=== PATIENT | female | born 1935 | race Caucasian/White ===

== ENCOUNTER 2023-07-06 07:29 | Outpatient (OUT) | payer MEDICARE, SELFPAY ==
--- NOTE | 2023-07-06 07:30 | CA_ITS ---
Patient Name: SANIYA ZHANG MR#: [id number] : 1935 Exam Date: 07/06/2023 Ordering Doctor: DR ANA GUADALUPE M.D. ECHOCARDIOGRAM REPORT PROCEDURE: CA ECHO DOPPLER COMPLETE INDICATIONS: Murmur COMPARISON: None. DESCRIPTION: COMPLETE ECHOCARDIOGRAM Real-time transthoracic echocardiography with 2D, M-mode, spectral and color flow Doppler performed. QUALITY: Technical quality was good. 64 , 130#, BSA 1.63 m2, BP 148/92 LEFT VENTRICLE: Normal chamber size. Thickened septal wall. Moderate concentric hypertrophy. Normal systolic function. LV EF: Normal left ventricular ejection fraction, (>55%). DIASTOLIC: Grade I diastolic dysfunction. ATRIAL SEPTUM: Visually appears intact. LEFT ATRIUM: Moderate dilatation. RIGHT ATRIUM: Normal chamber size. RIGHT VENTRICLE: Normal chamber size. Normal right ventricular systolic function. TRICUSPID VALVE: Normal mobility and thickness. No stenosis with mild regurgitation. Doppler studies reveal mildly (35-45) elevated right sided pressures. RVSP 38 mmHg MITRAL VALVE: Mildly thickened with normal mobility. No evidence of mitral valve stenosis. Moderate mitral annular calcification. Trivial mitral regurgitation. AORTIC VALVE: Normal trileaflet appearance. Moderately calcified aortic valve. Moderately diminished mobility. Doppler velocity suggests moderate aortic valve stenosis. DVI 0.38, mean gradient 10 mmHg, peak velocity 2.2 m/s. SOHAM 1.1 cm2. No aortic regurgitation. AORTIC ROOT: Normal diameter and appearance. PULMONIC VALVE: Normal thickness and mobility. No stenosis. Trivial regurgitation. PERICARDIUM: Trivial pericardial effusion. IVC: Collapses with inspirations. IVC is normal in size. PLEURA: CONCLUSION: 1. The left ventricle exhibits moderate concentric hypertrophy with normal systolic function. Estimated LVEF is 60 to 65%. 2. Normal right ventricular size and systolic function. 3. Moderate aortic valve stenosis. 4. Mild diastolic dysfunction. 5. Mildly elevated right-sided pressures. Adult Echocardiography Procedure Report Left Ventricle LVEDD (3.7 - 5.6 cm): 4.07 cm LVESD (2.2 - 4.0 cm): 2.82 cm LVIVS thickness (0.6 - 1.2 cm): 1.59 cm LVPW thickness (0.5 - 1.0 cm): 1.09 cm e': 0.05 m/s E - e': 12.18 LVOT Max Gradient: 2.75 mm[Hg] Peak Velocity (LVOT): 0.83 m/s Mean Velocity (LVOT): 0.55 m/s LVOT Diameter 1.9 cm Left Atrium LA Volume Index (2D A2C): 41.08 ml/m2 Left Atrium Systolic Dimension: 3.79 cm Mitral Valve MV E to A Ratio: 0.64 Mitral Valve A-Wave Peak Velocity: 0.94 m/s Mitral Valve E-Wave Peak Velocity: 0.60 m/s Right Ventricle Aorta AO Root Diam: 3.42 cm Ascending Ao Diam: 3.30 cm Aortic Valve AoV Area (Peak Elian): 1.1 cm2 Peak Velocity(Antegrade Flow): 2.19 m/s Peak Gradient(Antegrade Flow): 19.18 mm[Hg] Mean Velocity(Antegrade Flow): 1.45 m/s Mean Gradient(Antegrade Flow): 9.51 mm[Hg] Velocity Time Integral: 52.82 cm Tricuspid Valve Peak Velocity (Regurgitant Flow): 2.42 m/s, 2.97 m/s Pulmonic Valve Peak Gradient: 2.41 mm[Hg], 2.47 mm[Hg] Right Atrium Right Atrium Systolic Pressure: 45.08 ml, 45.08 ml Dictated by: Gen Strange M.D. on 07/06/2023 at 16:35 Approved by: Gen Strange M.D. on 07/06/2023 at 16:46
== END 2023-07-06 07:30 | disposition home or self-care (01) ==
LOC: CARD 07:29
PROVIDERS: PCP Internal Medicine; Visit Provider Internal Medicine
DX: R01.1 Cardiac murmur, unspecified (principal)
CPT/HCPCS: 93306

== ENCOUNTER 2023-07-06 07:32 | Outpatient (OUT) | payer MEDICARE, SELFPAY ==
[2023-07-06 09:26] LABS: Sodium 144 mmol/L (136-145); Thyroid Stimulating Hormone 4.493 uIU/mL (0.358-3.740)
== END 2023-07-06 07:33 | disposition home or self-care (01) ==
LOC: LAB 07:33
PROVIDERS: PCP Internal Medicine; Visit Provider Nurse Practitioner Family
DX: G31.84 Mild cognitive impairment of uncertain or unknown etiology (principal); Z79.899 Other long term (current) drug therapy; Z51.81 Encounter for therapeutic drug level monitoring
CPT/HCPCS: 36415; 82607; 84295; 84443

== ENCOUNTER 2023-08-01 12:45 | Inpatient (IN) | payer MEDICARE, SELFPAY ==
[2023-08-01] VITALS (19 sets, daily range): BP systolic 123–188; BP diastolic 66–94; PULSE 73–94; TEMP 36.6–36.8; O2SAT 90–99; BMI 22.3; BMI 22.1
--- NOTE | 2023-08-01 13:07 | CT_ITS ---
The [address] [address] Patient Name: SANIYA ZHANG MRN: [id number] date: 1935 Sex: F Assigned Patient Location: ER Current Patient Location: ER Accession/Order Number: [id number] Exam Date: 08/01/2023 14:08 Report Date: 08/01/2023 14:42 At the request of: DEEPTHI CALABRESE Procedure: CT cervical spine wo con CT head/brain wo con, CT cervical spine wo con, 08/01/2023 2:08 PM EDT INDICATION: Fall COMPARISON: There is no appropriate prior study for comparison. TECHNIQUE: Axial images of 3 mm are obtained from the base of the skull to vertex completed with Axial images of 2 mm are obtained from base of skull to T2 without contrast. Dose reduction techniques were achieved by using automated exposure control and/or adjustment of mA and/or kV according to patient size and/or use of iterative reconstruction technique. FINDINGS: The cerebral and cerebellar sulci as well as ventricular system are appropriate for age. There is no intracranial mass, mass effect, midline shift, intra or extra-axial fluid collection. No acute territorial infarction or hemorrhage is noted. Periventricular and centrum semiovale hypodensities are most likely consistent with microvascular ischemic changes. Mild soft tissue swelling along the right eyebrow with a laceration is noted. The visualized portions of orbits, mastoid air cells as well as paranasal sinuses are unremarkable. There is no suspicious osteolytic or osteoblastic lesion. No acute fracture or dislocation is noted. Grade 1 anterolisthesis of C4 on C5 likely degenerative. Multilevel degenerative changes of cervical spine are noted. Moderate degenerative changes of bilateral TMJs. CT/CT cervical spine wo con IMPRESSION: No acute intracranial process is identified. No acute fracture. Electronically authenticated by: ERNESTO RAMEY Date: 08/01/2023 14:42
--- NOTE | 2023-08-01 13:07 | XR_ITS ---
The [address] [address] Patient Name: SANIYA ZHANG MRN: [id number] date: 1935 Sex: F Assigned Patient Location: ER Current Patient Location: ER Accession/Order Number: [id number] Exam Date: 08/01/2023 14:10 Report Date: 08/01/2023 14:32 At the request of: DEEPTHI CALABRESE Procedure: XR chest 1V EXAMINATION: XR chest 1V HISTORY: Fall COMPARISON: All TECHNIQUE: AP supine FINDINGS: LUNGS: No significant pulmonary parenchymal abnormalities. VASCULATURE: No increased pulmonary vasculature. PLEURA: No pneumothorax, effusion, or pleural thickening. CARDIAC: No cardiomegaly or cardiac silhouette abnormality. MEDIASTINUM: No visible mass or adenopathy. Aortic atherosclerosis BONES: No fracture or visible bone lesion. OTHER: Negative. XR/XR chest 1V IMPRESSION: No acute disease. Electronically authenticated by: SRINIVASA ECHAVARRIA Date: 08/01/2023 14:32
--- NOTE | 2023-08-01 13:07 | CT_ITS ---
[address] [address] Patient Name: SANIYA ZHANG MRN: [facility]:[id number] date: 1935 Sex: F Assigned Patient Location: ER Current Patient Location: ER Accession/Order Number: [id number] Exam Date: 08/01/2023 14:08 Report Date: 08/01/2023 14:43 At the request of: DEEPTHI CALABRESE Procedure: CT lumbar spine wo con EXAMINATION: CT lumbar spine wo con HISTORY: fall COMPARISON: No relevant comparison available. TECHNIQUE: Axial, Coronal, and Sagittal CT images were created without I.V. contrast material. Dose reduction techniques were achieved by using automated exposure control and/or adjustment of mA and/or kV according to patient size and/or use of iterative reconstruction technique. FINDINGS: PARASPINAL AREA: Normal with no visible mass. 6.8 cm cystic lesion partially visualized left upper pole kidney. Extensive calcific atherosclerosis BONES: 5 mm anterolisthesis of L3 in relation L4. No acute fracture. Mild to moderate degenerative spondylosis and facet osteoarthropathy DISC LEVELS: 12-L1: No significant disc/facet abnormality, spinal stenosis, or foraminal stenosis. L1-L2: No significant disc/facet abnormality, spinal stenosis, or foraminal stenosis. L2-L3: Disc space narrowing. Posterior broad-based disc herniation extending 3.5 mm posteriorly best seen on sagittal image 19. No central or foraminal stenosis L3-L4: 5 mm anterolisthesis of L3 on L4. Moderate disc space narrowing with endplate sclerosis. Moderate diffuse bulge/pseudobulge with facet osteoarthropathy. No central canal stenosis. Mild right and minimal left foraminal stenosis L4-L5: Moderate disc space narrowing and disc desiccation with collapse along the right side with endplate sclerosis and vacuum disc. Moderate diffuse disc/osteophyte complex with facet osteoarthropathy. Mild narrowing of the right neural foramen with mild left foraminal stenosis L5-S1: Early degenerative disc disease is present without focal protrusion or neural impingement. CT/CT lumbar spine wo con IMPRESSION: No acute traumatic abnormality 5 mm anterolisthesis of L3 on L4 Degenerative changes with right L3-4 and L4-L5 foraminal stenosis Electronically authenticated by: SRINIVASA ECHAVARRIA Date: 08/01/2023 14:43
--- NOTE | 2023-08-01 13:07 | ECG_ITS ---
The [facility] Test Date: 2023-08-01 Pat Name: SANIYA ZHANG Department: Room: - Gender: Female Sales Coach: : 1935 Requested By: ANA GUADALUPE Order Number: [id number] Reading MD: THIEN QUICK Measurements Intervals [place] Rate: 80 P: 85 MN: 148 QRS: 30 QRSD: 86 T: 72 QT: 400 QTc: 435 Interpretive Statements 1100 Sinus rhythm 1474 with frequent supraventricular premature complexes 9140 abnormal rhythm ECG Compared to ECG 03/18/2021 17:06:48 Sinus tachycardia no longer present Electronically Signed On 08-02-2023 14:23:43 EDT by THIEN QUICK
--- NOTE | 2023-08-01 13:07 | XR_ITS ---
The [address] [address] Patient Name: SANIYA ZHANG MRN: [id number] date: 1935 Sex: F Assigned Patient Location: ER Current Patient Location: ER Accession/Order Number: [id number] Exam Date: 08/01/2023 14:10 Report Date: 08/01/2023 14:34 At the request of: DEEPTHI CALABRESE Procedure: XR wrist RT min 3V PROCEDURE: XR wrist RT min 3V COMPARISON: Trauma, pain HISTORY: fall FINDINGS: BONES:No acute fracture or dislocation. Moderate degenerative changes with joint space narrowing. Chondrocalcinosis. Subtle lucency in the scaphoid does not extend to the cortex and likely represents artifact SOFT TISSUES:Negative. No visible soft tissue swelling. EFFUSION:None visible. OTHER: Negative. XR/XR wrist RT min 3V IMPRESSION: No definite acute fracture Electronically authenticated by: SRINIVASA ECHAVARRIA Date: 08/01/2023 14:34
--- NOTE | 2023-08-01 13:08 | CT_ITS ---
The [address] [address] Patient Name: SANIYA ZHANG MRN: [id number] date: 1935 Sex: F Assigned Patient Location: ER Current Patient Location: ER Accession/Order Number: [id number] Exam Date: 08/01/2023 14:08 Report Date: 08/01/2023 14:42 At the request of: DEEPTHI CALABRESE Procedure: CT head/brain wo con CT head/brain wo con, CT cervical spine wo con, 08/01/2023 2:08 PM EDT INDICATION: Fall COMPARISON: There is no appropriate prior study for comparison. TECHNIQUE: Axial images of 3 mm are obtained from the base of the skull to vertex completed with Axial images of 2 mm are obtained from base of skull to T2 without contrast. Dose reduction techniques were achieved by using automated exposure control and/or adjustment of mA and/or kV according to patient size and/or use of iterative reconstruction technique. FINDINGS: The cerebral and cerebellar sulci as well as ventricular system are appropriate for age. There is no intracranial mass, mass effect, midline shift, intra or extra-axial fluid collection. No acute territorial infarction or hemorrhage is noted. Periventricular and centrum semiovale hypodensities are most likely consistent with microvascular ischemic changes. Mild soft tissue swelling along the right eyebrow with a laceration is noted. The visualized portions of orbits, mastoid air cells as well as paranasal sinuses are unremarkable. There is no suspicious osteolytic or osteoblastic lesion. No acute fracture or dislocation is noted. Grade 1 anterolisthesis of C4 on C5 likely degenerative. Multilevel degenerative changes of cervical spine are noted. Moderate degenerative changes of bilateral TMJs. CT/CT head/brain wo con IMPRESSION: No acute intracranial process is identified. No acute fracture. Electronically authenticated by: ERNESTO RAMEY Date: 08/01/2023 14:42
--- NOTE | 2023-08-01 13:10 | ED.GENADUL1 ---
HPI HPI - General Adult General Chief complaint: Fall Stated complaint: FALL/HEAD INJURY Time Seen by Provider: 08/01/23 13:03 Source: patient Mode of arrival: ambulance Limitations: physical limitation History of Present Illness HPI narrative: Patient is an 88-year-old female who brought to the emergency department by EMS for evaluation of an injury to the right side after falling at home. She states that she tripped and fell, although she does not know exactly what caused her to fall. She laid on the ground in her garage for approximately 30 minutes before a Neighbor called 911. Patient sustained a small laceration to the right eyebrow, she does not remember hitting her head. She denies neck or upper back pain, she has mild pain to the right wrist but complains of most of her pain in the right hip where she is noted to have shortening of the right lower extremity. Fentanyl was given by EMS prior to arrival with minimal improvement. Patient does not take any blood thinners, she states she only takes a multivitamin daily. Related Data Allergies Allergy/AdvReac Type Severity Reaction Status Date / Time No Known Drug Allergies Allergy Verified 08/01/23 12:51 Opioid HPI Opioid Management Most Recent Opioid Data: Last ED Pain Assessment 08/01/23 14:09 Review of Systems ROS Constitutional Denies: fever or chills Ears, nose, mouth, and throat Denies: throat pain or nasal congestion Cardiovascular Denies: chest pain Respiratory Denies: shortness of breath Gastrointestinal Denies: nausea or vomiting Musculoskeletal Reports: back pain, extremity pain, joint pain and limited range of motion; Denies: neck pain or extremity swelling Integumentary/Breast Denies: rash Neurological Denies: headache Hematologic/Lymphatic Denies: easy bruising or easy bleeding Exam Narrative Exam Narrative: Gen.: Awake, alert, in no distress Head: Normocephalic ENT: Moist mucous membranes, 0.5 cm laceration of the right eyebrow, no deep laceration or active bleeding noted. No Hood sign or raccoon eyes. No dental injury. Respiratory: No respiratory distress, lungs clear bilaterally; Chest wall is nontender Cardio: Regular rate and rhythm Gastrointestinal: Abdomen is soft, nondistended and nontender to palpation; Pelvis is stable, right hip is tender Extremities: Mild tenderness of the right wrist, no obvious deformity or swelling. Tenderness of the right hip with shortening of the right lower extremity, patient resting with hip flexed. No bony tenderness of the right ankle or knee. 2+ DP pulses bilaterally. Psych: Normal mood and affect Neuro: No focal neuro deficit Skin: Warm, dry, intact Constitutional Vital Signs, click to edit/add: Last Vital Signs Temp 98.3 F 08/01/23 12:46 Pulse 94 H 08/01/23 12:46 Resp 18 08/01/23 12:46 BP 188/91 H 08/01/23 12:46 Pulse Ox 98 08/01/23 12:46 O2 Del Method Room Air 08/01/23 12:46 Course Vital Signs Vital signs: Vital Signs Temperature 98.3 F 08/01/23 12:46 Pulse Rate 94 H 08/01/23 12:46 Respiratory Rate 18 08/01/23 12:46 Blood Pressure 188/91 H 08/01/23 12:46 Pulse Oximetry 98 08/01/23 12:46 Oxygen Delivery Method Room Air 08/01/23 12:46 Temperature 98.3 F 08/01/23 12:46 Pulse Rate 94 H 08/01/23 12:46 Respiratory Rate 18 08/01/23 12:46 Blood Pressure 188/91 H 08/01/23 12:46 Pulse Oximetry 98 08/01/23 12:46 Oxygen Delivery Method Room Air 08/01/23 12:46 Medical Decision Making MDM Narrative Medical decision making narrative: Patient medicated with Dilaudid, fentanyl and Norflex in the ER, she is resting much more comfortably. Reed catheter was placed and patient was sent for CTs of the head, C-spine, lumbar spine and pelvis. X-rays of the chest and wrist are unremarkable. EKG was obtained, Labs obtained and urine sent. CT of the pelvis shows the patient has [place] neck fracture. She last ate popcorn about 2 hours ago. Family is at bedside for discussion of results and I contacted Dr. Lo for orthopedics who requested the patient be n.p.o. after midnight, no Lovenox or heparin administered and he will see the patient tomorrow for probable surgery Tomorrow afternoon. He requested AP and lateral hip xrays which were ordered as well. Admitted to hospitalist, Dr Sweeney. Medical Records Medical records reviewed: Yes I reviewed the patient's medical records Lab Data Lab results reviewed: Yes I reviewed the patient's lab results Labs: Lab Results 08/01/23 Range/Units 13:29 WBC 8.2 (4.0-11.0) 10^3/uL RBC 4.78 (4.20-5.40) 10^6/uL Hgb 14.0 (12.0-16.0) g/dL Hct 40.9 (36.0-48.0) % MCV 85.6 (81.0-99.0) fL MCH 29.3 (26.7-34.0) pg MCHC 34.2 (29.9-35.2) g/dL RDW 12.6 (11.0-15.0) % Plt Count 219 (150-450) 10^3/uL MPV 9.3 L (9.5-13.5) fL Neut % (Auto) 79.4 H (43.0-75.0) % Lymph % (Auto) 11.4 L (20.5-60.0) % [place] % (Auto) 7.7 (1.7-12.0) % Eos % (Auto) 0.5 L (0.9-7.0) % Baso % (Auto) 0.4 (0.2-2.0) % Neut # (Auto) 6.5 (1.4-6.5) 10^3/uL Lymph # (Auto) 0.9 L (1.2-3.8) 10^3/uL [place] # (Auto) 0.6 (0.3-0.8) 10^3/uL Eos # (Auto) 0.0 (0.0-0.7) 10^3/uL Baso # (Auto) 0.0 (0.0-0.1) 10^3/uL Abs Immat Gran (auto) 0.05 H (0.00-0.03) 10^3/uL Imm/Tot Granulo (auto) 0.6 H (0.0-0.5) % PT 11.5 (9.0-11.6) sec INR 1.09 Sodium 140 (136-145) mmol/L Potassium 3.2 L (3.5-5.1) mmol/L Chloride 105 (98-107) mmol/L Carbon Dioxide 24.9 (21.0-32.0) mmol/L Anion Gap 13.3 BUN 16.0 (7.0-18.0) mg/dL Creatinine 0.99 (0.55-1.02) mg/dL Est GFR ( Amer) >60 (>=60) Est GFR (Non-Af Amer) 53 L (>=60) BUN/Creatinine Ratio 16.2 Glucose 103 (74-106) mg/dL Calcium 10.2 H (8.5-10.1) mg/dL Total Bilirubin 0.9 (0.2-1.0) mg/dL AST 52 H (15-37) U/L ALT 25 (14-59) U/L Alkaline Phosphatase 72 (46-116) U/L Troponin I High Sens 7.8 (4.0-51.3) pg/mL Total Protein 7.2 (6.4-8.2) g/dL Albumin 4.0 (3.4-5.0) g/dL Globulin 3.2 g/dL Albumin/Globulin Ratio 1.[address] scan - head: Attestation: I have reviewed the pertinent imaging results. Radiologist's impression: ITS Impressions Cervical Spine CT 08/01/23 13:07 IMPRESSION: No acute intracranial process is identified. No acute fracture. Electronically authenticated by: ERNESTO RAMEY Date: 08/01/2023 14:42 Chest X-Ray 08/01/23 13:07 IMPRESSION: No acute disease. Electronically authenticated by: SRINIVASA ECHAVARRIA Date: 08/01/2023 14:[address] 08/01/23 13:07 IMPRESSION: No acute traumatic abnormality 5 mm anterolisthesis of L3 on L4 Degenerative changes with right L3-4 and L4-L5 foraminal stenosis Electronically authenticated by: SRINIVASA ECHAVARRIA Date: 08/01/2023 14:43 Wrist X-Ray 08/01/23 13:07 IMPRESSION: No definite acute fracture Electronically authenticated by: SRINIVASA ECHAVARRIA Date: 08/01/2023 14:[address] 08/01/23 13:08 IMPRESSION: No acute intracranial process is identified. No acute fracture. Electronically authenticated by: ERNESTO RAMEY Date: 08/01/2023 14:[address] 08/01/23 14:10 IMPRESSION: Acute right subcapital/femoral neck fracture Electronically authenticated by: SRINIVASA ECHAVARRIA Date: 08/01/2023 14:38 ECG Data Attestation: I personally reviewed and interpreted this ECG as follows: (Normal sinus rhythm at a rate of 80 with frequent PVCs, no acute ST elevation. EKG reviewed by attending physician) Discharge Plan Discharge Chief Complaint: Fall Clinical Impression: Fall, Closed fracture of right hip Patient Disposition: Admitted As Inpatient Time of Disposition Decision: 15:00 Condition: Good Print Language: Bulgarian Referrals: ANA GUADALUPE [Primary Care Provider] - 1 week
[2023-08-01] MEDS: HYDROMORPHONE HCL 0.5 MG/0.5 ML SYRINGE IV ×2 (13:21→17:50)
[2023-08-01] MEDS: 0.9 % SODIUM CHLORIDE 1,000 ML 500 ML IV (13:22)
[2023-08-01 13:36] LABS: Basophils Percent Auto 0.4 % (0.2-2.0); Eosinophils Percent Auto 0.5 % (0.9-7.0); Hematocrit 40.9 % (36.0-48.0); Immature Granulocytes Abs Auto 0.05 10^3/uL (0.00-0.03); Immature Granulocytes Pct Auto 0.6 % (0.0-0.5); Lymphocytes Absolute Auto 0.9 10^3/uL (1.2-3.8); Lymphocytes Percent Auto 11.4 % (20.5-60.0); Mean Corpuscular HGB Conc 34.2 g/dL (29.9-35.2); Mean Corpuscular Hemoglobin 29.3 pg (26.7-34.0); Mean Corpuscular Volume 85.6 fL (81.0-99.0); Mean Platelet Volume 9.3 fL (9.5-13.5); Monocytes Absolute Auto 0.6 10^3/uL (0.3-0.8); Monocytes Percent Auto 7.7 % (1.7-12.0); Neutrophils Absolute Auto 6.5 10^3/uL (1.4-6.5); Neutrophils Percent Auto 79.4 % (43.0-75.0); Platelet Count 219 10^3/uL (150-450); Red Blood Count 4.78 10^6/uL (4.20-5.40); Red Cell Distribution Width 12.6 % (11.0-15.0); White Blood Count 8.2 10^3/uL (4.0-11.0)
[2023-08-01 13:51] LABS: INR 1.09; Prothrombin Time 11.5 sec (9.0-11.6)
[2023-08-01] MEDS: FENTANYL CITRATE/PF 100 MCG/2 ML VIAL 50 MCG IV ×2 (13:55→15:12)
[2023-08-01] MEDS: ORPHENADRINE 60 MG/ 2 ML VIAL IV (13:55)
--- NOTE | 2023-08-01 14:10 | CT_ITS ---
[address] [address] Patient Name: SANIYA ZHANG MRN: [id number] date: 1935 Sex: F Assigned Patient Location: ER Current Patient Location: ER Accession/Order Number: [id number] Exam Date: 08/01/2023 14:08 Report Date: 08/01/2023 14:38 At the request of: DEEPTHI CALABRESE Procedure: CT pelvis wo con EXAMINATION: CT pelvis wo con HISTORY: fall COMPARISON: No relevant comparison available. TECHNIQUE: Multi-planar CT images were created without IV contrast. Dose reduction techniques were achieved by using automated exposure control and/or adjustment of mA and/or kV according to patient size and/or use of iterative reconstruction technique. FINDINGS: BONES: Acute right subcapital/femoral neck fracture with 1.8 cm cranial displacement of the diaphysis in relation to the femoral head. Moderate bilateral hip osteoarthropathy with joint space narrowing and marginal osteophyte formation. No dislocation. Moderate degenerative changes of the spine SOFT TISSUES: Negative. No visible soft tissue swelling. EFFUSION: None visible. OTHER: Balloon catheter within the urinary bladder. Moderate atherosclerosis CT/CT pelvis wo con IMPRESSION: Acute right subcapital/femoral neck fracture Electronically authenticated by: SRINIVASA ECHAVARRIA Date: 08/01/2023 14:38
[2023-08-01 14:13] LABS: Alanine Aminotransferase 25 U/L (14-59); Albumin Globulin Ratio 1.3; Alkaline Phosphatase 72 U/L (46-116); Anion Gap 13.3; Aspartate Amino Transferase 52 U/L (15-37); BUN Creatinine Ratio 16.2; Bilirubin Total 0.9 mg/dL (0.2-1.0); Calcium 10.2 mg/dL (8.5-10.1); Carbon Dioxide 24.9 mmol/L (21.0-32.0); Chloride 105 mmol/L (98-107); Estimated GFR (African America >60 (>=60); Estimated GFR (Non-African Ame 53 (>=60); Globulin 3.2 g/dL; Glucose 103 mg/dL (74-106); Potassium 3.2 mmol/L (3.5-5.1); Sodium 140 mmol/L (136-145); Total Protein 7.2 g/dL (6.4-8.2); Troponin I High Sensitivity 7.8 pg/mL (4.0-51.3)
[2023-08-01 14:25] LABS: Bilirubin Urine NEGATIVE (NEGATIVE); Blood Urine NEGATIVE (NEGATIVE); Clarity Urine CLEAR (CLEAR); Color Urine LT. YELLOW (YELLOW); Glucose Urine UA NEGATIVE (NEGATIVE); Ketones Urine NEGATIVE (NEGATIVE); Leukocyte Esterase Urine NEGATIVE (NEGATIVE); Nitrite Urine NEGATIVE (NEGATIVE); Protein Urine NEGATIVE (NEG/TRACE); Specific Gravity Urine 1.015 (1.005-1.025); Urobilinogen Urine 0.2 EU/dL (0.2-1.0)
[2023-08-01 14:26] LABS: Urine Microscopic Indicated NO
--- NOTE | 2023-08-01 14:51 | XR_ITS ---
The [address] [address] Patient Name: SANIYA ZHANG MRN: [id number] date: 1935 Sex: F Assigned Patient Location: MS Current Patient Location: MS Accession/Order Number: [id number] Exam Date: 08/01/2023 16:55 Report Date: 08/01/2023 17:57 At the request of: DEEPTHI CALABRESE Procedure: XR hip RT min 2V EXAM: XR hip RT min 2V HISTORY: The patient is an 88-year-old female, pre-op COMPARISON: CT scan from earlier today. XR/XR hip RT min 2V IMPRESSION: Again seen is the subcapital fracture of the right femoral neck. No other fractures or dislocations are seen within or around the right hip. Electronically authenticated by: FAROOQ HOYOS Date: 08/01/2023 17:57
[2023-08-01] MEDS: ADACEL DIPH,PERTUSS(ACELL),TET VAC/PF 0.5 ML ADULT SYRINGE IM (15:41)
[2023-08-01] MEDS: BACITRACIN 0.9 GM PACKET 1 PACKET TOPICAL (15:41)
[2023-08-01] MEDS: ACETAMINOPHEN 500 MG TABLET 1000 MG PO (17:50)
[2023-08-01] MEDS: LACTATED RINGER'S SOLUTION 1,000 ML 50 ML IV (17:51)
--- NOTE | 2023-08-01 18:10 | P.HP_ITS ---
HPI H&P: HPI History of Present Illness Chief complaint: FALL/HEAD INJURY, Right Hip Fracture Narrative: Patient sustained a fall at home. Had severe onset of pain. Right hip. Never right hip fracture. Patient is admitted for workup and treatment of same. I saw patient upon the medical surgical floor, she was in moderate painful distress, does recall the events earlier in the day, denies any chest pain, shortness of breath, syncope. Just a fall. Opioid HPI Opioid Management Most Recent Opioid Data: Last Pain Scale 7 08/01/23 17:50 Last ED Pain Assessment 08/01/23 14:09 Last MAR Pain Assessment 08/01/23 17:50 Review of Systems ROS Status of ROS 10 or more systems reviewed and unremark able except as noted in history and [facility] Social History (Updated 08/01/23 @ 17:11 by Monserrat Farias) Smoking status: Never smoker Non-prescribed substance use: denies use Previous occupational history: house Highest level of school completed/degree received: high school graduate Meds Home Medications and Allergies Home Medications ?Medication ?Instructions ?Recorded ?Confirmed ?Type aspirin 81 mg tablet,delayed 81 mg PO DAILY 08/01/23 08/01/23 History release sertraline 25 mg tablet 25 mg PO DAILY 08/01/23 08/01/23 History Allergies Allergy/AdvReac Type Severity Reaction Status Date / Time No Known Drug Allergies Allergy Verified 08/01/23 12:51 Exam Constitutional Vital Signs, click to edit/add: Last Vital Signs Temp 98.1 F 08/01/23 17:06 Pulse 84 08/01/23 17:06 Resp 18 08/01/23 17:06 BP 180/77 H 08/01/23 17:06 Pulse Ox 91 L 08/01/23 17:06 O2 Del Method Room Air 08/01/23 17:06 Documenting provider has reviewed patient's vital signs: yes Common normals: apparent distress (Moderate painful distress) Exam limitations: no altered mental status General appearance: cooperative; not comfortable HENAR Common normals: normocephalic Chest Common normals: inspection of chest normal and palpation of chest normal Respiratory Common normals: normal respiratory effort and no retractions Cardio Common normals: regular rate and regular rhythm; murmurs detected Heart sounds: murmur (4/6 systolic ejection murmur) GI Common normals: Normal to inspection, nondistended, normoactive bowel sounds present Extremity Common normals: normal to inspection (Deferred on moving hip secondary to fracture) and no clubbing, cyanosis or edema Results Labs Labs: Short CBC 08/01/23 Range/Units 13:29 WBC 8.2 (4.0-11.0) 10^3/uL Hgb 14.0 (12.0-16.0) g/dL Hct 40.9 (36.0-48.0) % Plt Count 219 (150-450) 10^3/uL BMP 08/01/23 13:29 Sodium 140 Potassium 3.2 L Chloride 105 Carbon Dioxide 24.9 BUN 16.0 Creatinine 0.99 Glucose 103 Calcium 10.2 H Liver Function 08/01/23 Range/Units 13:29 Total Bilirubin 0.9 (0.2-1.0) mg/dL AST 52 H (15-37) U/L ALT 25 (14-59) U/L Alkaline Phosphatase 72 (46-116) U/L Albumin 4.0 (3.4-5.0) g/dL Urine 08/01/23 Range/Units 14:05 Urine Color Lt. yellow (YELLOW) Urine Clarity Clear (CLEAR) Urine pH 8.0 (5.0-9.0) Ur Specific [place] 1.015 (1.005-1.025) Urine Protein Negative (NEG/TRACE) mg/dL Urine Glucose (UA) Negative (NEGATIVE) mg/dL Assessment and Plan Assessment and Plan (1) Closed fracture of right hip: (2) Fall: (3) Cardiac murmur: Plan Right hip fracture-plan per orthopedics. Holding off on heparin/Lovenox. Surgery tomorrow. N.p.o. at midnight. Heart murmur-she has been told she has had a murmur in the past. Had evaluation fairly recently. Unable to find report in our computer system. Will try to access it through Dr. Domínguez's office. Some mild anxiety-will continue with her home medications. Hold off on aspirin therapy Admission status: Patient with surgical intervention tomorrow. Medically necessary treatment will span 2 midnights. Inpatient status. Urinary Catheter Management Urinary Catheter Management Urethral: Cath placed during this visit: yes Urethral indwelling: No Insertion date: 08/01/23 Insertion time: 14:11
[2023-08-02] VITALS (24 sets, daily range): BP systolic 106–143; BP diastolic 48–72; PULSE 63–108; TEMP 36.1–37; O2SAT 81–98
[2023-08-02] MEDS: HYDROMORPHONE HCL 0.5 MG/0.5 ML SYRINGE IV ×4 (00:13→08:52)
[2023-08-02 04:51] LABS: Basophils Percent Auto 0.3 % (0.2-2.0); Eosinophils Absolute Auto 0.1 10^3/uL (0.0-0.7); Eosinophils Percent Auto 0.7 % (0.9-7.0); Hemoglobin 12.8 g/dL (12.0-16.0); Immature Granulocytes Abs Auto 0.04 10^3/uL (0.00-0.03); Immature Granulocytes Pct Auto 0.4 % (0.0-0.5); Lymphocytes Absolute Auto 1.4 10^3/uL (1.2-3.8); Lymphocytes Percent Auto 15.5 % (20.5-60.0); Mean Corpuscular HGB Conc 34.6 g/dL (29.9-35.2); Mean Corpuscular Hemoglobin 29.9 pg (26.7-34.0); Mean Corpuscular Volume 86.4 fL (81.0-99.0); Mean Platelet Volume 9.1 fL (9.5-13.5); Monocytes Absolute Auto 0.9 10^3/uL (0.3-0.8); Neutrophils Absolute Auto 6.7 10^3/uL (1.4-6.5); Neutrophils Percent Auto 73.1 % (43.0-75.0); Platelet Count 185 10^3/uL (150-450); Red Blood Count 4.28 10^6/uL (4.20-5.40); Red Cell Distribution Width 12.9 % (11.0-15.0); White Blood Count 9.2 10^3/uL (4.0-11.0)
[2023-08-02 05:15] LABS: Alanine Aminotransferase 22 U/L (14-59); Albumin Globulin Ratio 1.2; Albumin Level 3.4 g/dL (3.4-5.0); Alkaline Phosphatase 58 U/L (46-116); Anion Gap 13.9; Aspartate Amino Transferase 42 U/L (15-37); BUN Creatinine Ratio 13.8; Bilirubin Total 1.2 mg/dL (0.2-1.0); Calcium 9.4 mg/dL (8.5-10.1); Carbon Dioxide 23.5 mmol/L (21.0-32.0); Chloride 105 mmol/L (98-107); Estimated GFR (African America >60 (>=60); Estimated GFR (Non-African Ame >60 (>=60); Globulin 2.8 g/dL; Glucose 90 mg/dL (74-106); Potassium 3.4 mmol/L (3.5-5.1); Sodium 139 mmol/L (136-145); Total Protein 6.2 g/dL (6.4-8.2)
--- NOTE | 2023-08-02 08:39 | CM.NOTE ---
Rounds made with Dr. Sweeney, pt will go to OR today for R hip fx. PT will evaluate pt after OR for further recommendations regarding discharge planning.
[2023-08-02] MEDS: SERTRALINE HCL 50 MG TABLET 25 MG PO (08:51)
[2023-08-02] MEDS: ACETAMINOPHEN 500 MG TABLET 1000 MG PO (08:51)
--- NOTE | 2023-08-02 09:29 | P.PN_ITS ---
<Statement entered by Cecil Sweeney MD - 08/03/23 06:52> This documentation has been reviewed and approved. Patient seen and evaluated in her room. Seems comfortable from a pain standpoint. Agree with input and findings provided by nurse practitioners notations. Additional diagnosis: Uncontrolled hypertension on admission-improving. HYpokaemia - Resolved Progress Note: Subjective Subjective Interval history: 08/02/23 0900 The patient is resting in bed using her OPEP and visiting with her family. She reports her hip pain is still there but adequately controlled. She denies any shortness of breath, chest pain, N/V or any other acute complaint. ORIF of her right hip fracture is planned later today per orthopedics. We have received and reviewed a recent 2D Echo obtained in July which reveals preserved LVEF of 60- 65%, Grade 1 diastolic dysfunction, Mild RVSP, and Mod aortic stenosis. She is medically stable for surgery. Exam Constitutional Vital Signs, click to edit/add: Last Vital Signs Temp 98.6 F 08/02/23 08:58 Pulse 72 08/02/23 08:58 Resp 18 08/02/23 08:58 BP 129/67 08/02/23 08:58 Pulse Ox 94 L 08/02/23 08:58 O2 Del Method Room Air 08/02/23 08:58 Common normals: no apparent distress, oriented x3 and alert General appearance: cooperative Orientation/consciousness: Yes awake HENIL Common normals: normocephalic, head/scalp atraumatic and hearing grossly normal bilaterally Eye Common normals: PERRL, EOMs intact bilaterally, conjunctivae normal and no scleral icterus General eye: normal appearance of both eyes Chest Common normals: inspection of chest normal Chest: symmetrical chest wall rise Respiratory Common normals: normal respiratory effort, no use of accessory muscles and clear to auscultation bilaterally Effort & inspection: able to speak in complete sentences Cardio Common normals: regular rate, regular rhythm, S1 normal heart sound, S2 normal heart sound and peripheral pulses 2+ throughout Heart sounds: murmur (HSM 3/6) GI Common normals: Normal to inspection, nondistended, normoactive bowel sounds present, soft to palpation, non-tender and no hepatosplenomegaly Bladder/kidney exam: bladder normal to palpation Extremity Common normals: normal to inspection and no calf tenderness General: no clubbing, no cyanosis and no edema Right lower extremity: hip joint (Tender, minimal ROM 2/2 fracture/pain) Neuro Common normals: CN's II-XII intact bilaterally, moves all extremities, no focal motor deficits and no sensory deficits noted Psych Common normals: mental status grossly normal Progress Note: Objective Labs Labs: Short CBC 08/01/23 08/02/23 Range/Units 13:29 04:39 WBC 8.2 9.2 (4.0-11.0) 10^3/uL Hgb 14.0 12.8 (12.0-16.0) g/dL Hct 40.9 37.0 (36.0-48.0) % Plt Count 219 185 (150-450) 10^3/uL BMP 08/01/23 08/02/23 13:29 04:39 Sodium 140 139 Potassium 3.2 L 3.4 L Chloride 105 105 Carbon Dioxide 24.9 23.5 BUN 16.0 12.0 Creatinine 0.99 0.87 Glucose 103 90 Calcium 10.2 H 9.4 Liver Function 08/01/23 08/02/23 Range/Units 13:29 04:39 Total Bilirubin 0.9 1.2 H (0.2-1.0) mg/dL AST 52 H 42 H (15-37) U/L ALT 25 22 (14-59) U/L Alkaline Phosphatase 72 58 (46-116) U/L Albumin 4.0 3.4 (3.4-5.0) g/dL Urine 08/01/23 Range/Units 14:05 Urine Color Lt. yellow (YELLOW) Urine Clarity Clear (CLEAR) Urine pH 8.0 (5.0-9.0) Ur Specific [place] 1.015 (1.005-1.025) Urine Protein Negative (NEG/TRACE) mg/dL Urine Glucose (UA) Negative (NEGATIVE) mg/dL Progress Note: A&P Assessment and Plan (1) Closed fracture of right hip: Assessment and Plan: Acute * C/S Dr Lo, Orthopedic surgeon - we appreciate his assistance with this pt's care * NPO for surgery late this afternoon * Medically stable for surgery * Continue Dilaudid 0.5-1mg PRN for pain * Zofran for nausea * Continue to hold home ASA for now in the ashley-op period * Start Lovenox tomorrow for DVT prophelaxis (2) Fall: Assessment and Plan: Acute * Mechanical fall * See above (3) Cardiac murmur: Assessment and Plan: Chronic * 2D Echo from 07/06/23 obtained * Preserved LVEF 60-65% * Grade 1 diastolic dysfunction * Mild increased RVSP * Moderate AV stenosis * Stable at baseline (4) Depression: Assessment and Plan: Chronic * Continue home sertraline Urinary Catheter Management Urinary Catheter Management Urethral: Cath placed during this visit: yes Urethral indwelling: No Insertion date: 08/01/23 Insertion time: 14:11
[2023-08-02] MEDS: ENOXAPARIN SODIUM 40 MG/0.4 ML SYRINGE SUBQ (11:37)
[2023-08-02] MEDS: LACTATED RINGER'S SOLUTION 1,000 ML 50 ML IV ×2 (13:01→19:25)
--- NOTE | 2023-08-02 14:15 | CM.NOTE ---
Important Message From Medicare discussed with pt, pt's son and daughter at bedside. Pt and family verbalize understanding and pt signs paper. Original given to pt and copy placed on pt's chart.
--- NOTE | 2023-08-02 15:13 | SWNOTE1 ---
Case management spoke with pt and family and they are open to whatever pt may need at discharge, SNF or HH. For SNF it could be [facility] or [place], no preference. Pt going to OR later today. Pt will be a precert if SNF is needed.
--- NOTE | 2023-08-02 16:54 | PM.ORCN ---
History of Present Illness HPI Consult date: 08/02/23 Consult reason: fracture Chief complaint: FALL/HEAD INJURY, Right Hip Fracture Narrative: Patient is an 88-year-old lady who tripped and fell yesterday while at home. She had right hip pain and inability to get up. She was transported to the emergency room where CT and x-rays revealed a right femoral neck fracture. Patient is being admitted for operative treatment of her injury. At her baseline she is a community ambulator without assistive devices. Review of Systems ROS Status of ROS 10 or more systems reviewed and unremarkable except as noted in history and below [facility] Medical History (Updated 08/02/23 @ 10:17 by Latoya Colin NP) Depression ?F32.A - Depression, unspecified (ICD-10) Social History (Updated 08/01/23 @ 17:11 by Monserrat Farias) Smoking status: Never smoker Non-prescribed substance use: denies use Previous occupational history: house Highest level of school completed/degree received: high school graduate Meds Home Medications and Allergies Home Medications ?Medication ?Instructions ?Recorded ?Confirmed ?Type aspirin 81 mg tablet,delayed 81 mg PO DAILY 08/01/23 08/01/23 History release sertraline 25 mg tablet 25 mg PO DAILY 08/01/23 08/01/23 History Allergies Allergy/AdvReac Type Severity Reaction Status Date / Time No Known Drug Allergies Allergy Verified 08/01/23 12:51 Exam Narrative Exam Narrative: On exam today she is in no obvious distress. She is alert and oriented. Her right lower extremity is shortened. Tenderness throughout the right hip. Skin is intact. Palpable dorsalis pedis pulse with normal sensation. She is able to wiggle her toes without difficulty. No knee or ankle tenderness. Left lower extremity has no tenderness to palpation. Bilateral wrists elbows and shoulders have painless range of motion. Left long finger has some mild swelling at the PIP joint without malalignment and full range of motion. Constitutional Vital Signs, click to edit/add: Last Vital Signs Temp 97.9 F 08/02/23 12:35 Pulse 65 08/02/23 12:35 Resp 18 08/02/23 08:58 BP 125/61 08/02/23 12:35 Pulse Ox 90 L 08/02/23 12:35 O2 Del Method Room Air 08/02/23 12:35 Results Labs Labs: Abnormal lab results 08/02/23 Range/Units 04:39 MPV 9.1 L (9.5-13.5) fL Lymph % (Auto) 15.5 L (20.5-60.0) % Eos % (Auto) 0.7 L (0.9-7.0) % Neut # (Auto) 6.7 H (1.4-6.5) 10^3/uL [place] # (Auto) 0.9 H (0.3-0.8) 10^3/uL Abs Immat Gran (auto) 0.04 H (0.00-0.03) 10^3/uL Potassium 3.4 L (3.5-5.1) mmol/L Total Bilirubin 1.2 H (0.2-1.0) mg/dL AST 42 H (15-37) U/L Total Protein 6.2 L (6.4-8.2) g/dL H & H 08/01/23 08/02/23 Range/Units 13:29 04:39 Hgb 14.0 12.8 (12.0-16.0) g/dL Hct 40.9 37.0 (36.0-48.0) % Coagulation 08/01/23 Range/Units 13:29 INR 1.09 All other labs normal. Diagnostic results Hip x-ray: image reviewed (X-rays of her right hip show a displaced femoral neck fracture) Assessment and Plan Assessment and Plan (1) Closed fracture of right hip: (2) Fall: (3) Cardiac murmur: (4) Depression: Plan For her right femoral neck fracture I have recommended a right hip hemiarthroplasty. I have discussed the benefits of the procedure as well as risks with the patient, her son and [id number]. I have discussed risks including but not limited to risk of persistent postoperative pain and need for additional surgery. We have discussed risks of heart attack, blood clot, pneumonia and stroke as well as loss of life. They understand the risks of this procedure and she has elected to proceed.
--- NOTE | 2023-08-02 17:11 | PM.ORPRC ---
Procedure Note Date of procedure: 08/02/23 Pre-op diagnosis: Right femoral neck fracture Post-op diagnosis: same as pre-op Procedure: Operation: Right hip hemiarthroplasty Operative procedure: After informed consent was obtained the patient was brought to the operating room where general anesthetic was administered. Patient was placed in lateral cubitus position and the right hip and leg were prepped and draped in usual sterile fashion. 14 cm curvilinear incision was made for posterior approach to the hip. Hemostasis achieved with Bovie. Fascia was incised in line with the incision. Charnley retractor was placed. Short external rotators were incised off of the greater trochanter and tagged for later repair. Capsule was incised. Using the osteotomy cutting guide sagittal saw was utilized to revise the cut on the femoral neck. Femoral head was removed and sized to 45 mm. Attention was next turned to preparation of the femoral canal for final component. Box osteotome was used followed by a canal finder. Lateralizing reamer was utilized and then sequential broaching was performed to size 11. A trial femoral stem was placed followed by a standard neck and 47 mm head. Ultimately a + 3 neck taper was decided upon. Trial components were removed. Canal was irrigated brushed and dried. Cement restrictor was placed and then cement was prepared in the standard fashion and inserted and pressurized using thumb pressurization. Final Britney Echo 9 mm stem was placed. This was held in position until the cement hardened. The final size + 3 taper and 47 millimeters Endo head were placed and tamped into position. The hip was reduced placed through range of motion and found to be stable. Wound was irrigated. Capsule was repaired with #2 FiberWire suture. Short external rotators were repaired to the greater trochanter through drill holes and tied over a bony bridge. Fascia was repaired with a suture tape. Skin was closed in standard fashion with subcutaneous absorbable sutures and paulo. Sterile dressing was placed. Hip abduction pillow was placed. Patient was awakened and brought to the recovery room in stable condition. There were no intraoperative or immediate postoperative complications. Anesthesia: GETA Surgeon: Mayank Lo Estimated blood loss (mL): 200 Pathology: other (Femoral head) Condition: stable Disposition: PACU
[2023-08-02] MEDS: CEFAZOLIN SODIUM/DEXTROSE,ISO 2 GM/50 ML PIGGYBACK IV (17:33)
--- NOTE | 2023-08-02 18:00 | PC.NURSE ---
Patient was consented for a nerve block by Dr. Davis. Timeout completed. Patient was positioned and Dr. Davis used the bedside ultrasound to locate site for block. No sedation was given. Patient tolerated the block well. The length of time was from 1737 to 1743 to complete the block. Area cleansed and patient repositioned for comfort and taken to the OR suite at this time.
--- NOTE | 2023-08-02 19:48 | XR_ITS ---
The [address] [address] Patient Name: SANIYA ZHANG MRN: [id number] date: 1935 Sex: F Assigned Patient Location: [place] Current Patient Location: [place] Accession/Order Number: [id number] Exam Date: 08/02/2023 19:58 Report Date: 08/02/2023 20:34 At the request of: KEILA SMITH Procedure: XR hip RT min 2V Exam: Radiographs: XR hip RT min 2V Reason for exam: postop hip hemiarthroplasty Comparison: Plain films dated 08/01/2023 XR/XR hip RT min 2V IMPRESSION: New right total hip arthroplasty. Expected postoperative soft tissue emphysema and swelling. Remainder unremarkable. Electronically authenticated by: GERARDO LONGO Date: 08/02/2023 20:34
[2023-08-03] VITALS (9 sets, daily range): BP systolic 108–118; BP diastolic 61–70; PULSE 82–96; TEMP 36.6–36.9; O2SAT 84–97
[2023-08-03] MEDS: CEFAZOLIN SODIUM/DEXTROSE,ISO 2 GM/50 ML PIGGYBACK IV ×3 (00:58→17:21)
[2023-08-03 05:14] LABS: Basophils Percent Auto 0.1 % (0.2-2.0); Hematocrit 30.4 % (36.0-48.0); Hemoglobin 10.1 g/dL (12.0-16.0); Immature Granulocytes Abs Auto 0.02 10^3/uL (0.00-0.03); Immature Granulocytes Pct Auto 0.2 % (0.0-0.5); Lymphocytes Absolute Auto 0.6 10^3/uL (1.2-3.8); Lymphocytes Percent Auto 6.4 % (20.5-60.0); Mean Corpuscular HGB Conc 33.2 g/dL (29.9-35.2); Mean Corpuscular Hemoglobin 29.3 pg (26.7-34.0); Mean Corpuscular Volume 88.1 fL (81.0-99.0); Mean Platelet Volume 9.6 fL (9.5-13.5); Monocytes Absolute Auto 0.8 10^3/uL (0.3-0.8); Monocytes Percent Auto 8.9 % (1.7-12.0); Neutrophils Percent Auto 84.4 % (43.0-75.0); Platelet Count 160 10^3/uL (150-450); Red Blood Count 3.45 10^6/uL (4.20-5.40); Red Cell Distribution Width 12.6 % (11.0-15.0); White Blood Count 9.5 10^3/uL (4.0-11.0)
[2023-08-03 05:32] LABS: Alanine Aminotransferase 17 U/L (14-59); Albumin Level 2.7 g/dL (3.4-5.0); Alkaline Phosphatase 46 U/L (46-116); Anion Gap 11.3; Aspartate Amino Transferase 49 U/L (15-37); BUN Creatinine Ratio 15.9; Bilirubin Total 0.9 mg/dL (0.2-1.0); Calcium 8.6 mg/dL (8.5-10.1); Carbon Dioxide 26.3 mmol/L (21.0-32.0); Chloride 105 mmol/L (98-107); Estimated GFR (African America >60 (>=60); Estimated GFR (Non-African Ame >60 (>=60); Globulin 2.6 g/dL; Glucose 123 mg/dL (74-106); Potassium 3.6 mmol/L (3.5-5.1); Sodium 139 mmol/L (136-145); Total Protein 5.3 g/dL (6.4-8.2)
--- NOTE | 2023-08-03 08:00 | CM.NOTE ---
Rounds made with Dr. Sweeney, no discharge today. PT and OT will evaluate pt today, discussed inpt skilled rehab at discharge. Pt is in agreement and 1st choice is [facility] and 2nd choice [facility].
[2023-08-03] MEDS: SERTRALINE HCL 50 MG TABLET 25 MG PO (08:53)
[2023-08-03] MEDS: HYDROCODONE/ACET 5-325 MG TABLET 1 TAB PO (08:53)
--- NOTE | 2023-08-03 09:41 | SWNOTE1 ---
Pt would like [facility] as first choice. SW to reach out to [facility] and make sure they have a bed. [facility] will review and let SW know. Referral sent to [facility]. Referral included face sheet, ED note, H&P, provider notes, case management report, wound consult, nursing notes, diagnostic imaging, med list, and PT/OT notes.
[2023-08-03] MEDS: LACTOSE -REDUCED (ENSURE ORIGINAL 237 ML LIQUID) PO ×2 (10:10→21:44)
--- NOTE | 2023-08-03 11:56 | P.PN_ITS ---
<Statement entered by Cecil Sweeney MD - 08/04/23 08:29> This documentation has been reviewed and approved. Pt seen at bedside., [place] from a pain stand point - case discussed with social work team for placement agree with inout and findings from [employer] notations Progress Note: Subjective Subjective Interval history: 08/03/23 0850 POD #1. The patient is resting in bed finishing her breakfast. She c/o pain to her operative hip after repositioning in bed, but has not informed nursing that she needs pain medications yet. She denies CP, SOB, N/V/D. DC planning initiating referral for SNF rehab at discharge. Unremarkable post op course to date. Exam Constitutional Vital Signs, click to edit/add: Last Vital Signs Temp 98.3 F 08/03/23 04:00 Pulse 90 08/03/23 04:00 Resp 16 08/03/23 08:00 BP 118/63 08/03/23 04:00 Pulse Ox 95 08/03/23 10:20 O2 Del Method Nasal Cannula 08/03/23 10:20 O2 Flow Rate 1 08/03/23 10:20 Common normals: no apparent distress, oriented x3 and alert General appearance: cooperative Orientation/consciousness: Yes awake HENOK Common normals: normocephalic, head/scalp atraumatic and hearing grossly normal bilaterally Eye Common normals: PERRL, EOMs intact bilaterally, conjunctivae normal and no scleral icterus General eye: normal appearance of both eyes Chest Common normals: inspection of chest normal Chest: symmetrical chest wall rise Respiratory Common normals: normal respiratory effort, no use of accessory muscles and clear to auscultation bilaterally Effort & inspection: able to speak in complete sentences Cardio Common normals: regular rate, regular rhythm, S1 normal heart sound, S2 normal heart sound and peripheral pulses 2+ throughout Heart sounds: murmur (HSM 2/6) GI Common normals: Normal to inspection, nondistended, normoactive bowel sounds present, soft to palpation, non-tender and no hepatosplenomegaly Bladder/kidney exam: bladder normal to palpation Extremity Common normals: normal to inspection and no calf tenderness General: no clubbing, no cyanosis and no edema Right lower extremity: hip joint (Painful s/p hemiarthroplasty. ) Right hip: ROM (Decreased) Neuro Common normals: CN's II-XII intact bilaterally, moves all extremities, no focal motor deficits and no sensory deficits noted Psych Common normals: mental status grossly normal Progress Note: Objective Labs Labs: Short CBC 08/03/23 Range/Units 04:24 WBC 9.5 (4.0-11.0) 10^3/uL Hgb 10.1 L (12.0-16.0) g/dL Hct 30.4 L (36.0-48.0) % Plt Count 160 (150-450) 10^3/uL BMP 08/03/23 04:24 Sodium 139 Potassium 3.6 Chloride 105 Carbon Dioxide 26.3 BUN 13.0 Creatinine 0.82 Glucose 123 H Calcium 8.6 Liver Function 08/03/23 Range/Units 04:24 Total Bilirubin 0.9 (0.2-1.0) mg/dL AST 49 H (15-37) U/L ALT 17 (14-59) U/L Alkaline Phosphatase 46 (46-116) U/L Albumin 2.7 L (3.4-5.0) g/dL Progress Note: A&P Assessment and Plan (1) Closed fracture of right hip: Assessment and Plan: Acute * C/S Dr Lo, Orthopedic surgeon - we appreciate his assistance with this pt's care * Hemiarthroplasty on 08/02/23 * Unremarkable post op course * [place] for pain w/ Dilaudid 0.5-1mg PRN for breakthrough * Continue Zofran PRN for nausea * Continue to hold home ASA for now in the ashley-op period * Start Lovenox tomorrow for DVT prophylaxis (2) Postoperative anemia: Assessment and Plan: Acute * Hgb 10.1 today * Suspect 2/2 intra-op blood loss * Stable - monitor w/ daily CBC * Consider PRBC transfusion for hgb < 7 (3) Hypokalemia: Assessment and Plan: Acute * Mild hypokalemia on admission (3.2) * Resolved on LR IVF alone * monitor w/ CMP daily (4) Fall: Assessment and Plan: Acute * Mechanical fall * See hip fracture (5) Cardiac murmur: Assessment and Plan: Chronic * 2D Echo from 07/06/23 obtained * Preserved LVEF 60-65% * Grade 1 diastolic dysfunction * Mild increased RVSP * Moderate AV stenosis * Stable at baseline (6) Depression: Assessment and Plan: Chronic * Continue home sertraline Urinary Catheter Management Urinary Catheter Management Urethral: Cath placed during this visit: yes Urethral indwelling: No Insertion date: 08/01/23 Insertion time: 14:11
--- NOTE | 2023-08-03 12:10 | SWNOTE1 ---
[facility] is able to accept. They will start once therapy is sent. SW sent over PT note.
--- NOTE | 2023-08-03 12:40 | SWNOTE1 ---
[facility] started for [facility].
--- NOTE | 2023-08-03 12:45 | PM.ORPN ---
Progress Note: A&P Assessment and Plan (1) Closed fracture of right hip: Assessment and Plan: Labs/ vitals reviewed and stable with hg 10.1. Her dressing has fallen off, will ask RN to place new dressing and keep clean, dry, and intact. Patient will be getting PT/OT, dvt prophylaxis, and continue pain medication. Follow up in office with Dr. Lo in 3 weeks. (2) Postoperative anemia: (3) Hypokalemia: (4) Fall: (5) Cardiac murmur: (6) Depression: Subjective Subjective Interval history: Patient is post-op day #1 from right xavier-hip arthroplasty. She is resting in bed comfortably with no complaints. Exam Narrative Exam Narrative: On exam of the hip, her dressing has fallen off. The incision is well approximated with paulo intact. No surrounding erythema, drainage, or clinical signs of infection. Thigh and calf are supple. No calf tenderness or palpable cords Intact sensation to light touch. Palpable pedal pulses and brisk capillary refill. Constitutional Vital Signs, click to edit/add: Last Vital Signs Temp 98.3 F 08/03/23 04:00 Pulse 90 08/03/23 04:00 Resp 16 08/03/23 08:00 BP 118/63 08/03/23 04:00 Pulse Ox 95 08/03/23 10:20 O2 Del Method Nasal Cannula 08/03/23 10:20 O2 Flow Rate 1 08/03/23 10:20 Urinary Catheter Management Urinary Catheter Management Urethral: Cath placed during this visit: yes Urethral indwelling: No Insertion date: 08/01/23 Insertion time: 14:11
[2023-08-03] MEDS: KETOROLAC TROMETHAMINE 30 MG/ML VIAL 15 MG IVP (14:06)
[2023-08-03] MEDS: HYDROCODONE/ACET 5-325 MG TABLET 2 TAB PO (17:19)
[2023-08-03] MEDS: ENOXAPARIN SODIUM 40 MG/0.4 ML SYRINGE SUBQ (21:44)
[2023-08-04] MEDS: HYDROCODONE/ACET 5-325 MG TABLET 2 TAB PO ×2 (00:03→16:51)
[2023-08-04] MEDS: TRAZODONE HCL 50 MG TABLET PO (00:03)
[2023-08-04 00:12] VITALS: BP 161/71; PULSE 94; TEMP 36.8; O2SAT 93
[2023-08-04 03:19] VITALS: BP 120/60; PULSE 87; TEMP 36.8; O2SAT 90
[2023-08-04 05:38] LABS: Basophils Percent Auto 0.2 % (0.2-2.0); Eosinophils Percent Auto 0.2 % (0.9-7.0); Hematocrit 27.1 % (36.0-48.0); Hemoglobin 8.8 g/dL (12.0-16.0); Immature Granulocytes Abs Auto 0.05 10^3/uL (0.00-0.03); Immature Granulocytes Pct Auto 0.5 % (0.0-0.5); Lymphocytes Absolute Auto 1.1 10^3/uL (1.2-3.8); Lymphocytes Percent Auto 11.8 % (20.5-60.0); Mean Corpuscular HGB Conc 32.5 g/dL (29.9-35.2); Mean Corpuscular Hemoglobin 29.8 pg (26.7-34.0); Mean Corpuscular Volume 91.9 fL (81.0-99.0); Mean Platelet Volume 9.9 fL (9.5-13.5); Monocytes Percent Auto 11.1 % (1.7-12.0); Neutrophils Absolute Auto 7.1 10^3/uL (1.4-6.5); Neutrophils Percent Auto 76.2 % (43.0-75.0); Platelet Count 126 10^3/uL (150-450); Red Blood Count 2.95 10^6/uL (4.20-5.40); White Blood Count 9.3 10^3/uL (4.0-11.0)
[2023-08-04 05:55] VITALS: O2SAT 91
[2023-08-04 06:02] LABS: Alanine Aminotransferase 12 U/L (14-59); Albumin Level 2.6 g/dL (3.4-5.0); Alkaline Phosphatase 44 U/L (46-116); Anion Gap 12.5; Aspartate Amino Transferase 65 U/L (15-37); Bilirubin Total 0.6 mg/dL (0.2-1.0); Calcium 8.8 mg/dL (8.5-10.1); Carbon Dioxide 23.7 mmol/L (21.0-32.0); Chloride 104 mmol/L (98-107); Estimated GFR (African America >60 (>=60); Estimated GFR (Non-African Ame 50 (>=60); Globulin 2.5 g/dL; Glucose 131 mg/dL (74-106); Potassium 3.2 mmol/L (3.5-5.1); Sodium 137 mmol/L (136-145); Total Protein 5.1 g/dL (6.4-8.2)
[2023-08-04 08:00] VITALS: BP 118/65; PULSE 86; TEMP 36.4; O2SAT 95
[2023-08-04] MEDS: SERTRALINE HCL 50 MG TABLET 25 MG PO (09:00)
[2023-08-04] MEDS: LACTOSE -REDUCED (ENSURE ORIGINAL 237 ML LIQUID) PO (09:00)
--- NOTE | 2023-08-04 11:52 | PM.DS1 ---
DS: Providers Provider Date of admission: 08/01/23 16:01 Primary care physician: ANA GUADALUPE Admitting clinician: Cecil Sweeney Attending physician on admission: Cecil Sweeney Consults: 08/01/23 17:16 Consult to Pharmacy Routine Consulting Provider: Reason for consultation: Please [place] me when Med Rec is Updated Has provider been notified: No Occupational Therapy Eval and Treat Routine Reason for consultation: Only if needed for Rehab Has provider been notified: No Physical Therapy Eval and Treat Routine Reason for consultation: Eval and Treat Has provider been notified: No 08/02/23 09:43 Consult to Orthopedics Routine Consulting Provider: Mayank Lo Reason for consultation: R fem neck fracture Has provider been notified: Yes 08/02/23 17:21 Physical Therapy Eval and Treat Routine Reason for consultation: Postop hip fracture WBAT Has provider been notified: No Attending physician on discharge: Shaikh Mike Discharging clinician: Shaikh Mike Anticipated date of discharge: 08/04/23 DS: Diagnosis Discharge Diagnosis (1) Closed fracture of right hip: Assessment and plan: s/p surgery. Stable for d/c to rehab to continue her therapy. F/u with orthopedics as outpatient. Qualifiers: Encounter type: subsequent encounter Fracture healing: with routine healing Qualified Code(s): S72.001D - Fracture of unspecified part of neck of right femur, subsequent encounter for closed fracture with routine healing (2) Postoperative anemia: Assessment and plan: Mild post op anemia. Recheck CBC in 3 days. Monitor as outpatient. Will d/c on PO iron (3) Hypokalemia: Assessment and plan: repleted (4) Fall: Assessment and plan: Resulted in right hip fracture. PT/OT eval. D/c to rehab Qualifiers: Encounter type: subsequent encounter Qualified Code(s): W19.XXXD - Unspecified fall, subsequent encounter (5) Depression: Assessment and plan: Stable. C/w zoloft. Qualifiers: Active/Remission status: in full remission Depression Type: major depressive disorder Major depression recurrence: unspecified whether recurrent Qualified Code(s): F32.5 - Major depressive disorder, single episode, in full remission (6) Moderate aortic stenosis: Assessment and plan: Asymptomatic. Monitor. DS: Summary Hospital Course Hospital Course: 88 y o admitted after she sustained right femorual facture from a fall at home. She underwent right hip hemiarthroplasty on 08/01 and was monitored postoperatively. Her pain is reasonably controlled. She was able to stand with the help of PT and walker but has not walked yet. She did developed mild anemia post operatively. Recommend rechecking CBC in 3 days as outpatient. Will d/c patient on PO iron. Status at Discharge Functional status at discharge: uses cane/walker Overall status at discharge: patient is progressing back to baseline Time Spent with Patient Time attestation: Total time spent providing and/or coordinating discharge services: Time spent: greater than 30 minutes Exam Constitutional Vital Signs, click to edit/add: Last Vital Signs Temp 98.3 F 08/04/23 03:19 Pulse 87 08/04/23 03:19 Resp 18 08/04/23 03:19 BP 120/60 08/04/23 03:19 Pulse Ox 91 L 08/04/23 05:55 O2 Del Method Room Air 08/04/23 05:55 O2 Flow Rate 1 08/03/23 19:48 Documenting provider has reviewed patient's vital signs: yes Common normals: no apparent distress, average body habitus and oriented x3 Respiratory Common normals: normal respiratory effort, no use of accessory muscles and clear to auscultation bilaterally Effort & inspection: able to speak in complete sentences Cardio Common normals: no JVD, regular rate and regular rhythm Heart sounds: murmur systolic GI Common normals: Normal to inspection, nondistended, normoactive bowel sounds present, soft to palpation, non-tender and no hepatosplenomegaly Extremity Other: right hip - post op scar, limited ROM at hip due to pain Neuro Common normals: oriented x3, moves all extremities and no focal motor deficits Psych Common normals: mental status grossly normal, thought process normal, denies homicidal ideation and denies suicidal ideation DS: Data Data Completed and Pending Labs on day of discharge: Labs from last 24 hours 08/04/23 05:11 WBC 9.3 RBC 2.95 L Hgb 8.8 L Hct 27.1 L MCV 91.9 MCH 29.8 MCHC 32.5 RDW 13.0 Plt Count 126 L MPV 9.9 Neut % (Auto) 76.2 H Lymph % (Auto) 11.8 L [place] % (Auto) 11.1 Eos % (Auto) 0.2 L Baso % (Auto) 0.2 Neut # (Auto) 7.1 H Lymph # (Auto) 1.1 L [place] # (Auto) 1.0 H Eos # (Auto) 0.0 Baso # (Auto) 0.0 Abs Immat Gran (auto) 0.05 H Imm/Tot Granulo (auto) 0.5 Sodium 137 Potassium 3.2 L Chloride 104 Carbon Dioxide 23.7 Anion Gap 12.5 BUN 25.0 H Creatinine 1.04 H Est GFR ( Amer) >60 Est GFR (Non-Af Amer) 50 L BUN/Creatinine Ratio 24.0 Glucose 131 H Calcium 8.8 Total Bilirubin 0.6 AST 65 H ALT 12 L Alkaline Phosphatase 44 L Total Protein 5.1 L Albumin 2.6 L Globulin 2.5 Albumin/Globulin Ratio 1.0 Discharge Plan Discharge Disposition: Xfer Inpatient Rehab Fac Condition: Good Discharge Medications: New aspirin 325 mg tablet 325 mg PO DAILY Qty: 14 0RF oxycodone 5 mg tablet 5 mg PO Q8H PRN (Reason: pain) Qty: 7 0RF Continued sertraline 25 mg tablet 25 mg PO DAILY Discontinued aspirin 81 mg tablet,delayed release (DR/EC) 81 mg PO DAILY Print Language: Turkmen Forms: Portal Instructions Follow Up Appointments: Follow up with PCP in 1 week Follow up with Dr Lo in 3 weeks CBC in 3 days - script provided
[2023-08-04 12:00] VITALS: BP 134/78; PULSE 82; TEMP 37.2; O2SAT 91; O2SAT 98
[2023-08-04] MEDS: POTASSIUM CHLORIDE 10 MEQ ER TABLET 40 MEQ PO (12:53)
[2023-08-04 16:00] VITALS: BP 134/71; PULSE 84; TEMP 37.3; O2SAT 92
== END 2023-08-04 17:40 | DRG 522 ==
LOC: ER 16:03 → MS 16:06
PROVIDERS: Orthopaedic Surgery; Physician Assistant; Admitting Provider Family Medicine; Emergency Provider Emergency Medicine; PCP Internal Medicine; Visit Provider Internal Medicine
PROC: 0SRR0J9 Replacement of Right Hip Joint, Femoral Surface with Synthetic Substitute, Cemented, Open Approach (ICD-10-PCS; principal; 2023-08-02 17:30)
DX: S72.011A Unspecified intracapsular fracture of right femur, initial encounter for closed fracture (principal); D62 Acute posthemorrhagic anemia; R01.1 Cardiac murmur, unspecified; F41.9 Anxiety disorder, unspecified; I10 Essential (primary) hypertension; E87.6 Hypokalemia; I35.0 Nonrheumatic aortic (valve) stenosis; F32.5 Major depressive disorder, single episode, in full remission; W01.0XXA Fall on same level from slipping, tripping and stumbling without subsequent striking against object, initial encounter; Z79.82 Long term (current) use of aspirin; Z79.899 Other long term (current) drug therapy
CPT/HCPCS: 36415; 51702; 64447; 70450; 71045; 72125; 72131; 72192; 73110; 73502; 80053; 81001; 81003; 84484; 85025; 85610; 87086; 88305; 88311; 90471; 90715; 93005; 94667; 94668; 94761; 96365; 96366; 96372; 96375; 96376; 97162; 97165; 99285; C1713; C1776; J1170; J2704

== ENCOUNTER 2023-08-13 07:25 | Outpatient (OUT) | payer MEDICARE, SELFPAY ==
--- NOTE | 2023-08-13 | XR_ITS ---
The [address] [address] Patient Name: SANIYA ZHANG MRN: [id number] date: 1935 Sex: F Assigned Patient Location: Current Patient Location: Accession/Order Number: [id number] Exam Date: 08/13/2023 07:30 Report Date: 08/13/2023 20:46 At the request of: KEILA SMITH Procedure: XR hip RT 2V w/ pelvis Portable AP pelvis and frontal view of the right hip INDICATION: Postop COMPARISON: None XR/XR hip RT 2V w/ pelvis IMPRESSION: Postoperative changes of total right hip arthroplasty noted with hardware in place without evidence for complication. Overlying soft tissue swelling and skin paulo compatible with postoperative state. Diffuse demineralization. No acute fractures or dislocation. Mild to moderate degenerative changes of the pubis symphysis, bilateral sacroiliac joints and partially visualized lower lumbar spine. Electronically authenticated by: CAITLYN BYRNE Date: 08/13/2023 20:46
== END 2023-08-13 07:26 | disposition home or self-care (01) ==
LOC: EC 07:26
PROVIDERS: PCP Internal Medicine; Visit Provider Orthopaedic Surgery
DX: S72.001A Fracture of unspecified part of neck of right femur, initial encounter for closed fracture (principal); Z96.641 Presence of right artificial hip joint
CPT/HCPCS: 73502

== ENCOUNTER 2023-10-21 22:13 | Emergency (ER) | payer MEDICARE, SELFPAY ==
--- OUTSIDE RECORDS SUMMARY | 2023-10-21 22:39 | XMS_ITS ---
Patient Summarization (C-CDA 2.1 CCD) Created on: October 21, 2023 TERESA BACON : 1935 Sex: Female Author Organization Sample organization Care Team Providers Care Intern Product Marketing Manager Name Role Phone PHYSICIAN, DEFAULT Unavailable Unavailable PHYSICIAN, DEFAULT Unavailable Unavailable MISC, DR YANES Primary Care Unavailable ANGEL, DR BHAKTI Brandt Attending Unavailabl e REINECK, DR BHAKTI Brandt Consulting Unavailabl e REINECK, DR BHAKTI Brandt Admitting Unavailabl e KIKO, CHERYL COKER Consulting Unavailable HEMMER, DR MERVAT Baker Admitting Unavailable MISC, DR YANES Primary Care Unavailable HAMILTON, DR SRINIVASA Burks Consulting Unavailable HEMMER, DR MERVAT Baker Attending Unavailable HEMMER, DR MERVAT Baker Consulting Unavailable Maurice Rogers III Primary Care Physician [phone] Carly Stapleton Attending Unavailable Carly Stapleton Admitting Unavailable Royalton, Mayank Consulting Unavailable Royalton, Mayank Consulting Unavailable Royalton, Mayank Consulting Unavailable Royalton, Mayank Consulting Unavailable Royalton, Mayank Consulting Unavailable Royalton, Mayank Consulting Unavailable Royalton, Mayank Consulting Unavailable Royalton, Mayank Consulting Unavailable Royalton, Mayank Consulting Unavailable Sudhakar Andrade Attending Unavailable Mayank Lo Attending Provider [phone] Mayank Lo Attending Unavailable Mayank Lo Admitting Unavailable ANA SIMON Attending Unavailable ANA SIMON Attending Unavailable ANA SIMON Attending Unavailable Encounters Encounter Date Encounter Type Care Provider Facility Start: 09-17-2023 End: 09-17-2023 ambulatory ANA SIMON Not Available Start: 08-02-2023 End: 08-02-2023 ambulatory Mayank Lo Facility:[facility] Start: 08-02-2023 End: 08-02-2023 ambulatory Mayank Lo Work Phone: [facility] Work Phone: Start: 08-02-2023 End: 08-02-2023 Departed Referred Mayank Lo Work Phone: [facility] Start: 07-12-2023 End: 07-12-2023 ambulatory ANA SIMON Not Available Start: 06-20-2023 End: 06-20-2023 ambulatory ANA SIMON Not Available Start: 06-12-2023 End: 06-12-2023 Emergency department patient visit Sudhakar Andrade Facility:[facility] Start: 06-12-2023 End: 06-12-2023 Emergency department patient visit Sudhakar Andrade [facility] Start: 05-26-2023 End: 05-27-2023 ambulatory Carly Stapleton Facility:[facility] Start: 05-26-2023 End: 05-27-2023 [facility] Start: 04-25-2022 End: 04-26-[address] MERVAT ORELLANA Facility:[facility] Start: 12-12-2021 End: 12-12-[address] DOCTOR EGAN Facility:[facility] Start: 07-30-2017 End: 07-31-2017 Ambulatory DEFAULT PHYSICIAN Facility:[facility] Medications Current Medications Medication Drug Class(es) Dates Sig (Normalized) Sig (Original) aspirin 81 mg delayed release oral tablet (2 sources) Platelet Aggregation Inhibitor, Nonsteroidal Anti-inflammatory Drug Start: 05-27-2023 take 1 tablet by mouth once daily aspirin 81 mg Oral EC Tab 81 mg = 1 tab(s), Oral, Daily, # 30 tab(s), Refills(s) 0 Start Date: 05/27/23 Status: Ordered Calcium (2 sources) Phosphate Binder, Calcium Start: 05-26-2023 calcium (as carbonate) 500 mg oral tablet See Instructions, Refills(s) 0 Start Date: 05/26/23 Status: Ordered losartan potassium 25 mg oral tablet (2 sources) Angiotensin 2 Receptor Sharan Start: 05-26-2023 take 25 mg by mouth once daily losartan 25 mg, Oral, Daily, Refills(s) 0 Start Date: 05/26/23 Status: Ordered omeprazole 20 mg delayed release oral capsule (2 sources) Proton Pump Inhibitor Start: 05-26-2023 take 1 capsule by mouth once daily omeprazole 20 mg Cap-DR 20 mg = 1 cap(s), Oral, Daily, Refills(s) 0 Start Date: 05/26/23 Status: Ordered Payers Date Payer Category Payer Self-pay 1959 Unknown [id number] 1935 Unknown [id number] 2.16.84 [id number] 1935 Unknown [id number] 2.16.84 [id number] 1935 Unknown [id number] 2.16.8 [id number] 1935 Unknown [id number] 2.16.8 [id number] 1935 Unknown [id number] 2.16.84 [id number] 1935 Unknown [id number] 2.16.84 [id number] 1935 Unknown [id number] 2.16.84 [id number] Unknown Problems Active Problems Problem Classification Problem Date Documented Date Episodic/Chronic Delirium, dementia, and amnestic and other cognitive disorders (1 source) Dementia; Translations: [Unspecified dementia without behavioral disturbance] Onset: 05-26-2023 Chronic Disorders of lipid metabolism (2 sources) Hyperlipidemia 05-26-2023 Chronic Esophageal disorders (1 source) Gastroesophageal reflux disease without esophagitis; Translations: [Gastro-esophageal reflux disease without esophagitis] Onset: 05-26-2023 Chronic Essential hypertension (3 sources) Essential hypertension; Translations: [Essential (primary) hypertension] Onset: 05-26-2023 Chronic Fluid and electrolyte disorders (1 source) Hypokalemia; Translations: [Hypokalemia] Onset: 05-26-2023 Episodic Malaise and fatigue (1 source) Asthenia; Translations: [Weakness] Onset: 05-26-2023 Episodic Osteoporosis (6 sources) Age-related osteoporosis without current pathological fracture; Translations: [Osteoporosis] Onset: 04-25-2022 Chronic Other screening for suspected conditions (not mental disorders or infectious disease) (1 source) Procedure carried out on subject; Translations: [Encounter for screening, unspecified] Onset: 06-12-2023 Episodic Residual codes; unclassified (1 source) Altered mental status; Translations: [Altered mental status, unspecified] Onset: 05-26-2023 Episodic Respiratory failure; insufficiency; arrest (adult) (1 source) Acute respiratory failure; Translations: [Acute respiratory failure, unspecified whether with hypoxia or hypercapnia] Onset: 05-26-2023 Episodic Unclassified (2 sources) LOW BACK PAIN, UNSPECIFIED; Translations: [LOW BACK PAIN, UNSPECIFIED] Onset: 12-14-2021 Past or Other Problems Problem Classification Problem Date Documented Da te Episodic/Chronic Other aftercare (1 source) Other nursing home (current) drug therapy; Translations: [[facility]IV[facility] CURRENT DRUG THERAPY] Onset: 12-14-2021 Episodic Unclassified (1 source) LOW BACK PAIN, UNSPECIFIED; Translations: [LOW BACK PAIN, UNSPECIFIED] Onset: 12-12-2021 Urinary tract infections (1 source) Urinary tract infection, site not specified; Translations: [UTI SITE NOT SPECIFIED] Onset: 12-14-2021 Episodic Procedures Date Procedure Procedure Detail Performing Clinician Abdominal hysterectomy Carly Stapleton Results Test Name Value Interpretation Reference Range Facility [facility] 08-02-2023 L Specimen: [id number] Received: 08/03/23 Status: JOCELYN Dunbar Num: [id number] Spec Type: Surgical Subm Dr: Mayank Lo Tissues: A Femoral Head - Fracture (RT HIP) Procedures: HE/2, Gross/Micro L4, Decalcification Age/ Patient Sex Location Account Attending Physician Teresa Bacon 88/F LABELL [id number] Mayank Lo SPEC NUM: [id number] RECD: 08/03/23 STATUS: JOCELYN DUNBAR NUM: [id number] TIM: 08/02/[address]: Mayank Lo ENTERED: 08/03/[address]: Pam,Lab SPEC TYPE: Surgical DEPT: RIAN PENA ORDERED: HE/2, Gross/Micro L4, Decalcification ORDERED: HE/2, Gross/Micro L4, Decalcification Pathological Diagnosis Right hip bone and tissue, right hip hemiarthroplasty: -Severe acute hemorrhagic disruption of the trabecular bone at the neck region, including apparently associated hemorrhagic disruption of the surrounding hematopoietic elements, consistent with severe acute subcapital hemorrhagic fracture of the femoral neck -Incidental focal mild articular erosion of cortical bone of the head per 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 The surface contains a 4.1 x 2.4 cm area of circumscribed granularity along with mild osteophyte formation around the articular surface edge. Additionally submitted is a 4.7 x 3.5 x 1.2 cm aggregate of jagged, irregularly shaped bone. The specimen is bisected revealing hemorrhagic, yellow spongy bone matrix with no focal lesions present. [employer] Vehicle Supervisor sections are submitted following decalcification A1-femoral head, following decalcification A2-fracture site, following decalcification Clinical history: Fall/head injury, right hip fracture -------- Specimen: [id number] Received: 08/03/23 Status: JOCELYN Dunbar Num: [id number] Spec Type: Surgical Subm Dr: Mayank Lo Tissues: A Femoral Head - Fracture (RT HIP) Procedures: HE/2, Gross/Micro L4, Decalcification -------- Patient: Teresa Bacon [id number] (Continued) -------- Specimen: [id number] Received: 08/03/23 (Continued) Gross Description (Continued) Signed (signature on file) Georgina Thao MD 08/06/231900 -------- Specimen: [id number] Received: 08/03/23 Status: JOCELYN Dunbar Num: [id number] Spec Type: Surgical Subm Dr: Myaank Lo Tissues: A Femoral Head - Fracture (RT HIP) Procedures: HE/2, Gross/Micro L4, Decalcification -------- Patient: Teresa Bacon [id number] (Continued) -------- Specimen: [id number] Received: 08/03/23 (Continued) Gross Description (Continued) CPT Codes 08167, 61762 FEMORAL HEAD FEMORAL HEAD -------- -------- Specimen: [id number] Received: 08/03/23 Status: JOCELYN Dunbar Num: [id number] Spec Type: Surgical Subm Dr: Mayank Lo Tissues: A Femoral Head - Fracture (RT HIP) Procedures: HE/2, Gross/Micro L4, Decalcification -------- Patient: Teresa Baocn [id number] (Continued) -------- Signed (signature on file) Rigo-Thanh Thao MD 08/06/23 1901 Normal [facility] Physician [facility] 06-12-2023 Anion gap [Moles/Vol] 15 mmol/L Normal 6-16 [facility] Comment on above: Performed By: #### 2 942298, 4997571, [id number], [id number] ####[facility] [address] [address] Calcium [Mass/Vol] 10.1 mg/dL Normal 8.9-11.1 [facility] Comment on above: Performed By: #### 2 533666, 2834358, 41106192, [id number] ####[facility] [address] [place] [address] Chloride [Moles/Vol] 108 mmol/L Normal 101-111 [facility] Comment on above: Performed By: #### 2 029648, 8661609, 98077381, 25874566 ####[facility] [address] [place] [address] CO2 [Moles/Vol] 22 mmol/L Normal 21-31 [facility] Comment on above: Performed By: #### 2 674108, 8732815, 91277299, 44604612 ####[facility] [address] [place] [address] Creatinine [Mass/Vol] 0.8 mg/dL Normal 0.5-1.3 [facility] Comment on above: Performed By: #### 2 674856, 6892698, 18501400, 77564187 ####[facility] [address] [place] [address] Glucose [Mass/Vol] 101 mg/dL Normal 55-199 [facility] Comment on above: Performed By: #### 2 575570, 4040616, 37534973, 06977607 ####[facility] [address] [place] [address] Potassium [Moles/Vol] 3.6 mmol/L Normal 3.5-5.3 [facility] Comment on above: Performed By: #### 2 912718, 2855829, 76399409, 96318184 ####[facility] [address] [place] [address] Sodium [Moles/Vol] 141 mmol/L Normal 135-145 [facility] Comment on above: Performed By: #### 2 501196, 6742388, 92349851, 40588375 ####[facility] [address] [place] [address] Urea nitrogen [Mass/Vol] 23 mg/dL High 5-21 [facility] Comment on above: Performed By: #### 2 459738, 8259358, 18527813, 09630186 ####[facility] [address] [place] [address] Urea nitrogen/Creatinine [Mass ratio] 29 No Units High 10-20 [facility] Comment on above: Performed By: #### 2 034546, 9628254, 04378251, 41447483 ####[facility] [address] [place] [address] CBC w/ Auto Diffon 4 Basophils/100 WBC (Bld) 1.2 % Normal 0.0-2.0 [facility] Comment on above: Performed By: #### 2 105668, 8467469, 19419307, 07462716 ####[facility] [address] [place] [address] Basophils/Leukocytes Auto (Bld) [Pure # fraction] 0.1 E9/L Normal 0.0-0.2 [facility] Comment on above: Performed By: #### 2 018258, 6679232, 74896197, 32955311 ####[address] [address] Eosinophils (Bld) [#/Vol] 0.1 E9/L Normal 0.0-0.5 [facility] Comment on above: Performed By: #### 2 018395, 0534158, 43885384, 09456910 ####[address] [address] Eosinophils/100 WBC (Bld) 1.2 % Normal 0.0-8.0 [facility] Comment on above: Performed By: #### 2 497986, 4479981, 63316503, 92662528 ####[address] [address] Erythrocyte distribution width (RBC) [Ratio] 13.3 % Normal 10.9-14.2 [facility] Comment on above: Performed By: #### 2 376725, 0141563, 71675382, 08065802 ####[address] [address] Hematocrit (Bld) [Volume fraction] 43.1 % Normal 34.0-46.0 [facility] Comment on above: Performed By: #### 2 147320, 3856298, 31871274, 53900072 ####[address] [address] Hemoglobin (Bld) [Mass/Vol] 15.2 g/dL Normal 12.0-16.0 [facility] Comment on above: Performed By: #### 2 602917, 1415442, 38798102, 14962878 ####[address] [address] Lymphocytes (Bld) [#/Vol] 2.2 E9/L Normal 1.0-4.0 [facility] Comment on above: Performed By: #### 2 929627, 7590439, 59880896, 06886824 ####[address] [address] Lymphocytes/100 WBC (Bld) 28.5 % Normal 14.0-50.0 [facility] Comment on above: Performed By: #### 2 320704, 6151668, 37172215, 94177400 ####[facility] [address] [place] [address] MCH (RBC) [Entitic mass] 30.0 pg Normal 27.0-34.0 [facility] Comment on above: Performed By: #### 2 517808, 3008378, 71563022, 29357185 ####[facility] [address] [place] [address] MCHC (RBC) [Mass/Vol] 35.2 g/dL Normal 31.4-36.0 [facility] Comment on above: Performed By: #### 2 422166, 3128485, 66754745, 45838472 ####[address] [address] MCV (RBC) [Entitic vol] 85.1 fL Normal 80.0-100.0 [facility] Comment on above: Performed By: #### 2 000670, 4994838, 70884128, 54903973 ####[address] [address] Monocytes (Bld) [#/Vol] 0.7 E9/L Normal 0.2-1.0 [facility] Comment on above: Performed By: #### 2 391181, 2852816, 12915032, 95657656 ####[address] [address] Neutrophils (Bld) [#/Vol] 4.6 E9/L Normal 2.0-7.5 [facility] Comment on above: Performed By: #### 2 225525, 4256136, 47443545, 75733100 ####[address] [address] Neutrophils/100 WBC (Bld) 60.1 % Normal 36.0-75.0 [facility] Comment on above: Performed By: #### 2 833509, 8537426, 18941582, 89793005 ####[facility] [address] [place] [address] Platelet 245.0 E9/L Normal 150.0-500.0 [facility] Comment on above: Performed By: #### 2 860338, 2906544, 12583108, 84113620 ####[place] [address] [place] [address] Platelet mean volume (Bld) [Entitic vol] 6.9 fL Normal 6.4-10.8 [facility] Comment on above: Performed By: #### 2 955457, 9952562, 49560841, 06194916 ####[address] [address] RBC (Bld) [#/Vol] 5.1 E12/L Normal 4.3-5.9 [facility] Comment on above: Performed By: #### 2 811024, 8388179, 77006467, 09159810 ####[facility] [address] [place] [address] WBC corrected for nucl RBC Auto (Bld) [#/Vol] 7.6 E9/L Normal 4.0-11.0 [facility] Comment on above: Performed By: #### 2 369929, 2172199, 55766179, 30070461 ####[address] [address] CHEMISTRYOrdered By: SYSTEM SYSTEM on 06-12-2023 Anion gap [Moles/Vol] 15 mmol/L Normal 6 - 16 mEq/L R emisol Chem Calcium [Mass/Vol] 10.1 mg/dL Normal 8.9 - 11. 1 mg/dL [facility] Chloride [Moles/Vol] 108 mmol/L Normal 101 - 1 11 mmol/L [facility] CO2 [Moles/Vol] 22 mmol/L Normal 21 - 31 mmol/L [facility] Creatinine [Mass/Vol] 0.8 mg/dL Normal 0.5 - 1.3 mg/dL [facility] eGFR 71 mL/min/1.73 m2 Normal >=59mL/min /1 .73 m2 [facility] Glucose [Mass/Vol] 101 mg/dL Normal 55 - 199 mg/dL [facility] Potassium [Moles/Vol] 3.6 mmol/L Normal 3.5 - 5.3 mmol/L [facility] Sodium [Moles/Vol] 141 mmol/L Normal 135 - 145 mmol/L [facility] Troponin 10.20 pg/mL Normal 10.10 - 27.10 pg/mL [facility] Comment on above: Interpretive Data: T he 95% CI (Confidence Interval) PPV (Positive Predictive Value) for myocardial infarction in females is 38 pg/mL, in males 51 pg/mL. The results should be used in conjunction with clinical conditions of myocardial infarction. (Access High Sensitivity Troponin I Instructions For Use, [place], October 2017) Urea nitrogen [Mass/Vol] 23 mg/dL High 5 - 21 mg/dL [facility] Urea nitrogen/Creatinine [Mass ratio] 29 mg/mg High 10 - [address] Head or Brain w/o Contras ton 06-12-2023 CT Head or Brain w/o Contrast Exam Date/Time: 06/12/2023 03:10 EDT Reason for Exam: Mental status change, unknown cause;Other (please specify) Report IMPRESSION: NO EVIDENCE OF INTRACRANIAL HEMORRHAGE. CHRONIC FINDINGS. CLINICAL HISTORY: Mental status change, unknown cause. COMPARISON: 05/26/2023. COMMENT: Unenhanced images were obtained. The lateral ventricles, sylvian fissures, and cortical sulci bilaterally are dilated. There is no mass effect nor midline shift. There are small subtle ill-defined areas of slightly decreased attenuation involving cerebral white matter bilaterally, that are nonspecific, but with small vessel ischemic changes suspected. There is no evidence of acute/recent intracranial hemorrhage nor extra-axial hematoma. No mass lesion is evident. No skull fracture is noted. There are calcifications of distal internal carotid arteries. There has been no significant change when compared to the prior exam. All CT scans at this facility use dose modulation, iterative reconstruction, and/or weight based dosing when appropriate to reduce radiation dose to as low as reasonably achievable. Ordering Provider: Sudhakar Andrade FINAL REPORT Dictated: 06/12/2023 8:38 am Chris Euceda M.D. Signed (Electronic Signature): 06/12/2023 8:38 am Signed by: Crhis Euceda M.D. Transcribed by: ESTEFANY Technologist: REINALDO Technical Comments Contrast: None Normal [facility] Consent for Treatmenton 05-31 Consent for Treatment [id number] 030 [id number]#1. 00TIFF Normal [facility] Discharge Instructionson Discharge Instructions [id number] [id number] #1.00TIFF Normal [facility] ED Clinical Summaryon 2023 ED Clinical Summary [place] [id number] ED Clinical Summary Person Information [facility]: [facility] Age: 87 Years : 1935 Sex: Female Language: German PCP: Maurice Rogers III, DO Marital Status: Visit Id: Visit Reason: Medical problem - minor; Hypertension; ILL, HTN Speciality: Acuity: 3 Enc Type: Emergency Med Service: Emergency Arrival: 06/12/2023 02:34:46 Discharge: 06/12/2023 04:50:23 LOS: 000 02:16 Checkin: 06/12/2023 02:34:46 Checkout: 06/12/2023 04:50:23 Dispo Type: Home (Routine DC) EVENTS: Event Name Event Status Request Date/Time Start Date/Time Complete Date/Time Arrive Complete 06/12/2023 02:34:46 06/12/2023 02:34:46 06/12/2023 02:34:46 Document Home Meds Request 06/12/2023 02:34:46 Triage Complete 06/12/2023 02:34:46 06/12/2023 02:42:46 06/12/2023 02:42:46 Dr Exam Complete 06/12/2023 02:35:19 06/12/2023 02:35:19 06/12/2023 02:35:19 Registration Complete 06/12/2023 02:35:19 06/12/2023 02:35:27 06/12/2023 02:50:01 Bed Assign Complete 06/12/2023 02:35:27 06/12/2023 02:35:27 06/12/2023 02:35:27 RN Exam Complete 06/12/2023 02:35:27 06/12/2023 02:44:54 06/12/2023 02:44:54 EKG Complete 06/12/2023 02:36:10 06/12/2023 03:28:12 Pending Labs Complete 06/12/2023 02:36:10 06/12/2023 03:42:18 Lab Complete 06/12/2023 02:36:10 06/12/2023 03:42:18 Urine Collect Complete 06/12/2023 02:36:10 06/12/2023 03:42:18 Patient Care Complete 06/12/2023 02:36:10 06/12/2023 02:51:01 X-Ray Complete 06/12/2023 02:36:10 06/12/2023 02:49:11 06/12/2023 03:10:23 Swab Complete 06/12/2023 02:36:10 06/12/2023 03:11:28 Pending Labs Complete 06/12/2023 02:48:17 06/12/2023 02:48:17 06/12/2023 03:13:17 Lab Complete 06/12/2023 02:48:17 06/12/2023 02:48:17 06/12/2023 03:13:17 Reg Complete Request 06/12/2023 02:50:01 Reg Bed Request Complete 06/12/2023 02:50:01 06/12/2023 02:50:01 06/12/2023 02:50:01 CT Complete 06/12/2023 02:55:05 06/12/2023 03:09:50 06/12/2023 03:10:44 Wet Read Request 06/12/2023 03:10:23 Discharge Complete 06/12/2023 04:30:12 06/12/2023 04:50:27 06/12/2023 04:50:27 Transfer Complete 06/12/2023 04:50:27 06/12/2023 04:50:27 06/12/2023 04:50:27 ADDRESS: [place] [id number] PHYS DOC NOTES: MEDICAL INFORMATION: Prescriptions Given: Medications to Continue with No Changes Other Medications aspirin (aspirin 81 mg Oral EC Tab) 1 Tablets By Mouth every day. Refills: 0. calcium carbonate (calcium (as carbonate) 500 mg oral tablet) losartan 25 Milligram By Mouth every day. omeprazole (omeprazole 20 mg Cap-DR) 1 Capsules By Mouth every day. PATIENT EDUCATION INFORMATION: Instructions: Medical Screening Exam Follow up: With: Address: When: Maurice Rogers [address] [place] [address], [facility], [facility] [address] Business (7) In 3 days DIAGNOSIS: Encounter for medical screening examination Normal [facility] ED Note-Physicianon 06-12-19 ED Note-Physician Basic Information Time Seen: Sudhakar Andrade DO 06/12/2023 02:35 History of Present Illness HPI: Patient is a 87-year-old female who was brought to the ED by EMS from home for generally feeling ill. Patient states that when she laid down for bed tonight she felt shaky and that something was off. She denies any fever, chills, cough, runny nose. She denies any chest pain or shortness of breath. She denies any abdominal pain nausea vomiting or change in bowel movements. EMS reports that she did have elevated blood pressures during transport. ROS: Pertinent review of systems conducted and is negative except as noted above. Physical exam: General: nontoxic appearing and in no distress HEENT: Mucous membranes moist Neuro: awake and alert. Gross motor sensation all 4 extremities intact. Neck: supple, trachea midline Card: Heart regular rate and rhythm no murmur Resp: Lungs clear to auscultation no wheeze or rhonchi Abd: Soft and nondistended. No tenderness to palpation with no rebound or guarding. Ext: No gross deformity or edema Medical Decision Making MEDICAL DECISION MAKING Number and Complexity of Problems Differential Diagnosis: [] MDM Data External documents reviewed: N/A My EKG interpretation: Noted in chart if applicable My CT interpretation: N/A My X-ray interpretation: Noted in chart if applicable My Ultrasound interpretation: N/A Decision rules/scores evaluated: N/A Discussed with: N/A Treatment and Disposition ED Course: Patient is nontoxic-appearing and in no distress. She is neurovascularly intact to my exam. She is unable to to describe specific symptoms other than feeling shaky and like something is off. Will obtain a workup here in the ED. Workup is overall very reassuring. CT of the brain shows no acute process. On reassessment the patient's son and ghrzqoty-ux-wug are with her. She states that she is feeling much better. I discussed the results of her lab work and imaging. At this time I feel she is stable for discharge with close follow-up with her primary care physician. We discussed return precautions. Patient states understanding agreement this plan was discharged stable condition. Shared decision making: As above Code status: N/A Assessment/Plan Encounter for medical screening examination (Z13.9: Encounter for screening, unspecified) Orders: Basic Metabolic Panel CBC w/ Auto Diff CT Head or Brain w/o Contrast ECG 12 Lead Adult eGFR Influenza A&B Ag Rapid COVID Antigen ([facility]) Saline Lock Insert Troponin 0 Hr. UA With Cult Reflex XR Chest Single View Disposition Plan Discharge Prescription List Prescriptions No active prescription medications Follow-up With When Contact Information Maurice Rogers In 3 days [address] [id number] [facility] (1) Additional Instructions: Patient Education Medical Screening Exam Problem List/Past Medical History Ongoing No qualifying data Historical No qualifying data Procedure/Surgical History Abdominal hysterectomy. Medications Inpatient No active inpatient medications Home aspirin 81 mg Oral EC Tab, 81 mg= 1 tab(s), Oral, Daily calcium (as carbonate) 500 mg oral tablet, See Instructions losartan, 25 mg, Oral, Daily, Still taking, not as prescribed: only takes when she feels like she needs it omeprazole 20 mg Cap-DR, 20 mg= 1 cap(s), Oral, Daily, Still taking, not as prescribed: only takes PRN Allergies No Known Allergies Family History Heart failure: Mother. Hypertension: Child. Primary malignant neoplasm of lung: Father. Lab Results WBC: 7.6 E9/L (06/12/23 02:43:00) RBC: 5.1 E12/L (06/12/23 02:43:00) HGB: 15.2 gm/dL (06/12/23 02:43:00) Hct: 43.1 % (06/12/23 02:43:00) MCV: 85.1 fL (06/12/23 02:43:00) MCH: 30 pg (06/12/23 02:43:00) MCHC: 35.2 gm/dL (06/12/23 02:43:00) RDW: 13.3 % (06/12/23 02:43:00) Platelet: 245 E9/L (06/12/23 02:43:00) MPV: 6.9 fL (06/12/23 02:43:00) Neutro Auto: 60.1 % (06/12/23 02:43:00) Lymph Auto: 28.5 % (06/12/23 02:43:00) Pine Auto: 9 % (06/12/23 02:43:00) Eos Auto: 1.2 % (06/12/23 02:43:00) Basophil Auto: 1.2 % (06/12/23 02:43:00) Neutro Absolute: 4.6 E9/L (06/12/23 02:43:00) Lymph Absolute: 2.2 E9/L (06/12/23 02:43:00) Pine Absolute: 0.7 E9/L (06/12/23 02:43:00) Eos Absolute: 0.1 E9/L (06/12/23 02:43:00) Basophil Absolute: 0.1 E9/L (06/12/23 02:43:00) Glucose Lvl: 101 mg/dL (06/12/23 02:43:00) BUN: 23 mg/dL High (06/12/23 02:43:00) Creatinine: 0.8 mg/dL (06/12/23 02:43:00) eGFR: 71 mL/min/1.73 m2 (06/12/23 02:43:00) BUN/Creat Ratio: 29 High (06/12/23 02:43:00) Sodium Lvl: 141 mmol/L (06/12/23 02:43:00) Potassium Lvl: 3.6 mmol/L (06/12/23 02:43:00) Chloride: 108 mmol/L (06/12/23 02:43:00) CO2: 22 mmol/L (06/12/23 02:43:00) AGAP: 15 mEq/L (06/12/23 02:43:00) Calcium Lvl: 10.1 mg/dL (06/12/23 02:43:00) Troponin: 10.2 pg/mL (06/12/23 02:43:00) UA Spec Desc: Clean Catch (0 (more content not included)... Normal [facility] Comment on above: Result Comment: Elec tronically Signed By: Sudhakar Andrade DO\.br\Date and Time Signed: 06/12/23 04:31 EDT ED Patient Education Noteon 06-12-2023 ED Patient Education Note Emergency Medicine Medical Screening Exam A medical screening exam (MSE) helps to determine whether you need immediate medical treatment relating to any number of symptoms you are having. This type of exam may be done in an emergency department, an urgent care setting, or your health care provider's office. Depending on your symptoms and severity, you may need additional tests or medical therapy. It is important to note that an MSE does not necessarily mean that you will need or receive further medical testing or interventions if your symptoms are not deemed to be medically urgent (emergent). Tell a health care provider about: ? Any allergies you have. ? All medicines you are taking, including vitamins, herbs, eye drops, creams, and frjv-vad-dyrkiya medicines. ? Any problems you or family members have had with anesthetic medicines. ? Any bleeding problems you have. ? Any surgeries you have had. ? Any medical conditions you have. ? Whether you are or may be . What happens during the test? During the exam, a health care provider does a short, often focused, physical exam and asks about your medical history to assess: ? Your current symptoms. ? Your overall health. ? Your need for possible further medical intervention. What can I expect after the test? If you have a regular health care provider, make an appointment for a follow-up visit with him or her. If you do not have a regular health care provider, ask about resources in your community. Your medical screening exam may determine that: ? You do not need emergency treatment at this time. ? You need treatment right away. ? You need to be transferred to another medical center. This may happen if you need an emergent specialist or it consultant that is not available at the medical center you are at. ? You need to have more tests. A medical professionals may be consulted if needed. Get help right away if: ? Your condition gets worse. ? You develop new or troubling symptoms before you see your health care provider. These symptoms may represent a serious problem that is an emergency. Do not wait to see if the symptoms will go away. Get medical help right away. Call your local emergency services (911 in the [place] Do not drive yourself to the hospital. Summary ? A medical screening exam helps to determine whether you need medical treatment right away. This type of exam may be done in an emergency department, an urgent care setting, or your health care provider's office. ? During the exam, a health care provider does a short physical exam and asks about your current symptoms and overall health. ? Depending on the exam, more tests or therapies may be ordered. However, an MSE does not necessarily mean that you will have further medical testing if your symptoms are not deemed to be urgent. ? If you need further care that is not offered at your current medical center, you may need to be transferred to another facility. This information is not intended to replace advice given to you by your health care provider. Make sure you discuss any questions you have with your health care provider. Document Revised: 11/30/2021 Document Reviewed: 07/28/2021 [employer] Patient Education ? 2022 [employer] Normal [facility] ED Patient Summaryon 024 ED Patient Summary [address] [id number] Patient Discharge Instructions Person Information Name: TERESA BACON Age: 87 Years Arrival Date: 06/12/2023 02:34:46 Discharge Diagnosis: Encounter for medical screening examination Primary Care Physician: Maurice Rogers III, DO Provider Information Primary Provider: Sudhakar Andrade DO Advanced Classifying Machine Operator:None The exam and treatment you received in the Emergency Department were for an urgent problem and are not intended as complete care. It is important that you follow up with a doctor, nurse practitioner, or physician?s certified physician's assistant for ongoing care. If your symptoms become worse or you do not improve as expected and you are unable to reach your usual health care provider, you should return to the Emergency Department. We are available 24 hours a day. TERESA BACON has been given the following list of patient education materials, prescriptions and follow-up instructions: Follow-up Instructions: With: Address: When: Maurice Rogers [address] [place] [address], [place] [address] [facility] (1) In 3 days In the event that this physician does not participate in your insurance network, please consult with your insurance company to find a nearby participating provider. Patient Education Materials: Medical Screening Exam A MESSAGE TO ALL PATIENTS REGARDING OPIOIDS PRESCRIPTION OPIOIDS: WHAT YOU NEED TO KNOW Prescription opioids can be used to help relieve xzpiwbsk-xc-cwytmb pain and are often prescribed following a surgery or injury, or for certain health conditions. These medications can be an important part of the treatment but also come with serious risks. It is important to work with your healthcare provider to make sure you are getting the safest, most effective care. WHAT ARE THE RISKS AND SIDE EFFECTS OF OPIOID USE? Prescription opioids carry serious risks of addiction and overdose, especially with prolonged use. An opioid overdose, often marked by slowed breathing, can cause sudden . The use of prescription opioids can have a number of side effects as well, even when taken as directed: ? Tolerance?meaning you might need to take more of the medication for the same pain relief ? Physical dependence?meaning you have symptoms of withdrawal when a medication is stopped ? Increased sensitivity to pain ? Constipation ? Nausea, vomiting, and dry mouth ? Sleepiness and dizziness ? Confusion ? Depression ? Low levels of testosterone that can result in lower sex drive, energy, and strength ? Itching and sweating RISKS ARE GREATER WITH: ? History of drug misuse, substance use disorder, or overdose ? Mental health conditions (such as depression or anxiety) ? Sleep apnea ? Older age (65 years and older) ? Avoid alcohol while taking prescription opioids. Also, unless specifically advised by your health care provider, medications to avoid include: ? Benzodiazepines (such as Xanax or Valium) ? Muscle relaxants (such as Soma or Flexeril) ? Hypnotics (such as Ambien or Lunesta) ? Other prescription opioids KNOW YOUR OPTIONS Talk to your health care provider about ways to manage your pain that don?t involve prescription opioids. Some of these options may actually work better and have fewer risks and side effects. Options may include: ? Pain relievers such as acetaminophen, ibuprofen, and naproxen ? Some medication that are also used for depression or seizures ? Physical therapy and exercise ? Cognitive behavioral therapy, a psychological, goal-directed approach, in which patients learn how to modify physical, behavioral, and emotional triggers of pain and stress. IF YOU ARE PRESCRIBED OPIOIDS FOR PAIN: ? Never take opioids in greater amounts or more often than prescribed. ? Follow up with your primary health care provider. o Work together to create a plan on how to manage your pain. o Talk about ways to help manage your pain that don?t involve prescription opioids. o Talk about any and all concerns and side effects. ? Help prevent misuse and abuse o Never sell or share prescription opioids. o Never use another person?s prescription opioids. ? Store prescription opioids in a secure place and out of reach of others (this may include visitors, children, friends, and family). ? Safely dispose of unused prescription opioids: Find your community drug take-back program or your pharmacy mail-back program, or flush them down the toilet, following guidance from the Food and Drug Administration (www.fda.gov/Drugs/Re sourcesForYou). ? Visit www.cdc.gov/drugoverd ose to learn about the risks of opioids abuse and overdose. ? If you believe you may be struggling with addiction, tell your health physician primary care sports medicine and ask for guidance or call [facility]?S National Helpline at 5-526-597-HELP. v So (more content not included)... Normal [facility] HEMATOLOGYOrdered By: SYSTEM SYSTEM on 06-12-2023 Basophils/100 WBC (Bld) 1.2 % Normal 0.0 - 2.0 % Remisol Heme Basophils/Leukocytes Auto (Bld) [Pure # fraction] 0.1 E9/L Normal 0.0 - 0.2 E9/L Remisol Heme Eosinophils (Bld) [#/Vol] 0.1 E9/L Normal 0.0 - 0.5 E9/L Remisol Heme Eosinophils/100 WBC (Bld) 1.2 % Normal 0.0 - 8.0 % Remisol Heme Erythrocyte distribution width (RBC) [Ratio] 13.3 % Normal 10.9 - 14.2 % Remisol Heme Hematocrit (Bld) [Volume fraction] 43.1 % Normal 34.0 - 46.0 % Remisol Heme Hemoglobin (Bld) [Mass/Vol] 15.2 g/dL Normal 12.0 - 16.0 gm/dL Remisol Heme Lymphocytes (Bld) [#/Vol] 2.2 E9/L Normal 1.0 - 4.0 E9/L Remisol Heme Lymphocytes/100 WBC (Bld) 28.5 % Normal 14.0 - 50.0 % Remisol Heme MCH (RBC) [Entitic mass] 30.0 pg Normal 27.0 - 34.0 pg Remisol Heme MCHC (RBC) [Mass/Vol] 35.2 g/dL Normal 31.4 - 36.0 gm/dL Remisol Heme MCV (RBC) [Entitic vol] 85.1 fL Normal 80.0 - 100.0 fL Remisol Heme Monocytes (Bld) [#/Vol] 0.7 E9/L Normal 0.2 - 1.0 E9/L Remisol Heme Monocytes/100 WBC (Bld) 9.0 % Normal 4.0 - 14.0 % Remisol Heme Neutrophils (Bld) [#/Vol] 4.6 E9/L Normal 2.0 - 7.5 E9/L Remisol Heme Neutrophils/100 WBC (Bld) 60.1 % Normal 36.0 - 75.0 % Remisol Heme Platelet 245.0 E9/L Normal 150.0 - 500.0 E9/L Remisol Heme Platelet mean volume (Bld) [Entitic vol] 6.9 fL Normal 6.4 - 10.8 fL Remisol Heme RBC (Bld) [#/Vol] 5.1 E12/L Normal 4.3 - 5.9 E12/L Remisol Heme WBC corrected for nucl RBC Auto (Bld) [#/Vol] 7.6 E9/L Normal 4.0 - 11.0 E9/L Remisol Heme Influenza A&B Agon 4 Influenzae A Ag Negative Normal Negative [facility] Comment on above: Performed By: #### 2 [id number] ####[facility] [address] [place] [address] Influenzae B Ag Negative Normal Negative [facility] Comment on above: Result Comment: Test sensitivity and specificity vary for age group, specimen type, antigen types, and prevalence of disease. Test results must be evaluated in conjunction with other clinical data available to the physician. Individuals who received nasally administered Influenza A vaccine may have positive test results up to 3 days after vaccination. Performed By: #### 2 [id number], [id number] ####[facility] [address] [place] [address] MICRO OTHER TESTSOrdered By: Zehra Bateman on 06-12-2023 Influenzae A Ag Negative (06/12/23 2:50 AM) Normal Negative [facility] Influenzae B Ag Negative 1 (06/12/23 2:50 AM) Normal Negative [facility] Comment on above: Interpretive Data: T est sensitivity and specificity vary for age group, specimen type, antigen types, and prevalence of disease. Test results must be evaluated in conjunction with other clinical data available to the physician. Individuals who received nasally administered Influenza A vaccine may have positive test results up to 3 days after vaccination. Rapid COV Int NEG Ctl Pass (06/12/23 2:50 AM) Normal [facility] Rapid COV Int POS Ctl Pass (06/12/23 2:50 AM) Normal [facility] SARS-CoV+SARS-CoV-2 (COVID-19) Ag IA.rapid Ql (Resp) Not Detected 3 (06/12/23 2:50 AM) Normal Not Detected [facility] Comment on above: Interpretive Data: T he [employer] Veritor System for Rapid Detection of SARS-CoV-2 is a chromatographic digital immunoassay intended for the direct and qualitative detection of SARS-CoV-2 nucleocapsid antigens in nasal swabs from individuals who are suspected of COVID-19 by their healthcare provider within the first five days of the onset of symptoms. Negative results should be treated as presumptive, do not rule out SARS-CoV-2 infection and should not be used as the sole basis for treatment or patient management decisions, including infection control decisions. Negative results should be considered in the context of a patient s recent exposures, history and the presence of clinical signs and symptoms consistent with COVID-19, and confirmed with a molecular assay, if necessary, for patient management. For in vitro diagnostic use. In the [place], only for use under an Emergency Use Authorization. In the [place], this test has not been FDA cleared or approved; this test has been authorized by FDA under an EUA for use by authorized laboratories; use by laboratories certified under the CLIA, 42 U.S.C. 263a, that meet requirements to perform moderate, high, or waived complexity tests and at the Point of Care (POC), i.e., in patient care settings operating under a CLIA Certificate of Waiver, Certificate of Compliance, or Certificate of Accreditation. This test has been authorized only for the detection of proteins from SARS-CoV-2, not for any other viruses or pathogens; and, in the [place], this test is only authorized for the duration of the declaration that circumstances exist justifying the authorization of emergency use of in vitro diagnostics for detection and/or diagnosis of the virus that causes COVID-19 under Section 564(b)(1) of the Act, 21 U.S.C. 360bbb-3(b)(1), unless the authorization is terminated or revoked sooner. Monitor Recordon 06-12-2023 Monitor Record [id number]# 1.00TIFF Normal [facility] Pre-Arrival Noteon 4 Pre-Arrival Note Pre-Arrival Summary Name: , NCARIADNA Current Date: 06/12/2023 02:36:18 EDT Gender: Female Date of : Age: 87 Pre-Arrival Type: EMS ETA: 06/12/2023 02:51:00 EDT Primary Care Physician: Presenting Problem: ILL,HTN Pre-Arrival User: Karen Chirinos RN Referring Source: Location: [place] Completion Date/Time: 06/12/2023 02:21:00 [facility] Emergency Department Pre-Hospital Report Form Vital Signs: 207/129, HR100, RR16, 100% RA Pre-Hospital Report: feeling ill, alert and oriented Treatment in Route:FSBS 129, 20RFA, CSS Response to Treatment: Misc. Issues: Normal [facility] RAD - Preliminary Cat Scan R eporton 06-12-2023 RAD - Preliminary Cat Scan Report [id number] #1.00TIFF Normal [facility] Rapid COVID Antigen ([facility])on 06-12-2023 Rapid COV Int NEG Ctl Pass Normal [facility] Comment on above: Performed By: #### 2 [id number], [id number] ####[facility] [address] [place] [address] Rapid COV Int POS Ctl Pass Normal [facility] Comment on above: Performed By: #### 2 [id number], [id number] ####[facility] [address] [place] [address] SARS-CoV+SARS-CoV-2 (COVID-19) Ag IA.rapid Ql (Resp) Not detected Normal Not Detected [facility] Comment on above: Result Comment: The [employer] System for Rapid Detection of SARS-CoV-2 is a chromatographic digital immunoassay intended for the direct and qualitative detection of SARS-CoV-2 nucleocapsid antigens in nasal swabs from individuals who are suspected of COVID-19 by their healthcare provider within the first five days of the onset of symptoms. Negative results should be treated as presumptive, do not rule out SARS-CoV-2 infection and should not be used as the sole basis for treatment or patient management decisions, including infection control decisions. Negative results should be considered in the context of a patient?s recent exposures, history and the presence of clinical signs and symptoms consistent with COVID-19, and confirmed with a molecular assay, if necessary, for patient management. For in vitro diagnostic use. In the [place], only for use under an Emergency Use Authorization. In the [place], this test has not been FDA cleared or approved; this test has been authorized by FDA under an EUA for use by authorized laboratories; use by laboratories certified under the CLIA, 42 U.S.C. ?263a, that meet requirements to perform moderate, high, or waived complexity tests and at the Point of Care (POC), i.e., in patient care settings operating under a CLIA Certificate of Waiver, Certificate of Compliance, or Certificate of Accreditation. This test has been authorized only for the detection of proteins from SARS-CoV-2, not for any other viruses or pathogens; and, in the [place], this test is only authorized for the duration of the declaration that circumstances exist justifying the authorization of emergency use of in vitro diagnostics for detection and/or diagnosis of the virus that causes COVID-19 under Section 564(b)(1) of the Act, 21 U.S.C. ? 360bbb-3(b)(1), unless the authorization is terminated or revoked sooner. Performed By: #### 2 [id number], [id number] ####[address] [place] [address] Troponin 0 Hr.on 06-12-2023 Troponin 10.20 pg/mL Normal 10.10-27.10 [facility] Comment on above: Result Comment: The 95% CI (Confidence Interval) PPV (Positive Predictive Value) for myocardial infarction in females is 38 pg/mL, in males 51 pg/mL. The results should be used in conjunction with clinical conditions of myocardial infarction. (Access High Sensitivity Troponin I Instructions For Use, Tej Savannah, October 2017) Performed By: #### 2 [id number] ####[address] [place] [address] UA With Cult Reflexon 2023 Bilirubin Ql (U) Negative Normal Negative [facility] Comment on above: Performed By: #### 1 [id number] ####[address] [place] [address] Clarity (U) CLEAR Normal Clear [facility] Comment on above: Performed By: #### 1 [id number] ####[address] [place] [address] Color (U) YELLOW Normal Yellow [facility] Comment on above: Performed By: #### 1 [id number] ####[facility] [address] [place] [address] Epithelial cells.squamous LM.HPF (Urine sed) [#/Area] 0-2 Normal 0-2 [facility] Comment on above: Performed By: #### 1 [id number] ####[facility] [address] [place] [address] Glucose Test strip (U) [Mass/Vol] Negative Normal Negative [facility] Comment on above: Performed By: #### 1 [id number] ####[address] [address] Hemoglobin Ql (U) TRACE Abnormal Negative [facility] Comment on above: Performed By: #### 1 [id number] ####[address] [address] Ketones (U) [Mass/Vol] Negative Normal Negative [facility] Comment on above: Performed By: #### 1 [id number] ####[address] [address] [address] [place].plasma/[place] .RBC (Bld) [Mass ratio] 0-3 Normal 0-3 [facility] Comment on above: Performed By: #### 1 [id number] ####[address] [address] Nitrite Ql (U) Negative Normal Negative [facility] Comment on above: Performed By: #### 1 [id number] ####[address] [address] pH (U) 7.5 [pH] Invalid Interpretation Code 5.0-9.0 [facility] Comment on above: Performed By: #### 1 [id number] ####[address] [address] Protein (U) [Mass/Vol] 2+ Abnormal Negative [facility] Comment on above: Performed By: #### 1 [id number] ####[address] [address] Specific gravity (U) [Rel density] 1.020 Invalid Interpretation Code 1.005-1.030 [facility] Comment on above: Performed By: #### 1 [id number] ####[facility] [address] [place] [address] Type of Urine collection method Clean Catch Normal [facility] Comment on above: Performed By: #### 1 [id number] ####[place] [id number] Urobilinogen Qn (U) 0.2 {Byron'U}/dL Normal 0.0-1.0 [facility] Comment on above: Performed By: #### 1 [id number] ####[place] [address] WBC Auto Ql (U) Negative Normal Negative [facility] Comment on above: Performed By: #### 1 [id number] ####[place] [address] WBC LM.HPF (Urine sed) [#/Area] 0-5 Normal 0-5 [facility] Comment on above: Performed By: #### 1 [id number] ####[place] [address] URINALYSISOrdered By: Radha Bateman on 06-12-2023 Bilirubin Ql (U) Negative (06/12/23 3:17 AM) Normal Negative [facility] UA Auto SS Clarity (U) Clear (06/12/23 3:17 AM) Normal Clear [facility] UA Auto SS Color (U) Yellow (06/12/23 3:17 AM) Normal Yellow [facility] UA Auto SS Epithelial cells.squamous LM.HPF (Urine sed) [#/Area] 0-2 /HPF Normal 0-2/HPF [facility] UA Aut o SS Glucose Test strip (U) [Mass/Vol] Negative (06/12/23 3:17 AM) Normal Negative [facility] UA Auto SS Hemoglobin Ql (U) Trace *ABN* (06/12/23 3:17 AM) Invalid Interpretation Code Negative [facility] UA Auto SS Ketones (U) [Mass/Vol] Negative (06/12/23 3:17 AM) Normal Negative [facility] UA Auto SS [facility].plasma/[facility] .RBC (Bld) [Mass ratio] 0-3 /HPF Normal 0-3/HPF [facility] UA Auto SS Nitrite Ql (U) Negative (06/12/23 3:17 AM) Normal Negative [facility] UA Auto SS pH (U) 7.5 *NA* (06/12/23 3:17 AM) Invalid Interpretation Code 5.0 - 9.0 [facility] Auto SS Protein (U) [Mass/Vol] 2+ *ABN* (06/12/23 3:17 AM) Invalid Interpretation Code Negative [facility] UA Auto SS Specific gravity (U) [Rel density] 1.020 *NA* (06/12/23 3:17 AM) Invalid Interpretation Code 1.005 - 1.030 [facility] UA Auto SS UA Spec Desc Clean Catch (06/12/23 3:17 AM) Normal [facility] UA Auto SS Urobilinogen Qn (U) [id number] {Byron'U}/dL Normal 0.0 - 1.0 EU/dL [facility] Auto SS WBC Auto Ql (U) Negative (06/12/23 3:17 AM) Normal Negative [facility] UA Auto SS WBC LM.HPF (Urine sed) [#/Area] 0-5 /HPF Normal 0-5/HPF [facility] UA Auto SS XR Chest Single Viewon 06-11 XR Chest Single View Exam Date/Time: 06/12/2023 03:10 EDT Reason for Exam: Shortness of breath (SOB) Report IMPRESSION: NO EVIDENCE OF ACUTE CHEST DISEASE. CLINICAL HISTORY: Shortness of breath (SOB). COMPARISON: 05/26/2023. COMMENT: AP portable. The heart is normal in size. There are calcified mediastinal granulomas. The mediastinum is otherwise unremarkable. There is a granulomatous calcification at right lung base. No consolidated airspace opacification nor pleural effusion is evident. No significant change is noted when compared to the prior exam. Ordering Provider: Sudhakar Andrade FINAL REPORT Dictated: 06/12/2023 11:20 am Chris Euceda M.D. Signed (Electronic Signature): 06/12/2023 11:20 am Signed by: Chris Euceda M.D. Transcribed by: ESTEFANY Technologist: REINALDO Technical Comments Radiation Dose: Ka,r in mGy = na DAP = na Normal [facility] eGFRon 06-12-2023 eGFR 71 mL/min/1.73 m2 Normal >=59 [facility] Comment on above: Order Comment: Order added by Discern Expert. Performed By: #### [id number] ####[facility] [address] [place] [address] Inpatient Clinical Summaryon 06-04-2023 Inpatient Clinical Summary [address] [address] Clinical Summary Person Information: Name: TERESA BACON Age: 87 Years : 1935 Sex: Female PCP: Maurice Rogers III, DO Marital Status: Race: White Ethnicity: Non- or Language: German Visit Id: Visit Reason: Altered mental status; Weakness or fatigue; Potential stroke; AMS Speciality: Acuity: Enc Type: Observation Med Service: Medical Arrival: 05/26/2023 09:32:27 Discharge: 05/27/2023 15:20:00 Dispo Type: Home (Routine DC) Address: [address] [place] [phone] Provider Notes: Diagnosis: 1:Acute respiratory failure; 2:Altered mental status; 3:Weakness; 4:Dementia; 5:Hypokalemia; 6:HTN (hypertension); 7:GERD (gastroesophageal reflux disease) Problems No Problems Documented Smoking Status: Never Smoker Functional Status: Sensory Deficits: History of Falls: Mobility Assistance Prior to Admission: Independent ADLs: Independent Current Level of Assistance for Self-Care/Mobility: Cognitive Status: Not oriented to place, Not oriented to time Allergies No Known Allergies Measurements: Height: 162.56 cm Weight: 62.5 kg Blood Pressure: 101 mmHg / 62 mmHg BMI: 23.8 kg/m2 Procedures Abdominal hysterectomy Immunizations No Immunizations Documented This Visit Final Med List: aspirin (aspirin 81 mg Oral EC Tab) 1 Tablets By Mouth every day. Refills: 0. calcium carbonate (calcium (as carbonate) 500 mg oral tablet) losartan 25 Milligram By Mouth every day. omeprazole (omeprazole 20 mg Cap-DR) 1 Capsules By Mouth every day. Care Team Members: Attending Physician: Carly Stapleton MD Consulting Physician: Referring Physician: Follow up: With: Address: When: Maurice Rogers [address] [place] [id number] Business (1) With: Address: When: Mayank Lawson MD, [facility] [address] [place] [address] Within 2 to 4 weeks Patient Education Information: Confusion Normal [facility] Inpatient Patient Summaryon 06-04-2023 Inpatient Patient Summary [address] [address] Patient Discharge Instructions PERSON INFORMATION Name: TERESA BACON Date of : 1935 Current Date: 06/04/2023 08:13:48 PHYSICIANS Admitting Physician: Carly Stapleton MD Primary Care Physician: Maurice Rogers III, DO PCP Comment: Discharge Diagnosis: 1:Acute respiratory failure; 2:Altered mental status; 3:Weakness; 4:Dementia; 5:Hypokalemia; 6:HTN (hypertension); 7:GERD (gastroesophageal reflux disease) Condition at Discharge: Stable TERESA BACON has been given the following list of follow-up instructions, prescriptions, and patient education materials: PATIENT FOLLOW-UP INFORMATION Diet: Regular Discharge Activity: Activity as tolerated Discharge Restrictions: Wound Care Instructions: Remove Your Dressing In Days Call Your Doctor For: IF UNABLE TO CONTACT YOUR PHYSICIAN AND YOU FEEL IT IS AN EMERGENCY, GO TO THE NEAREST EMERGENCY ROOM OR CALL 911 Home Treatment: Devices/Equipment: None Special Services: Additional Instructions: Primary Care Physician to provide the following pending test results: None Follow up: With: Address: When: Maurice Rogers [address] [place] [phone] Business (1) With: Address: When: Mayank Lawson MD, [facility] [address] [place] [address] Within 2 to 4 weeks In the event that this physician does not participate in your insurance network, please consult with your insurance company to find a nearby participating provider. Comment: LEATHA Woods JANE, have received the attached patient education materials/instruction s and have verbalized understanding: Patient Signature Date Clinican/Nurse Signature Date HERE ARE THE MEDICATION CHANGES THAT OCCURRED DURING YOUR HOSPITAL STAY New Medications Printed Prescriptions aspirin (aspirin 81 mg Oral EC Tab) 1 Tablets By Mouth every day. Refills: 0. Last Dose: ____Next Dose: ____ Medications to Continue with No Changes Other Medications calcium carbonate (calcium (as carbonate) 500 mg oral tablet) Last Dose: ____Next Dose: ____ losartan 25 Milligram By Mouth every day. Last Dose: ____Next Dose: ____ omeprazole (omeprazole 20 mg Cap-DR) 1 Capsules By Mouth every day. Last Dose: ____Next Dose: ____ Comment: MEDICATION LIST PROVIDED FOR YOU IS A LIST OF YOUR CURRENT MEDICATIONS. PLEASE CARRY THIS WITH YOU AT ALL TIMES. aspirin (aspirin 81 mg Oral EC Tab) 1 Tablets By Mouth every day. Refills: 0. calcium carbonate (calcium (as carbonate) 500 mg oral tablet) losartan 25 Milligram By Mouth every day. omeprazole (omeprazole 20 mg Cap-DR) 1 Capsules By Mouth every day. Pharmacy Information: JAYMIE Orozco Comment: PATIENT EDUCATION INFORMATION Instructions: Confusion Confusion is the inability to think with your usual speed or clarity. Confusion can be caused by many things. People who are confused often describe their thinking as cloudy or unclear. Confusion can also include feeling disoriented. This means you are unaware of where you are or who you are. You may also not know the date or time. When confused, you may have trouble remembering, paying attention, or making decisions. Some people also act aggressively when they are confused. In some cases, confusion may come on quickly. In other cases, it may develop slowly over time. Confusion may be caused by medical conditions such as: ? Infections, such as a urinary tract infection (UTI). ? Low levels of oxygen, which can develop from conditions such as long-term lung disorders. ? Decrease in brain function due to dementia and other conditions that affect the brain, such as seizures, strokes, brain tumors, or head injuries. ? Mental health conditions, like panic attacks, anxiety, depression, and hallucinations. Confusion may also be caused by physical factors such as: ? Loss of fluid (dehydration) or an imbalance of salts and minerals in the body (electrolytes). ? Lack of certain nutrients like niacin, thiamine, or other B vitamins. ? Fever or hypothermia, which is a sudden drop in body temperature. ? Low or high blood sugar. ? Low or high blood pressure. Other causes include: ? Lack of sleep or changes in routine or surroundings, such as when traveling or staying in a hospital. ? Using too much alcohol, drugs, or medicine. ? Side effects of medicines, or taking medicines that affect other medicines (drug interactions). Follow these instructions at home: Pay attention to your symptoms. Tell your health care provider about any changes or if you develop new s (more content not included)... Normal [facility] Consent for Procedure/Surger yon 05-28-2023 Consent for Procedure/Surgery [id number] #[id number] Normal [facility] Consultation Noteon 05-28-19 24 Consultation Note Chief Complaint pt to ER with c/o AMS, weakness, headache, vision chnages and shaky. LKW unknown, son found her like this at 8am this morning. BS 91 in triage. LKW 1930 last night. son called her this morning at 0800 and noticed the confusion Reason for Consultation AMS, ?TIA/CVA History of Present Illness The patient is a 87 year old female who I was asked to see in neurological consultation for altered mental status. The patient has a past medical history significant for dementia, HTN, GERD. The patient reportedly had some confusion at home. Patient was talking to her son and felt she was confused. Patient was brought to the emergency room where she had noncontrast CT scan of the brain which did not reveal evidence of acute infarct or hemorrhage. Patient had a CT angiogram of the head and neck which did not reveal evidence of large vessel intracranial or extracranial cerebral artery stenosis or occlusion. The patient does report being anxious about losing some money and does have a history of some confusion associated with elevated anxiety. The patient currently is back to her baseline. She denies any unilateral numbness, unilateral weakness, vision changes, or slurred speech. The patient is accompanied by her daughter who aids in the history. The patient is admitted for further evaluation. Review of Systems Constitutional: no fever, no chills, no sweats, no weakness Respiratory: no shortness of breath, no cough, no orthopnea, no wheezing Cardiovascular: no chest pain, no palpitations, no edema Additional ROS info: Except as noted in the above Review of Systems and in the History of Present Illness all other systems have been reviewed and are negative or noncontributory. Physical Exam Vitals & Measurements T: 36.6 ?C(Axillary) TMIN: 36.4 ?C(Oral) TMAX: 37 ?C(Axillary) HR: 77(Apical) RR: 16 BP: 97/63 SpO2: 96% HT: 162.56 cm WT: 62.5 kg The patient is awake and alert. The patient is oriented x3 Language is intact including comprehension and fluency, fund of knowledge is intact, memory is intact Cranial nerves: Pupils are equal round and reactive to light and accomodation, extraocular movements intact, visual donnelly are full to confrontation, funduscopic exam is normal, face is symmetric bilaterally, sensations intact in the face, palate elevates bilaterally, tongue protrudes midline, hearing is intact to finger rub, shoulder shrug is symmetric Motor exam: Strength testing is 5 out of 5 MRC scale strength in all 4 extremities. Deep tendon reflexes are 2+ and symmetric. Tone is normal throughout. Plantar reflexes flexor bilaterally Sensory exam: Sensations intact to light touch and pinprick sensation in all 4 extremities Cerebellar exam: [id number] reveals no ataxia. Gait is normal The neurological exam was performed by a healthcare professional which was witnessed and supervised by me via video telemedicine visit consented to by the patient or appropriate patient account maintenance representative. Date/Time:05/27/2023 Co/nsciousness: Alert = 0 Current mo/nth and age: Answers both correctly = 0 Open and close eyes/skimmer reverberatory release hand: Obeys both correctly = 0 Best gaze: Normal = 0 Visual field testing: No visual field loss = 0 Facial paresis: Normal symmetric movement = 0 Motor function left arm: Normal = 0 Motor function right arm: Normal = 0 Motor function left leg: Normal = 0 Motor function right leg: Normal = 0 Limb ataxia: No ataxia = 0 Sensory: Normal = 0 Best language: No aphasia = 0 Dysarthria: Normal articulation = 0 Extinction and inattention: Normal = 0 Total Score (severe deficit >22): 0 otes: Assessment/Plan The patient is a 87-year-old female with a history of hypertension and dementia who was admitted to the hospital with sudden confusion. Possible etiologies for the patient's symptoms include a multifactorial encephalopathy contributed to by underlying metabolic process. I cannot completely exclude an intracranial process such as stroke, increased intracranial pressure, or mass, contributed to the patient's symptoms. I cannot exclude underlying seizure disorder with subclinical seizures and postictal confusion contributing to the patient's symptoms. In addition, the patient may have medication side effects contributing to overall encephalopathy. Patient may also have had confusion related to anxiety. The patient may have a component of sleep-wake cycle disturbance with sleep deprivation contributing to encephalopathy. -I have reviewed the CT scan of the brain personally -I recommend obtaining an MRI scan of the brain to assess for an acute intracranial process which may be contributing to the patient's encephalopathy -I recommend monitoring the patient's sleep-wake cycle with minimal interruptions during sleep and consideration of medications to help normalize the patient's sleep-wake cycle on the hospital. -I will continue to follow the patient clinically with medical management of the patient's medical conditions and make (more content not included)... Normal [facility] Comment on above: Result Comment: Elec tronically Signed By: Marcus ARGUETA, Kelsey Castro\.br\Date and Time Signed: 05/27/23 07:24 EST\.br\Electronically Co-Signed By: Mayank Lawson MD\.br\Date and Time Co-Signed: 05/28/23 12:27 EST\.br\Electronically Co-Signed By: Ryan Mesa DO\.br\Date and Time Co-Signed: 06/04/23 09:13 EST Discharge Instructionson Discharge Instructions [id number] #[id number] Normal [facility] Insurance Correspondence Off iceon 05-28-2023 Insurance Correspondence Office [id number]#1 .00TIFF Normal [facility] CHEMISTRYOrdered By: SYSTEM SYSTEM on 05-27-2023 Anion gap [Moles/Vol] 10 mmol/L Normal 6 - 16 mEq/L R emisol Chem Chloride [Moles/Vol] 107 mmol/L Normal 101 - 1 11 mmol/L Remisol Chem CO2 [Moles/Vol] 27 mmol/L Normal 21 - 31 mmol/L Remisol Chem Potassium [Moles/Vol] 4.1 mmol/L Normal 3.5 - 5.3 mmol/L Remisol Chem Sodium [Moles/Vol] 140 mmol/L Normal 135 - 145 mmol/L Remisol Chem Discharge Note-Nursingon Discharge Note-Nursing TERESA BACON :1935 Visit Date:05/26/2023 Inpatient Discharge Instructions Your Care Team Admitting Physician - Carly Stapleton MD Consulting Physician - Mayank Lawson MD Reason for Your Visit pt to ER with c/o AMS, weakness, headache, vision chnages and shaky. LKW unknown, son found her like this at 8am this morning. BS 91 in triage. LKW 1930 last night. son called her this morning at 0800 and noticed the confusion Your Diagnosis Acute respiratory failure Altered mental status Weakness Dementia Hypokalemia HTN (hypertension) GERD (gastroesophageal reflux disease) Altered mental status Potential stroke Weakness or fatigue Tests Performed Blood Culture Charcoal -- Results Pending -- CT Head or Brain w/o Contrast CTA Head CTA Neck MRI Brain w/o Contrast XR Chest Single View Please visit your patient portal for your results or contact your primary care physician. This Is Your Medications List aspirin (aspirin 81 mg Oral EC Tab) calcium carbonate (calcium (as carbonate) 500 mg oral tablet) losartan omeprazole (omeprazole 20 mg Cap-DR) Procedure History Abdominal hysterectomy. Discharge Vitals Temperature (Oral) 36.8 ?C Heart Rate (Monitored) 77 Respiratory Rate 16 Blood Pressure 101/62 Weight 62.5 kg What to do next Instructions From Your Doctor Event Name Event Result Discharge Activity Activity as tolerated Discharge Diet(s) Regular Pending Diagnostic Test Results None Pharmacy Information [facility] New Follow Up Appointments after Discharge Follow Up with Renny BAKER, JEMIMA Talley When: Within 2 to 4 weeks Where: [place] [address] [place] [address]- Medications What How Much When Instructions Next Dose New aspirin (aspirin 81 mg Oral EC Tab) 1 Tablets By Mouth Every day Printed Prescription 05/28 @ 9 AM Unchanged calcium carbonate (calcium (as carbonate) 500 mg oral tablet) See instructions 05/28 @ 9 AM Unchanged losartan 25 Milligram By Mouth Every day 05/28 @ 9 AM Unchanged omeprazole (omeprazole 20 mg Cap-DR) 1 Capsules By Mouth Every day 05/28 @ 9 AM Test Results CBC BMP WBC: 9.3 E9/L (05/26/23 09:25:00) Glucose Lvl: 98 mg/dL (05/26/23:25:00) RBC: 4.9 E12/L (05/26/23 09:25:00) BUN: 22 mg/dL High (05/26/23 09:25:00) HGB: 15.2 gm/dL (05/26/23:25:00) Creatinine: 0.9 mg/dL (05/26/23:25:00) Hct: 42 % (05/26/23 09:25:00) BUN/Creat Ratio: 24 High (05/26/23 09:25:00) MCV: 85.6 fL (05/26/23:) Sodium Lvl: 140 mmol/L (05/27/23:37:00) MCH: 30.8 pg (05/26/23) Potassium Lvl: 4.1 mmol/L (05/27/23:37:00) MCHC: 36 gm/dL (05/26/23:) Chloride: 107 mmol/L (05/27/23:) RDW: 12.9 % (05/26/23) CO2: 27 mmol/L (05/27/23:37:) Platelet: 298 E9/L (05/26/23) AGAP: 10 mEq/L (05/27/23:) MPV: 7.1 fL (05/26/23:) Calcium Lvl: 10.4 mg/dL (05/26/23:) Allergies No Known Allergies Education Materials Confusion Confusion is the inability to think with your usual speed or clarity. Confusion can be caused by many things. People who are confused often describe their thinking as cloudy or unclear. Confusion can also include feeling disoriented. This means you are unaware of where you are or who you are. You may also not know the date or time. When confused, you may have trouble remembering, paying attention, or making decisions. Some people also act aggressively when they are confused. In some cases, confusion may come on quickly. In other cases, it may develop slowly over time. Confusion may be caused by medical conditions such as: ? Infections, such as a urinary tract infection (UTI). ? Low levels of oxygen, which can develop from conditions such as long-term lung disorders. ? Decrease in brain function due to dementia and other conditions that affect the brain, such as seizures, strokes, brain tumors, or head injuries. ? Mental health conditions, like panic attacks, anxiety, depression, and hallucinations. Confusion may also be caused by physical factors such as: ? Loss of fluid (dehydration) or an imbalance of salts and minerals in the body (electrolytes). ? Lack of certain nutrients like niacin, thiamine, or other B vitamins. ? Fever or hypothermia, which is a sudden drop in body temperature. ? Low or high blood sugar. ? Low or high blood pressure. Other causes include: ? Lack of sleep or changes in routine or surroundings, such as when traveling or staying in a hospital. ? Using too much alcohol, drugs, or medicine. ? Side effects of medicines, or taking medicines that affect other medicines (drug interactions). Follow these instructions at home: Pay attention to your symptoms. Tell your health care provider about any changes or if you develop new symptoms. Follow these instructions to control or treat sy (more content not included)... Normal [facility] Interdisciplinary Note - Joseph e Manageron 05-27-2023 Interdisciplinary Note - Gas Fitter Apprentice CRM to room to discuss DC planning. Patient is awake, alert and oriented. Patient is from home, she lives alone. One of her Children will transport at [place]. Her daughter is present in room. Patient verified PCP as DR Simon, verified PCP and home DME. Patient is here as observation with AMS, Tia Vs Cva. Patient is [facility] to [facility], see notes. Patient was seen by Neurology. Patient is pending MRI. Patient denied needs for DME or HH. She is okay with a paramed f/u at DC. Patient was provided CRM contact, jh board updated. Anticipated DC later today or 05/28 if testing negative. CRM following [facility] Comment on above: Result Comment: Elec tronically Signed By: Kaycee Rodriguez\.br\Date and Time Signed: 05/27/23 11:45 EST Interdisciplinary Note - PTo n 05-27-2023 Interdisciplinary Note - PT Pt to be seen daily in acute setting setting for bed mobility, transfers, gait. SBA-CGA for activity. May benefit from home health upon d/c. AM-PAC [facility] Lyteson 05-27-2023 Anion gap [Moles/Vol] 10 mmol/L Normal 6-16 [facility] Comment on above: Performed By: #### 2 [id number] ####[facility] [address] [place] [address] Chloride [Moles/Vol] 107 mmol/L Normal 101-111 [facility] Comment on above: Performed By: #### 2 [id number] ####[facility] [address] [place] [address] CO2 [Moles/Vol] 27 mmol/L Normal 21-31 [facility] Comment on above: Performed By: #### 2 [id number] ####[facility] [address] [place] [address] Potassium [Moles/Vol] 4.1 mmol/L Normal 3.5-5.3 [facility] Comment on above: Performed By: #### 2 [id number] ####[facility] [address] [place] [place] [address] Sodium [Moles/Vol] 140 mmol/L Normal 135-145 [facility] Comment on above: Performed By: #### 2 [id number] ####[facility] [address] [place] [address] MRI Brain w/o Contraston MRI Brain w/o Contrast Exam Date/Time: 05/27/2023 12:12 EST Reason for Exam: Neuro deficit, acute, stroke suspected ; Stroke, follow up;Other (please specify) Report IMPRESSION: There are no acute intracranial changes, no evidence of ischemia or hemorrhage. There are no regions of signal abnormality. EXAMINATION: MRI Brain w/o Contrast CLINICAL HISTORY: Neuro deficit, acute, stroke suspected ; Stroke, follow up COMPARISONS: CT brain from 05/26/2023 TECHNIQUE: Multiplanar multisequence images of the brain were obtained without contrast. Diffusion perfusion imaging was obtained. BRAIN MRI FINDINGS: There are no extra-axial collections. There is no evidence of hemorrhage. There are no areas of perfusion diffusion signal abnormality to suggest ischemia. The susceptibility images do not demonstrate evidence of hemosiderin deposition within the brain parenchyma or the leptomeninges. There is preservation of the boyle-white matter differentiation. There are a few scattered foci of T2/FLAIR increased signal in the subcortical and periventricular white matter without associated edema or mass effect. There is prominence of the sulci and ventricles consistent with moderate global cerebral atrophy and chronic involutional changes. The midline structures are intact, the corpus callosum is within normal limits. The region of the pineal gland and the sella turcica are unremarkable. There are no space-occupying lesions in the posterior fossa. The basilar cisterns are patent. The craniocervical junction is unremarkable. The visualized portions of the orbits are within normal limits, the globes are intact. The visualized portions of the paranasal sinuses are within normal limits. The calvarium and soft tissues are unremarkable. Report Ordering Provider: Clarice RAMOS FINAL REPORT Dictated: 05/27/2023 1:05 pm Ryan Ca MD, V. Signed (Electronic Signature): 05/27/2023 1:05 pm Signed by: Ryan Ca MD, V. Transcribed by: ESTEFANY Technologist: ARMANDO Technical Comments None Normal [facility] Monitor Recordon 05-27-2023 Monitor Record [id number]# 1.00TIFF Normal [facility] Monitor Record [id number]# 1.00TIFF Normal [facility] Progress Note-Physicianon Progress Note-Physician Assessment/Plan PLAN: 1. Acute respiratory failure (J96.00: Acute respiratory failure, unspecified whether with hypoxia or hypercapnia) w/hypoxia per ABGs. unknown baseline. ?? of note this was following IV Ativan given in ED. ? med induced in ED ?? or at home ??--resolved this morning. Off oxygen this AM. on room air. Chest x-ray is negative. 2. Altered mental status (R41.82: Altered mental status, unspecified) ? hypoxia, TIA, CVA, med induced, infection ??? resolved this morning. UA normal. Consult neurology appreciated. CT head, CTA head/neck negative. MRI brain pending. Urine tox/Drug screen negative. 3. Weakness (R53.1: Weakness) See above. PT/OT to eval, treat recommending HH/PT/OT 4. Dementia (F03.90: Unspecified dementia, unspecified severity, without behavioral disturbance, psychotic disturbance, mood disturbance, and anxiety) Pt w/history of dementia. Pt improved since admission. Was able to state her name, and recognize her daughter. She is confused to current place and time which seems her baseline per daughter. 5. Hypokalemia (E87.6: Hypokalemia) Trend labs and replace as necessary.-normal today. 6. HTN (hypertension) (I10: Essential (primary) hypertension) Allow permissive HTN today. Resume Losartan Labetalol for SBP >200 until CVA r/o 7. GERD (gastroesophageal reflux disease) (K21.9: Gastro-esophageal reflux disease without esophagitis) PPI DVT Prophylaxis: SCDs Disposition: observation status will likely require <2 midnight stays for further work up and treatment of above. Subjective Pt seen while sitting up in the recliner She is completely alert, oriented x 4 this AM. she can follow all commands. Pt denies headache, dizziness, lightheadedness but does state she feels weak today. Seen by neurology this AM. will need MRI to clear pt for CVA. Pt on room air this AM no c/o SOB. Objective Vitals & Measurements T: 36.8 ?C(Oral) TMIN: 36.4 ?C(Oral) TMAX: 37 ?C(Axillary) HR: 77(Monitored) RR: 16 BP: 101/62 SpO2: 95% HT: 162.56 cm WT: 62.5 kg Intake & Output This visit (24 hour periods starting at 07:00 EST) 05/27/23 * 05/26/23 05/25/23 Total Summary Intake mL -- 0.26 -- Output mL -- 200 -- Fluid Balance -- -199.74 -- Intake (1) lorazepam mL -- 0.26 -- Total -- 0.26 -- Output (1) Urine Voided mL -- 200 -- Total -- 200 -- Counts (2) Stool Count -- 1 -- Urine Count -- 2 -- * This column has not completed the indicated time period. Physical Exam General: NAD Head: no trauma, normocephalic Neck: Trachea midline, no adenopathy, no tenderness Eye: normal conjunctiva, sclera clear PERRLA 3mm. ENMT: oral mucosa moist, no pharyngeal erythema or exudate Cardiovascular: regular rate and rhythm, normal peripheral perfusion Respiratory: Lungs CTA, no rales rhonchi or wheeze respirations non labored Chest wall: no deformity. Gastrointestinal: soft, moderately distended, nontender, well-healed scar, no tenderness, no guarding. Extremities: no deformity, no trauma, no edema Skin: warm, dry intact. Neurological: Alert, oriented x 4; speech clear. Able to follow all commands. No neuro deficits noted. Psychiatric: cooperative, affect appropriate for age, normal judgement, Lab Results WBC: 9.3 E9/L (05/26/23::) RBC: 4.9 E12/L (05/26/23::) HGB: 15.2 gm/dL (05/26/23::) Hct: 42 % (05/26/23::) MCV: 85.6 fL (05/26/23:) MCH: 30.8 pg (05/26/23::) MCHC: 36 gm/dL (05/26/23:) RDW: 12.9 % (05/26/23) Platelet: 298 E9/L (05/26/23) MPV: 7.1 fL (05/26/23) RBC Morph: NORMAL (05/26/23) PT: 12 second(s) (05/26/23::) INR: 1.08 (05/26/23) PTT: 30.2 second(s) (05/26/23::) Glucose Lvl: 98 mg/dL (05/26/23::) BUN: 22 mg/dL High (05/26/23::) Creatinine: 0.9 mg/dL (05/26/23::) eGFR: 61 mL/min/1.73 m2 (05/26/23::) BUN/Creat Ratio: 24 High (05/26/23::) Sodium Lvl: 140 mmol/L (05/27/23 05:37:00) Potassium Lvl: 4.1 mmol/L (05/27/23 05:37:00) Chloride: 107 mmol/L (05/27/23 05:37:00) CO2: 27 mmol/L (05/27/23 05:37:00) AGAP: 10 mEq/L (05/27/23 05:37:00) Calcium Lvl: 10.4 mg/dL (02/24/24 09:25:00) Alk Phos: 59 Int._Unit/L (05/26/23 09:25:00) Alk Phos: 59 Int._Unit/L (05/26/23:25:00) ALT: 14 Int._Unit/L (05/26/23 09:25:00) ALT: 14 Int._Unit/L (05/26/23 09:25:00) AST: 48 Int._Unit/L High (05/26/23 09:25:00) AST: 48 Int._Unit/L High (05/26/23 09:25:00) Total Protein: 7.7 gm/dL (05/26/23 09:25:00) Total Protein: 7.7 gm/dL (05/26/23:25:00) Albumin Lvl: 4.9 gm/dL (05/26/23 09:25:00) Albumin Lvl: 4.9 gm/dL (05/26/23 09:25:00) Globulin: 2.8 gm/dL (05/26/23 09:25:00) Globulin: 2.8 gm/dL (05/26/23 09:25:00) A/G Ratio: 1.8 (05/26/23:25:00) A/G Ratio: 1.8 (05/26/23:25:00) Bili Total: 1.2 mg/dL High (05/26/23 09:25:00) Bili Tot (more content not included)... Normal [facility] Comment on above: Result Comment: Elec tronically Signed By: Clarice ARMSTRONG\.br\Date and Time Signed: 05/27/23 09:12 EST\.br\Electronically Co-Signed By: Carly Stapleton MD\.br\Date and Time Co-Signed: 05/27/23 17:02 EST RAD - MRI Screening Formon 0 05-27-2023 RAD - MRI Screening Form [id number]# 1.00TIFF Normal [facility] ABO/Rhon 05-26-2023 ABO/Rh Positive Invalid Interpretation Code [facility] Comment on above: Performed By: #### 2 [id number], [id number], [id number], [id number] ####[facility] [address] [place] [address] ABO/Rh History Checkon 05-26 ABO/Rh History Check Type verified by second s Normal [facility] Comment on above: Performed By: #### 2 538424, 90556858, 38306588, 12430107 ####[facility] [address] [place] [address] ABO/Rh Retypeon 05-26-2023 ABO/Rh Retype Interp Positive Invalid Interpretation Code [facility] Comment on above: Performed By: #### 1 [id number], 4420868, 37420888, 24132497, 14915832, 6719332, 4452601, 1934799, 2228214, 5452148 ####[facility] [address] [place] [address] ABSCon 05-26-2023 ABSC Gel Interp Negative Normal [facility] Comment on above: Performed By: #### 2 578518, 57705443, 42801217, [id number] ####[facility] [address] [place] [address] BLOOD BANKOrdered By: Jeannine Moreno on 05-26-2023 ABO/Rh Interp Positive Invalid Interpretation Code [facility] BB Subsection ABO/Rh Retype Interp Positive Invalid Interpretation Code [facility] BB Subsection ABSC Gel Interp Negative (05/26/23 9:48 AM) Normal [facility] BB Subsection BNPOrdered By: Anurag jimenes 05-26-2023 Natriuretic peptide B (Bld) [Mass/Vol] 139 pg/mL High 5-80 [facility] Comment on above: Performed By: #### 1 [id number] ####[facility] [address] [place] [address] Blood Bank ID#on 05-26-2023 BBID# [id number] Invalid Interpretation Code [facility] Comment on above: Performed By: #### 2 [id number], 77873833, 71985408, [id number] ####[facility] [address] [facility] [address] Blood Gas Art, with Rikki Galvan, [place] 05-26-2023 a/A Ratio Art 56.70 % Normal >=0.80 [facility] Comment on above: Performed By: #### 4 [id number] ####[facility] [address] [place] [address] AaDO2 Art 44.1 mmHg High 5.0-15.0 [facility] Comment on above: Performed By: #### 4 [id number] ####[facility] [address] [place] [address] Allens Test Positive Normal [facility] Comment on above: Performed By: #### 4 [id number] ####[facility] [address] [place] [address] Base Excess Arterial -0.8 mmol/L Low >=2.8 [facility] Comment on above: Performed By: #### 4 [id number] ####[facility] [address] [place] [address] cCa2+ Art 5.03 mg/dL Normal 4.40-5.30 [facility] Comment on above: Performed By: #### 4 [id number] ####[facility] [address] [place] [address] cCl- Art 106.0 mmol/L Normal 101.0-111.0 [facility] Comment on above: Performed By: #### 4 [id number] ####[facility] [address] [place] [address] cGlu Art 105 mg/dL High 55-99 [facility] Comment on above: Performed By: #### 4 [id number] ####[facility] [address] [facility] [address] cK+ Art 3.3 mmol/L Low 3.5-5.3 [facility] Comment on above: Performed By: #### 4 [id number] ####[facility] [address] [place] [address] cLac Art .9 mmol/L Normal .5-2.2 [facility] Comment on above: Performed By: #### 4 [id number] ####[facility] [address] [place] [address] director of sales marketing+ Art 141.0 mmol/L Normal 135.0-145.0 [facility] Comment on above: Performed By: #### 4 [id number] ####[address] [place] [address] Drawn by nawaf parada Invalid Interpretation Code [facility] Comment on above: Performed By: #### 4 [id number] ####[address] [place] [address] FCOHb Art 1.4 % Low 1.5-4.9 [facility] Comment on above: Result Comment: Refe rence range Nonsmoker <1.5% Smoker <5.0% Heavy Smoker <9.0% Performed By: #### 4 [id number] ####[address] [place] [address] FIO2 BG 21 Invalid Interpretation Code [facility] Comment on above: Performed By: #### 4 [id number] ####[address] [place] [address] FMetHb Art 0.1 % Normal 0.0-1.9 [facility] Comment on above: Performed By: #### 4 [id number] ####[address] [place] [address] FO2Hb Art 92.4 % Normal 92.0-100.0 [facility] Comment on above: Performed By: #### 4 [id number] ####[facility] [address] [place] [address] HCO3 (Bld) [Moles/Vol] 23.7 mmol/L Normal 22.0-26.[address] [facility] Comment on above: Performed By: #### 4 [id number] ####[facility] [address] [place] [address] Hemoglobin (Bld) [Mass/Vol] 13.7 g/dL Normal 12.0-16.0 [facility] Comment on above: Performed By: #### 4 [id number] ####[address] [place] [address] Oxygen saturation in Blood 93.8 % Low 95.0-100.0 [facility] Comment on above: Performed By: #### 4 [id number] ####[address] [place] [address] P CO2 Arterial 38.5 mmHg Normal 35.0-45.0 [facility] Comment on above: Performed By: #### 4 [id number] ####[address] [address] P O2 Arterial 57.7 mmHg Low 80.0-100.0 [facility] Comment on above: Performed By: #### 4 [id number] ####[address] [address] pH Arterial 7.400 Normal 7.350-7.450 [facility] Comment on above: Performed By: #### 4 [id number] ####[address] [address] Sample Site R Radial Normal [facility] Comment on above: Performed By: #### 4 [id number] ####[address] [address] Sample Type Arterial Draw Normal [facility] Comment on above: Performed By: #### 4 [id number] ####[address] [address] CBC w/Indiceson 05-26-2023 Erythrocyte distribution width (RBC) [Ratio] 12.9 % Normal 10.9-14.2 [facility] Comment on above: Performed By: #### 1 2372458, 1883668, 38093874, 10751228, 69962077, 7517941, 3547619, 3151612, 7409757, 0392655 ####[facility] [address] [place] [address] Hematocrit (Bld) [Volume fraction] 42.0 % Normal 34.0-46.0 [facility] Comment on above: Performed By: #### 1 0144771, 2574571, 40028209, 83370443, 03827769, 1495096, 4109702, 4100069, 2778617, 8433866 ####[facility] [address] [place] [address] Hemoglobin (Bld) [Mass/Vol] 15.2 g/dL Normal 12.0-16.0 [facility] Comment on above: Performed By: #### 1 8890376, 7391648, 02143859, 27186932, 45421018, 3933728, 0011021, 9249720, 4763796, 9025515 ####[address] [place] [address] MCH (RBC) [Entitic mass] 30.8 pg Normal 27.0-34.0 [facility] Comment on above: Performed By: #### 1 4695245, 2223618, 39724355, 06866492, 67442755, 6575290, 1240905, 8930146, 5692698, 6952811 ####[address] [place] [address] MCHC (RBC) [Mass/Vol] 36.0 g/dL Normal 31.4-36.0 [facility] Comment on above: Performed By: #### 1 6502439, 6737670, 18799778, 57678360, 95229402, 7909929, 9973518, 0930101, 7910629, 0091509 ####[address] [place] [address] MCV (RBC) [Entitic vol] 85.6 fL Normal 80.0-100.0 [facility] Comment on above: Performed By: #### 1 5850235, 0282207, 22661006, 45714864, 99102783, 9600298, 7465504, 5793434, 5395591, 3468716 ####[facility] [address] [place] [address] Platelet 298.0 E9/L Normal 150.0-500.0 [facility] Comment on above: Performed By: #### 1 0304548, 7227497, 79589060, 13393455, 47458997, 6441741, 4308117, 5992794, 1327756, 1082481 ####[facility] [address] [place] [address] Platelet mean volume (Bld) [Entitic vol] 7.1 fL Normal 6.4-10.8 [facility] Comment on above: Performed By: #### 1 8566863, 2717385, 47304966, 51851923, 35541928, 9831579, 9970940, 6425970, 0060150, 7940938 ####[facility] [address] [place] [address] RBC 4.9 E12/L Normal 4.3-5.9 [facility] Comment on above: Performed By: #### 1 2842686, 2121497, 70253169, 83216989, 66665237, 6553763, 1215657, 0267351, 4225256, 6423389 ####[facility] [address] [place] [address] RBC morphology finding Nom (Bld) NORMAL Invalid Interpretation Code [facility] Comment on above: Performed By: #### 1 4180124, 1538361, 66120046, 39837051, 05010776, 8414996, 4946932, 3003892, 4122847, 7915772 ####[facility] [address] [place] [address] WBC 9.3 E9/L Normal 4.0-11.0 [facility] Comment on above: Performed By: #### 1 5869902, 4351313, 06235012, 16658764, 83545725, 2929811, 5043624, 6191964, 2357378, 5948945 ####[facility] [address] [place] [address] CHEMISTRYOrdered By: SYSTEM SYSTEM on 05-26-2023 Anion gap [Moles/Vol] 13 mmol/L Normal 6 - 16 mEq/L R emisol Chem Bili Direct 0.2 mg/dL Normal 0.0 - 0.4 mg/dL [facility] Bili Indirect 1.0 mg/dL High 0.1 - 0.9 mg/dL [facility] Calcium [Mass/Vol] 10.4 mg/dL Normal 8.9 - 11. 1 mg/dL [facility] Chloride [Moles/Vol] 106 mmol/L Normal 101 - 1 11 mmol/L [facility] CO2 [Moles/Vol] 25 mmol/L Normal 21 - 31 mmol/L [facility] Creatinine [Mass/Vol] 0.9 mg/dL Normal 0.5 - 1.3 mg/dL [facility] eGFR 61 mL/min/1.73 m2 Normal >=59mL/min /1 .73 m2 [facility] Ethanol Lvl mg/dL Normal <=11mg/dL [facility] Glucose [Mass/Vol] 98 mg/dL Normal 55 - 199 mg/dL [facility] Lactic Acid Lvl 1.6 mmol/L Normal 0.5 - 2.2 mmol/L [facility] Magnesium [Mass/Vol] 1.8 mg/dL Normal 1.3 - 2 .4 mg/dL [facility] Potassium [Moles/Vol] 3.4 mmol/L Low 3.5 - 5.3 mmol/L [facility] Sodium [Moles/Vol] 141 mmol/L Normal 135 - 145 mmol/L [facility] Troponin 22.80 pg/mL Normal 10.10 - 27.10 pg/mL [facility] Comment on above: Interpretive Data: T he 95% CI (Confidence Interval) PPV (Positive Predictive Value) for myocardial infarction in females is 38 pg/mL, in males 51 pg/mL. The results should be used in conjunction with clinical conditions of myocardial infarction. (Access High Sensitivity Troponin I Instructions For Use, Tej Savannah, October 2017) Troponin 16.10 pg/mL Normal 10.10 - 27.10 pg/mL [facility] Comment on above: Interpretive Data: T he 95% CI (Confidence Interval) PPV (Positive Predictive Value) for myocardial infarction in females is 38 pg/mL, in males 51 pg/mL. The results should be used in conjunction with clinical conditions of myocardial infarction. (Access High Sensitivity Troponin I Instructions For Use, Tej Savannah, October 2017) TSH Qn 4.54 m[IU]/L Normal 0.34 - 5.60 mcIU/mL [facility] Urea nitrogen [Mass/Vol] 22 mg/dL High 5 - 21 mg/dL [facility] Urea nitrogen/Creatinine [Mass ratio] 24 mg/mg High 10 - 20 [facility] CHEMISTRYOrdered By: Helio Kay on 05-26-2023 U Amph Scr NEGATIVE (05/26/23 10:10 AM) Normal NEGATIVE [facility] U Desirae Scr NEGATIVE (05/26/23 10:10 AM) Normal NEGATIVE [facility] U Benzodia Scr NEGATIVE (05/26/23 10:10 AM) Normal NEGATIVE [facility] U Cannab Scr NEGATIVE (05/26/23 10:10 AM) Normal NEGATIVE [facility] U Cocaine Scr NEGATIVE (05/26/23 10:10 AM) Normal NEGATIVE [facility] U Opiate Scr NEGATIVE (05/26/23 10:10 AM) Normal NEGATIVE [facility] U PCP Scr NEGATIVE (05/26/23 10:10 AM) Normal NEGATIVE [facility] CMPon 05-26-2023 Albumin [Mass/Vol] 4.9 g/dL Normal 3.3-5.0 [facility] Comment on above: Performed By: #### 1 3194388, 4088138, 07719324, 97662058, 92566357, 9205785, 7893957, 6909347, 1719257, 3925242 ####[facility] [address] [place] [address] Albumin/Globulin [Mass ratio] 1.8 {ratio} Normal 1.1-2.2 [facility] Comment on above: Performed By: #### 1 9346127, 7682712, 19972215, 94440509, 47585255, 7027383, 4646598, 1308740, 0212569, 8657627 ####[facility] [address] [place] [address] Alk Phos 59 Int._Unit/L Normal 21-98 [facility] Comment on above: Performed By: #### 1 9149481, 0025344, 10156123, 77655131, 89856955, 9530543, 9795536, 0330264, 3643622, 5488815 ####[facility] [address] [place] [address] ALT 14 Int._Unit/L Normal 6-46 [facility] Comment on above: Performed By: #### 1 9577591, 6630045, 29769552, 43531051, 81677307, 8154735, 6167290, 7230222, 4798197, 7713971 ####[facility] [address] [place] [address] Anion gap [Moles/Vol] 13 mmol/L Normal 6-16 [facility] Comment on above: Performed By: #### 1 5320730, 5695173, 85531468, 67883746, 09779210, 9907958, 6000037, 1559304, 5444908, 9911303 ####[facility] [address] [place] [address] AST 48 Int._Unit/L High 5-43 [facility] Comment on above: Performed By: #### 1 4447835, 5792827, 18450206, 42379070, 95866511, 8230993, 4331329, 8103467, 3097240, 4925029 ####[facility] [address] [place] [address] Bili Total 1.2 mg/dL High 0.0-1.1 [facility] Comment on above: Performed By: #### 1 1125868, 6888238, 13124974, 92498205, 22505768, 3490341, 5473304, 5584733, 8524715, 3674879 ####[facility] [address] [place] [address] BUN/Creat Ratio 24 No Units High 10-20 [facility] Comment on above: Performed By: #### 1 3931434, 7711227, 85339422, 54199783, 73443520, 7334626, 3649352, 9724306, 0841074, 9505266 ####[facility] [address] [place] [address] Calcium [Mass/Vol] 10.4 mg/dL Normal 8.9-11.1 [facility] Comment on above: Performed By: #### 1 1159599, 5144792, 98427853, 22486162, 35879613, 0967243, 0926655, 1767875, 0554065, 8225254 ####[facility] [address] [place] [address] Chloride [Moles/Vol] 106 mmol/L Normal 101-111 [facility] Comment on above: Performed By: #### 1 7042698, 3362508, 18195752, 03609284, 52802905, 9430690, 6610201, 8019000, 1832949, 4077806 ####[facility] [address] [place] [address] CO2 [Moles/Vol] 25 mmol/L Normal 21-31 [facility] Comment on above: Performed By: #### 1 6693245, 0154013, 76846828, 45682549, 90643103, 9886573, 6898796, 9180241, 6472884, 5373644 ####[facility] [address] [place] [address] Creatinine [Mass/Vol] 0.9 mg/dL Normal 0.5-1.3 [facility] Comment on above: Performed By: #### 1 5320539, 5343916, 57553946, 76700908, 78522134, 8106129, 2383682, 4379264, 7820706, 8571674 ####[facility] [address] [place] [address] Globulin (S) [Mass/Vol] 2.8 g/dL Normal 1.4-4.0 [facility] Comment on above: Performed By: #### 1 1882193, 9154240, 68411923, 73529274, 47636445, 9241591, 6323294, 5064440, 6020094, 0688615 ####[facility] [address] [place] [address] Glucose [Mass/Vol] 98 mg/dL Normal 55-199 [facility] Comment on above: Performed By: #### 1 0254839, 0432601, 96931948, 64730436, 51627687, 9592407, 9774598, 7751135, 1537302, 7422024 ####[address] [place] [address] Potassium [Moles/Vol] 3.4 mmol/L Low 3.5-5.3 [facility] Comment on above: Performed By: #### 1 7928999, 1799849, 14760212, 93149060, 36859107, 5426331, 1913405, 6506610, 1068022, 2899047 ####[facility] [address] [place] [address] Protein [Mass/Vol] 7.7 g/dL Normal 6.0-7.8 [facility] Comment on above: Performed By: #### 1 2730830, 0149287, 52837479, 76991908, 91974023, 9211697, 2684081, 6496317, 5139426, 7149732 ####[facility] [address] [place] [address] Sodium [Moles/Vol] 141 mmol/L Normal 135-145 [facility] Comment on above: Performed By: #### 1 0322517, 2007745, 67681632, 71678521, 23752286, 6787477, 3946798, 1471983, 1972314, 5512561 ####[facility] [address] [place] [address] Urea nitrogen [Mass/Vol] 22 mg/dL High 5-21 [facility] Comment on above: Performed By: #### 1 2952231, 6129406, 69122956, 85849396, 26496707, 6854202, 8047375, 8757994, 4051231, 3521548 ####[facility] [address] [place] [address] COAGULATIONOrdered By: Abby Ardon on 05-26-2023 aPTT Coag (PPP) [Time] 30.2 s Normal 25.1 - 36.5 second(s) [facility] [employer] Comment on above: Interpretive Data: Gregory anderson 15 days - 4 weeks 1 - 5 months 6 - 11 months 1 - 5 years 6 - 10 years 11 - 17 years PTT Mean: 35.4 (27.6-45.6) Mean: 33.5 (24.8-40.7) Mean: 32.4 (25.1-40.7) Mean: 31.6 (24.0-39.2) Mean: 31.6 (26.9-38.7) Mean: 31.0 (24.6-38.4) Pediatric Reference ranges were obtained from a study by Emanuel Lyon et al. prepared from 1437 samples obtained at 7 different centers using the same coagulation reagent and instrumentation as [facility]. Currently there are no coagulation studies available worldwide for children to 14 days, and no normal ranges. Heparin therapeutic range (represented by Anti-Factor Xa activity of 0.2 - 0.4 U/mL) corresponds to PTT of 56.6 - 109.0 sec. INR Coag (PPP) [Relative time] 1.08 {INR} Invalid Interpretation Code [facility] Comment on above: Interpretive Data: I NR results are specifically intended to assess patients stabilized on long-term Anticoagulation therapy suggested INR s Less Intensive Anticoagulation 2.0 3.0 Conventional Range 3.0 4.5 PT Coag (PPP) [Time] 12.0 s Normal 9.4 - 1 2.5 second(s) [facility] Comment on above: Interpretive Data: 1 5 days - 4 weeks 1 - 5 months 6 -11 months 1-5 years 6-10 years 11 -17 years Mean: 11.2 (9.5-12.6) Mean: 11.0 (9.7-12.8) Mean: 11.0 (9.8-13.0) Mean: 11.3 (9.9-13.4) Mean: 11.7 (10.0-14.6) Mean: 11.8 (10.0 - 14.1) Pediatric Reference ranges were obtained from a study by Emanuel Lyon et al. prepared from 1437 samples obtained at 7 different centers using the same coagulation reagent and instrumentation as [facility]. Currently there are no coagulation studies available worldwide for children to 14 days, and no normal ranges. CT Head or Brain w/o Layla bergman 05-26-2023 CT Head or Brain w/o Contrast Exam Date/Time: 05/26/2023 09:42 EST Reason for Exam: Neuro deficit, acute, stroke suspected Report IMPRESSION: There is no acute hemorrhage or ischemia. 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 EXAM: CT Head or Brain w/o Contrast DATE: 05/26/2023 9:36 AM CLINICAL HISTORY: AMS Neuro deficit, acute, stroke suspected TECHNIQUE: Multiple images axial images were obtained without contrast administration. 3-D sagittal and coronal reconstructions were performed. All CT scans at this facility use dose modulation, iterative reconstruction, and/or weight based dosing when appropriate to reduce radiation dose to as low as reasonably achievable. COMPARISON: None FINDINGS: Mildly limited due to motion. There is no evidence of acute hemorrhage, mass effect or edema. There are no extra-axial collections or space-occupying lesions. There is no evidence of acute ischemia, loss of boyle-white matter differentiation There is moderate prominence of sulci and ventricles similar to the previous study indicating global cerebral atrophy. There are periventricular white matter hypodensities likely secondary to chronic microangiopathy. The posterior fossa is unremarkable. The orbits demonstrate no intra or extraconal lesions. The globes are intact. The visualized portions of paranasal sinuses are unremarkable. The calvarium is unremarkable. The findings were called to ER at 0939 hours Report Ordering Provider: Lucille Hardy FINAL REPORT Dictated: 05/26/2023 9:50 am Ryan Ca MD, V. Signed (Electronic Signature): 05/26/2023 9:50 am Signed by: Ryan Ca MD, V. Transcribed by: ESTEFANY Technologist: LEMUEL Normal [facility] CTA Headon 05-26-2023 CTA Head Exam Date/Time: 05/26/2023 10:42 EST Reason for Exam: Neuro deficit, acute, stroke suspected;Other (please specify) Report [facility] [phone] IMPRESSION: PLEASE REFER TO NECK CTA REPORT CLINICAL HISTORY: Neuro deficit, acute, stroke suspected COMPARISON: NONE. FINDINGS: All CT scans at this facility use dose modulation, iterative reconstruction, and/or weight based dosing when appropriate to reduce radiation dose to as low as reasonably achievable. Ordering Provider: Lucille Hardy FINAL REPORT Dictated: 05/26/2023 11:03 am Ryan Ca MD, V. Signed (Electronic Signature): 05/26/2023 11:03 am Signed by: Ryan Ca MD, V. Transcribed by: ESTEFANY Technologist: LEMUEL Technical Comments GFR (mL/min/1/73m2) stroke protocol Contrast: Isovue 370 Contrast amount in ml's: 100 Normal [facility] CTA Neckon 05-26-2023 CTA Neck Exam Date/Time: 05/26/2023 10:42 EST Reason for Exam: Neuro deficit, acute, stroke suspected;Other (please specify) Report EXAMINATION: CTA Neck DATE AND TIME:05/26/2023 9:57 AM CLINICAL HISTORY: Stroke Neuro deficit, acute, stroke suspected COMPARISON: None TECHNIQUE: Helical CTA of the head was performed from the vertex to the foramen magnum following the uneventful intravenous administration of 100 cc of nonionic contrast without incident. 2-D images were reconstructed in the sagittal and coronal planes. Three Dimensional Maximum Intensity Projection (3D-MIP) images were created. All images were reviewed and primarily archived to PACS workstation. All CT scans at this facility use dose modulation, iterative reconstruction, and/or weight based dosing when appropriate to reduce radiation dose to as low as reasonably achievable. FINDINGS CTA HEAD: Intracranial ICAs: Flow is visualized within the precavernous, cavernous, clinoid and supraclinoid segments of the internal carotid arteries bilaterally Anterior Cerebral Arteries:The bilateral A1 and A2 segments are patent. Middle Cerebral Arteries: Bilateral horizontal, insular, opercular, and cortical segments of the right and left middle cerebral cerebral arteries are patent. Vertebral Arteries And Basilar Artery: There is adequate flow in the intracranial portions of the vertebral arteries and in the basilar artery. Posterior Cerebral Arteries: Bilateral posterior cerebral arteries are patent. Aneurysm No aneurysm or dissection in the anterior or posterior circulations.. Neurocranium The visualized neurocranium is intact. Dural Sinus: As visualized the opacified dural venous sinuses are unremarkable. IMPRESSION: The major intracranial arterial structures are patent without high-grade stenosis, large vessel cut off, or aneurysm. EXAMINATION: CTA Neck DATE AND TIME:05/26/2023 9:57 AM Report CLINICAL HISTORY: Stroke symptoms Neuro deficit, acute, stroke suspected COMPARISON: None TECHNIQUE: Helical CTA of the neck was performed from the aortic arch to the foramen magnum following the uneventful intravenous administration of 100 cc of nonionic contrast without incident. 2-D images were reconstructed in the sagittal and coronal planes. Three Dimensional Maximum Intensity Projection (3D-MIP) images were created. All images were reviewed and primarily archived to PACS workstation. All CT scans at this facility use dose modulation, iterative reconstruction, and/or weight based dosing when appropriate to reduce radiation dose to as low as reasonably achievable. NASCET Criteria were utilized FINDINGS CTA NECK: Aortic Arch: The visualized portions of the aortic arch and proximal arch vessels demonstrates no focal stenosis aneurysm or dissection. There is a common origin of the right brachiocephalic trunk in the left common carotid artery which is an anatomical variant. Carotids: The common carotid arteries are normal in course and caliber. Right Internal Carotid: There is mild plaque at the carotid bifurcation hemodynamically significant stenosis of the proximal right internal carotid artery by NASCET Criteria. There is no vascular dissection or aneurysm of the right common or internal carotid arteries. Left Internal Carotid: There is mild arteriosclerotic plaque at the left carotid bifurcation with hemodynamically significant stenosis of the proximal left internal carotid artery by NASCET Criteria. There is no vascular dissection or aneurysm of the left common or internal carotid arteries. Cervical Vertebral Arteries: Patency: The vertebral arteries are well visualized to the level of the basilar artery. There is no focal stenosis aneurysm or dissection. Vertebral arteries are codominant. IMPRESSION: Negative CTA of the neck. Ordering Provider: Lucille Hardy FINAL REPORT Dictated: 05/26/2023 11:03 am Ryan Ca MD, V. Signed (Electronic Signature): 05/26/2023 11:03 am Signed by: Ryan Ca MD, V. Transcribed by: ESTEFANY Technologist: LEMUEL Technical Comments GFR (mL/min/1/73m2) stroke protocol Contrast: Isovue 370 Contrast amount in ml's: 100 Normal [facility] Consent for Treatmenton 05-04 Consent for Treatment [id number] Normal [facility] ED Clinical Summaryon 2023 ED Clinical Summary [address] [address] ED Clinical Summary Person [facility]: [facility] Age[facility] 87 Years : 1935 Sex: Female Language: German PCP: Maurice Rogers III, DO Marital Status: Visit Id: Visit Reason: Altered mental status; Weakness or fatigue; Potential stroke; AMS Speciality: Acuity: 2 Enc Type: Observation Med Service: Emergency Arrival: 05/26/2023 09:32:27 Discharge: LOS: 000 03:23 Checkin: 05/26/2023 09:32:27 Checkout: 05/26/2023 12:55:08 Dispo Type: Admitted as IP to this [facility] EVENTS: Event Name Event Status Request Date/Time Start Date/Time Complete Date/Time Arrive Complete 05/26/2023 09:32:27 05/26/2023 09:32:27 05/26/2023 09:32:27 Document Home Meds Request 05/26/2023 09:32:27 Triage Complete 05/26/2023 09:32:27 05/26/2023 09:44:00 05/26/2023 09:44:00 Bed Assign Complete 05/26/2023 09:33:08 05/26/2023 09:33:08 05/26/2023 09:33:08 Dr Exam Complete 05/26/2023 09:33:08 05/26/2023 09:34:39 05/26/2023 09:34:39 RN Exam Complete 05/26/2023 09:33:08 05/26/2023 10:09:25 05/26/2023 10:09:25 RR Stroke Request 05/26/2023 09:33:26 NPO Request 05/26/2023 09:34:34 Pending Labs Request 05/26/2023 09:34:34 Lab Complete 05/26/2023 09:34:34 05/26/2023 10:29:29 Urine Collect Complete 05/26/2023 09:34:34 05/26/2023 10:29:29 Patient Care Request 05/26/2023 09:34:34 X-Ray Complete 05/26/2023 09:34:34 05/26/2023 09:40:26 05/26/2023 09:47:40 RT Request 05/26/2023 09:34:34 Blood Collect Request 05/26/2023 09:34:34 CT Complete 05/26/2023 09:34:34 05/26/2023 09:36:08 05/26/2023 09:42:12 Registration Complete 05/26/2023 09:34:39 05/26/2023 11:15:15 05/26/2023 11:15:15 Pending Labs Inlab 05/26/2023 09:35:29 Lab Inlab 05/26/2023 09:35:29 EKG Complete 05/26/2023 09:35:40 05/26/2023 10:04:10 Pending Labs Complete 05/26/2023 09:36:35 05/26/2023 09:36:35 05/26/2023 09:56:55 Lab Complete 05/26/2023 09:36:35 05/26/2023 09:36:35 05/26/2023 09:56:55 Pending Labs Complete 05/26/2023 09:38:55 05/26/2023 09:38:55 05/26/2023 09:49:33 Lab Complete 05/26/2023 09:38:55 05/26/2023 09:38:55 05/26/2023 09:49:33 Wet Read Request 05/26/2023 09:47:40 Pending Labs Complete 05/26/2023 09:48:02 05/26/2023 09:48:02 05/26/2023 10:24:45 Lab Complete 05/26/2023 09:48:02 05/26/2023 09:48:02 05/26/2023 10:09:34 CT Complete 05/26/2023 09:50:54 05/26/2023 09:57:15 05/26/2023 10:42:55 Fall Risk Request 05/26/2023 10:09:25 RR Stroke Request 05/26/2023 10:09:25 Pending Labs Complete 05/26/2023 10:09:31 05/26/2023 10:09:31 05/26/2023 10:15:48 Blood Collect Start 05/26/2023 10:09:31 05/26/2023 10:09:31 Meds Admin Complete 05/26/2023 10:09:33 05/26/2023 12:39:53 Pending Labs Complete 05/26/2023 10:09:33 05/26/2023 10:59:18 RT Tx/ABG Request 05/26/2023 10:09:33 Meds Admin Complete 05/26/2023 10:20:49 05/26/2023 10:41:55 Pending Labs Complete 05/26/2023 10:24:41 05/26/2023 10:24:41 05/26/2023 10:24:41 Consult Request 05/26/2023 11:09:37 Hospitalist Consult Request 05/26/2023 11:09:37 Reg Complete Request 05/26/2023 11:15:15 Reg Bed Request Complete 05/26/2023 11:15:15 05/26/2023 11:15:15 05/26/2023 11:15:15 Bed Request Request 05/26/2023 12:19:17 Reg Bed Request Complete 05/26/2023 12:19:17 05/26/2023 12:42:01 05/26/2023 12:42:01 Admit Request 05/26/2023 12:19:17 Patient Care Request 05/26/2023 12:42:01 Patient Care Request 05/26/2023 12:42:02 Patient Care Request 05/26/2023 12:42:02 Patient Care Request 05/26/2023 12:42:02 ADDRESS: [place] [id number] PHYS DOC NOTES: MEDICAL INFORMATION: Prescriptions Given: PATIENT EDUCATION INFORMATION: Instructions: Follow up: DIAGNOSIS: 1:Altered mental status; 2:Weakness Normal [facility] ED Note-Physicianon 05-26-19 ED Note-Physician Basic Information Time Seen: Lucille Hardy M.D. 05/26/2023 09:34 Chief Complaint pt to ER with c/o AMS, weakness, headache, vision chnages and shaky. LKW unknown, son found her like this at 8am this morning. BS 91 in triage. LKW 1930 last night. son called her this morning at 0800 and noticed the confusion History of Present Illness The patient is an 87-year-old female who presented to the emergency room via EMS for possible stroke. Per EMS the patient was confused today. They stated that the son had called the patient this morning and she was confused and he called 911. EMS does not know when was the last time patient was seen well. The patient is awake, alert but confused. She is not able to provide history. She is only complaining of headache. The patient's son stated that she had called him this morning and she seemed out of it. He states first she told him that she could not find the credit card and he thought that she was anxious and nervous so he tried to calm her down however she continued to be confused and that is when he called 911. He states the last time he talked to her was 7:30 PM last night. Review of Systems Unable to obtain due to clinical condition Physical Exam Vitals & Measurements T: 36.6 ?C(Oral) HR: 113(Monitored) RR: 18 BP: 190/109 SpO2: 100% HT: 162 cm WT: 62.2 kg BMI: 23.7 General: alert, no acute distress Skin: warm, dry, Head: no trauma, normocephalic Neck: Trachea midline, no tenderness, supple Eye: normal conjunctiva, sclera clear, PERRL, EOMI, vision unchanged ENMT: Oral mucosa moist Cardiovascular: regular rate and rhythm Respiratory: Lungs CTA, respirations non labored, breath sounds equal, symmetrical expansion Chest wall: no deformity,notendernes s Gastrointestinal: soft, non distended, no tenderness, no guarding Extremities: no deformity, no trauma Neurological: Awake and alert. Does not follow all commands and does not answer to all of my questions, CN II-XII intact, bilateral lower leg weakness. When I try to lift her legs on the air they dropped however there is some movement on both of them, sensation equal & normal bilaterally, speech normal Psychiatric: cooperative somewhat Medical Decision Making MEDICAL DECISION MAKING Number and Complexity of Problems Differential Diagnosis: [] [facility] Data External documents reviewed: [] My EKG interpretation: [] My CT interpretation: [] My X-ray interpretation: [] My Ultrasound interpretation: [] Decision rules/scores evaluated: [] Discussed with: Hospitalist Treatment and Disposition ED Course: The patient presented with altered mental status. Rapid response stroke was called. The patient is awake alert however she appears to be altered. She does not follow all my commands and does not respond to all my questions. She is not able to contribute to the history. She keeps saying that she has a headache. CT of the brain shows no acute intracranial process. NIH stroke scale score 9. The patient is not a candidate for thrombolytics as the last time seen well was [address] angiography of the head and neck shows no acute process. When patient was at the CT she got agitated and uncooperative. She was given Ativan and were able to get the CT. the patient got sedated with Ativan and when the family came she woke up and seems to be calmer and more cooperative. The family denies any history of dementia. They states sometimes she will forget things. Blood work reviewed. Urine shows no infection. The case is discussed with the hospitalist and the patient will be admitted to the hospital services. Shared decision making: [] Code status: [] Assessment/Plan 1. Altered mental status (R41.82: Altered mental status, unspecified) 2. Weakness (R53.1: Weakness) Orders: acetaminophen + Generic Diluent 100 mL, 1,000 mg = 100 mL, Soln-IV, IV Piggyback, Once, Stop date 05/26/23 10:08:00 EST, STAT, Start date 05/26/23 10:08:00 EST, 400 mL/hr, Infuse over 15 minute(s) lorazepam, 0.25 mg = 0.13 mL, Injection, IV Push, Once, Stop date 05/26/23 10:20:00 EST, STAT, Start date 05/26/23 10:20:00 EST, 05/26/23 10:20:00 EST lorazepam, 0.25 mg = 0.13 mL, Injection, IV, Once, Stop date 05/26/23 10:29:00 EST, Start date 05/26/23 10:29:00 EST ABO/Rh ABO/Rh History Check Antibody Screen Blood Bank ID# Blood Culture Charcoal Blood Culture Charcoal Blood Gas Art, with Lytes, Gluc, Lact Cardiac Monitoring CBC w/ Indices Communication Order Communication Order Comprehensive Metabolic Panel Continuous Pulse Oximetry CT Head or Brain w/o Contrast CTA Head CTA Neck Dysphagia Screen ED Physician consult Hospitalist for continued care eGFR Extra SST Tube Hepatic Function Panel Lactic Acid Magnesium Level Neurological Assessment NPO Diet Oxygen Protocol PT PTT Rapid Response Form Routine Capillary Glucose POC Speech Language Pathology Evaluate Patient, Develop a Plan o (more content not included)... Normal [facility] Comment on above: Result Comment: Elec tronically Signed By: Hayley Reese, Lucille Avila\.br\Date and Time Signed: 05/26/23 14:41 EST ED Patient Education Noteon 05-26-2023 ED Patient Education Note Normal [facility] ED Patient Summaryon 024 ED Patient Summary [place] [id number] Patient Discharge Instructions Person Information Name: TERESA BACON Age: 87 Years Arrival Date: 05/26/2023 09:32:27 Discharge Diagnosis: 1:Altered mental status; 2:Weakness Primary Care Physician: Maurice Rogers III, DO Provider Information Primary Provider: Hayley Reese, Lucille Avila Advanced Classifying Machine Operator:None The exam and treatment you received in the Emergency Department were for an urgent problem and are not intended as complete care. It is important that you follow up with a doctor, nurse practitioner, or physician?s certified physician's assistant for ongoing care. If your symptoms become worse or you do not improve as expected and you are unable to reach your usual health care provider, you should return to the Emergency Department. We are available 24 hours a day. TERESA BACON has been given the following list of patient education materials, prescriptions and follow-up instructions: Follow-up Instructions: In the event that this physician does not participate in your insurance network, please consult with your insurance company to find a nearby participating provider. Patient Education Materials: A MESSAGE TO ALL PATIENTS REGARDING OPIOIDS PRESCRIPTION OPIOIDS: WHAT YOU NEED TO KNOW Prescription opioids can be used to help relieve owanwrlp-wv-ulmbin pain and are often prescribed following a surgery or injury, or for certain health conditions. These medications can be an important part of the treatment but also come with serious risks. It is important to work with your healthcare provider to make sure you are getting the safest, most effective care. WHAT ARE THE RISKS AND SIDE EFFECTS OF OPIOID USE? Prescription opioids carry serious risks of addiction and overdose, especially with prolonged use. An opioid overdose, often marked by slowed breathing, can cause sudden . The use of prescription opioids can have a number of side effects as well, even when taken as directed: ? Tolerance?meaning you might need to take more of the medication for the same pain relief ? Physical dependence?meaning you have symptoms of withdrawal when a medication is stopped ? Increased sensitivity to pain ? Constipation ? Nausea, vomiting, and dry mouth ? Sleepiness and dizziness ? Confusion ? Depression ? Low levels of testosterone that can result in lower sex drive, energy, and strength ? Itching and sweating RISKS ARE GREATER WITH: ? History of drug misuse, substance use disorder, or overdose ? Mental health conditions (such as depression or anxiety) ? Sleep apnea ? Older age (65 years and older) ? Avoid alcohol while taking prescription opioids. Also, unless specifically advised by your health care provider, medications to avoid include: ? Benzodiazepines (such as Xanax or Valium) ? Muscle relaxants (such as Soma or Flexeril) ? Hypnotics (such as Ambien or Lunesta) ? Other prescription opioids KNOW YOUR OPTIONS Talk to your health care provider about ways to manage your pain that don?t involve prescription opioids. Some of these options may actually work better and have fewer risks and side effects. Options may include: ? Pain relievers such as acetaminophen, ibuprofen, and naproxen ? Some medication that are also used for depression or seizures ? Physical therapy and exercise ? Cognitive behavioral therapy, a psychological, goal-directed approach, in which patients learn how to modify physical, behavioral, and emotional triggers of pain and stress. IF YOU ARE PRESCRIBED OPIOIDS FOR PAIN: ? Never take opioids in greater amounts or more often than prescribed. ? Follow up with your primary health care provider. o Work together to create a plan on how to manage your pain. o Talk about ways to help manage your pain that don?t involve prescription opioids. o Talk about any and all concerns and side effects. ? Help prevent misuse and abuse o Never sell or share prescription opioids. o Never use another person?s prescription opioids. ? Store prescription opioids in a secure place and out of reach of others (this may include visitors, children, friends, and family). ? Safely dispose of unused prescription opioids: Find your community drug take-back program or your pharmacy mail-back program, or flush them down the toilet, following guidance from the Food and Drug Administration (www.fda.gov/Drugs/Re sourcesForYou). ? Visit www.cdc.gov/drugoverd ose to learn about the risks of opioids abuse and overdose. ? If you believe you may be struggling with addiction, tell your health physician primary care sports medicine and ask for guidance or call [facility] National Helpline at 0-083-408-OFJZ. u Source: [place] Department of Health and Human Services/Center for Disease Control & Prevention [facility] Medications Given: Medication Dose Rou (more content not included)... Normal [facility] Ethanolon 05-26-2023 Ethanol Lvl <10 Normal <=11 [facility] Comment on above: Performed By: #### [id number] ####[facility] [id number] [place] [address] Blood GasesOrdered By: St shayy Silva on 05-26-2023 a/A Ratio Art 56.70 % Normal >=0.80% FT Resp Auto SS AaDO2 Art 44.1 mm[Hg] High 5.0 - 15.0 mmHg FT Resp Auto SS Allens Test Positive (05/26/23 10:40 AM) Normal [facility] Resp Auto SS Base Excess Arterial -0.8 mmol/L Low >=2.8mmol/L FT Resp Auto SS cCa2+ Art 5.03 mg/dL Normal 4.40 - 5.30 mg/dL [facility] Resp Auto SS cCl- Art 106.0 mmol/L Normal 101.0 - 111.0 mmol/L [facility] Resp Auto SS cGlu Art 105 mg/dL High 55 - 99 mg/dL [facility] Resp Auto SS cK+ Art 3.3 mmol/L Low 3.5 - 5.3 mmol/L [facility] Resp Auto SS cLac Art 0.9 mmol/L Normal 0.5 - 2.2 mmol/L [facility] Resp Auto SS director of sales marketing+ Art 141.0 mmol/L Normal 135.0 - 145.0 mmol/L [facility] [place] Resp Auto SS Drawn by nawaf parada Invalid Interpretation Code [facility] Resp Auto SS FCOHb Art 1.4 % Low 1.5 - 4.9 % [facility] Resp Auto SS Comment on above: Interpretive Data: R eference range Nonsmoker <1.5% Smoker <5.0% Heavy Smoker <9.0% FIO2 BG 21 1 Invalid Interpretation Code [facility] Resp Auto SS FMetHb Art 0.1 % Normal 0.0 - 1.9 % [facility] [place] Resp Auto SS FO2Hb Art 92.4 % Normal 92.0 - 100.0 % [facility] [place] Resp Auto SS HCO3 (Bld) [Moles/Vol] 23.7 mmol/L Normal 22.0 - 26.0 mmol/L [facility] Resp Auto SS Hemoglobin (Bld) [Mass/Vol] 13.7 g/dL Normal 12.0 - 16.0 gm/dL [facility] [place] Resp Auto SS P CO2 Arterial 38.5 mm[Hg] Normal 35.0 - 45.0 mmHg [facility] [place] Resp Auto SS P O2 Arterial 57.7 mm[Hg] Low 80.0 - 100.0 mmHg [facility] [place] Resp Auto SS pH (Bld) 7.400 [pH] Normal 7.350 - 7.450 [facility] [place] Resp Auto SS Sample Site R Radial (05/26/23 10:40 AM) Normal [facility] [place] Resp Auto SS Sample Type Arterial Draw (05/26/23 10:40 AM) Normal [facility] [place] Resp Auto SS HEMATOLOGYOrdered By: SYSTEM SYSTEM on 05-26-2023 Erythrocyte distribution width (RBC) [Ratio] 12.9 % Normal 10.9 - 14.2 % Remisol Heme Hematocrit (Bld) [Volume fraction] 42.0 % Normal 34.0 - 46.0 % Remisol Heme Hemoglobin (Bld) [Mass/Vol] 15.2 g/dL Normal 12.0 - 16.0 gm/dL Remisol Heme MCH (RBC) [Entitic mass] 30.8 pg Normal 27.0 - 34.0 pg Remisol Heme MCHC (RBC) [Mass/Vol] 36.0 g/dL Normal 31.4 - 36.0 gm/dL Remisol Heme MCV (RBC) [Entitic vol] 85.6 fL Normal 80.0 - 100.0 fL Remisol Heme Platelet 298.0 E9/L Normal 150.0 - 500.0 E9/L Remisol Heme Platelet mean volume (Bld) [Entitic vol] 7.1 fL Normal 6.4 - 10.8 fL Remisol Heme RBC 4.9 E12/L Normal 4.3 - 5.9 E12/L Remisol Heme WBC 9.3 E9/L Normal 4.0 - 11.0 E9/L [facility] HEMATOLOGYOrdered By: Jeannine Moreno on 05-26-2023 RBC morphology finding Nom (Bld) NORMAL Invalid Interpretation Code [facility] Hep Func Panelon 05-26-2023 Bili Direct 0.2 mg/dL Normal 0.0-0.4 [facility] Comment on above: Performed By: #### 1 [id number], [id number], [id number], 46731672, 33752631, 5782546, 1962268, 0217905, 8262249, 9898938 ####[facility] [address] [place] [address] Bili Indirect 1.0 mg/dL High 0.1-0.9 [facility] Comment on above: Performed By: #### 1 [id number], [id number], [id number], 32255080, 20431874, 6496684, 9683920, 8407444, 8124038, 2017724 ####[facility] [address] [place] [address] Interdisciplinary Note - Spe ech Languageon 05-26-2023 Interdisciplinary Note - Speech Language ST 05/26/23: BSE completed. Pt admitted to [facility] d/t AMS, headache, possible CVA. Per dtr, typically with STM deficits. Pt with upper denture plate and natural lower teeth. Pt agreeable to 2oz puree, 4 tsp soft solid, 2 tsp regular solid, 8oz thin. Pt with adequate mastication and oral clearance of solids. Pt consumes thins via cup, straw drink, and consecutive straw drink. No overt s/s aspiration/penetratio n noted with any trials. ST recommends regular textures/thin liquids. Pills as tolerated. Small bites/sips. Alternate bites/sips. Upright. Awake/alert. No further ST indicated at this time. Normal [facility] Laboratory - Chemistry and C hemistry - challengeOrdered By: SYSTEM SYSTEM on 05-26-2023 Albumin [Mass/Vol] 4.9 g/dL Normal 3.3 - 5.0 gm/dL [facility] Albumin/Globulin [Mass ratio] 1.8 {ratio} Normal 1.1 - 2.2 [facility] Globulin (S) [Mass/Vol] 2.8 g/dL Normal 1.4 - 4.0 gm/dL [facility] Protein [Mass/Vol] 7.7 g/dL Normal 6.0 - 7.8 gm/dL [facility] Lactic Acidon 05-26-2023 Lactic Acid Lvl 1.6 mmol/L Normal 0.5-2.2 [facility] Comment on above: Performed By: #### 2 [id number], [id number] ####[facility] [address] [place] [address] Magnesiumon 05-26-2023 Magnesium [Mass/Vol] 1.8 mg/dL Normal 1.3-2.4 [facility] Comment on above: Performed By: #### 1 [id number], 8693354, 79940859, 16545758, 04367481, 1839456, 2350168, 7117503, 6495984, 4742160 ####[facility] [address] [place] [address] Message from Medicareon 05-04 Message from Medicare [id number]# 1.00TIFF Normal [facility] Monitor Recordon 05-26-2023 Monitor Record [id number]# 1.00TIFF Normal [facility] No Panel InformationOrdered By: SYSTEM SYSTEM on 05-26-2023 Alk Phos 59 [iU]/d Normal 21 - 98 Int._Unit/L [facility] Chem ALT 14 [iU]/d Normal 6 - 46 Int._Unit/L [facility] Chem AST 48 [iU]/d High 5 - 43 Int._Unit/L [facility] Bili Total 1.2 mg/dL High 0.0 - 1.1 mg/dL [facility] No Panel InformationOrdered By: ANGPROCESSSERVER MICROBIOLOGY on 05-26-2023 Blood Culture Charcoal No growth at 1 da y. Final to follow at [address] [facility] PTon 05-26-2023 INR Coag (PPP) [Relative time] 1.08 {INR} Invalid Interpretation Code [facility] Comment on above: Result Comment: INR results are specifically intended to assess patients stabilized on long-term Anticoagulation therapy suggested INR?s ?Less Intensive Anticoagulation? 2.0 ? 3.0 Conventional Range 3.0 ? 4.5 Performed By: #### 1 [id number], 6001658, 25543422, 27240104, 44929629, 8103945, 7935759, 8579514, 0118421, 2504322 ####[facility] [address] [place] [id number] PT Coag (PPP) [Time] 12.0 second(s) Normal 9.4-12.5 [facility] Comment on above: Result Comment: 15 d ays - 4 weeks 1 - 5 months 6 -11 months 1- 5 years 6-10 years 11 -17 years Mean: 11.2 (9.5-12.6) Mean: 11.0 (9.7-12.8) Mean: 11.0 (9.8-13.0) Mean: 11.3 (9.9-13.4) Mean: 11.7 (10.0-14.6) Mean: 11.8 (10.0 - 14.1) Pediatric Reference ranges were obtained from a study by lluvia Cisneros al. prepared from 1437 samples obtained at 7 different centers using the same coagulation reagent and instrumentation as [facility]. Currently there are no coagulation studies available worldwide for children to 14 days, and no normal ranges. Performed By: #### 1 [id number], 4071601, 85464156, 66980945, 07511960, 2320804, 0389993, 6928605, 9294010, 5572091 ####[facility] [address] [place] [address] PTTon 05-26-2023 aPTT Coag (PPP) [Time] 30.2 second(s) Normal 25.1-36.5 [facility] Comment on above: Result Comment: Para meter 15 days - 4 weeks 1 - 5 months 6 - 11 months 1 - 5 years 6 - 10 years 11 - 17 years PTT Mean: 35.4 (27.6-45.6) Mean: 33.5 (24.8-40.7) Mean: 32.4 (25.1-40.7) Mean: 31.6 (24.0-39.2) Mean: 31.6 (26.9-38.7) Mean: 31.0 (24.6-38.4) Pediatric Reference ranges were obtained from a study by Emanuel Lyon et al. prepared from 1437 samples obtained at 7 different centers using the same coagulation reagent and instrumentation as [facility]. Currently there are no coagulation studies available worldwide for children to 14 days, and no normal ranges. Heparin therapeutic range (represented by Anti-Factor Xa activity of 0.2 - 0.4 U/mL) corresponds to PTT of 56.6 - 109.0 sec. Performed By: #### 1 6493091, 6553427, 74325674, 09448339, 96573758, 9016806, 2527882, 9978926, 6252204, 9733010 ####[facility] [address] [place] [address] TSH With T4fr Reflexon 05-26 TSH Qn 4.54 m[IU]/L Normal 0.34-5.60 [facility] Comment on above: Performed By: #### 1 8579870, 3137712, 52229838, 68794299, 84205013, 9405659, 9894547, 1232231, 0466553, 9228561 ####[facility] [address] [place] [address] Troponin 0 Hr.on 05-26-2023 Troponin 22.80 pg/mL Normal 10.10-27.10 [facility] Comment on above: Result Comment: The 95% CI (Confidence Interval) PPV (Positive Predictive Value) for myocardial infarction in females is 38 pg/mL, in males 51 pg/mL. The results should be used in conjunction with clinical conditions of myocardial infarction. (Sistemic High Sensitivity Troponin I Instructions For Use, [place], October 2017) Performed By: #### 1 1916163, 1654688, 05125047, 72533905, 16465432, 3363688, 3346149, 2290423, 1311389, 8254453 ####[facility] [address] [place] [address] Troponin 3 Hr.on 05-26-2023 Troponin 16.10 pg/mL Normal 10.10-27.10 [facility] Comment on above: Result Comment: The 95% CI (Confidence Interval) PPV (Positive Predictive Value) for myocardial infarction in females is 38 pg/mL, in males 51 pg/mL. The results should be used in conjunction with clinical conditions of myocardial infarction. (Sistemic High Sensitivity Troponin I Instructions For Use, [place], October 2017) Performed By: #### 1 [id number] ####[facility] [address] [place] [address] Troponin 6 Hr.Ordered By: [employer] SYSTEM on 05-26-2023 Troponin 18.00 pg/mL Normal 10.10-27.10 [facility] Comment on above: Interpretive Data: T he 95% CI (Confidence Interval) PPV (Positive Predictive Value) for myocardial infarction in females is 38 pg/mL, in males 51 pg/mL. The results should be used in conjunction with clinical conditions of myocardial infarction. (Access High Sensitivity Troponin I Instructions For Use, [place], October 2017) Result Comment: The 95% CI (Confidence Interval) PPV (Positive Predictive Value) for myocardial infarction in females is 38 pg/mL, in males 51 pg/mL. The results should be used in conjunction with clinical conditions of myocardial infarction. (Access High Sensitivity Troponin I Instructions For Use, [place], October 2017) Performed By: #### 1 [id number] ####[facility] [address] [address] U Drug Screenon 05-26-2023 U Amph Scr Negative Normal NEGATIVE [facility] Comment on above: Order Comment: Added to UA Performed By: #### 2 [id number] ####[facility] [address] [place] [address] U Desirae Scr Negative Normal NEGATIVE [facility] Comment on above: Order Comment: Added to UA Performed By: #### 2 683004 ####[facility] [address] [place] [address] U Benzodia Scr Negative Normal NEGATIVE [facility] Comment on above: Order Comment: Added to UA Performed By: #### 2 749679 ####[facility] [address] [address] U Cannab Scr Negative Normal NEGATIVE [facility] Comment on above: Order Comment: Added to UA Performed By: #### 2 149416 ####[facility] [address] [address] U Cocaine Scr Negative Normal NEGATIVE [facility] Comment on above: Order Comment: Added to UA Performed By: #### 2 457517 ####[facility] [address] [address] U Opiate Scr Negative Normal NEGATIVE [facility] Comment on above: Order Comment: Added to UA Performed By: #### 2 057671 ####[facility] [address] [address] U PCP Scr Negative Normal NEGATIVE [facility] Comment on above: Order Comment: Added to UA Performed By: #### 2 809319 ####[facility] [address] [address] UA With Cult Reflexon 2023 Bacteria LM Ql (Urine sed) TRACE Normal Trace [facility] Comment on above: Performed By: #### 1 [id number] ####[facility] [address] [place] [address] Bilirubin Ql (U) Negative Normal Negative [facility] Comment on above: Performed By: #### 1 7791083 ####[address] [address] Clarity (U) CLEAR Normal Clear [facility] Comment on above: Performed By: #### 1 3108534 ####[address] [address] Color (U) STRAW Invalid Interpretation Code [facility] Comment on above: Performed By: #### 1 [id number] ####[address] [address] Epithelial cells.squamous LM.HPF (Urine sed) [#/Area] 0-2 Normal 0-2 [facility] Comment on above: Performed By: #### 1 3621059 ####[facility] [address] [place] [address] Glucose Test strip (U) [Mass/Vol] Negative Normal Negative [facility] Comment on above: Performed By: #### 1 0463638 ####[address] [address] Hemoglobin Ql (U) TRACE Abnormal Negative [facility] Comment on above: Performed By: #### 1 7292894 ####[facility] [address] [place] [address] Ketones (U) [Mass/Vol] TRACE Invalid Interpretation Code Negative [facility] Comment on above: Performed By: #### 1 8691828 ####[address] [address] [address] [facility].plasma/[facility] .RBC (Bld) [Mass ratio] 0-3 Normal 0-3 [facility] Comment on above: Performed By: #### 1 [id number] ####[address] [address] Nitrite Ql (U) Negative Normal Negative [facility] Comment on above: Performed By: #### 1 1991117 ####[address] [address] [place] [address] pH (U) 7.5 [pH] Invalid Interpretation Code 5.0-9.0 [facility] Comment on above: Performed By: #### 1 0932913 ####[address] [address] Protein (U) [Mass/Vol] Negative Normal Negative [facility] Comment on above: Performed By: #### 1 [id number] ####[address] [address] Specific gravity (U) [Rel density] 1.010 Invalid Interpretation Code 1.005-1.030 [facility] Comment on above: Performed By: #### 1 [id number] ####[address] [address] Type of Urine collection method Clean Catch Normal [facility] Comment on above: Performed By: #### 1 2122775 ####[address] [address] Urobilinogen Qn (U) 0.2 {Byron'U}/dL Normal 0.0-1.0 [facility] Comment on above: Performed By: #### 1 5393843 ####[address] [address] WBC Auto Ql (U) Negative Normal Negative [facility] Comment on above: Performed By: #### 1 1281236 ####[address] [address] WBC LM.HPF (Urine sed) [#/Area] 0-5 Normal 0-5 [facility] Comment on above: Performed By: #### 1 5455560 ####[address] [address] URINALYSISOrdered By: Abby mathis on 05-26-2023 Bacteria LM Ql (Urine sed) Trace /HPF Normal Trace/HPF [facility] UA Auto SS Bilirubin Ql (U) Negative (05/26/23 10:10 AM) Normal Negative [facility] UA Auto SS Clarity (U) Clear (05/26/23 10:10 AM) Normal Clear [facility] UA Auto SS Color (U) STRAW Invalid Interpretation Code [facility] UA Auto SS Epithelial cells.squamous LM.HPF (Urine sed) [#/Area] 0-2 /HPF Normal 0-2/HPF [facility] UA Aut o SS Glucose Test strip (U) [Mass/Vol] Negative (05/26/23 10:10 AM) Normal Negative [facility] UA Auto SS Hemoglobin Ql (U) Trace *ABN* (05/26/23 10:10 AM) Invalid Interpretation Code Negative [facility] UA Auto SS Ketones (U) [Mass/Vol] Trace *NA* (05/26/23 10:10 AM) Invalid Interpretation Code Negative [facility] UA Auto SS [facility].plasma/[facility] .RBC (Bld) [Mass ratio] 0-3 /HPF Normal 0-3/HPF [facility] UA Auto SS Nitrite Ql (U) Negative (05/26/23 10:10 AM) Normal Negative [facility] UA Auto SS pH (U) 7.5 *NA* (05/26/23 10:10 AM) Invalid Interpretation Code 5.0 - 9.0 [facility] UA Auto SS Protein (U) [Mass/Vol] Negative (05/26/23 10:10 AM) Normal Negative [facility] UA Auto SS Specific gravity (U) [Rel density] 1.010 *NA* (05/26/23 10:10 AM) Invalid Interpretation Code 1.005 - 1.030 [facility] UA Auto SS UA Spec Desc Clean Catch (05/26/23 10:10 AM) Normal [facility] UA Auto SS Urobilinogen Qn (U) 0.5692479 {Byron'U}/dL Normal 0.0 - 1.0 EU/dL [facility] UA Auto SS WBC Auto Ql (U) Negative (05/26/23 10:10 AM) Normal Negative [facility] UA Auto SS WBC LM.HPF (Urine sed) [#/Area] 0-5 /HPF Normal 0-5/HPF [facility] UA Auto SS XR Chest Single Viewon 05-26 XR Chest Single View Exam Date/Time: 05/26/2023 09:47 EST Reason for Exam: Chest pain Report [facility] [phone] IMPRESSION: There are no acute cardiopulmonary changes. CLINICAL HISTORY: Chest pain EXAMINATION: XR Chest Single View COMPARISON: FINDINGS: The cardiomediastinal silhouette is unremarkable. The lungs are free of infiltrates effusions or consolidations. There are no acute osseous changes. Ordering Provider: Lucille Hardy FINAL REPORT Dictated: 05/26/2023 9:50 am Ryan Ca MD, V. Signed (Electronic Signature): 05/26/2023 9:50 am Signed by: Ryan Ca MD, V. Transcribed by: ESTEFANY Technologist: PACO Technical Comments Radiation Dose: Ka,r in mGy = na DAP = na Normal [facility] eGFRon 05-26-2023 eGFR 61 mL/min/1.73 m2 Normal >=59 [facility] Comment on above: Order Comment: Order added by Discern Expert. Performed By: #### 1 [id number], [id number], 05433798, 52335710, 50859697, 9872393, 1579146, 4622853, 1453188, 4388977 ####[facility] [address] [place] [address] XR DEXA BONE DENSITYon 04-25 XR DEXA BONE DENSITY EXAMINATION: XR DEX A BONE DENSITY, 04/25/2022 9:24 AM EST HISTORY: Senile osteoporosis COMPARISON: 2019, 2018, 2013, 2011 TECHNIQUE: Dual-energy X-ray absorptiometry (DEXA) bone density study performed for the axial skeleton. FINDINGS: Bone mineral density AP spine L1-L4 measures 1.197 g/sq cm. T score 0.1. WHO classification: Normal. Bone mineral density is likely elevated, related to degenerative spondylosis Lowest bone mineral density is in the left femoral trochanter measuring 0.549 g/sq cm. T score -2.6. WHO classification: Osteoporosis IMPRESSION: Osteoporosis. High fracture risk Electronically authenticated by: SRINIVASA ECHAVARRIA Date: 2022-04-25 10:06 Normal [facility] CULTURE URINEon 12-14-2021 CULTURE URINE Isolate 1 Klebsiella pneumoniae >100,000 cfu/mL of ORGANISM 1 Klebsiella pneumoniae ANTIBIOTIC M.I.C RX STATUS Ampicillin >=32 R F Ampicillin/Sulbactam >=32 R F Piperacillin/Tazobact am 8 S F Cefazolin <=4 S F Ceftazidime <=1 S F Ceftriaxone <=1 S F Ertapenem <=0.5 S F Imipenem <=0.25 S F Amikacin <=2 S F Gentamicin <=1 S F Tobramycin <=1 S F Ciprofloxacin <=0.25 S F Levofloxacin <=0.12 S F Nitrofurantoin 32 S F Trimethoprim/Sulfamet hoxazole <=20 S F Normal [facility] Comment on above: Performed By: #### U RCX #### [facility] [address] [address] [address] Yoni Thao ER URINE PROFILEon 2 Bilirubin Ql (U) Negative Normal NEGATIVE [facility] Comment on above: Performed By: #### U MICRO, ERUR #### [facility] [address] [place] [address] Dr. Yoni Thao Clarity (U) CLEAR Normal CLEAR [facility] Comment on above: Performed By: #### U MICRO, ERUR #### [facility] [address] [address] [address] Yoni Thao Color (U) LT. YELLOW Normal YELLOW [facility] Comment on above: Performed By: #### U MICRO, ERUR #### [facility] [address] [address] [address] Yoni HUMPHREYSD A micrscopic examination will be performed if indicated. Normal [facility] Comment on above: Performed By: #### U MICRO, ERUR #### [facility] [address] [address] [address] Yoni Thao Glucose Ql (U) Negative Normal NEGATIVE [facility] Comment on above: Performed By: #### U MICRO, ERUR #### [facility] [address] [address] [address] Yoni Thao Hemoglobin Ql (U) LARGE Abnormal NEGATIVE [facility] Comment on above: Performed By: #### U MICRO, ERUR #### [facility] [address] [place] [address] Dr. Yoni Thao Ketones Ql (U) Negative Normal NEGATIVE [facility] Comment on above: Performed By: #### U MICRO, ERUR #### [facility] [address] [place] [address] Dr. Yoni Thao LEUKOCYTES MODERATE Abnormal NEGATIVE [facility] Comment on above: Performed By: #### U MICRO, ERUR #### [facility] [address] [place] [address] Dr. Yoni Thao Nitrite Ql (U) Positive Abnormal NEGATIVE [facility] Comment on above: Performed By: #### U MICRO, ERUR #### [facility] [address] [place] [address] Dr. Yoni Thao pH (U) 6.5 [pH] Normal 5-9 [facility] Comment on above: Performed By: #### U MICRO, ERUR #### [facility] [address] [place] [address] Dr. Yoni Thao SPEC GRAVITY 1.010 Normal 1.005-<=1.02 5 [facility] Comment on above: Performed By: #### U MICRO, ERUR #### [facility] [address] [place] [address] Dr. Yoni Thao UA PROTEIN TRACE Normal NEGATIVE/ TRACE [facility] Comment on above: Performed By: #### U MICRO, ERUR #### [facility] [address] [place] [address] Dr. Yoni Thao UR MICRO IND INDICATED Normal [facility] Comment on above: Performed By: #### U MICRO, ERUR #### [facility] [address] [place] [address] Dr. Yoni Thao Urobilinogen Qn (U) 0.2 {Byron'U}/dL Normal 0.2 - 1. 0 [facility] Comment on above: Performed By: #### U MICRO, ERUR #### [facility] [address] [place] [address] Dr. Yoni Thao URINE MICROSCOPIC ONLYon BACTERIA SMALL Abnormal NONE SEEN [facility] Comment on above: Performed By: #### U MICRO, ERUR #### [facility] [address] [address] [address] Yoni Thao Bacteria identified Cx Nom (U) INDICATED Normal [facility] Comment on above: Performed By: #### U MICRO, ERUR #### [facility] [address] [place] [address] Dr. Yoni Thao CAST NONE SEEN Normal NONE SEEN [facility] Comment on above: Performed By: #### U MICRO, ERUR #### [facility] [address] [address] [address] Yoni Thao Crystals LM Nom (Urine sed) NONE SEEN Normal NONE SEEN [facility] Comment on above: Performed By: #### U MICRO, ERUR #### [facility] [address] [place] [address] Dr. Yoni Thao Epithelial cells LM Ql (Urine sed) FEW Abnormal NONE SEEN /RARE [facility] Comment on above: Performed By: #### U MICRO, ERUR #### [facility] [address] [place] [address] Dr. Yoni Thao MUCOUS NONE SEEN Normal NONE SEEN [facility] Comment on above: Performed By: #### U MICRO, ERUR #### [facility] [address] [place] [address] Dr. Yoni Thao RBC 20-50 Abnormal 0-2 [facility] Comment on above: Performed By: #### U MICRO, ERUR #### [facility] [address] [address] [address] Yoni Thao WBC 20-50 Abnormal NONE SEEN [facility] Comment on above: Performed By: #### U MICRO, ERUR #### [facility] [address] [address] [address] Yoni Thao Q - CULTURE,URINE,ROUTINEon 05-17-2021 CULTURE, URINE, ROUTINE SEE NOTE Abnormal [facility] [employer] Comment on above: Order Comment: [facility] performed at: QPT, [facility], [address], [address], [place], [address], Director Of Brand Marketing: Husam Whittaker MD [facility] Collection Date/Time: [id number] [facility] Results Received Date/Time: [id number] [facility] Reported Date/Time: [id number] Result Comment: CULT URE, URINE, ROUTINE Micro Number: [id number] Test Status: Final Specimen Source: Not given Specimen Quality: Adequate Result: Greater than 100,000 CFU/mL of Klebsiella pneumoniae K.pneumoniae INT VICTOR HUGO AMOX/CLAVULANATE S 8 AMPICILLIN R >=32 AMP/SULBACTAM I 16 CEFAZOLIN NR <=4 2 CEFEPIME S <=1 CEFTRIAXONE S <=1 CIPROFLOXACIN S <=0.25 ERTAPENEM S <=0.5 GENTAMICIN S <=1 IMIPENEM S <=0.25 LEVOFLOXACIN S 1 NITROFURANTOIN I 64 PIP/TAZOBACTAM S 16 TOBRAMYCIN S <=1 TRIMETHOPRIM/SULFA S <=20 S=Susceptible I=Intermediate R=Resistant * = Not Tested NR = Not Reported NN = See Therapy Comments THERAPY COMMENTS Note 1: For infections other than uncomplicated UTI caused by E. coli, K. pneumoniae or P. mirabilis: Cefazolin is resistant if VICTOR HUGO > or = 8 mcg/mL. (Distinguishing susceptible versus intermediate for isolates with VICTOR HUGO < or = 4 mcg/mL requires additional testing.) Note 2: For uncomplicated UTI caused by E. coli, K. pneumoniae or P. mirabilis: Cefazolin is susceptible if VICTOR HUGO <32 mcg/mL and predicts susceptible to the oral agents cefaclor, cefdinir, cefpodoxime, cefprozil, cefuroxime, cephalexin and loracarbef. Performed By: #### 6 304R #### [facility] Default [address] [place] [address] Social History Date Type Detail Facility Start: 1935 Sex Assigned At Female [facility] Tobacco smoking status [facility] Sex Assigned At Female [facility] Vital Signs Date Time Vital Sign Value Performing Clinician Cinda cabrera 06-12-2023 04:35-0400 Diastolic blood pressure 83 mm[Hg] Sudhakarciarra Andrade [facility] 06-12-2023 04:35-0400 Heart rate 74 /min Sudhakar Lupe [facility] 06-12-2023 04:35-0400 Mean blood pressure 105 mm[Hg] Sudhakar Lupe [facility] 06-12-2023 04:35-0400 Respiratory rate 16 /min Sudhakar Lupe [facility] 06-12-2023 04:35-0400 SaO2% (BldA) [Mass fraction] 94 % Sudhakar Lupe [facility] 06-12-2023 04:35-0400 Systolic blood pressure 148 mm[Hg] Sudhakar Lupe [facility] 06-12-2023 03:43-0400 Diastolic blood pressure 96 mm[Hg] Sudhakar Lupe [facility] 06-12-2023 03:43-0400 Mean blood pressure 121 mm[Hg] Sudhakar Lupe [facility] 06-12-2023 03:43-0400 Respiratory rate 23 /min Sudhakar Lupe [facility] 06-12-2023 03:43-0400 SaO2% (BldA) [Mass fraction] 96 % Sudhakar Lupe [facility] 06-12-2023 03:43-0400 Systolic blood pressure 171 mm[Hg] Sudhakar Lupe [facility] 06-12-2023 03:10-0400 Diastolic blood pressure 89 mm[Hg] Sudhakar Lupe [facility] 06-12-2023 03:10-0400 Heart rate 92 /min Sudhakar Lupe [facility] 06-12-2023 03:10-0400 Mean blood pressure 114 mm[Hg] Sudhakar Lupe [facility] 06-12-2023 03:10-0400 Respiratory rate 46 /min Sudhakar Lupe [facility] 06-12-2023 03:10-0400 SaO2% (BldA) [Mass fraction] 94 % Sudhakar Lupe [facility] 06-12-2023 03:10-0400 Systolic blood pressure 164 mm[Hg] Sudhakar Lupe [facility] 06-12-2023 02:36-0400 Blood Pressure Location Sudhakar Lupe [facility] 06-12-2023 02:36-0400 Body temperature 98.24 [degF] Sudhakar Lupe [facility] 06-12-2023 02:36-0400 Heart rate 78 /min Sudhakar Lupe [facility] 06-12-2023 02:36-0400 Respiratory rate 16 /min Sudhakar Lupe [facility] 05-27-2023 14:00-0500 [facility] 05-27-2023 14:00-0500 Promise [facility] 05-27-2023 13:10-0500 Hourly Rounding mad [facility] 05-27-2023 13:10-0500 [facility] 05-27-2023 12:00-0500 Hourly Rounding [facility] 05-27-2023 12:00-0500 [facility] 05-27-2023 08:10-0500 Heart rate 77 /min [facility] 05-27-2023 08:10-0500 SaO2% (BldA) [Mass fraction] 95 % [facility] 08:09-0500 Diastolic blood pressure 62 mm[Hg] [facility]isd [facility] 05-27-2023 08:09-0500 Mean blood pressure 75 mm[Hg] [facility] 08:09-0500 Systolic blood pressure 101 mm[Hg] [facility]-27[facility]23 08:09-0500 Body temperature 98.24 [degF] sunni [facility] 05-27-2023 04:54-0500 Blood Pressure [facility] 05-27-2023 04:54-0500 Body temperature 97.88 [degF] [facility] 05-27-2023 04:54-0500 Diastolic blood pressure 63 mm[Hg] [facility] 05-27-2023 04:54-0500 Heart rate 77 /min [facility] 05-27-2023 04:54-0500 Mean blood pressure 74 mm[Hg] [facility] 05-27-2023 04:54-0500 Respiratory rate 16 /min [facility] 05-27-2023 04:54-0500 SaO2% (BldA) [Mass fraction] 96 % [facility] 05-27-2023 04:54-0500 Systolic blood pressure 97 mm[Hg] [facility] 05-27-2023 00:47-0500 Blood Pressure [facility] 05-27-2023 00:47-0500 Body temperature 98.6 [degF] [facility] 05-27-2023 00:47-0500 Diastolic blood pressure 64 mm[Hg] [facility] 05-27-2023 00:47-0500 Heart rate 81 /min [facility]isd [facility] 05-27-2023 00:47-0500 Mean blood pressure 78 mm[Hg] [facility] 05-27-2023 00:47-0500 Respiratory rate 15 /min [facility] 05-27-2023 00:47-0500 Systolic blood pressure 105 mm[Hg] [facility] 05-26-2023 20:00-0500 Body temperature 98.06 [degF] [facility] 05-26-2023 20:00-0500 Heart rate 87 /min [facility] 05-26-2023 20:00-0500 Mean blood pressure 95 mm[Hg] [facility] 05-26-2023 16:57-0500 Heart rate 85 /min [facility] 05-26-2023 16:56-0500 Mean blood pressure 89 mm[Hg] [facility] 05-26-2023 16:55-0500 Body temperature 98.42 [degF] sunni [facility] 05-26-2023 12:55-0500 Body temperature 97.52 [degF] [facility] 05-26-2023 12:55-0500 Heart rate 95 /min [facility] 05-26-2023 12:32-0500 Heart rate 84 /min [facility] 05-26-2023 12:32-0500 Respiratory rate 16 /min [facility] 05-26-2023 12:13-0500 Respiratory rate 18 /min [facility] 05-26-2023 10:40-0500 SaO2% (BldA) [Mass fraction] 93.8 % [facility] 05-26-2023 09:53-0500 gluc 91 mg/dL Ciarragaluis enrique [facility] 05-26-2023 09:53-0500 gluc [facility] 05-26-2023 09:33-0500 Heart rate 85 /min [facility] Functional Status Date Assessment Result Facility 06-12-2023 Functional Status N/A [facility] 05-26-2023 Functional Status No [facility] 05-26-2023 Functional Status [facility] Clinical Notes 05-27-2023 to 06-12-2023 Note Date & Type Note Facility 06-12-2023 Evaluation + Plan note Extrac prateek from: Title:ED Note Author:Sudhakar Andrade DO Date :06/12/23 Encounter for medical screen ing examination (Z13.9: Encounter for screening, unspecified) Orders: Basic Metabolic Panel CBC w/ Auto Diff CT Head or Brain w/o Contrast ECG 12 Lead Adult eGFR Influenza A&B Ag Rapid COVID Antigen ([facility]) Saline Lock Insert Troponin 0 Hr. UA With Cult Reflex XR Chest Single View [facility]03-12-2024 Hospital Discharge instructions Patient Education 06/12/2023 04:50:28 Medical Screening Exam Medical Screening Exam A medical screening exam (MSE) helps to determine whether you need immediate medical treatment relating to any number of symptoms you are having. This type of exam may be done in an emergency department, an urgent care setting, or your health care provider's office. Depending on your symptoms and severity, you may need additional tests or medical therapy. It is important to note that an MSE does not necessarily mean that you will need or receive furthermedical testing or interventions if your symptoms are not deemed to be medically urgent (emergent). Tell a health care provider about: Any allergies you have. All medicines you are taking, including vitamins, herbs, eye drops, creams, and rwpl-dml-jruratw medicines. Any problems you or family members have had with anesthetic medicines. Any bleeding problems you have. Any surgeries you have had. Any medical conditions you have. Whether you are or may be . What happens during the test? During the exam, a health care provider does a short, often focused, physical exam and asks about your medical history to assess: Your current symptoms. Your overall health. Your need for possible further medical intervention. What can I expect after the test? If you have a regular health care provider, make an appointment for a follow-up visit with him or her. If you do not have a regular health care provider, ask about resources in your community. Your medical screening exam may determine that: You do not need emergency treatment at this time. You need treatment right away. You need to be transferred to another medical center. This may happen if you need an emergent specialist or it consultant that is not available at the medical center you are at. You need to have more tests. A medical professionals may be consulted if needed. Get help right away if: Your condition gets worse. You develop new or troubling symptoms before you see your health care provider. These symptoms may represent a serious problem that is an emergency. Do not wait to see if the symptoms will go away. Get medical help right away. Call your local emergency services (911 in the [place] Do not drive yourself to the hospital. Summary A medical screening exam helps to determine whether you need medical treatment right away. This type of exam may be done in an emergency department, an urgent care setting, or your health care provider's office. During the exam, a health care provider does a short physical exam and asks about your current symptoms and overall health. Depending on the exam, more tests or therapies may be ordered. However, an MSE does not necessarilymean that you will have further medical testing if your symptoms are not deemed to be urgent. If you need further care that is not offered at your current medical center, you may need to be transferred to another facility. This information is not intended to replace advice given to you by your health care provider. Make sure you discuss any questions you have with your health care provider. Document Revised: 11/30/2021 Document Reviewed: 07/28/2021 Elsevier Patient Education 2022 [employer] Follow Up Care 06/12/2023 02:35:11 With:Maurice Rogers Address: [address] [place] [address], [place] [address]- Business (1) When:Within 3 Day(s) [facility]03-02-2024 NoteMicrobiology PROCEDURE: Blood Culture Charcoal [R1] SOURCE: Blood BODY SITE: Hand L COLLECTED DATE/TIME: 05/26/2023 09:55 EST RECEIVED DATE/TIME: 05/26/2023 10:59 EST START DATE/TIME: 05/26/2023 10:59 EST FREE TEXT SOURCE: Hayley Reese, Lucille Hardy M.D., Lucille Avila FINAL REPORTS Final Report [] Verified Date/Time: 06/02/2023 15:32 EST No growth at 7 days. Performing Locations R1: This test was performed at: [facility], [address] [place] [address], [id number] [place] [address], [address] [place], [place] [address]Comment on above:Performed By: #### [id number] ####[address] [id number] NoteMicrobiology PROCEDURE: Blood Culture Charcoal [R1] SOURCE: Blood BODY SITE: Hand R COLLECTED DATE/TIME: 05/26/2023 09:48 EST RECEIVED DATE/TIME: 05/26/2023 11:00 EST START DATE/TIME: 05/26/2023 11:00 EST FREE TEXT SOURCE: Hayley Reese, Lucille Hardy M.D., Lucille H FINAL REPORTS Final Report [] Verified Date/Time: 06/02/2023 15:32 EST No growth at 7 days. Performing Locations R1: [facility] performed at: [facility], [address] [place] [address], [id number] [place] [address], [address] [place], [place] [address]Comment on above:Performed By: #### [id number] ####[address] [id number] NoteChief Complaint pt to ER with c/o AMS, weakness, headache, vision chnages and shaky. LKW unknown, son found her like this at 8am this morning. BS 91 in triage. LKW 1930 last night. son called her this morning at 0800 and noticed the confusion History of Present Illness 87 year old female with past medical history significant for dementia, HTN, GERD. Pt who lives alone presented to the hospital by EMS due to AMS. Pt's son reports that he called pt this AM and she was confused so he called 911. Son reports that pt was in her general state of health last night around 6pm however when he called pt around 8am she was confused and not herself . Upon assessment in the room pt is able to follow simple commands. She was uncertain where she was but knew her name , and able to recognize her daughter who was at bedside. Unable to obtain ROS. However, daughter felt pt had been well up until this morning. In the ED pt underwent a CT of the head and CTA of the head and neck which were all negative for acute findings. ABGs in the ED did show a PaO2 of 57.7 ot was started on oxygen at 2l/min oxygen per cannula. Chest x-ray was negative. Pt did have have elevated AST and bili levels. Unsure of pt baseline levels. Pt was referred to the hospitalist group for further work up and treatment of above. Review of Systems Additional ROS info: Except as noted in the above Review of Systems and in the History of Present Illness all other systems have been reviewed and are negative or noncontributory. Scoring Moore Fall Risk Score: 60 High (05/26/23) Physical Exam Vitals & Measurements T: 36.4 ?C(Oral) TMIN: 36.4 ?C(Oral) TMAX: 36.6 ?C(Oral) HR: 95(Peripheral) RR: 16 BP: 148/76 SpO2:100% HT: 162.56 cm WT: 62.9 kg General: NAD Head: no trauma, normocephalic Neck: Trachea midline, no adenopathy, no tenderness Eye: normal conjunctiva, sclera clear PERRLA 3mm. ENMT: oral mucosa moist, no pharyngeal erythema or exudate Cardiovascular: regular rate and rhythm, normal peripheral perfusion Respiratory: Lungs CTA, no rales rhonchi or wheeze respirations non labored Chest wall: no deformity. Gastrointestinal: soft, moderately distended, nontender, well-healed scar, no tenderness, no guarding. Extremities: no deformity, no trauma, no edema Skin: warm, dry intact. Neurological: Drowsy after Ativan in ED but will follow commands. More alert t/o exam. Able to state her name, and is able to call her daughter who is at bedside by her name. Pt did follow all simple commands appropriately. She is confused to current place and time. However daughter states thatpt does have dementia. Speech is soft but clear. No aphasia noted. No difficulty swallowing noted. motor strength equal & normal bilaterally, sensation equal & normal bilaterally, speech normal Psychiatric: cooperative, affect appropriate for age, normal judgement, Lab Results WBC: 9.3 E9/L (05/26/23::00) RBC: 4.9 E12/L (05/26/23:) HGB: 15.2 gm/dL (05/26/23:) Hct: 42 % (05/26/23) MCV: 85.6 fL (05/26/23:) MCH: 30.8 pg (05/26/23) MCHC: 36 gm/dL (05/26/23) RDW: 12.9 % (05/26/23:) Platelet: 298 E9/L (05/26/23) MPV: 7.1 fL (05/26/23:) RBC Morph: NORMAL (05/26/23:) PT: 12 second(s) (05/26/23::00) INR: 1.08 (05/26/23:) PTT: 30.2 second(s) (05/26/23:) Glucose Lvl: 98 mg/dL (05/26/23:) BUN: 22 mg/dL High (05/26/23:) Creatinine: 0.9 mg/dL (05/26/23:) eGFR: 61 mL/min/1.73 m2 (05/26/23::) BUN/Creat Ratio: 24 High (05/26/23::00) Sodium Lvl: 141 mmol/L (05/26/23:00) Potassium Lvl: 3.4 mmol/L Low (05/26/23::) Chloride: 106 mmol/L (05/26/23::) CO2: 25 mmol/L (05/26/23::) AGAP: 13 mEq/L (05/26/23::) Calcium Lvl: 10.4 mg/dL (05/26/23::) Alk Phos: 59 Int._Unit/L (05/26/23::) Alk Phos: 59 Int._Unit/L (05/26/23::) ALT: 14 Int._Unit/L (05/26/23::) ALT: 14 Int._Unit/L (05/26/23::) AST: 48 Int._Unit/L High (05/26/23::) AST: 48 Int._Unit/L High (05/26/23::) Total Protein: 7.7 gm/dL (05/26/23::) Total Protein: 7.7 gm/dL (05/26/23::) Albumin Lvl: 4.9 gm/dL (05/26/23::) Albumin Lvl: 4.9 gm/dL (05/26/23::) Globulin: 2.8 gm/dL (05/26/23::) Globulin: 2.8 gm/dL (05/26/23::) A/G Ratio: 1.8 (05/26/23::) A/G Ratio: 1.8 (05/26/23::) Bili Total: 1.2 mg/dL High (05/26/23:25:) Bili Total: 1.2 mg/dL High (05/26/23:25:) Bili Direct: 0.2 mg/dL (05/26/23:25:00) Bili Indirect: 1 mg/dL High (05/26/23:25:00) Lactic Acid Lvl: 1.6 mmol/L (05/26/23 09:55:00) Magnesium: 1.8 mg/dL (05/26/23 09:25:00) TSH: 4.54 mcIU/mL (05/26/23 09:25:00) Troponin: 16.1 pg/mL (05/26/23 12:13:00) U Amph Scr: NEGATIVE (05/26/23 10:10:00) U Desirae Scr: NEGATIVE (05/26/23 10:10:00) U Benzodia Scr: NEGATIVE (more content not included)...[facility] TownshipComment on above:Result Comment: Electronically Signed By: Clarice ARMSTRONG\.br\Date and Time Signed: 05/26/23 14:49 EST\.br\Electronically Co-Signed By: Carly Stapleton MD\.br\Date and Time Co-Signed: 05/27/23 17:02 [id number] NoteAdmission and Discharge Information Admitting Physician - Carly Stapleton MD Consulting Physician - Mayank Lawson MD Admitting Diagnoses: Discharge Order Date Discharge Patient - Ordered -- 05/27/23 14:24:00 EST Discharge Diagnoses 1. Acute respiratory failure, 05/26/2023 2. Altered mental status, 05/26/2023 3. Weakness, 05/26/2023 4. Dementia, 05/26/2023 5. Hypokalemia, 05/26/2023 6. HTN (hypertension), 05/26/2023 7. GERD (gastroesophageal reflux disease), 05/26/2023 Altered mental status, 05/26/2023 Potential stroke, 05/26/2023 Weakness or fatigue, 05/26/2023 Procedure History Abdominal hysterectomy. Hospital Course 87 year old female with past medical history significant for dementia presented to the hospital by EMS due to AMS. In the ED pt underwent a CT of the head and CTA of the head and neck whichwere all negative for acute findings. ABGs in the ED did show a PaO2 of 57.7 ot was started on oxygen at 2l/min oxygen per cannula. Chest x-ray was negative. Pt did have have elevated AST and bili levels. Unsure of pt baseline levels. Pt was referred to the hospitalist group for further work up andtreatment of above. Neurology consultation was obtained and pt underwent a MRI of the brain which showed no acute findings. Per neurology pt to continue ASA 81 mg daily. Pt will follow up with neurology in 2-3 weeks. Today on exam, pt has had resolution of AMS. She is at her baseline. Work up has been essentially negative. Pt was cleared by neurology for discharge home with negative work up. I did discuss resultswith pt's daughter. Pt will follow up with her PCP and neurology on opt basis. Pt was seen by PT/OTw/recommendation for HH/PT/OT. Pt vitals and labs are stable. Pt will discharge home today in stable condition. Case discussed with who is in agreement with current discharge plan. Services Consulted Consult to Neurology - Ordered -- 05/26/23 14:44:00 EST, AMS ? TIA/CVA, Consult and Co-manage Physical Exam Vitals & Measurements T: 36.8 ?C(Oral) TMIN: 36.6 ?C(Axillary) TMAX: 37 ?C(Axillary) HR: 77(Monitored) RR: 16 BP: 101/62 SpO2: 95% WT: 62.5 kg General: NAD Head: no trauma, normocephalic Neck: Trachea midline, no adenopathy, no tenderness Eye: normal conjunctiva, sclera clear PERRLA 3mm. ENMT: oral mucosa moist, no pharyngeal erythema or exudate Cardiovascular: regular rate and rhythm, normal peripheral perfusion Respiratory: Lungs CTA, no rales rhonchi or wheeze respirations non labored Chest wall: no deformity. Gastrointestinal: soft, moderately distended, nontender, well-healed scar, no tenderness, no guarding. Extremities: no deformity, no trauma, no edema Skin: warm, dry intact. Neurological: Alert, oriented x 4; speech clear. Able to follow all commands. No neuro deficits noted. Psychiatric: cooperative, affect appropriate for age, normal judgement, Tests Performed Blood Culture Charcoal -- Results Pending -- CT Head or Brain w/o Contrast CTA Head CTA Neck MRI Brain w/o Contrast XR Chest Single View Please visit your patient portal for your results or contact your primary care physician. Discharge Plan Discharge Disposition Discharge To, Anticipated II - Home with responsible caregiver Discharged to - Home independently Discharge Diet Discharge Diet(s): Regular (05/27/23 12:19:00) Discharge Medication List Prescriptions aspirin 81 mg Oral EC Tab, 81 mg= 1 tab(s), Oral, Daily Home calcium (as carbonate) 500 mg oral tablet, See Instructions losartan, 25 mg, Oral, Daily, Still taking, not as prescribed: only takes when she feels like she needs it omeprazole 20 mg Cap-DR, 20 mg= 1 cap(s), Oral, Daily, Still taking, not as prescribed: only takes PRN Follow-up With When Contact Information Renny BAKER, JEMIMA Talley Within 2 to 4 weeks [place] [id number] [place] [address]- Additional Instructions: Patient Education [facility] HealthComment on above:Result Comment: Electronically Signed By: Clarice ARMSTRONG\.br\Date and Time Signed: 05/27/23 14:57 EST\.br\Electronically Co-Signed By: Carly Stapleton MD\.br\Date and Time Co-Signed: 05/27/23 17:02 [id number] Hospital Discharge instructions Patient Education 05/27/2023 12:19:34 Confusion Confusion Confusion is the inability to think with your usual speed or clarity. Confusion can be caused by many things. People who are confused often describe their thinking as cloudy or unclear. Confusion canalso include feeling disoriented. This means you are unaware of where you are or who you are. You may also not know the date or time. When confused, you may have trouble remembering, paying attention, or making decisions. Some people also act aggressively when they are confused. In some cases, confusion may come on quickly. In other cases, it may develop slowly over time. Confusion may be caused by medical conditions such as: Infections, such as a urinary tract infection (UTI). Low levels of oxygen, which can develop from conditions such as long-term lung disorders. Decrease in brain function due to dementia and other conditions that affect the brain, such as seizures, strokes, brain tumors, or head injuries. Mental health conditions, like panic attacks, anxiety, depression, and hallucinations. Confusion may also be caused by physical factors such as: Loss of fluid (dehydration) or an imbalance of salts and minerals in the body (electrolytes). Lack of certain nutrients like niacin, thiamine, or other B vitamins. Fever or hypothermia, which is a sudden drop in body temperature. Low or high blood sugar. Low or high blood pressure. Other causes include: Lack of sleep or changes in routine or surroundings, such as when traveling or staying in a hospital. Using too much alcohol, drugs, or medicine. Side effects of medicines, or taking medicines that affect other medicines (drug interactions). Follow these instructions at home: Pay attention to your symptoms. Tell your health care provider about any changes or if you develop new symptoms. Follow these instructions to control or treat symptoms. Ask a family member or friend for help if needed. Medicines Take hbea-oui-nwvmgch and prescription medicines only as told by your health care provider. Ask your health care provider about changing or stopping any medicines that may be causing your confusion. Avoid pain medicines or sleep medicines until you have fully recovered. Use a pillbox or an alarm to help you take the right medicines at the right time. Lifestyle Eat a balanced diet that includes fruits and vegetables. Get enough sleep. For most adults, this is 7 9 hours each night. Do not drink alcohol. Do not become isolated. Spend time with other people and make plans for your days. Do not drive until your health care provider says that it is safe to do so. Do not use any products that contain nicotine or tobacco, such as cigarettes, e- cigarettes, and chewing tobacco. If you need help quitting, ask your health care provider. Stop other activities that may increase your chances of getting hurt. These may include some work duties, sports activities, swimming, or bike riding. Ask your health care provider what activities are safe for you. Tips for caregivers Find out if the person is confused. Ask the person to state his or her name, age, and the date. If the person is unsure or answers incorrectly, he or she may be confused and need assistance. Always introduce yourself, no matter how well the person knows you. Remind the person of his or herlocation. Place a calendar and clock near the person who is confused. Keep a regular schedule. Make sure the person has plenty of light during the day and sleep at night. Talk about current events and plans for the day. Keep the environment calm, quiet, and peaceful. Help the person do the things that he or she is unable to do. These include: ?Taking medicines. ?Keeping medical appointments. ?Helping with household duties, including meal preparation. ?Running errands. Get help if you need it. There are several support groups for caregivers. If the person you are helping needs more support, consider day care, extended-care programs, or a half-way facility. The person's health care provider may be able to help evaluate these options. General instructions Monitor yourself for any conditions you may have. These can include: ?Checking your blood glucose levels if you have diabetes. ?Maintaining a healthy weight. ?Monitoring your blood pressure if you have hypertension. ?Monitoring your body temperature if you have a fever. Keep all follow-up visits. This is important. Contact a health care provider if: You have new symptoms or your symptoms get worse. Get help right away if you: Feel that you are not able to care for yourself. Develop severe headaches, repeated vomiting, seizures, blackouts, or slurred speech. Have increasing confusion, weakness, numbness, restlessness, or personality changes. Develop a loss of balance, have marked dizziness, feel uncoordinated, or fall. Develop severe anxiety, or you have delusions or hallucinations. These symptoms may represent a serious problem that is an emergency. Do not wait to see if the symptoms will go away. Get medical help right away. Call your local emergency services (911 in the [place] Do not drive yourself to the hospital. Summary Confusion is the inability to think with your usual speed or clarity. People who are confused oftendescribe their thinking as cloudy or unclear. Confusion can also include having trouble remembering, paying attention, or making decisions. Confusion may come on quickly or develop slowly over time, depending on the cause. There are many different causes of confusion. Ask for help from family members or friends if you are unable to take care of yourself. This information is not intended to replace advice given to you by your health care provider. Make sure you discuss any questions you have with your health care provider. Document Revised: 07/13/2020 Document Reviewed: 07/13/2020 [employer] Patient Education 2022 [employer]. Follow Up Care 05/26/2023 09:32:48 With:Renny BAKER, JEMIMA Talley Address: [address] [address]- When:[address] [facility]02-25-2024 Evaluation + Plan noteExtracted from: Title:Discharge Note Author:RACHEL Shon ARIAS dane Date:05/27/23 Discharge To, Anticipated II - Home with responsible caregiver Discharged to - Home independently Discharge Diet(s): Regular (05/27/23 12:19:00) Prescriptions aspirin 81 mg Oral EC Tab, 81 mg= 1 tab(s), Oral, Daily Home calcium (as carbonate) 500 mg oral tablet, See Instructions losartan, 25 mg, Oral, Daily, Still taking, not as prescribed: only takes when she feels like she needs it omeprazole 20 mg Cap-DR, 20 mg= 1 cap(s), Oral, Daily, Still taking, not as prescribed: only takes PRN With When Contact Information Renny BAKER, JEMIMA Talley Within 2 to [facility] [place] [address]- Additional Instructions: Confusion Extracted from: Title:APSO Note Author:Mariana ARMSTRONGestrella guerrero Date:05/27/23 PLAN: 1. Acute respiratory failure (J96.00: Acute respiratory failure, unspecified whether with hypoxia or hypercapnia) w/hypoxia per ABGs. unknown baseline. ?? of note this was following IV Ativan given in ED. ? med induced in ED ?? or at home ??--resolved this morning. Off oxygen this AM. on room air. Chest x-ray is negative. 2. Altered mental status (R41.82: Altered mental status, unspecified) ? hypoxia, TIA, CVA, med induced, infection ??? resolved this morning. UA normal. Consult neurology appreciated. CT head, CTA head/neck negative. MRI brain pending. Urine tox/Drug screen negative. 3. Weakness (R53.1: Weakness) See above. PT/OT to eval, treat recommending HH/PT/OT 4. Dementia (F03.90: Unspecified dementia, unspecified severity, without behavioral disturbance, psychotic disturbance, mood disturbance, and anxiety) Pt w/history of dementia. Pt improved since admission. Was able to state her name, and recognize her daughter. She is confused to current place and time which seems her baseline per daughter. 5. Hypokalemia (E87.6: Hypokalemia) Trend labs and replace as necessary.-normal today. 6. HTN (hypertension) (I10: Essential (primary) hypertension) Allow permissive HTN today. Resume Losartan Labetalol for SBP >200 until CVA r/o 7. GERD (gastroesophageal reflux disease) (K21.9: Gastro-esophageal reflux disease without esophagitis) PPI DVT Prophylaxis: SCDs Disposition: observation status will likely require <2 midnight stays for further work up and treatment of above. Extracted from: Title:Admission H & P Author:Danielle ARMSTRONG Date:05/26/23 PLAN: 1. Acute respiratory failure (J96.00: Acute respiratory failure, unspecified whether with hypoxia or hypercapnia) w/hypoxia per ABGs. unknown baseline. ?? of note this was following IV Ativan given in ED. ? med induced in ED ?? or at home ?? Oxygen 2L/min per cannula. Chest x-ray is negative. 2. Altered mental status (R41.82: Altered mental status, unspecified) ? hypoxia, TIA, CVA, med induced, infection ??? UA normal. Bladder scan and PVR pending. Consult neurology pending. Neuro Checks. CT head, CTA head/neck negative. MRI brain pending. Urine tox/Drug screen negative. 3. Weakness (R53.1: Weakness) See above. PT/OT to eval, treat and make recommendations. 4. Dementia (F03.90: Unspecified dementia, unspecified severity, without behavioral disturbance, psychotic disturbance, mood disturbance, and anxiety) Pt w/history of dementia. Pt improved since admission. Was able to state her name, and recognize her daughter. She is confused to current place and time which seems her baseline per daughter. 5. Hypokalemia (E87.6: Hypokalemia) Given 40mEq today . Trend labs and replace as necessary. 6. HTN (hypertension) (I10: Essential (primary) hypertension) Allow permissive HTN today. Hold Losartan for now Labetalol for SBP >200 until CVA r/o 7. GERD (gastroesophageal reflux disease) (K21.9: Gastro-esophageal reflux disease without esophagitis) PPI DVT Prophylaxis: SCDs Disposition: observation status will likely require <2 midnight stays for further work up and treatment of above. Orders: acetaminophen, 650 mg = 2 tab(s), Tab, Oral, q6hr PRN Pain, Routine, Start date 05/26/23 14:44:00 EST, 05/26/23 14:44:00 EST Al hydroxide/Mg hydroxide/simethicone, 30 mL, Susp-Oral, Oral, q6hr PRN Indigestion, Routine, Start date 05/26/23 14:44:00 EST aspirin, 81 mg = 1 tab(s), Tab-EC, Oral, Daily, Routine, Start date 05/27/23 9:00:00 EST, 05/26/23 14:44:00 EST calcium carbonate, 500 mg = 1 tab(s), Tab-Chew, Oral, Daily, Routine, Start date 05/27/23 9:00:00 EST labetalol, 5 mg = 1 mL, Injection, IV Push, Once PRN Other (see comment), Routine, Start date 05/26/23 14:46:00 EST, 05/26/23 14:46:00 EST magnesium sulfate + Dextrose 5% in Water intravenous solution 100 mL, 1 gram = 100 mL, Soln-IV, IV Piggyback, Once, Stop date 05/26/23 15:00:00 EST, Routine, Start date 05/26/23 15:00:00 EST, 100 mL/hr, Infuse over 60 minute(s), 05/26/23 14:34:00 EST ondansetron, 4 mg = 2 mL, Injection, IV Push, q6hr PRN Nausea, Routine, Start date 05/26/23 14:44:00 EST, 05/26/23 14:44:00 EST pantoprazole, 40 mg = 1 tab(s), Tab-DR, Oral, Daily, Routine, Start date 05/27/23 9:00:00 EST, 05/26/23 14:40:00 EST potassium chloride, 40 mEq = 2 tab(s), Tab-ER, Oral, Once, Stop date 05/26/23 15:00:00 EST, Routine, Start date 05/26/23 15:00:00 EST, 05/26/23 14:34:00 EST Add on Test Ambulate with Assistance B-Type Natriuretic Peptide Below the Knee Intermittent Pneumatic Compression Device Bladder Scan Cardiac Monitoring Communication Order Physician to Nursing Consult to Neurology Drug Screen Urine Ethanol Level Evaluate Need For Continued Telemetry Incentive Spirometry Intake and Output MRI Brain w/o Contrast Notify Provider Vital Signs Notify Provider Vital Signs Occupational Therapy Evaluate Patient, Develop a Plan of Care and Implement Plan Oxygen Protocol Physical Therapy Evaluate Patient, Develop a Plan of Care and Implement Plan Post Void Residual Precautions Pulse Oximetry Respiratory Protocol Resuscitation Status - Full Vital Signs Weight Extracted from: Title:ED Note Author:Hayley Reese, Lucille Boykin te:05/26/23 1. Altered mental status (R4 1.82: Altered mental status, unspecified) 2. Weakness (R53.1: Weakness) Orders: acetaminophen + Generic Diluent 100 mL, 1,000 mg = 100 mL, Soln-IV, IV Piggyback, Once, Stop date 05/26/23 10:08:00 EST, STAT, Start date 05/26/23 10:08:00 EST, 400 mL/hr, Infuse over 15 minute(s) lorazepam, 0.25 mg = 0.13 mL, Injection, IV Push, Once, Stop date 05/26/23 10:20:00 EST, STAT, Start date 05/26/23 10:20:00 EST, 05/26/23 10:20:00 EST lorazepam, 0.25 mg = 0.13 mL, Injection, IV, Once, Stop date 05/26/23 10:29:00 EST, Start date 05/26/23 10:29:00 EST ABO/Rh ABO/Rh History Check Antibody Screen Blood Bank ID# Blood Culture Charcoal Blood Culture Charcoal Blood Gas Art, with Lytes, Gluc, Lact Cardiac Monitoring CBC w/ Indices Communication Order Communication Order Comprehensive Metabolic Panel Continuous Pulse Oximetry CT Head or Brain w/o Contrast CTA Head CTA Neck Dysphagia Screen ED Physician consult Hospitalist for continued care eGFR Extra SST Tube Hepatic Function Panel Lactic Acid Magnesium Level Neurological Assessment NPO Diet Oxygen Protocol PT PTT Rapid Response Form Routine Capillary Glucose POC Speech Language Pathology Evaluate Patient, Develop a Plan of Care and Implement Plan Stroke Quality Measures Troponin 0 Hr. Troponin 3 Hr. Troponin 6 Hr. TSH With T4fr Reflex UA With Cult Reflex Vital Signs XR Chest Single View [facility]02-25-2024 Note[facility] score = services vs no further services at [place], pending progress. Pt requires CGA w/ transfers and standing adls. Inpatient OT services to follow daily as pt lives alone.[facility] noteNo assessment information availableAdams County Regional [facility] Center Work Phone: Hospital course Narrative No data available for this section [facility] No data available for this section [facility] Summary Purpose Family History No Family History Records FoundNo Family History Records FoundNo Family History Records Found No data available for this section No data available for this section No Family History Records FoundNo Family History Records FoundNo Family History Records Found Advance Directives No Advanced Directives Records FoundNo Advanced Directives Records FoundNo Advanced Directives Records FoundNo Advanced Directives Records FoundNo Advanced Directives Records FoundNo Advanced Directives Records Found Additional Source Comments INFORMATION SOURCE (unrecogn ized section and content) DATE CREATED AUTHOR 09/20/2017 [facility] DATE CREATED AUTHOR AUTHOR'S ORGANIZ ATION 05/26/2021 [facility] dical Specialist DATE CREATED AUTHOR AUTHOR'S ORGANIZ ATION 04/26/2022 [facility] DATE CREATED AUTHOR AUTHOR'S ORGANIZ ATION 06/21/2023 [facility] DATE CREATED AUTHOR AUTHOR'S ORGANIZ ATION 08/16/2023 [facility] DATE CREATED AUTHOR AUTHOR'S ORGANIZ ATION 09/19/2023 [facility] dical Specialists EPIC Patient Care team informatio n (unrecognized section and content) Team Status: Inactive Member Role Status Dates Mayank Lo Attending Provider Active Start: August 02, 2023 End: August 02, 2023 Goals (unrecognized section and content) Goals may be documented in a n alternate section FOR RECORDS PERTAINING TO PATIENTS WHO ARE OR HAVE BEEN ENROLLED IN A CHEMICAL DEPENDENCY/SUBSTANCEABUSE PROGRAM, SOME INFORMATION MAY BE OMITTED. This clinical summary was aggregated from multiple sources. Caution should be exercised in using it in the provision of clinical care. This summary normalizes information from multiple sources, and as a consequence, information in this document may materially change the coding, format and clinical context of patient data. In addition, data may be omitted in some cases. CLINICAL DECISIONS SHOULD BE BASED ON THE PRIMARY CLINICAL RECORDS. [employer] [facility]. provides no warranty or guarantee of the accuracy or completeness of information in this document.
[2023-10-21 22:46] VITALS: BP 140/90; PULSE 72; TEMP 36.8; O2SAT 97; BMI 22.3
--- NOTE | 2023-10-21 23:00 | CT_ITS ---
The [address] [address] Patient Name: SANIYA ZHANG MRN: [id number] date: 1935 Sex: F Assigned Patient Location: ER Current Patient Location: Accession/Order Number: [id number] Exam Date: 10/21/2023 23:17 Report Date: 10/22/2023 00:29 At the request of: CINDI RAUSCH Procedure: CT head/brain wo con EXAM: CT head/brain wo con HISTORY: fall, left hematoma on scalp INDICATION: 88 years old; Female. TECHNIQUE: CT Head (ax/cor/sag reformats). Ionizing radiation dose reduced via iterative reconstruction/FBP blend and body size kV/mA adjustment. Comparison: Head CT dated 08/01/2023. FINDINGS: POSTOPERATIVE CHANGES: None. BRAIN PARENCHYMA: No intraparenchymal or extra-axial hemorrhage. No mass effect. No midline shift or herniation. Old lacunar infarction versus dilated perivascular space in the lentiform nucleus on the left. Patchy low-density in the white matter without mass effect. VENTRICLES/EXTRA-AXIAL SPACES: Enlarged, consistent with atrophy. SINUSES/MASTOIDS: Sinuses are clear although the maxillary sinuses are not completely included in the examination. Nasal septal deviation to the right with spur formation. Mastoid sclerosis on the left. Residual mastoid air cells and middle ears are clear. MSK: No displaced or depressed calvarial fracture. There is extracranial soft tissue swelling in the left parietal region. No subjacent bony abnormality is present. Dense calcification of the dura is noted. OTHER: No hyperdense intraluminal thrombus is present. Vascular calcification is seen. CT/CT head/brain wo con IMPRESSION: 1. No acute intracranial abnormality. No hemorrhage or mass effect. 2. Nonspecific white matter changes. 3. 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 4. Atrophy. 5. Extracranial soft tissue swelling in the left parietal region. No subjacent calvarial fracture is present. 6. Vascular calcification. Electronically authenticated by: JARRETT KC Date: 10/22/2023 00:29
--- NOTE | 2023-10-21 23:00 | XR_ITS ---
The [address] [address] Patient Name: SANIYA ZHANG MRN: [id number] date: 1935 Sex: F Assigned Patient Location: ER Current Patient Location: Accession/Order Number: [id number] Exam Date: 10/21/2023 23:15 Report Date: 10/22/2023 01:46 At the request of: CINDI RAUSCH Procedure: XR shoulder LT min 2V EXAM: XR elbow LT min 3V, XR shoulder LT min 2V HISTORY: fall COMPARISON: None. TECHNIQUE: 3 views of the left shoulder, 3 views of the left elbow are performed. FINDINGS: The bones are demineralized. There is a minimally displaced fracture involving the distal left clavicle. No extension to the acromioclavicular joint. The humeral head is not dislocated. No acute abnormality is seen at the elbow. No elbow effusion. XR/XR shoulder LT min 2V IMPRESSION: Minimally displaced distal left clavicle fracture. Osteopenia. No acute fracture within the left elbow. Electronically authenticated by: OPAL DUMAS Date: 10/22/2023 01:46
--- NOTE | 2023-10-21 23:00 | ED_ITS ---
HPI HPI - Fall General Chief Complaint: Fall Stated Complaint: SHOULDER PAIN DUE TO FALL Time Seen by Provider: 10/21/23 22:39 Source: patient Mode of arrival: walk-in History of Present Illness HPI Narrative: 88-year-old female presents after fall to be evaluated. She fell and hurt her left shoulder, her left elbow, and hit the left side of her head. She states that she fell because she tripped, no LOC and she does not have neck pain and did not sustain any other injury. No pain to her right arm or either leg. No pain to her chest or abdomen or back. She takes aspirin but no other blood thinners. This happened just before coming into the emergency department. Related Data Home Medications ?Medication ?Instructions ?Recorded ?Confirmed sertraline 25 mg tablet 25 mg PO DAILY 08/01/23 08/01/23 Previous Rx's ?Medication ?Instructions ?Recorded aspirin 325 mg tablet 325 mg PO DAILY #14 tabs 08/04/23 ferrous sulfate 325 mg (65 mg 325 mg PO DAILY #30 tabs 08/04/23 iron) tablet oxycodone 5 mg tablet 5 mg PO Q8H PRN pain #7 tabs 08/04/23 Allergies Allergy/AdvReac Type Severity Reaction Status Date / Time No Known Drug Allergies Allergy Verified 08/01/23 12:51 Opioid HPI Opioid Management Most Recent Pain and Opioid Data: Last Pain Scale 6 08/04/23 16:51 Last ORT Total Score 0 08/01/23 17:03 Last ORT Risk Category Low Risk 08/01/23 17:03 Review of Systems ROS Narrative A ten point review of systems is negative except as noted above. [facility] Medical History (Updated 10/22/23 @ 01:05 by Zeyad Bower MD) Moderate aortic stenosis ?I35.0 - Nonrheumatic aortic (valve) stenosis (ICD-10) Postoperative anemia ?D64.9 - Anemia, unspecified (ICD-10) Cardiac murmur ?R01.1 - Cardiac murmur, unspecified (ICD-10) Closed fracture of right hip ?S72.001A - Fracture of unspecified part of neck of right femur, initial encounter for closed fracture (ICD-10) Fall ?W19.XXXA - Unspecified fall, initial encounter (ICD-10) Depression ?F32.A - Depression, unspecified (ICD-10) Social History (Updated 08/01/23 @ 17:11 by Monserrat Farias) Smoking status: Never smoker Non-prescribed substance use: denies use Previous occupational history: house Highest level of school completed/degree received: high school graduate Exam Narrative Exam Narrative: Nurses note and vital signs reviewed and patient is not hypoxic. General: The patient appears in no apparent distress. Skin: Warm, dry, no pallor noted. There is no rash noted. Head: Normocephalic, left scalp hematoma present, no laceration. C-spine nontender. Eye: Normal conjunctiva, no drainage Ears, Nose, Mouth, and Throat: oral mucosa is moist. Nares patent. Cardiovascular: Regular Rate and Rhythm Respiratory: Patient is in no distress, no accessory muscle use, lungs are clear to auscultation, no wheezing, rales or rhonchi Back: non-tender GI: Soft and nontender Musculoskeletal: Left wrist nontender. Left elbow has an abrasion but has full range of motion including full extension. The left shoulder has some bruising and the skin is intact. She is able to abduct her arm. Neurological: A&O, normal speech Psychiatric: Cooperative Constitutional Vital Signs, click to edit/add: Last Vital Signs Temp 98.2 F 10/21/23 22:46 Pulse 72 10/21/23 22:46 Resp 18 10/21/23 22:46 BP 140/90 10/21/23 22:46 Pulse Ox 97 10/21/23 22:46 O2 Del Method Room Air 10/21/23 22:46 Course Vital Signs Vital signs: Vital Signs Temperature 98.2 F 10/21/23 22:46 Pulse Rate 72 10/21/23 22:46 Respiratory Rate 18 10/21/23 22:46 Blood Pressure 140/90 10/21/23 22:46 Pulse Oximetry 97 10/21/23 22:46 Oxygen Delivery Method Room Air 10/21/23 22:46 Temperature 98.2 F 10/21/23 22:46 Pulse Rate 72 10/21/23 22:46 Respiratory Rate 18 10/21/23 22:46 Blood Pressure 140/90 10/21/23 22:46 Pulse Oximetry 97 10/21/23 22:46 Oxygen Delivery Method Room Air 10/21/23 22:46 MDM - Fall MDM Narrative Medical decision making narrative: InCT brain negative per radiologist. Elbow x-ray on my interpretation shows no acute findings and left shoulder x-ray shows a distal clavicular fracture. Sling applied, application checked by me and found to be appropriate, she is neurovascularly intact. She will see Dr. Lo at 11 AM so discussed thoroughly with the patient and her family. Differential Diagnosis Differential diagnosis: Likely other (Intracranial hemorrhage, scalp contusion, shoulder fracture, clavicular fracture) Imaging Data CT scan - head: My impression: Shoulder x-ray on my interpretation shows distal clavicular fracture. Elbow x- ray my interpretation shows no acute findings. Radiologist's impression: ITS Impressions Head CT 10/21/23 23:00 IMPRESSION: 1. No acute intracranial abnormality. No hemorrhage or mass effect. 2. Nonspecific white matter changes. 3. 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 4. Atrophy. 5. Extracranial soft tissue swelling in the left parietal region. No subjacent calvarial fracture is present. 6. Vascular calcification. Electronically authenticated by: JARRETT KC Date: 10/22/2023 00:29 Discharge Plan Discharge Stand Alone Forms: Portal Instructions Chief Complaint: Fall Clinical Impression: Fracture of left clavicle, Scalp hematoma Patient Disposition: Home, Self-Care Time of Disposition Decision: 01:04 Condition: Good Mode of Transportation: Private Vehicle Prescriptions / Home Meds: No Action sertraline 25 mg tablet 25 mg PO DAILY aspirin 325 mg tablet 325 mg PO DAILY Qty: 14 0RF oxycodone 5 mg tablet 5 mg PO Q8H PRN (Reason: pain) Qty: 7 0RF ferrous sulfate 325 mg (65 mg iron) tablet 325 mg PO DAILY Qty: 30 0RF Print Language: Mexican Instructions: Clavicle Fracture (ED), Scalp Contusion in Adults (ED) Additional Instructions: See Dr. Lo at 11 AM October 21 Referrals: ANA GUADALUPE [Primary Care Provider] - 1 week Mayank Lo MD [Physician] - 1 week
--- NOTE | 2023-10-21 23:00 | XR_ITS ---
The [address] [address] Patient Name: SANIYA ZHANG MRN: [id number] date: 1935 Sex: F Assigned Patient Location: ER Current Patient Location: Accession/Order Number: [id number] Exam Date: 10/21/2023 23:15 Report Date: 10/22/2023 01:46 At the request of: CINDI RAUSCH Procedure: XR elbow LT min 3V EXAM: XR elbow LT min 3V, XR shoulder LT min 2V HISTORY: fall COMPARISON: None. TECHNIQUE: 3 views of the left shoulder, 3 views of the left elbow are performed. FINDINGS: The bones are demineralized. There is a minimally displaced fracture involving the distal left clavicle. No extension to the acromioclavicular joint. The humeral head is not dislocated. No acute abnormality is seen at the elbow. No elbow effusion. XR/XR elbow LT min 3V IMPRESSION: Minimally displaced distal left clavicle fracture. Osteopenia. No acute fracture within the left elbow. Electronically authenticated by: OPAL DUMAS Date: 10/22/2023 01:46
--- NOTE | 2023-10-21 23:14 | PC.NURSE ---
Skin tear to left elbow, no active bleeding at this time.
== END 2023-10-22 01:10 | disposition home or self-care (01) ==
PROVIDERS: Emergency Provider Emergency Medicine; PCP Internal Medicine
DX: S42.032A Displaced fracture of lateral end of left clavicle, initial encounter for closed fracture (principal); S00.03XA Contusion of scalp, initial encounter; W01.10XA Fall on same level from slipping, tripping and stumbling with subsequent striking against unspecified object, initial encounter
CPT/HCPCS: 70450; 73030; 73080; 99284

== ENCOUNTER 2023-10-29 10:48 | Outpatient (OUT) | payer MEDICARE, SELFPAY ==
--- NOTE | 2023-10-29 | XR_ITS ---
The [address] [address] Patient Name: SANIYA ZHANG MRN: [id number] date: 1935 Sex: F Assigned Patient Location: Current Patient Location: Accession/Order Number: [id number] Exam Date: 10/29/2023 10:55 Report Date: 10/30/2023 08:11 At the request of: KEILA SMITH Procedure: XR clavicle LT PROCEDURE: XR clavicle LT COMPARISON: None. HISTORY: LEFT CLAVICLE PAIN FINDINGS: BONES:Complex distal clavicle fracture with increase in displacement measuring 4.3 mm. The acromioclavicular joint and glenohumeral joints are intact. Some calcification superior to the humeral head suggests calcific tendinitis SOFT TISSUES:Negative. No visible soft tissue swelling. EFFUSION:None visible. OTHER: Negative. XR/XR clavicle LT IMPRESSION: Complex left distal clavicle fracture with no significant interval bone formation Electronically authenticated by: SRINIVASA ECHAVARRIA Date: 10/30/2023 08:11
--- OUTSIDE RECORDS SUMMARY | 2023-10-29 11:11 | XMS_ITS | CCD ---
Author Organization [facility] Care Team Providers Care Deputy Sheriff Generalist/Bailiff Name Role Phone PHYSICIAN, DEFAULT Unavailable Unavailable PHYSICIAN, DEFAULT Unavailable Unavailable MISC, DR YANES Primary Care Unavailable ANGEL, DR BHAKTI Brandt Attending Unavailabl e ANGEL, DR BHAKTI Brandt Consulting Unavailabl e ANGEL, DR BHAKTI Brandt Admitting Unavailabl e KIKOCHERYL Consulting Unavailable HEMMER, DR MERVAT Baker Admitting Unavailable MISC, DR YANES Primary Care Unavailable KEWANEE, DR SRINIVASA Burks Consulting Unavailable HEMMER, DR MERVAT Baker Attending Unavailable HEMMER, DR MERVAT Baker Consulting Unavailable Maurice Rogers III Primary Care Physician Carly Stapleton Attending Unavailable Carly Stapleton Admitting Unavailable [place], Mayank Consulting Unavailable [place], Mayank Consulting Unavailable [place], Mayank Consulting Unavailable [place], Mayank Consulting Unavailable [place], Mayank Consulting Unavailable [place], Mayank Consulting Unavailable [place], Mayank Consulting Unavailable [place], Mayank Consulting Unavailable [place], Mayank Consulting Unavailable Sudhakar Andrade Attending Unavailable Mayank Lo Attending Provider Mayank Lo Attending Unavailable Mayank Lo Admitting Unavailable ANA SIMON Attending Unavailable ANA SIMON Attending Unavailable ANA SIMON Attending Unavailable Medications Current Medications Medication Drug Class(es) Dates [...] Refills(s) 0 Start Date: 05/26/23 Status: Ordered Problems Active Problems Problem Classification Problem Date [...] te Episodic/Chronic Other aftercare (1 source) Other mcc (current) drug therapy; Translations: [OTH PRODUCTION CONTROL COORDINATING CLERK CURRENT DRUG THERAPY] Onset: 12-14-2021 Episodic Unclassified (1 source) LOW BACK PAIN, UNSPECIFIED; Translations: [LOW BACK PAIN, UNSPECIFIED] Onset: 12-12-2021 Urinary tract infections (1 source) Urinary tract infection, site not specified; Translations: [UTI SITE NOT SPECIFIED] Onset: 12-14-2021 Episodic Results Test Name Value Interpretation Reference Range Facility [facility] 08-02-2023 L Specimen: [id number] Received: 08/03/23 Status: JOCELYN Dunbar Num: [id number] Spec Type: Surgical Subm Dr: Mayank Lo Tissues: A Femoral Head - Fracture (RT HIP) Procedures: HE/2, Gross/Micro L4, Decalcification Age/ Patient Sex Location Account Attending Physician Teresa Bacon 88/F LABELL [id number] Mayank Lo SPEC NUM: [id number] RECD: 08/03/23 STATUS: JOCELYN DUNBAR NUM: [id number] TIM: 08/02/[address]: Mayank Lo ENTERED: [...] bone matrix with no focal lesions present. Supervisor Asbestos Removal sections are submitted following decalcification A1-femoral head, following decalcification A2-fracture site, following decalcification Clinical history: Fall/head injury, right hip fracture -------- Specimen: [id number] Received: 08/03/23 Status: JOCELYN Dunbar Num: [id number] Spec Type: Surgical Subm Dr: Mayank Lo Tissues: A Femoral Head - Fracture (RT HIP) Procedures: HE/2, Gross/Micro L4, Decalcification -------- Patient: JordiTeresa Matthew [id number] (Continued) -------- Specimen: [id number] Received: 08/03/23 (Continued) Gross Description (Continued) Signed (signature on file) Georgina Thao MD 08/06/231900 -------- Specimen: [id number] Received: 08/03/23 Status: JOCELYN Dunbar Num: [id number] Spec Type: Surgical Subm Dr: Mayank Lo Tissues: A Femoral Head - Fracture (RT HIP) Procedures: HE/2, Gross/Micro L4, Decalcification -------- Patient: Teresa Bacon Matthew [id number] (Continued) -------- Specimen: [id number] Received: 08/03/23 (Continued) Gross Description (Continued) CPT Codes 67668, 17078 FEMORAL HEAD FEMORAL HEAD -------- -------- Specimen: [id number] Received: 08/03/23 Status: JOCELYN Dunbar Num: [id number] Spec Type: Surgical Subm Dr: Mayank Lo Tissues: A Femoral Head - Fracture (RT HIP) Procedures: HE/2, Gross/Micro L4, Decalcification -------- Patient: Teresa Bacon [id number] (Continued) -------- Signed (signature on file) Georgina Thao MD 08/06/23 190 Normal [facility] BMPon 06-12-2023 Anion gap [Moles/Vol] 15 mmol/L Normal 6-16 Fis her [facility] Comment on above: Performed By: #### 2 247115, 9289340, [id number], [id number] ####[place] [address] [address] Calcium [Mass/Vol] 10.1 mg/dL Normal 8.9-11.1 [facility] Comment on above: Performed By: #### 2 191698, 6781605, 08068446, 39252001 ####[facility] [address] [place] [address] Chloride [Moles/Vol] 108 mmol/L Normal 101-111 [facility] Comment on above: Performed By: #### 2 272953, 0652754, 33914513, 05254261 ####[facility] [address] [place] [address] CO2 [Moles/Vol] 22 mmol/L Normal 21-31 [facility] Comment on above: Performed By: #### 2 319527, 4513429, 83596061, 38607441 ####[facility] [address] [place] [address] Creatinine [Mass/Vol] 0.8 mg/dL Normal 0.5-1.3 [facility] Comment on above: Performed By: #### 2 741803, 0529667, 74994521, 52028956 ####[facility] [address] [place] [address] Glucose [Mass/Vol] 101 mg/dL Normal 55-199 [facility] Comment on above: Performed By: #### 2 604155, 5758440, 03241644, 93578249 ####[facility] [address] [place] [address] Potassium [Moles/Vol] 3.6 mmol/L Normal 3.5-5.3 [facility] Comment on above: Performed By: #### 2 304059, 0395017, 27319992, 38816778 ####[facility] [address] [place] [address] Sodium [Moles/Vol] 141 mmol/L Normal 135-145 [facility] Comment on above: Performed By: #### 2 495262, 2855821, 11212302, 76268201 ####[facility] [address] [place] [address] Urea nitrogen [Mass/Vol] 23 mg/dL High 5-21 [facility] Comment on above: Performed By: #### 2 000401, 9021857, 36370565, 27889026 ####[facility] [address] [place] [address] Urea nitrogen/Creatinine [Mass ratio] 29 No Units High 10-20 [facility] Comment on above: Performed By: #### 2 151180, 0782386, 19694553, 27192079 ####[facility] [address] [place] [address] CBC w/ Auto Diffon 4 Basophils/100 WBC (Bld) 1.2 % Normal 0.0-2.0 [facility] Comment on above: Performed By: #### 2 053252, 9679459, 34945908, 39085559 ####[address] [address] Basophils/Leukocytes Auto (Bld) [Pure # fraction] 0.1 E9/L Normal 0.0-0.2 [facility] Comment on above: Performed By: #### 2 313194, 9244507, 52448902, 87339206 ####[address] [address] Eosinophils (Bld) [#/Vol] 0.1 E9/L Normal 0.0-0.5 [facility] Comment on above: Performed By: #### 2 408235, 1156556, 42017245, 07691485 ####[address] [address] Eosinophils/100 WBC (Bld) 1.2 % Normal 0.0-8.0 [facility] Comment on above: Performed By: #### 2 433278, 6966590, 07703798, 20713916 ####[address] [address] Erythrocyte distribution width (RBC) [Ratio] 13.3 % Normal 10.9-14.2 [facility] Comment on above: Performed By: #### 2 512843, 1600638, 64578266, 64420661 ####[address] [address] Hematocrit (Bld) [Volume fraction] 43.1 % Normal 34.0-46.0 [facility] Comment on above: Performed By: #### 2 995929, 0772869, 09004348, 47175071 ####[facility] [address] [place] [address] Hemoglobin (Bld) [Mass/Vol] 15.2 g/dL Normal 12.0-16.0 [facility] Comment on above: Performed By: #### 2 795900, 7576494, 60644140, 76117689 ####[address] [address] Lymphocytes (Bld) [#/Vol] 2.2 E9/L Normal 1.0-4.0 [facility] Comment on above: Performed By: #### 2 436262, 9816630, 73541239, 69162426 ####[address] [address] Lymphocytes/100 WBC (Bld) 28.5 % Normal 14.0-50.0 [facility] Comment on above: Performed By: #### 2 432711, 6045992, 56873768, 61016784 ####[address] [address] MCH (RBC) [Entitic mass] 30.0 pg Normal 27.0-34.0 [facility] Comment on above: Performed By: #### 2 275130, 1310474, 89209157, 35707067 ####[address] [address] MCHC (RBC) [Mass/Vol] 35.2 g/dL Normal 31.4-36.0 [facility] Comment on above: Performed By: #### 2 002126, 0080690, 99960056, 28249980 ####[address] [address] MCV (RBC) [Entitic vol] 85.1 fL Normal 80.0-100.0 [facility] Comment on above: Performed By: #### 2 568885, 1977940, 44327326, 25195130 ####[address] [address] Monocytes (Bld) [#/Vol] 0.7 E9/L Normal 0.2-1.0 [facility] Comment on above: Performed By: #### 2 023071, 8898298, 87424159, 71415697 ####[address] [address] Neutrophils (Bld) [#/Vol] 4.6 E9/L Normal 2.0-7.5 [facility] Comment on above: Performed By: #### 2 141828, 9042822, 16669167, 75537949 ####[address] [address] Neutrophils/100 WBC (Bld) 60.1 % Normal 36.0-75.0 [facility] Comment on above: Performed By: #### 2 093273, 3214572, 03490911, 10214398 ####[address] [address] Platelet 245.0 E9/L Normal 150.0-500.0 [facility] Comment on above: Performed By: #### 2 385698, 5257579, 62902869, 84844311 ####[place] [address] [place] [address] Platelet mean volume (Bld) [Entitic vol] 6.9 fL Normal 6.4-10.8 [facility] Comment on above: Performed By: #### 2 766352, 7392260, 65087750, 40336335 ####[address] [place] [address] RBC (Bld) [#/Vol] 5.1 E12/L Normal 4.3-5.9 [facility] Comment on above: Performed By: #### 2 752723, 2048195, 17888820, 30518923 ####[facility] [address] [place] [address] WBC corrected for nucl RBC Auto (Bld) [#/Vol] 7.6 E9/L Normal 4.0-11.0 [facility] Comment on above: Performed By: #### 2 852910, 8078580, 94451670, 72287373 ####[facility] [address] [place] [address] CHEMISTRYOrdered By: SYSTEM SYSTEM on 06-12-2023 Anion [...] Sensitivity Troponin I Instructions For Use, [place], October 2017) Urea nitrogen [Mass/Vol] 23 mg/dL [...] (Electronic Signature): 06/12/2023 8:38 am Signed by: Chris Euceda M.D. Transcribed by: ESTEFANY Technologist: REINALDO Technical Comments Contrast: None Normal [facility] Consent for Treatmenton 05-31 Consent for Treatment [id number]#1. 00TIFF Normal [facility] Discharge Instructionson Discharge Instructions [id number] #1.00TIFF Normal [facility] ED Clinical Summaryon 2023 ED Clinical Summary [place] [id number] ED Clinical Summary Person Information Name: TERESA BACON/[place] Age: 87 Years : 1935 Sex: Female Language: Swedish PCP: Maurice Rogers III, DO Marital Status: [...] 06/12/2023 04:50:27 06/12/2023 04:50:27 06/12/2023 04:50:27 ADDRESS: [address] [place] [id number] PHYS DOC NOTES: MEDICAL INFORMATION: Prescriptions Given: [...] Follow up: With: Address: When: Maurice Rogers [address] [place] [address], [facility], [place] [address] [facility] (1) In 3 days DIAGNOSIS: Encounter for medical screening examination Normal [facility] ED Note-Physicianon 06-12-19 ED Note-Physician Basic Information [...] and Complexity of Problems Differential Diagnosis: [] [facility] Data External documents reviewed: N/A My EKG [...] process. On reassessment the patient's son and luwepgta-yk-qpn are with her. She states that she [...] eGFR Influenza A&B Ag Rapid COVID Antigen ([facility]) Saline Lock Insert Troponin 0 Hr. UA With Cult Reflex XR Chest Single View Disposition Plan Discharge Prescription List Prescriptions No active prescription medications Follow-up With When Contact Information Maurice Rogers In 3 days [address] [place] [address] [facility] (1) Additional Instructions: Patient Education Medical [...] 02:43:00) Lymph Auto: 28.5 % (06/12/23 02:43:00) Centre Auto: 9 % (06/12/23 02:43:00) Eos Auto: 1.2 % (06/12/23 02:43:00) Basophil Auto: 1.2 % (06/12/23 02:43:00) Neutro Absolute: 4.6 E9/L (06/12/23 02:43:00) Lymph Absolute: 2.2 E9/L (06/12/23 02:43:00) Centre Absolute: 0.7 E9/L (06/12/23 02:43:00) Eos Absolute: [...] Catch (0 (more content not included)... Normal [facility] Comment on above: Result Comment: Elec tronically [...] including vitamins, herbs, eye drops, creams, and lhpl-ndx-mfcnetw medicines. ? Any problems you or family [...] if you need an emergent specialist or sap plant maintenance consultant that is not available at the medical center you are at. ? You need to have more tests. A medical scientific liaison may be consulted if needed. Get help [...] provider. Document Revised: 11/30/2021 Document Reviewed: 07/28/2021 [employer] Patient Education ? 2022 [employer]. Normal [facility] ED Patient Summaryon 024 ED Patient Summary [address] [address] Patient Discharge Instructions Person Information Name: TERESA BACON Age: 87 Years Arrival Date: 06/12/2023 02:34:46 Discharge Diagnosis: Encounter for medical screening examination Primary Care Physician: Maurice Rogers III, DO Provider Information Primary Provider: Sudhakar Andrade DO Advanced Envelope Adjuster:None The exam and treatment you received in the Emergency Department were for an urgent problem and are not intended as complete care. It is important that you follow up with a doctor, nurse practitioner, or physician?s boilermaker's assistant for ongoing care. If your symptoms [...] Follow-up Instructions: With: Address: When: Maurice Rogers [address] [place] [address], [facility], [place] [address] Business (1) In 3 days In the event that this physician does not participate in your insurance network, please consult with your insurance company to find a nearby participating provider. Patient Education Materials: Medical Screening Exam A MESSAGE TO ALL PATIENTS REGARDING OPIOIDS PRESCRIPTION OPIOIDS: WHAT YOU NEED TO KNOW Prescription opioids can be used to help relieve reaeksog-ga-xubydg pain and are often prescribed following a [...] be struggling with addiction, tell your health customer care voice consultant and ask for guidance or call [facility]?S National Helpline at [phone]-ZGUN. x So (more content not included)... Normal [facility] HEMATOLOGYOrdered By: SYSTEM SYSTEM on 06-12-2023 Basophils/100 [...] 11.0 E9/L Remisol Heme Influenza A&B Agon Influenzae A Ag Negative Normal Negative [facility] Comment on above: Performed By: #### 2 [id number], [id number] ####[place] [address] [place] [address] Influenzae B Ag Negative Normal Negative [facility] Comment on above: Result Comment: Test sensitivity and specificity vary for age group, specimen type, antigen types, and prevalence of disease. Test results must be evaluated in conjunction with other clinical data available to the physician. Individuals who received nasally administered Influenza A vaccine may have positive test results up to 3 days after vaccination. Performed By: #### 2 [id number], [id number] ####[facility] [address] [place] [address] MICRO OTHER TESTSOrdered By: Zehra Bateman on 06-12-2023 Influenzae A Ag Negative (06/12/23 2:50 AM) Normal Negative [facility] Man Sero Influenzae B Ag Negative 1 (06/12/23 2:50 AM) Normal Negative [facility] Sero Comment on above: Interpretive Data: T [...] NEG Ctl Pass (06/12/23 2:50 AM) Normal [facility] Sero Rapid COV Int POS Ctl Pass (06/12/23 2:50 AM) Normal [facility] Sero SARS-CoV+SARS-CoV-2 (COVID-19) Ag IA.rapid Ql (Resp) Not Detected 3 (06/12/23 2:50 AM) Normal Not Detected [facility] Sero Comment on above: Interpretive Data: T he [employer] Veritor System for Rapid Detection of SARS-CoV-2 [...] For in vitro diagnostic use. In the [facility], only for use under an Emergency Use Authorization. In the [facility], this test has not been FDA cleared [...] revoked sooner. Monitor Recordon 06-12-2023 Monitor Record [id number]# 1.00TIFF Normal [facility] Pre-Arrival Noteon 4 Pre-Arrival Note Pre-Arrival Summary Name: , [facility] Current Date: 06/12/2023 02:36:18 EDT Gender: Female Date of : Age: 87 Pre-Arrival Type: EMS ETA: 06/12/2023 02:51:00 EDT Primary Care Physician: Presenting Problem: ILL,HTN Pre-Arrival User: Karen Chirinos RN Referring Source: Location: MD Completion Date/Time: 06/12/2023 02:21:00 [facility] Emergency Department Pre-Hospital Report Form Vital Signs: 207/129, HR100, RR16, 100% RA Pre-Hospital Report: feeling ill, alert and oriented Treatment in Route:FSBS 129, 20RFA, CSS Response to Treatment: Misc. Issues: Normal [facility] RAD - Preliminary Cat Scan R eporton 06-12-2023 RAD - Preliminary Cat Scan Report [id number] #1.00TIFF Normal [facility] Rapid COVID Antigen ([facility])on 06-12-2023 Rapid COV Int NEG Ctl Pass Normal [facility] Comment on above: Performed By: #### 2 [id number], [id number] ####[facility] [address] [place] [address] Rapid COV Int POS Ctl Pass Normal [facility] Comment on above: Performed By: #### 2 [id number], [id number] ####[facility] [address] [place] [address] SARS-CoV+SARS-CoV-2 (COVID-19) Ag IA.rapid Ql (Resp) Not detected Normal Not Detected [facility] Comment on above: Result Comment: The Multispectral Imaging? System for Rapid Detection of SARS-CoV-2 is [...] or revoked sooner. Performed By: #### 2 [id number], [id number] ####[facility] [address] [place] [address] Troponin 0 Hr.on 06-12-2023 Troponin 10.20 pg/mL Normal 10.10-27.10 [facility] Comment on above: Result Comment: The 95% CI (Confidence Interval) PPV (Positive Predictive Value) for myocardial infarction in females is 38 pg/mL, in males 51 pg/mL. The results should be used in conjunction with clinical conditions of myocardial infarction. (Access High Sensitivity Troponin I Instructions For Use, [place], October 2017) Performed By: #### 2 477998, 3569077, 58516410, 30259766 ####[facility] [address] [place] [address] UA With Cult Reflexon 2023 Bilirubin Ql (U) Negative Normal Negative [facility] Comment on above: Performed By: #### 1 5583913 ####[address] [address] Clarity (U) CLEAR Normal Clear [facility] Comment on above: Performed By: #### 1 [id number] ####[facility] [address] [place] [address] Color (U) YELLOW Normal Yellow [facility] Comment on above: Performed By: #### 1 [id number] ####[address] [address] Epithelial cells.squamous LM.HPF (Urine sed) [#/Area] 0-2 Normal 0-2 [facility] Comment on above: Performed By: #### 1 [id number] ####[facility] [address] [place] [address] Glucose Test strip (U) [Mass/Vol] Negative Normal Negative [facility] Comment on above: Performed By: #### 1 5918751 ####[place] [place] [address] Hemoglobin Ql (U) TRACE Abnormal Negative [facility] Comment on above: Performed By: #### 1 [id number] ####[facility] [address] [place] [address] Ketones (U) [Mass/Vol] Negative Normal Negative [facility] Comment on above: Performed By: #### 1 5244584 ####[place] [address] [place] [address]plasma/[address] .RBC (Bld) [Mass ratio] 0-3 Normal 0-3 [facility] Comment on above: Performed By: #### 1 5506155 ####[address] [address] Nitrite Ql (U) Negative Normal Negative [facility] Comment on above: Performed By: #### 1 2402425 ####[address] [address] pH (U) 7.5 [pH] Invalid Interpretation Code 5.0-9.0 [facility] Comment on above: Performed By: #### 1 9968274 ####[address] [address] Protein (U) [Mass/Vol] 2+ Abnormal Negative [facility] Comment on above: Performed By: #### 1 4792150 ####[address] [address] Specific gravity (U) [Rel density] 1.020 Invalid Interpretation Code 1.005-1.030 [facility] Comment on above: Performed By: #### 1 1467050 ####[address] [address] Type of Urine collection method Clean Catch Normal [facility] Comment on above: Performed By: #### 1 2222467 ####[address] [address] Urobilinogen Qn (U) 0.2 {Byron'U}/dL Normal 0.0-1.0 [facility] Comment on above: Performed By: #### 1 8371262 ####[address] [address] WBC Auto Ql (U) Negative Normal Negative [facility] Comment on above: Performed By: #### 1 1399719 ####[facility] [address] [place] [address] WBC LM.HPF (Urine sed) [#/Area] 0-5 Normal 0-5 [facility] Comment on above: Performed By: #### 1 4179988 ####[facility] [address] [place] [address] URINALYSISOrdered By: Radha Bateman on 06-12-2023 Bilirubin Ql (U) Negative (06/12/23 3:17 AM) Normal Negative [facility] UA Auto SS Clarity (U) Clear (06/12/23 3:17 AM) Normal Clear [facility] UA Auto SS Color (U) Yellow (06/12/23 3:17 AM) Normal Yellow [facility] UA Auto SS Epithelial cells.squamous LM.HPF (Urine sed) [#/Area] 0-2 /HPF Normal 0-2/HPF [facility] UA Aut o SS Glucose Test strip (U) [Mass/Vol] Negative (06/12/23 3:17 AM) Normal Negative [facility] UA Auto SS Hemoglobin Ql (U) Trace *ABN* (06/12/23 3:17 AM) Invalid Interpretation Code Negative [facility] UA Auto SS Ketones (U) [Mass/Vol] Negative (06/12/23 3:17 AM) Normal Negative [facility] UA Auto SS [address]plasma/[address] .RBC (Bld) [Mass ratio] 0-3 /HPF Normal 0-3/HPF [facility] UA Auto SS Nitrite Ql (U) Negative (06/12/23 3:17 AM) Normal Negative [facility] UA Auto SS pH (U) 7.5 *NA* (06/12/23 3:17 AM) Invalid Interpretation Code 5.0 - 9.0 [facility] UA Auto SS Protein (U) [Mass/Vol] 2+ *ABN* (06/12/23 3:17 AM) Invalid Interpretation Code Negative [facility] UA Auto SS Specific gravity (U) [Rel density] 1.020 *NA* (06/12/23 3:17 AM) Invalid Interpretation Code 1.005 - 1.030 [facility] UA Auto SS UA Spec Desc Clean Catch (06/12/23 3:17 AM) Normal [facility] UA Auto SS Urobilinogen Qn (U) 0.3733919 {Byron'U}/dL Normal 0.0 - 1.0 EU/dL [facility] UA Auto SS WBC Auto Ql (U) Negative (06/12/23 3:17 AM) Normal Negative [facility] UA Auto SS WBC LM.HPF (Urine sed) [#/Area] 0-5 /HPF Normal 0-5/HPF [facility] UA Auto SS XR Chest Single Viewon [...] ESTEFANY Technologist: REINALDO Technical Comments Radiation Dose: Kar in mGy = na DAP = na Normal [facility] eGFRon 06-12-2023 eGFR 71 mL/min/1.73 m2 Normal >=59 [facility] Comment on above: Order Comment: Order added by Discern Expert. Performed By: #### 2 [id number], [id number], [id number], [id number] ####[facility] [address] [place] [address] Inpatient Clinical Summaryon 06-04-2023 Inpatient Clinical Summary [address] [address] Clinical Summary Person Information: Name: TERESA BACON Age: 87 Years : 1935 Sex: Female PCP: III DO, Maurice R Marital Status: Race: White Ethnicity: Non- or Language: Swedish Visit Id: Visit Reason: Altered mental status; Weakness or fatigue; Potential stroke; AMS Speciality: Acuity: Enc Type: Observation Med Service: Medical Arrival: 05/26/2023 09:32:27 Discharge: 05/27/2023 15:20:00 Dispo Type: Home (Routine DC) Address: [address] [place] [id number] Provider Notes: Diagnosis: 1:Acute respiratory failure; 2:Altered [...] up: With: Address: When: Maurice Rogers [address] [place] [address] Business (1) With: Address: When: Mayank Lawson MD, [facility] [place] [address] Within 2 to 4 weeks Patient Education Information: Confusion Normal [facility] Inpatient Patient Summaryon 06-04-2023 Inpatient Patient Summary [address] [address] Patient Discharge Instructions PERSON INFORMATION [...] Follow up: With: Address: When: Maurice Rogers [address] [place], [place] [id number] Business (1) With: Address: When: Renny BAKER, [place] [address] Within 2 to 4 weeks In the event that this physician does not participate in your insurance network, please consult with your insurance company to find a nearby participating provider. Comment: I, TERESA BACON, have received the attached patient education materials/instruction [...] Capsules By Mouth every day. Pharmacy Information: [facility] Pam Comment: PATIENT EDUCATION INFORMATION Instructions: Confusion Confusion [...] new s (more content not included)... Normal [facility] Consent for Procedure/Surger yon 05-28-2023 Consent for Procedure/Surgery [id number] #1.00TIFF [facility] Consultation Noteon 05-28-19 24 Consultation Note Chief [...] sensation in all 4 extremities Cerebellar exam: Hltexk-zg-jysh reveals no ataxia. Gait is normal The neurological exam was performed by a healthcare professional which was witnessed and supervised by me via video telemedicine visit consented to by the patient or appropriate patient bilingual sales representative. Date/Time:05/27/2023 Co/nsciousness: Alert = 0 Current mo/nth and age: Answers both correctly = 0 Open and close eyes/tooth cutter contact wheel release hand: Obeys both correctly = 0 [...] and make (more content not included)... Normal [facility] Comment on above: Result Comment: Elec tronically Signed By: Kelsey Velazquez RN\.br\Date and Time Signed: 05/27/23 07:24 EST\.br\Electronically Co-Signed By: Mayank Lawson MD\.br\Date and Time Co-Signed: 05/28/23 12:27 EST\.br\Electronically Co-Signed By: Ryan Mesa DO\.br\Date and Time Co-Signed: 06/04/23 09:13 EST Discharge Instructionson Discharge Instructions [id number] #1.00TIFF Normal [facility] Insurance Correspondence Off iceon 05-28-2023 Insurance Correspondence Office [id number]#1 .00TIFF Normal [facility] CHEMISTRYOrdered By: SYSTEM SYSTEM on 05-27-2023 Anion [...] Instructions Your Care Team Admitting Physician - Pieter BAKER, Ahsunni Consulting Physician - Mayank Lawson MD Reason [...] Pending Diagnostic Test Results None Pharmacy Information [facility] New Follow Up Appointments after Discharge Follow Up with Renny BAKER, JEMIMA Talley When: Within 2 to 4 weeks Where: [address] [address] [address] [place] [address]- Medications What How Much When Instructions Next [...] E9/L (05/26/23 09:25:00) Glucose Lvl: 98 mg/dL (05/26/23 09:25:00) RBC: 4.9 E12/L (05/26/23 09:25:00) BUN: 22 mg/dL High (05/26/23 09:25:00) HGB: 15.2 gm/dL (05/26/23 09:25:00) Creatinine: 0.9 mg/dL (05/26/23 09:25:00) Hct: 42 % (05/26/23 09:25:00) BUN/Creat Ratio: 24 High (05/26/23:25:00) MCV: 85.6 fL (05/26/23 09:25:00) Sodium Lvl: 140 mmol/L (05/27/23 05:37:00) MCH: 30.8 pg (05/26/23 09:25:00) Potassium Lvl: 4.1 mmol/L (05/27/23 05:37:00) MCHC: 36 gm/dL (05/26/23 09:25:00) Chloride: 107 mmol/L (05/27/23 05:37:00) RDW: 12.9 % (05/26/23:25:00) CO2: 27 mmol/L (05/27/23 05:37:00) Platelet: 298 E9/L (05/26/23 09:25:00) AGAP: 10 mEq/L (05/27/23 05:37:00) MPV: 7.1 fL (05/26/23 09:25:00) Calcium Lvl: 10.4 mg/dL (05/26/23 09:25:00) Allergies No Known Allergies Education Materials Confusion [...] treat sy (more content not included)... Normal [facility] Interdisciplinary Note - Joseph e Manageron 05-27-2023 Interdisciplinary Note - Fisher Cr[employer] CRM to room to discuss DC planning. Patient is awake, alert and oriented. Patient is from home, she lives alone. One of her Children will transport at [place]. Her daughter is present in room. Patient verified PCP as DR Simon, verified PCP and home DME. Patient is here as observation with AMS, Tia Vs Cva. Patient is assigned to [facility], see notes. Patient was seen by Neurology. Patient is pending MRI. Patient denied needs for DME or HH. She is okay with a paramed f/u at DC. Patient was provided CRM contact, white board updated. Anticipated DC later today or 05/28 if testing negative. CRM following Normal [facility] Comment on above: Result Comment: Elec tronically Signed By: Kaycee Rodriguez\.br\Date and Time Signed: 05/27/23 11:45 EST Interdisciplinary Note - PTo n 05-27-2023 Interdisciplinary Note - PT Pt to be seen daily in acute setting setting for bed mobility, transfers, gait. SBA-CGA for activity. May benefit from home health upon d/c. AM-PAC Normal [facility] Lyteson 05-27-2023 Anion gap [Moles/Vol] 10 mmol/L Normal 6-16 [facility] Comment on above: Performed By: #### 2 [id number] ####[facility] [address] [place] [address] Chloride [Moles/Vol] 107 mmol/L Normal 101-111 [facility] Comment on above: Performed By: #### 2 062327 ####[facility] [address] [place] [address] CO2 [Moles/Vol] 27 mmol/L Normal 21-31 [facility] Comment on above: Performed By: #### 2 165999 ####[facility] [address] [place] [address] Potassium [Moles/Vol] 4.1 mmol/L Normal 3.5-5.3 [facility] Comment on above: Performed By: #### 2 158325 ####[facility] [address] [place] [address] Sodium [Moles/Vol] 140 mmol/L Normal 135-145 [facility] Comment on above: Performed By: #### 2 647058 ####[facility] [address] [place] [address] MRI Brain w/o Contraston MRI Brain w/o [...] ESTEFANY Technologist: ARMANDO Technical Comments None Normal [facility] Monitor Recordon 05-27-2023 Monitor Record [id number]# 1.00TIFF Normal [facility] Monitor Record [id number]# 1.00TIFF Normal [facility] Progress Note-Physicianon Progress Note-Physician Assessment/Plan PLAN: 1. [...] normal judgement, Lab Results WBC: 9.3 E9/L (05/26/23 09::00) RBC: 4.9 E12/L (05/26/23::) HGB: 15.2 gm/dL (05/26/23::00) Hct: 42 % (05/26/23::00) MCV: 85.6 fL (05/26/23::00) MCH: 30.8 pg (05/26/23::00) MCHC: 36 gm/dL (05/26/23::00) RDW: 12.9 % (05/26/23::00) Platelet: 298 E9/L (05/26/23::00) MPV: 7.1 fL (05/26/23::00) RBC Morph: NORMAL (05/26/23::) PT: 12 second(s) (05/26/23::00) INR: 1.08 (05/26/23::) PTT: 30.2 second(s) (05/26/23::00) Glucose Lvl: 98 mg/dL (05/26/23::) BUN: 22 mg/dL High (05/26/23::) Creatinine: 0.9 mg/dL (05/26/23::) eGFR: 61 mL/min/1.73 m2 (05/26/23::) BUN/Creat Ratio: 24 High (05/26/23::) Sodium Lvl: 140 mmol/L (05/27/23 05:37:00) Potassium Lvl: 4.1 mmol/L (05/27/23 05:37:00) Chloride: 107 mmol/L (05/27/23 05:37:00) CO2: 27 mmol/L (05/27/23 05:37:00) AGAP: 10 mEq/L (05/27/23 05:37:00) Calcium Lvl: 10.4 mg/dL (05/26/23::) Alk Phos: 59 Int._Unit/L (05/26/23:25:00) Alk Phos: 59 Int._Unit/L (05/26/23::00) ALT: 14 Int._Unit/L (05/26/23::00) ALT: 14 Int._Unit/L (05/26/23:25:00) AST: 48 Int._Unit/L High (05/26/23::00) AST: 48 Int._Unit/L High (05/26/23::) Total Protein: 7.7 gm/dL (05/26/23 09:25:00) Total Protein: 7.7 gm/dL (05/26/23 09:25:00) Albumin Lvl: 4.9 gm/dL (05/26/23 09:25:00) Albumin Lvl: 4.9 gm/dL (05/26/23 09:25:00) Globulin: 2.8 gm/dL (05/26/23 09:25:00) Globulin: 2.8 gm/dL (05/26/23 09:25:00) A/G Ratio: 1.8 (05/26/23 09:25:00) A/G Ratio: 1.8 (05/26/23 09:25:00) Bili Total: 1.2 mg/dL High (05/26/23 09:25:00) Bili Tot (more content not included)... Normal [facility] Comment on above: Result Comment: Elec tronically Signed By: Clarice ARMSTRONG\.br\Date and Time Signed: 05/27/23 09:12 EST\.br\Electronically Co-Signed By: Carly Stapleton MD\.br\Date and Time Co-Signed: 05/27/23 17:02 EST RAD - MRI Screening Formon 0 05-27-2023 RAD - MRI Screening Form [id number]# 1.00TIFF Normal [facility] ABO/Rhon 05-26-2023 ABO/Rh Positive Invalid Interpretation Code [facility] Comment on above: Performed By: #### 2 [id number], [id number], [id number], [id number] ####[facility] [address] [place] [address] ABO/Rh History Checkon 05-26 ABO/Rh History Check Type verified by second s Normal [facility] Comment on above: Performed By: #### 2 355801, 26979260, 97361785, 06146253 ####[facility] [address] [place] [address] ABO/Rh Retypeon 05-26-2023 ABO/Rh Retype Interp Positive Invalid Interpretation Code [facility] Comment on above: Performed By: #### 1 6350873, 6768703, 47453735, 15811791, 23693582, 9763466, 4329992, 5731083, 9242062, 6303236 ####[facility] [address] [place] [address] ABSCon 05-26-2023 ABSC Gel Interp Negative Normal [facility] Comment on above: Performed By: #### 2 153717, 49686061, 69975019, 63166822 ####[facility] [address] [place] [address] BLOOD BANKOrdered By: Jeannine Moreno on 05-26-2023 ABO/Rh Interp Positive Invalid Interpretation Code [facility] BB Subsection ABSC Gel Interp Negative (05/26/23 9:48 AM) Normal [facility] BB Subsection ABO/Rh Retype Interp Positive Invalid Interpretation Code [facility] BB Subsection BNPOrdered By: Anurag jimenes 05-26-2023 Natriuretic peptide B (Bld) [Mass/Vol] 139 pg/mL High 5-80 [facility] HemeManSS Comment on above: Performed By: #### 1 [id number] ####[id number] Blood Bank ID#on 05-26-2023 BBID# [id number] Invalid Interpretation Code [facility] Comment on above: Performed By: #### 2 740141, 28069182, 20561665, 38102225 ####[address] [address] Blood Gas Art, with Lytes, G audrey, [place] 05-26-2023 a/A Ratio Art 56.70 % Normal >=0.80 [facility] Comment on above: Performed By: #### 4 [id number] ####[address] [place] [address] AaDO2 Art 44.1 mmHg High 5.0-15.0 [facility] Comment on above: Performed By: #### 4 [id number] ####[address] [address] Allens Test Positive Normal [facility] Comment on above: Performed By: #### 4 [id number] ####[facility] [address] [place] [address] Base Excess Arterial -0.8 mmol/L Low >=2.8 [facility] Comment on above: Performed By: #### 4 [id number] ####[facility] [address] [place] [address] cCa2+ Art 5.03 mg/dL Normal 4.40-5.30 [facility] Comment on above: Performed By: #### 4 [id number] ####[facility] [address] [place] [address] cCl- Art 106.0 mmol/L Normal 101.0-111.0 [facility] Comment on above: Performed By: #### 4 [id number] ####[facility] [address] [place] [address] cGlu Art 105 mg/dL High 55-99 [facility] Comment on above: Performed By: #### 4 45399354 ####[address] [place] [address] cK+ Art 3.3 mmol/L Low 3.5-5.3 [facility] Comment on above: Performed By: #### 4 10960887 ####[facility] [address] [place] [address] cLac Art .9 mmol/L Normal .5-2.2 [facility] Comment on above: Performed By: #### 4 30506509 ####[facility] [address] [place] [address] service delivery consultant+ Art 141.0 mmol/L Normal 135.0-145.0 [facility] Comment on above: Performed By: #### 4 [id number] ####[address] [place] [address] Drawn by nawaf parada Invalid Interpretation Code [facility] Comment on above: Performed By: #### 4 [id number] ####[facility] [address] [place] [address] FCOHb Art 1.4 % Low 1.5-4.9 [facility] Comment on above: Result Comment: Refe rence range Nonsmoker <1.5% Smoker <5.0% Heavy Smoker <9.0% Performed By: #### 4 [id number] ####[facility] [address] [place] [address] FIO2 BG 21 Invalid Interpretation Code [facility] Comment on above: Performed By: #### 4 [id number] ####[facility] [address] [place] [address] FMetHb Art 0.1 % Normal 0.0-1.9 [facility] Comment on above: Performed By: #### 4 84483242 ####[facility] [address] [place] [address] FO2Hb Art 92.4 % Normal 92.0-100.0 [facility] Comment on above: Performed By: #### 4 [id number] ####[facility] [address] [place] [address] HCO3 (Bld) [Moles/Vol] 23.7 mmol/L Normal 22.0-26.0 [facility] Comment on above: Performed By: #### 4 07823870 ####[facility] [address] [place] [address] Hemoglobin (Bld) [Mass/Vol] 13.7 g/dL Normal 12.0-16.0 [facility] Comment on above: Performed By: #### 4 [id number] ####[facility] [address] [place] [address] Oxygen saturation in Blood 93.8 % Low 95.0-100.0 [facility] Comment on above: Performed By: #### 4 57096976 ####[facility] [address] [place] [address] P CO2 Arterial 38.5 mmHg Normal 35.0-45.0 [facility] Comment on above: Performed By: #### 4 [id number] ####[facility] [address] [place] [address] P O2 Arterial 57.7 mmHg Low 80.0-100.0 [facility] Comment on above: Performed By: #### 4 [id number] ####[facility] [address] [place] [address] pH Arterial 7.400 Normal 7.350-7.450 [facility] Comment on above: Performed By: #### 4 [id number] ####[address] [address] Sample Site R Radial Normal [facility] Comment on above: Performed By: #### 4 [id number] ####[address] [address] Sample Type Arterial Draw Normal [facility] Comment on above: Performed By: #### 4 [id number] ####[address] [address] CBC w/Indiceson 05-26-2023 RBC morphology finding Nom (Bld) NORMAL Invalid Interpretation Code [facility] Comment on above: Performed By: #### 1 1126390, 7640299, 64892838, 11645830, 79259871, 9704071, 0769766, 1169271, 3507242, 3291013 ####[address] [address] Erythrocyte distribution width (RBC) [Ratio] 12.9 % Normal 10.9-14.2 [facility] Comment on above: Performed By: #### 1 4431174, 4925773, 05145117, 70556628, 87306867, 5705543, 5745472, 4233751, 4190378, 5881152 ####[address] [place] [address] Hematocrit (Bld) [Volume fraction] 42.0 % Normal 34.0-46.0 [facility] Comment on above: Performed By: #### 1 0938325, 4932578, 29944173, 82954737, 30237339, 3164528, 2773557, 9972148, 7971961, 1627232 ####[facility] [address] [place] [address] Hemoglobin (Bld) [Mass/Vol] 15.2 g/dL Normal 12.0-16.0 [facility] Comment on above: Performed By: #### 1 5767239, 1729951, 23994432, 73448652, 03502885, 4453794, 1605369, 1706489, 6762989, 4656761 ####[facility] [address] [place] [address] MCH (RBC) [Entitic mass] 30.8 pg Normal 27.0-34.0 [facility] Comment on above: Performed By: #### 1 4635046, 3255952, 14364831, 52374345, 27737567, 7726404, 2814236, 5034255, 6922020, 1545393 ####[address] [place] [address] MCHC (RBC) [Mass/Vol] 36.0 g/dL Normal 31.4-36.0 [facility] Comment on above: Performed By: #### 1 4081998, 0473386, 46973175, 82786244, 46742161, 9957020, 3443841, 6034535, 1890650, 6342164 ####[address] [place] [address] MCV (RBC) [Entitic vol] 85.6 fL Normal 80.0-100.0 [facility] Comment on above: Performed By: #### 1 9283057, 9785896, 84836377, 11069885, 80348354, 7370281, 7887627, 0043945, 3736609, 5052308 ####[facility] [address] [place] [address] Platelet 298.0 E9/L Normal 150.0-500.0 [facility] Comment on above: Performed By: #### 1 3034264, 1880287, 08239965, 84422324, 63160775, 0494370, 7049680, 5290101, 8482250, 1807601 ####[facility] [address] [place] [address] Platelet mean volume (Bld) [Entitic vol] 7.1 fL Normal 6.4-10.8 [facility] Comment on above: Performed By: #### 1 5985680, 8578358, 00199420, 33235598, 10527760, 8855788, 2153889, 2436906, 4539942, 6426073 ####[facility] [address] [place] [address] RBC 4.9 E12/L Normal 4.3-5.9 [facility] Comment on above: Performed By: #### 1 0149880, 5126268, 77382793, 09669329, 81836409, 8025268, 9798054, 1569269, 3760678, 7518313 ####[facility] [address] [place] [address] WBC 9.3 E9/L Normal 4.0-11.0 [facility] Comment on above: Performed By: #### 1 4968027, 6458254, 04505045, 30882113, 65026177, 4136745, 1066561, 5609858, 1079159, 9103113 ####[facility] [address] [place] [address] CHEMISTRYOrdered By: SYSTEM SYSTEM on 05-26-2023 Troponin 16.10 pg/mL Normal 10.10 - 27.10 pg/mL [facility] Comment on above: Interpretive Data: T he 95% CI (Confidence Interval) PPV (Positive Predictive Value) for myocardial infarction in females is 38 pg/mL, in males 51 pg/mL. The results should be used in conjunction with clinical conditions of myocardial infarction. (Access High Sensitivity Troponin I Instructions For Use, Tej [place], October 2017) Ethanol Lvl mg/dL Normal <=11mg/dL [facility] Lactic Acid Lvl 1.6 mmol/L Normal 0.5 - 2.2 mmol/L [facility] Anion gap [Moles/Vol] 13 mmol/L Normal 6 [...] /1 .73 m2 [facility] Glucose [Mass/Vol] 98 mg/dL Normal 55 - 199 mg/dL [facility] Magnesium [Mass/Vol] 1.8 mg/dL Normal [...] Instructions For Use, Tej [place], October 2017) TSH Qn 4.54 m[IU]/L Normal [...] 05-26-2023 Albumin [Mass/Vol] 4.9 g/dL Normal 3.3-5.0 [facility] Comment on above: Performed By: #### 1 7498710, 3330839, 37732444, 46749619, 52136414, 7358156, 8339559, 1516472, 5474306, 7437699 ####[address] [place] [address] Albumin/Globulin [Mass ratio] 1.8 {ratio} Normal 1.1-2.2 [facility] Comment on above: Performed By: #### 1 9904204, 7200228, 68315490, 38788793, 89418223, 5564197, 9097739, 6210016, 3858037, 3835684 ####[facility] [address] [place] [address] Alk Phos 59 Int._Unit/L Normal 21-98 [facility] Comment on above: Performed By: #### 1 7015723, 1809426, 43080359, 17850913, 06179040, 2993783, 5901207, 0381266, 3794401, 0353780 ####[facility] [address] [place] [address] ALT 14 Int._Unit/L Normal 6-46 [facility] Comment on above: Performed By: #### 1 4811511, 8115178, 64742439, 05521222, 75109741, 2552917, 3881317, 5915260, 2623063, 6191285 ####[facility] [address] [place] [address] Anion gap [Moles/Vol] 13 mmol/L Normal 6-16 [facility] Comment on above: Performed By: #### 1 4300866, 1268725, 19647295, 72333022, 66096277, 5232161, 2497372, 4452186, 4041603, 1711972 ####[facility] [address] [place] [address] AST 48 Int._Unit/L High 5-43 [facility] Comment on above: Performed By: #### 1 8164640, 1930643, 57722811, 91626120, 56562750, 2116845, 7107767, 2750119, 4452079, 0850855 ####[facility] [address] [place] [address] Bili Total 1.2 mg/dL High 0.0-1.1 [facility] Comment on above: Performed By: #### 1 9416952, 4386543, 25234048, 16667588, 06875406, 4251697, 7452197, 1282311, 7135458, 7037355 ####[facility] [address] [place] [address] BUN/Creat Ratio 24 No Units High 10-20 [facility] Comment on above: Performed By: #### 1 8639121, 0520404, 02331513, 59197333, 78137690, 1594009, 5562912, 8858931, 6394360, 5531842 ####[facility] [address] [place] [address] Calcium [Mass/Vol] 10.4 mg/dL Normal 8.9-11.1 [facility] Comment on above: Performed By: #### 1 0239951, 0104351, 51935978, 47086301, 03113793, 7560832, 9250379, 6981749, 5615603, 4278377 ####[facility] [address] [place] [address] Chloride [Moles/Vol] 106 mmol/L Normal 101-111 [facility] Comment on above: Performed By: #### 1 1136598, 3890666, 93480305, 22590229, 12982258, 0209596, 5316799, 7348403, 0571497, 5584208 ####[facility] [address] [place] [address] CO2 [Moles/Vol] 25 mmol/L Normal 21-31 [facility] Comment on above: Performed By: #### 1 8103210, 6990298, [id number], 94868735, 46885485, 5712196, 1011024, 6421666, 6210697, 8225252 ####[facility] [address] [place] [address] Creatinine [Mass/Vol] 0.9 mg/dL Normal 0.5-1.3 [facility] Comment on above: Performed By: #### 1 [id number], 8895487, 36258408, 08002001, 08907579, 8123543, 3891043, 4154619, 0902693, 9002670 ####[facility] [address] [place] [address] Globulin (S) [Mass/Vol] 2.8 g/dL Normal 1.4-4.0 [facility] Comment on above: Performed By: #### 1 2180277, 2182904, 31140788, 05605010, 73197857, 2573847, 1898431, 7923139, 6383671, 5193549 ####[facility] [address] [place] [address] Glucose [Mass/Vol] 98 mg/dL Normal 55-199 [facility] Comment on above: Performed By: #### 1 4003400, 2666960, 35852147, 25026778, 60575043, 4115504, 8853793, 5152854, 4174010, 8982675 ####[facility] [address] [place] [address] Potassium [Moles/Vol] 3.4 mmol/L Low 3.5-5.3 [facility] Comment on above: Performed By: #### 1 8376755, 7691696, 85552957, 68627518, 10956799, 7113496, 2864982, 7015906, 7597813, 5618847 ####[facility] [address] [place] [address] Protein [Mass/Vol] 7.7 g/dL Normal 6.0-7.8 [facility] Comment on above: Performed By: #### 1 1128556, 6085739, 41487966, 84301223, 87483214, 4735152, 8550351, 8401413, 0374026, 8329873 ####[facility] [address] [place] [address] Sodium [Moles/Vol] 141 mmol/L Normal 135-145 [facility] Comment on above: Performed By: #### 1 3019680, 1146102, 26237113, 92029459, 61394535, 3311037, 9501770, 5323845, 0071383, 6560550 ####[facility] [address] [place] [address] Urea nitrogen [Mass/Vol] 22 mg/dL High 5-21 [facility] Comment on above: Performed By: #### 1 5421556, 1436244, 12358762, 15274988, 08098608, 7118291, 8909921, 8464480, 7433034, 8124569 ####[facility] [address] [place] [address] COAGULATIONOrdered By: Abby Ardon on 05-26-2023 aPTT Coag (PPP) [Time] 30.2 s Normal 25.1 - 36.5 second(s) [facility] Auto Coag Comment on above: Interpretive Data: P rajindermetyesica 15 days - 4 weeks 1 - 5 months 6 - 11 months 1 - 5 years 6 - 10 years 11 - 17 years PTT Mean: 35.4 (27.6-45.6) Mean: 33.5 (24.8-40.7) Mean: 32.4 (25.1-40.7) Mean: 31.6 (24.0-39.2) Mean: 31.6 (26.9-38.7) Mean: 31.0 (24.6-38.4) Pediatric Reference ranges were obtained from a study by lluvia Cisneros alIván prepared from 1437 samples obtained at 7 different centers using the same coagulation reagent and instrumentation as [facility]. Currently there are no coagulation studies available worldwide for children to 14 days, and no normal ranges. Heparin therapeutic range (represented by Anti-Factor Xa activity of 0.2 - 0.4 U/mL) corresponds to PTT of 56.6 - 109.0 sec. INR Coag (PPP) [Relative time] 1.08 {INR} Invalid Interpretation Code [facility] Auto Coag Comment on above: Interpretive Data: I NR results are specifically intended to assess patients stabilized on long-term Anticoagulation therapy suggested INR s Less Intensive Anticoagulation 2.0 3.0 Conventional Range 3.0 4.5 PT Coag (PPP) [Time] 12.0 s Normal 9.4 - 1 2.5 second(s) [facility] Auto Coag Comment on above: Interpretive Data: 1 5 days - 4 weeks 1 - 5 months 6 -11 months 1-5 years 6-10 years 11 -17 years Mean: 11.2 (9.5-12.6) Mean: 11.0 (9.7-12.8) Mean: 11.0 (9.8-13.0) Mean: 11.3 (9.9-13.4) Mean: 11.7 (10.0-14.6) Mean: 11.8 (10.0 - 14.1) Pediatric Reference ranges were obtained from a study by cliff Cisneros prepared from 1437 samples obtained at 7 different centers using the same coagulation reagent and instrumentation as [facility]. Currently there are no coagulation studies available worldwide for children to 14 days, and no normal ranges. CT Head or Brain w/o Contras ton 05-26-2023 CT Head or Brain w/o Contrast [...] MD, V. Transcribed by: ESTEFANY Technologist: LEMUEL Couch [facility] CTA Headon 05-26-2023 CTA Head Exam Date/Time: 05/26/2023 10:42 EST Reason for Exam: Neuro deficit, acute, stroke suspected;Other (please specify) Report [facility] [phone] IMPRESSION: PLEASE REFER TO NECK CTA REPORT [...] 370 Contrast amount in ml's: 100 Normal [facility] CTA Neckon 05-26-2023 CTA Neck Exam Date/Time: [...] 370 Contrast amount in ml's: 100 Normal [facility] Consent for Treatmenton 05-04 Consent for Treatment [id number]#1 .00TIFF Normal [facility] ED Clinical Summaryon 2023 ED Clinical Summary [place] [id number] ED Clinical Summary Person Information Name: TERESA BACON/[facility] Age: 87 Years : 1935 Sex: Female Language: Swedish PCP: Maurice Rogers III, DO Marital Status: Visit Id: Visit Reason: Altered mental status; Weakness or fatigue; Potential stroke; AMS Speciality: Acuity: 2 Enc Type: Observation Med Service: Emergency Arrival: 05/26/2023 09:32:27 Discharge: LOS: 000 03:23 Checkin: 05/26/2023 09:32:27 Checkout: 05/26/2023 12:55:08 Dispo Type: Admitted as IP to this [facility] EVENTS: Event Name Event Status Request Date/Time [...] 12:42:02 Patient Care Request 05/26/2023 12:42:02 ADDRESS: [address] [place] [id number] [facility] DOC NOTES: MEDICAL INFORMATION: Prescriptions Given: PATIENT EDUCATION INFORMATION: Instructions: Follow up: DIAGNOSIS: 1:Altered mental status; 2:Weakness Normal [facility] ED Note-Physicianon 05-26-19 ED Note-Physician Basic Information [...] and Complexity of Problems Differential Diagnosis: [] [facility] Data External documents reviewed: [] My EKG [...] Plan o (more content not included)... Normal [facility] Comment on above: Result Comment: Elec tronically Signed By: Hayley Reese, Lucille Avila\.br\Date and Time Signed: 05/26/23 14:41 EST ED Patient Education Noteon 05-26-2023 ED Patient Education Note Normal [facility] ED Patient Summaryon 024 ED Patient Summary [place] [id number] Patient Discharge Instructions Person Information Name: TEREAS BACON Age: 87 Years Arrival Date: 05/26/2023 09:32:27 Discharge Diagnosis: 1:Altered mental status; 2:Weakness Primary Care Physician: Maurice Rogers III, DO Provider Information Primary Provider: Lucille Hardy M.D. Advanced Envelope Adjuster:None The exam and treatment you received in the Emergency Department were for an urgent problem and are not intended as complete care. It is important that you follow up with a doctor, nurse practitioner, or physician?s boilermaker's assistant for ongoing care. If your symptoms [...] opioids can be used to help relieve qlfsytse-hb-aevafb pain and are often prescribed following a [...] be struggling with addiction, tell your health customer care voice consultant and ask for guidance or call [facility]?S National Helpline at 2-040-366-TOEQ. c Source: [place] Department of Health and Human Services/Center for Disease Control & Prevention [facility] Medications Given: Medication Dose Rou (more content not included)... Normal [facility] Ethanolon 05-26-2023 Ethanol Lvl <10 Normal <=11 [facility] Comment on above: Performed By: #### 2 [id number], [id number] ####[facility] [address] [place] [address] Blood GasesOrdered By: St shayy Silva on 05-26-2023 a/A Ratio Art 56.70 % Normal >=0.80% [facility] Resp Auto SS AaDO2 Art 44.1 mm[Hg] High 5.0 - 15.0 mmHg [facility] Resp Auto SS Allens Test Positive (05/26/23 10:40 AM) Normal [facility] Resp Auto SS Base Excess Arterial -0.8 mmol/L Low >=2.8mmol/L FT Resp Auto SS cCa2+ Art 5.03 mg/dL Normal 4.40 - 5.30 mg/dL [facility] Resp Auto SS cCl- Art 106.0 mmol/L Normal 101.0 - 111.0 mmol/L [facility] Resp Auto SS cGlu Art 105 mg/dL High 55 - 99 mg/dL [facility] Resp Auto SS cK+ Art 3.3 mmol/L Low 3.5 - 5.3 mmol/L [facility] Resp Auto SS cLac Art 0.9 mmol/L Normal 0.5 - 2.2 mmol/L [facility] Resp Auto SS service delivery consultant+ Art 141.0 mmol/L Normal 135.0 - 145.0 mmol/L [facility] Resp Auto SS Drawn by nawaf parada Invalid Interpretation Code [facility] Resp Auto SS FCOHb Art 1.4 % Low 1.5 - 4.9 % [facility] Resp Auto SS Comment on above: Interpretive Data: R eference range Nonsmoker <1.5% Smoker <5.0% Heavy Smoker <9.0% FIO2 BG 21 1 Invalid Interpretation Code [facility] Resp Auto SS FMetHb Art 0.1 % Normal 0.0 - 1.9 % [facility] Resp Auto SS FO2Hb Art 92.4 % Normal 92.0 - 100.0 % [facility] Resp Auto SS HCO3 (Bld) [Moles/Vol] 23.7 mmol/L Normal 22.0 - 26.0 mmol/L [facility] Resp Auto SS Hemoglobin (Bld) [Mass/Vol] 13.7 g/dL Normal 12.0 - 16.0 gm/dL [facility] Resp Auto SS P CO2 Arterial 38.5 mm[Hg] Normal 35.0 - 45.0 mmHg [facility] Resp Auto SS P O2 Arterial 57.7 mm[Hg] Low 80.0 - 100.0 mmHg [facility] Resp Auto SS pH (Bld) 7.400 [pH] Normal 7.350 - 7.450 [facility] Resp Auto SS Sample Site R Radial (05/26/23 10:40 AM) Normal [facility] Resp Auto SS Sample Type Arterial Draw (05/26/23 10:40 AM) Normal [facility] Resp Auto SS HEMATOLOGYOrdered By: SYSTEM SYSTEM [...] 05-26-2023 Bili Direct 0.2 mg/dL Normal 0.0-0.4 [facility] Comment on above: Performed By: #### 1 6418534, 1482836, 05362346, 82580483, 05517954, 4813683, 6010628, 4944051, 0186458, 9070616 ####[facility] [address] [place] [address] Bili Indirect 1.0 mg/dL High 0.1-0.9 [facility] Comment on above: Performed By: #### 1 8832567, 4911467, 31972333, 60486154, 43013663, 6571025, 2623843, 1701597, 6258036, 5549008 ####[facility] [address] [place] [address] Interdisciplinary Note - Spe ech Languageon 05-26-2023 Interdisciplinary Note - Speech Language ST 05/26/23: BSE completed. Pt admitted to [facility] d/t AMS, headache, possible CVA. Per dtr, [...] further ST indicated at this time. Normal [facility] Laboratory - Chemistry and C hemistry - [...] Lactic Acid Lvl 1.6 mmol/L Normal 0.5-2.2 [facility] Comment on above: Performed By: #### 2 111523, 0144049 ####[facility] [address] [place] [address] Magnesiumon 05-26-2023 Magnesium [Mass/Vol] 1.8 mg/dL Normal 1.3-2.4 [facility] Comment on above: Performed By: #### 1 7427069, 5600564, 16878538, 79553804, 22155700, 2129621, 9573975, 0309924, 0093423, 0009997 ####[facility] [address] [place] [address] Message from Medicareon 05-04 Message from Medicare [id number]# 1.00TIFF Normal [facility] Monitor Recordon 05-26-2023 Monitor Record [id number]# 1.00TIFF Normal [facility] No Panel InformationOrdered By: ANGPROCESSSERVER MICROBIOLOGY on 05-26-2023 Blood Culture Charcoal No growth at 1 da y. Final to follow at 7 days. [facility] Blood Culture Charcoal No growth at 1 da y. Final to follow at 7 days. [facility] No Panel InformationOrdered By: SYSTEM SYSTEM on 05-26-2023 Alk Phos 59 [iU]/d Normal 21 - 98 Int._Unit/L Rem[facility] Chem ALT 14 [iU]/d Normal 6 - 46 Int._Unit/L Remisol Chem AST 48 [iU]/d High 5 - 43 Int._Unit/L [facility]isol Chem Bili Total 1.2 mg/dL High 0.0 - 1.1 mg/dL [facility] Chem PTon 05-26-2023 INR Coag (PPP) [Relative time] 1.08 {INR} Invalid Interpretation Code [facility] Comment on above: Result Comment: INR results are specifically intended to assess patients stabilized on long-term Anticoagulation therapy suggested INR?s ?Less Intensive Anticoagulation? 2.0 ? 3.0 Conventional Range 3.0 ? 4.5 Performed By: #### 1 7847611, 4353395, 12707205, 51960751, 70770494, 1909694, 7294405, 7209535, 7943701, 0407252 ####[facility] [address] [place] [address] PT Coag (PPP) [Time] 12.0 second(s) Normal 9.4-12.5 [facility] Comment on above: Result Comment: 15 d [...] the same coagulation reagent and instrumentation as [facility]. Currently there are no coagulation studies available worldwide for children to 14 days, and no normal ranges. Performed By: #### 1 1682346, 8247997, 87463133, 13106075, 06577483, 1507160, 4533777, 2199306, 8898233, 8267869 ####[facility] [address] [place] [address] PTTon 05-26-2023 aPTT Coag (PPP) [Time] 30.2 second(s) Normal 25.1-36.5 [facility] Comment on above: Result Comment: Para meter [...] the same coagulation reagent and instrumentation as [facility]. Currently there are no coagulation studies available worldwide for children to 14 days, and no normal ranges. Heparin therapeutic range (represented by Anti-Factor Xa activity of 0.2 - 0.4 U/mL) corresponds to PTT of 56.6 - 109.0 sec. Performed By: #### 1 0459706, 8532758, 18979908, 30639108, 03089265, 6107634, 8455714, 9663777, 3943246, 6965004 ####[facility] [address] [place] [address] TSH With T4fr Reflexon 05-26 TSH Qn 4.54 m[IU]/L Normal 0.34-5.60 [facility] Comment on above: Performed By: #### 1 0241044, 3795138, 47493125, 60188191, 05708511, 7382851, 2912821, 3688756, 8344520, 4297586 ####[facility] [address] [place] [address] Troponin 0 Hr.on 05-26-2023 Troponin 22.80 pg/mL Normal 10.10-27.10 [facility] Comment on above: Result Comment: The 95% CI (Confidence Interval) PPV (Positive Predictive Value) for myocardial infarction in females is 38 pg/mL, in males 51 pg/mL. The results should be used in conjunction with clinical conditions of myocardial infarction. (Access High Sensitivity Troponin I Instructions For Use, [employer], October 2017) Performed By: #### 1 1014301, 8862461, 48379170, 53103555, 03089350, 0488049, 4593680, 0954630, 2386692, 9317286 ####[facility] [address] [place] [address] Troponin 3 Hr.on 05-26-2023 Troponin 16.10 pg/mL Normal 10.10-27.10 [facility] Comment on above: Result Comment: The 95% CI (Confidence Interval) PPV (Positive Predictive Value) for myocardial infarction in females is 38 pg/mL, in males 51 pg/mL. The results should be used in conjunction with clinical conditions of myocardial infarction. (RawFlow High Sensitivity Troponin I Instructions For Use, [employer], October 2017) Performed By: #### 1 [id number] ####[facility] [address] [place] [address] Troponin 6 Hr.Ordered By: too.me SYSTEM on 05-26-2023 Troponin 18.00 pg/mL Normal 10.10-27.10 [facility] Comment on above: Interpretive Data: T he 95% CI (Confidence Interval) PPV (Positive Predictive Value) for myocardial infarction in females is 38 pg/mL, in males 51 pg/mL. The results should be used in conjunction with clinical conditions of myocardial infarction. (RawFlow High Sensitivity Troponin I Instructions For Use, [employer], October 2017) Result Comment: The 95% CI (Confidence Interval) PPV (Positive Predictive Value) for myocardial infarction in females is 38 pg/mL, in males 51 pg/mL. The results should be used in conjunction with clinical conditions of myocardial infarction. (RawFlow High Sensitivity Troponin I Instructions For Use, [employer], October 2017) Performed By: #### 1 [id number] ####[facility] [address] [place] [address] U Drug Screenon 05-26-2023 U Amph Scr Negative Normal NEGATIVE [facility] Comment on above: Order Comment: Added to UA Performed By: #### 2 450880 ####[facility] [address] [place] [address] U Desirae Scr Negative Normal NEGATIVE [facility] Comment on above: Order Comment: Added to UA Performed By: #### 2 244793 ####[facility] [address] [place] [address] U Benzodia Scr Negative Normal NEGATIVE [facility] Comment on above: Order Comment: Added to UA Performed By: #### 2 284668 ####[facility] [address] [place] [address] U Cannab Scr Negative Normal NEGATIVE [facility] Comment on above: Order Comment: Added to UA Performed By: #### 2 478721 ####[facility] [address] [place] [address] U Cocaine Scr Negative Normal NEGATIVE [facility] Comment on above: Order Comment: Added to UA Performed By: #### 2 932633 ####[facility] [address] [place] [address] U Opiate Scr Negative Normal NEGATIVE [facility] Comment on above: Order Comment: Added to UA Performed By: #### 2 313287 ####[facility] [address] [place] [address] U PCP Scr Negative Normal NEGATIVE [facility] Comment on above: Order Comment: Added to UA Performed By: #### 2 065574 ####[facility] [address] [place] [address] UA With Cult Reflexon 2023 Bacteria LM Ql (Urine sed) TRACE Normal Trace [facility] Comment on above: Performed By: #### 1 [id number] ####[facility] [address] [place] [address] Bilirubin Ql (U) Negative Normal Negative [facility] Comment on above: Performed By: #### 1 5535485 ####[facility] [address] [place] [address] Clarity (U) CLEAR Normal Clear [facility] Comment on above: Performed By: #### 1 9548896 ####[facility] [address] [address] Color (U) STRAW Invalid Interpretation Code [facility] Comment on above: Performed By: #### 1 2124001 ####[facility] [address] [place] [address] Epithelial cells.squamous LM.HPF (Urine sed) [#/Area] 0-2 Normal 0-2 [facility] Comment on above: Performed By: #### 1 9701796 ####[facility] [address] [place] [address] Glucose Test strip (U) [Mass/Vol] Negative Normal Negative [facility] Comment on above: Performed By: #### 1 3374168 ####[facility] [address] [place] [address] Hemoglobin Ql (U) TRACE Abnormal Negative [facility] Comment on above: Performed By: #### 1 4261633 ####[address] [address] Ketones (U) [Mass/Vol] TRACE Invalid Interpretation Code Negative [facility] Comment on above: Performed By: #### 1 0285887 ####[facility] [address] [place] [address]plasma/[address] .RBC (Bld) [Mass ratio] 0-3 Normal 0-3 [facility] Comment on above: Performed By: #### 1 8340527 ####[address] [address] Nitrite Ql (U) Negative Normal Negative [facility] Comment on above: Performed By: #### 1 0810576 ####[facility] [address] [place] [address] pH (U) 7.5 [pH] Invalid Interpretation Code 5.0-9.0 [facility] Comment on above: Performed By: #### 1 0452445 ####[facility] [address] [place] [address] Protein (U) [Mass/Vol] Negative Normal Negative [facility] Comment on above: Performed By: #### 1 1017166 ####[facility] [address] [place] [address] Specific gravity (U) [Rel density] 1.010 Invalid Interpretation Code 1.005-1.030 [facility] Comment on above: Performed By: #### 1 1307692 ####[place] [address] Type of Urine collection method Clean Catch Normal [facility] Comment on above: Performed By: #### 1 2353411 ####[place] [address] Urobilinogen Qn (U) 0.2 {Byron'U}/dL Normal 0.0-1.0 [facility] Comment on above: Performed By: #### 1 [id number] ####[place] [address] WBC Auto Ql (U) Negative Normal Negative [facility] Comment on above: Performed By: #### 1 [id number] ####[facility] [address] [place] [address] WBC LM.HPF (Urine sed) [#/Area] 0-5 Normal 0-5 [facility] Comment on above: Performed By: #### 1 [id number] ####[place] [address] URINALYSISOrdered By: Abby mathis on 05-26-2023 Bacteria LM Ql (Urine sed) Trace /HPF Normal Trace/HPF [facility] UA Auto SS Bilirubin Ql (U) Negative (05/26/23 10:10 AM) Normal Negative [facility] UA Auto SS Clarity (U) Clear (05/26/23 10:10 AM) Normal Clear [facility] UA Auto SS Color (U) STRAW Invalid Interpretation Code [facility] UA Auto SS Epithelial cells.squamous LM.HPF (Urine sed) [#/Area] 0-2 /HPF Normal 0-2/HPF [facility] UA Aut o SS Glucose Test strip (U) [Mass/Vol] Negative (05/26/23 10:10 AM) Normal Negative [facility] UA Auto SS Hemoglobin Ql (U) Trace *ABN* (05/26/23 10:10 AM) Invalid Interpretation Code Negative [facility] UA Auto SS Ketones (U) [Mass/Vol] Trace *NA* (05/26/23 10:10 AM) Invalid Interpretation Code Negative [facility] UA Auto SS [address].plasma/[address] .RBC (Bld) [Mass ratio] 0-3 /HPF Normal [...] Desc Clean Catch (05/26/23 10:10 AM) Normal [facility] UA Auto SS Urobilinogen Qn (U) 0.5651974 {Byron'U}/dL Normal 0.0 - 1.0 EU/dL [facility] UA Auto SS WBC Auto Ql (U) Negative (05/26/23 10:10 AM) Normal Negative [facility] UA Auto SS WBC LM.HPF (Urine sed) [#/Area] 0-5 /HPF Normal 0-5/HPF [facility] UA Auto SS XR Chest Single Viewon 05-26 XR Chest Single View Exam Date/Time: 05/26/2023 09:47 EST Reason for Exam: Chest pain Report [facility] [phone] IMPRESSION: There are no acute cardiopulmonary changes. [...] ESTEFANY Technologist: PACO Technical Comments Radiation Dose: ivanna Hansen in mGy = na DAP = na Normal [facility] eGFRon 05-26-2023 eGFR 61 mL/min/1.73 m2 Normal >=59 [facility] Comment on above: Order Comment: Order added by Discern Expert. Performed By: #### 1 [id number], 8320435, 46059318, 09368249, 24150098, 1791628, 5307723, 4968530, 9809680, 2043048 ####[facility] [address] [place] [id number] XR DEXA BONE DENSITYon 04-25 XR DEXA [...] by: SRINIVASA ECHAVARRIA Date: 2022-04-25 10:06 Normal [facility] CULTURE URINEon 12-14-2021 CULTURE URINE Isolate 1 [...] F Trimethoprim/Sulfamet hoxazole <=20 S F Normal [facility] [facility] Comment on above: Performed By: #### U RCX #### [facility] [address] [place] [address] Dr. Yoni Thao ER URINE PROFILEon 2 Bilirubin Ql (U) Negative Normal NEGATIVE [facility] Comment on above: Performed By: #### U MICRO, ERUR #### [facility] [address] [place] [address] Dr. Yoni Thao Clarity (U) CLEAR Normal CLEAR [facility] Comment on above: Performed By: #### U MICRO, ERUR #### [facility] [address] [address] [address] Yoni Thao Color (U) LT. YELLOW Normal YELLOW [facility] Comment on above: Performed By: #### U MICRO, ERUR #### [facility] [address] [place] [address] Dr. Yoni HUMPHREYSD A micrscopic examination will be performed if indicated. Normal [facility] Comment on above: Performed By: #### U MICRO, ERUR #### [facility] [address] [place] [address] Dr. Yoni Thao Glucose Ql (U) Negative Normal NEGATIVE [facility] Comment on above: Performed By: #### U MICRO, ERUR #### [facility] [address] [place] [address] Dr. Yoni Thao Hemoglobin Ql (U) LARGE Abnormal NEGATIVE [facility] Comment on above: Performed By: #### U MICRO, ERUR #### [facility] [address] [address] [address] Yoni Thao Ketones Ql (U) Negative Normal NEGATIVE [facility] Comment on above: Performed By: #### U MICRO, ERUR #### [facility] [address] [address] [address] Yoni Thao LEUKOCYTES MODERATE Abnormal NEGATIVE [facility] Comment on above: Performed By: #### U MICRO, ERUR #### [facility] [address] [place] [address] Dr. Yoni Thao Nitrite Ql (U) Positive Abnormal NEGATIVE [facility] Comment on above: Performed By: #### U MICRO, ERUR #### [facility] [address] [place] [address] Dr. Yoni Thao pH (U) 6.5 [pH] Normal 5-9 [facility] Comment on above: Performed By: #### U MICRO, ERUR #### [facility] [address] [place] [address] Dr. Yoni Thao SPEC GRAVITY 1.010 Normal 1.005-<=1.02 5 [facility] Comment on above: Performed By: #### U MICRO, ERUR #### [facility] [address] [place] [address] Dr. Yoni Thao UA PROTEIN TRACE Normal NEGATIVE/ TRACE [facility] Comment on above: Performed By: #### U MICRO, ERUR #### [facility] [address] [place] [address] Dr. Yoni Thao UR MICRO IND INDICATED Normal [facility] Comment on above: Performed By: #### U MICRO, ERUR #### [facility] [address] [place] [address] Dr. Yoni Thao Urobilinogen Qn (U) 0.2 {Byron'U}/dL Normal 0.2 - 1. 0 [facility] Comment on above: Performed By: #### U MICRO, ERUR #### [facility] [address] [place] [address] Dr. Yoni Thao URINE MICROSCOPIC ONLYon BACTERIA SMALL Abnormal NONE SEEN [facility] Comment on above: Performed By: #### U MICRO, ERUR #### [facility] [address] [place] [address] Dr. Yoni Thao Bacteria identified Cx Nom (U) INDICATED Normal [facility] Comment on above: Performed By: #### U MICRO, ERUR #### [facility] [address] [place] [address] Dr. Yoni Thao CAST NONE SEEN Normal NONE SEEN [facility] Comment on above: Performed By: #### U MICRO, ERUR #### [facility] [address] [place] [address] Dr. Yoni Thao Crystals LM Nom (Urine sed) NONE SEEN Normal NONE SEEN [facility] Comment on above: Performed By: #### U MICRO, ERUR #### [facility] [address] [address] [address] Yoni Thao Epithelial cells LM Ql (Urine sed) FEW Abnormal NONE SEEN /RARE [facility] Comment on above: Performed By: #### U MICRO, ERUR #### [facility] [address] [address] [address] Yoni Thao MUCOUS NONE SEEN Normal NONE SEEN [facility] Comment on above: Performed By: #### U MICRO, ERUR #### [facility] [address] [address] [address] Yoni Thao RBC 20-50 Abnormal 0-2 [facility] Comment on above: Performed By: #### U MICRO, ERUR #### [facility] [address] [address] [address] Yoni Thao WBC 20-50 Abnormal NONE SEEN [facility] Comment on above: Performed By: #### U MICRO, ERUR #### [facility] [address] [address] [address] Yoni Thao Q - CULTURE,URINE,ROUTINEon 05-17-2021 CULTURE, URINE, ROUTINE SEE NOTE Abnormal [facility] Crop Specialist Comment on above: Order Comment: [employer] Testing performed at: [employer], [address] [place] [address], [address] [place] [address], [phone], Assistant Tennis Coach: Husam Whittaker MD [facility] Collection Date/Time: [id number] [facility] Results Received Date/Time: [id number] [facility] Reported Date/Time: [id number] Result Comment: CULT URE, URINE, ROUTINE Micro Number: [id number] Test Status: Final Specimen Source: Not given [...] 6 304R #### [facility] [address] [place] [address] Vital Signs Date Time Vital Sign Value Performing Clinician Cinda cabrera 06-12-2023 04:35-0400 Diastolic blood pressure 83 mm[Hg] [facility] 06-12-2023 04:35-0400 Heart rate 74 /min [facility] 06-12-2023 04:35-0400 Mean blood pressure 105 mm[Hg] [facility] 06-12-2023 04:35-0400 Respiratory rate 16 /min [facility] 06-12-2023 04:35-0400 SaO2% (BldA) [Mass fraction] 94 % Sudhakar [employer] [facility] 06-12-2023 04:35-0400 Systolic blood pressure 148 mm[Hg] Sudhakar [employer] [facility] 06-12-2023 03:43-0400 Diastolic blood pressure 96 mm[Hg] Sudhakar [facility] 06-12-2023 03:43-0400 Heart rate 74 /min Sudhakar Lu[facility] 06-12-2023 03:43-0400 Mean blood pressure 121 mm[Hg] Sudhakar Lupe [facility] 06-12-2023 03:43-0400 Respiratory rate 23 /min Sudhakar Lupe [facility] 06-12-2023 03:43-0400 SaO2% (BldA) [Mass fraction] 96 % Sudhakar Lupe [facility] 06-12-2023 03:43-0400 Systolic blood pressure 171 mm[Hg] Sudhakar Lupe [facility] 06-12-2023 03:10-0400 Diastolic blood pressure 89 mm[Hg] Sudhakar Lupe [facility] 06-12-2023 03:10-0400 Heart rate 92 /min Sudhakar Lupe [facility] 06-12-2023 03:10-0400 Mean blood pressure 114 mm[Hg] Sudhakar Lupe [facility] 06-12-2023 03:10-0400 Respiratory rate 46 /min Sudhakar Lupe [facility] 06-12-2023 03:10-0400 SaO2% (BldA) [Mass fraction] 94 % Sudhakar Lupe [facility] 06-12-2023 03:10-0400 Systolic blood pressure 164 mm[Hg] Sudhakar Lupe [facility] 06-12-2023 02:36-0400 Blood Pressure Location Sudhakar Lupe [facility] 06-12-2023 02:36-0400 Body temperature 98.24 [degF] Sudhakar Lu[facility] 06-12-2023 02:36-0400 Heart rate 78 /min [facility] 06-12-2023 02:36-0400 Respiratory rate 16 /min [facility] 05-27-2023 14:00-0500 Hourly Rounding [facility] 05-27-2023 14:00-0500 Promise to Return [facility] 05-27-2023 13:10-0500 Hourly Rounding [facility] 05-27-2023 13:10-0500 Promise to Return [facility] 05-27-2023 12:00-0500 Hourly Rounding [facility] 05-27-2023 12:00-0500 Promise to Return [facility] 05-27-2023 08:20-0500 SaO2% (BldA) [Mass fraction] 95 % [facility] 05-27-2023 08:10-0500 Heart rate 77 /min [facility] 05-27-2023 08:10-0500 SaO2% (BldA) [Mass fraction] 95 % [facility] 05-27-2023 08:09-0500 Diastolic blood pressure 62 mm[Hg] [facility] 05-27-2023 08:09-0500 Mean blood pressure 75 mm[Hg] [facility] 05-27-2023 08:09-0500 Systolic blood pressure 101 mm[Hg] [facility] 05-27-2023 08:09-0500 Body temperature 98.24 [degF] loisluis enrique [facility] 05-27-2023 04:54-0500 Blood Pressure Location [facility] 05-27-2023 04:54-0500 Body temperature 97.88 [degF] [facility] 05-27-2023 04:54-0500 Diastolic blood pressure 63 mm[Hg] [facility]-27-2023 04:54-0500 Heart rate 77 /min [facility] 05-27-2023 04:54-0500 Mean blood pressure 74 mm[Hg] sunni [facility] 05-27-2023 04:54-0500 Respiratory rate 16 /min [facility] 05-27-2023 04:54-0500 SaO2% (BldA) [Mass fraction] 96 % [facility] 05-27-2023 04:54-0500 Systolic blood pressure 97 mm[Hg] loisluis enrique [facility] 05-27-2023 00:47-0500 Blood Pressure Location [facility] 05-27-2023 00:47-0500 Body temperature 98.6 [degF] [facility] 05-27-2023 00:47-0500 Diastolic blood pressure 64 mm[Hg] [facility] 05-27-2023 00:47-0500 Heart rate 81 /min [facility] 05-27-2023 00:47-0500 Mean blood pressure 78 mm[Hg] [facility] 05-27-2023 00:47-0500 Respiratory rate 15 /min [facility] 05-27-2023 00:47-0500 Systolic blood pressure 105 mm[Hg] [facility] 05-26-2023 20:00-0500 Body temperature 98.06 [degF] [facility] 05-26-2023 20:00-0500 Heart rate 87 /min [facility] 05-26-2023 20:00-0500 Mean blood pressure 95 mm[Hg] [facility] 05-26-2023 16:57-0500 Heart rate 85 /min sunni [facility] 05-26-2023 16:56-0500 Mean blood pressure 89 mm[Hg] [facility] 05-26-2023 16:55-0500 Body temperature 98.42 [degF] [facility] 05-26-2023 12:55-0500 Body temperature 97.52 [degF] [facility] 05-26-2023 12:55-0500 Heart rate 95 /min [facility] 05-26-2023 12:32-0500 Heart rate 84 /min [facility] 05-26-2023 12:32-0500 Respiratory rate 16 /min [facility] 05-26-2023 12:13-0500 Respiratory rate 18 /min [facility] 05-26-2023 11:57-0500 Respiratory rate 18 /min [facility] 05-26-2023 10:40-0500 SaO2% (BldA) [Mass fraction] 93.8 % sunni [facility] 05-26-2023 09:53-0500 gluc 91 mg/dL [facility] 05-26-2023 09:53-0500 gluc [facility] 05-26-2023 09:33-0500 Heart rate 85 /min [facility] Encounters Encounter Date Encounter Type Care Provider Facility Start: 09-17-2023 End: 09-17-2023 ambulatory ANA B SIMON Not Available Start: 08-02-2023 End: 08-02-2023 ambulatory Mayank Lo Facility:[facility] Start: 08-02-2023 End: 08-02-2023 ambulatory Mayank Lo Work Phone: [facility] Work Phone: Start: 08-02-2023 End: 08-02-2023 Departed Referred Mayank Lo Work Phone: [facility] Start: 07-12-2023 End: 07-12-2023 ambulatory ANA SIMON Not Available Start: 06-20-2023 End: 06-20-2023 ambulatory ANA SIMON Not Available Start: 06-12-2023 End: 06-12-2023 Emergency department patient visit Sudhakar Andrade Facility:[facility] Start: 06-12-2023 End: 06-12-2023 Emergency department patient visit Sudhakar Andrade [facility] Start: 05-26-2023 End: 05-27-2023 ambulatory Carly Stapleton Facility:[facility] Start: 05-26-2023 End: 05-27-2023 Observation Carly Stapleton [facility] Start: 04-25-2022 End: 04-26-[address] MERVAT ORELLANA Facility:[facility] Start: 12-12-2021 End: 12-12-[address] DOCTOR EGAN Facility:[facility] Start: 07-30-2017 End: 07-31-2017 Ambulatory DEFAULT PHYSICIAN Facility:[facility] Procedures Date Procedure Procedure Detail Performing Clinician Abdominal hysterectomy Carly Stapleton Payers Date Payer Category Payer Self-pay 1959 Unknown [id number] 1935 Unknown [id number] [id number] [id number] 1935 Unknown [id number] 2.16.84 [id number] 1935 Unknown [id number] 2.16.8 [id number] 1935 Unknown [id number] 2.16.8 [id number] 1935 Unknown [id number] 2.16.84 [id number] 1935 Unknown [id number] 2.16.84 [id number] 1935 Unknown [id number] 2.16.84 [id number] Unknown Social History Date Type Detail Facility Tobacco smoking status [facility] Sex Assigned At Female [facility] Start: 1935 Sex Assigned At Female F [facility] Functional Status Date Assessment Result Facility 06-12-2023 Functional Status N/A [facility] 05-26-2023 Functional Status No [facility] 05-26-2023 Functional Status [facility] Clinical Notes 05-27-2023 to 06-12-2023 Note Date & Type Note Facility 06-12-2023 Evaluation + Plan note Extrac prateek from: Title:ED Note Author:Sudhakar Andrade DO Date :06/12/23 Encounter for medical screen ing examination (Z13.9: Encounter for screening, unspecified) Orders: Basic Metabolic Panel CBC w/ Auto Diff CT Head or Brain w/o Contrast ECG 12 Lead Adult eGFR Influenza A&B Ag Rapid COVID Antigen ([facility]) Saline Lock Insert Troponin 0 Hr. UA With Cult Reflex XR Chest Single View [facility]03-12-2024 Hospital Discharge instructions Patient Education 06/12/2023 04:50:28 [...] including vitamins, herbs, eye drops, creams, and wlrg-akb-uxkmnei medicines. Any problems you or family members [...] if you need an emergent specialist or sap plant maintenance consultant that is not available at the medical center you are at. You need to have more tests. A medical scientific liaison may be consulted if needed. Get help [...] provider. Document Revised: 11/30/2021 Document Reviewed: 07/28/2021 [employer] Patient Education 2022 [employer]. Follow Up Care 06/12/2023 02:35:11 With:Maurice Rogers Address: [address] [place] [id number] Business (1) When:Within 3 Day(s) [facility]03-02-2024 NoteMicrobiology PROCEDURE: Blood Culture Charcoal [R1] SOURCE: Blood BODY SITE: Hand L COLLECTED DATE/TIME: 05/26/2023 09:55 EST RECEIVED DATE/TIME: 05/26/2023 10:59 EST START DATE/TIME: 05/26/2023 10:59 EST FREE TEXT SOURCE: Hayley Reese, Lucille Hardy M.D., Lucille Avila FINAL REPORTS Final Report [] Verified Date/Time: 06/02/2023 15:32 EST No growth at 7 days. Performing Locations R1: This test was performed at: [facility], [address] [place] [address], [id number]- , , [facility]wu[facility]ullComment on above:Performed By: #### [id number] ####[facility] [address] [place] [address] [phone] NoteMicrobiology PROCEDURE: Blood Culture Charcoal [R1] SOURCE: Blood BODY SITE: Hand R COLLECTED DATE/TIME: 05/26/2023 09:48 EST RECEIVED DATE/TIME: 05/26/2023 11:00 EST START DATE/TIME: 05/26/2023 11:00 EST FREE TEXT SOURCE: Hayley Reese, Lucille Hardy M.D., Astrsalinas H FINAL REPORTS Final Report [] Verified Date/Time: 06/02/2023 15:32 EST No growth at 7 days. Performing Locations R1: This test was performed at: [facility], [address] [place] [address], [phone]- , [place], OrcsfaSelect [facility] - TrumbullComment on above:Performed By: #### [id number] ####[facility] [id number] [place], [place] [phone] NoteChief Complaint pt to ER with c/o [...] normal judgement, Lab Results WBC: 9.3 E9/L (05/26/23 09:25:00) RBC: 4.9 E12/L (05/26/23::) HGB: 15.2 gm/dL (05/26/23:25:00) Hct: 42 % (05/26/23:25:00) MCV: 85.6 fL (05/26/23:25:00) MCH: 30.8 pg (05/26/23:25:00) MCHC: 36 gm/dL (05/26/23:25:00) RDW: 12.9 % (05/26/23:25:00) Platelet: 298 E9/L (05/26/23::00) MPV: 7.1 fL (05/26/23:25:00) RBC Morph: NORMAL (05/26/23::00) PT: 12 second(s) (05/26/23:25:00) INR: 1.08 (05/26/23:25:00) PTT: 30.2 second(s) (05/26/23::00) Glucose Lvl: 98 mg/dL (05/26/23:25:00) BUN: 22 mg/dL High (05/26/23::) Creatinine: 0.9 mg/dL (05/26/23::) eGFR: 61 mL/min/1.73 m2 (05/26/23::) BUN/Creat Ratio: 24 High (05/26/23::) Sodium Lvl: 141 mmol/L (05/26/23::) Potassium Lvl: 3.4 mmol/L Low (05/26/23::) Chloride: 106 mmol/L (05/26/23::) CO2: 25 mmol/L (05/26/23::) AGAP: 13 mEq/L (05/26/23::) Calcium Lvl: 10.4 mg/dL (05/26/23::) Alk Phos: 59 Int._Unit/L (05/26/23::) Alk Phos: 59 Int._Unit/L (05/26/23::) ALT: 14 Int._Unit/L (05/26/23::) ALT: 14 Int._Unit/L (05/26/23::) AST: 48 Int._Unit/L High (05/26/23::00) AST: 48 Int._Unit/L High (05/26/23::) Total Protein: 7.7 gm/dL (05/26/23::00) Total Protein: 7.7 gm/dL (05/26/23:25:00) Albumin Lvl: 4.9 gm/dL (05/26/23::) Albumin Lvl: 4.9 gm/dL (05/26/23::) Globulin: 2.8 gm/dL (05/26/23:25:) Globulin: 2.8 gm/dL (05/26/23::) A/G Ratio: 1.8 (05/26/23 09:25:00) A/G Ratio: 1.8 (05/26/23 09:25:00) Bili Total: 1.2 mg/dL High (05/26/23 09:25:00) Bili Total: 1.2 mg/dL High (05/26/23 09:25:00) Bili Direct: 0.2 mg/dL (05/26/23 09:25:00) Bili Indirect: 1 mg/dL High (05/26/23 09:25:00) Lactic Acid Lvl: 1.6 mmol/L (05/26/23 09:55:00) Magnesium: 1.8 mg/dL (05/26/23 09:25:00) TSH: 4.54 mcIU/mL (05/26/23 09:25:00) Troponin: 16.1 pg/mL (05/26/23 12:13:00) U Amph Scr: NEGATIVE (05/26/23 10:10:00) U Desirae Scr: NEGATIVE (05/26/23 10:10:00) U Benzodia Scr: NEGATIVE (more content not included)...[facility]ullComment on above:Result Comment: Electronically Signed By: Clarice ARMSTRONG\.br\Date and Time Signed: 05/26/23 14:49 EST\.br\Electronically Co-Signed By: Pieter BAKER, Carly\.br\Date and Time Co-Signed: 05/27/23 17:02 [id number] NoteAdmission and Discharge Information Admitting Physician - [...] JEMIMA Talley Within 2 to [address] [address] [address] [id number]- Additional Instructions: [facility] Education [facility]:Result Comment: Electronically Signed By: Clarice ARMSTRONG\.br\Date and Time Signed: 05/27/23 14:57 EST\.br\Electronically Co-Signed By: Carly Stapleton MD\.br\Date and Time Co-Signed: 05/27/23 17:02 [id number] Hospital Discharge instructions Patient Education 05/27/2023 12:19:34 [...] friend for help if needed. Medicines Take myey-sif-nlhmakz and prescription medicines only as told by [...] consider day care, extended-care programs, or a detention facility. The person's health care provider may [...] provider. Document Revised: 07/13/2020 Document Reviewed: 07/13/2020 [employer] Patient Education 2022 M/A-COM Follow Up Care 05/26/2023 09:32:48 With:Mayank Lawson MD, NEU Address: [place] [address]- When:2 to 4 weeks [facility]02-25-2024 Evaluation + Plan noteExtracted from: Title:Discharge Note Author:Shon ARMSTRONG Date:05/27/23 Discharge To, Anticipated II - Home [...] only takes PRN With When Contact Information Mayank Lawson MD, NEU Within 2 to [address] [place] [address]- Additional Instructions: Confusion Extracted from: Title:APSO Note Author:Javier ARMSTRONG Date:05/27/23 PLAN: 1. Acute respiratory failure (J96.00: [...] Reflex Vital Signs XR Chest Single View [facility]02-25-2024 NoteOT [facility] six clicks score = HH services vs no further services at id, pending progress. Pt requires CGA w/ transfers and standing adls. Inpatient OT services to follow daily as pt lives alone.[facility]ullEvaluation noteNo assessment information availablePremier Health [facility] Work Phone: Hospital course Narrative No data available for this section [facility] No data available for this section [facility] Summary Purpose Family History No Family History [...] and content) DATE CREATED AUTHOR 09/20/2017 [facility] DATE CREATED AUTHOR AUTHOR'S ORGANIZ ATION 05/26/2021 [facility] dical Specialist DATE CREATED AUTHOR AUTHOR'S ORGANIZ ATION 04/26/2022 [facility] DATE CREATED AUTHOR AUTHOR'S ORGANIZ ATION 06/21/2023 [facility] DATE CREATED AUTHOR AUTHOR'S ORGANIZ ATION 08/16/2023 [facility] DATE CREATED AUTHOR AUTHOR'S ORGANIZ ATION 09/19/2023 [facility] dical Specialists EPIC Patient Care team [...] BE BASED ON THE PRIMARY CLINICAL RECORDS. [facility] [employer] [facility]. provides no warranty or guarantee of the accuracy or completeness of information in this document.
== END 2023-10-29 10:49 | disposition home or self-care (01) ==
LOC: EC 10:48
PROVIDERS: PCP Internal Medicine; Visit Provider Orthopaedic Surgery
DX: S42.025A Nondisplaced fracture of shaft of left clavicle, initial encounter for closed fracture (principal)
CPT/HCPCS: 73000

== ENCOUNTER 2023-11-05 12:05 | Outpatient (OUT) | payer MEDICARE, SELFPAY ==
--- NOTE | 2023-11-05 | XR_ITS ---
The [address] [address] Patient Name: SANIYA ZHANG MRN: [id number] date: 1935 Sex: F Assigned Patient Location: Current Patient Location: Accession/Order Number: [id number] Exam Date: 11/05/2023 12:07 Report Date: 11/06/2023 11:46 At the request of: KEILA SMITH Procedure: XR clavicle LT PROCEDURE: XR clavicle LT DATE: 11/05/2023 11:07 AM CDT COMPARISONS: 10/29/2023 CLINICAL INDICATION: LEFT CLAVICLE PAIN FINDINGS: There is again an oblique fracture of the lateral aspect of the left clavicle. Distal fracture fragment is displaced in the cephalad direction approximately 5 mm, similar or slightly more prominent when compared to previous exam. There is evidence of slight apex caudal angulation at the fracture site.. No significant acromioclavicular degenerative change. No significant glenohumeral degenerative change. Slight ossification cephalad and cephalad medial to the humeral head as before. XR/XR clavicle LT IMPRESSION: Stable-appearing oblique distal clavicle fracture. No significant callus formation seen at the fracture site at this time. Electronically authenticated by: MATHEW ELMORE Date: 11/06/2023 11:46
--- OUTSIDE RECORDS SUMMARY | 2023-11-05 12:28 | XMS_ITS | CCD ---
Author Organization [facility] Care Team Providers Care Licensed Staff Mft Name Role Phone PHYSICIAN, DEFAULT Unavailable Unavailable PHYSICIAN, DEFAULT Unavailable Unavailable MISC, DR YANES Primary Care Unavailable ANGEL, DR BHAKTI Brandt Attending Unavailabl e ANGEL, DR BHAKTI Brandt Consulting Unavailabl e ANGEL, DR BHAKTI Brandt Admitting Unavailabl e KIKOCHERYL Consulting Unavailable HEMMER, DR MERVAT Baker Admitting Unavailable MISC, DR YANES Primary Care Unavailable MIDVALE, DR SRINIVASA Burks Consulting Unavailable HEMMER, DR MERVAT Baker Attending Unavailable HEMMER, DR MERVAT Baker Consulting Unavailable Maurice Rogers III Primary Care Physician [phone] Carly Stapleton Attending Unavailable Carly Stapleton Admitting Unavailable Corona, Mayank Consulting Unavailable Corona, Mayank Consulting Unavailable Corona, Mayank Consulting Unavailable Corona, Mayank Consulting Unavailable Corona, Mayank Consulting Unavailable Corona, Mayank Consulting Unavailable Corona, Mayank Consulting Unavailable Corona, Mayank Consulting Unavailable Corona, Mayank Consulting Unavailable Sudhakar Andrade Attending Unavailable Mayank Lo Attending Provider [phone] Mayank Lo Attending Unavailable Mayank Lo Admitting [...] te Episodic/Chronic Other aftercare (1 source) Other group home (current) drug therapy; Translations: [OTH USP CURRENT DRUG THERAPY] Onset: 12-14-2021 Episodic Unclassified (1 source) LOW BACK PAIN, UNSPECIFIED; Translations: [LOW BACK PAIN, UNSPECIFIED] Onset: 12-12-2021 Urinary tract infections (1 source) Urinary tract infection, site not specified; Translations: [UTI SITE NOT SPECIFIED] Onset: 12-14-2021 Episodic Results Test Name Value Interpretation Reference Range Facility [facility] 08-02-2023 L Specimen: [id number] Received: 08/03/23 Status: JOCELYN Dunbar Num: [id number] Spec Type: Surgical Subm Dr: Mayank Lo Tissues: A Femoral Head - Fracture (RT HIP) Procedures: HE/2, Gross/Micro L4, Decalcification Age/ Patient Sex Location Account Attending Physician Teresa Bacon 88/F LABELL [id number] Mayank Lo SPEC NUM: [id number] RECD: 08/03/23 STATUS: JOCELYN DUNBAR NUM: [id number] TIM: 08/02/[address]: Mayank Lo ENTERED: [...] bone matrix with no focal lesions present. Design Coordinator sections are submitted following decalcification A1-femoral head, following decalcification A2-fracture site, following decalcification Clinical history: Fall/head injury, right hip fracture -------- Specimen: [id number] Received: 08/03/23 Status: JOCELYN Dunbar Num: [id number] Spec Type: Surgical Subm Dr: Mayank Lo Tissues: A Femoral Head - Fracture (RT HIP) Procedures: HE/2, Gross/Micro L4, Decalcification -------- Patient: JordiTeresa Matthew [id number] (Continued) -------- Specimen: [id number] Received: 08/03/23 (Continued) Gross Description (Continued) Signed (signature on file) Georgina Thao MD 08/06/231900 -------- Specimen: [id number] Received: 08/03/23 Status: JOCELYN Dunbar Num: [id number] Spec Type: Surgical Subm Dr: Mayank Lo Tissues: A Femoral Head - Fracture (RT HIP) Procedures: HE/2, Gross/Micro L4, Decalcification -------- Patient: Teresa Bacon Matthew [id number] (Continued) -------- Specimen: [id number] Received: 08/03/23 (Continued) Gross Description (Continued) CPT Codes 40112, 53890 FEMORAL HEAD FEMORAL HEAD -------- -------- Specimen: [id number] Received: 08/03/23 Status: JOCELYN Dunbar Num: [id number] Spec Type: Surgical Subm Dr: Mayank Lo Tissues: A Femoral Head - Fracture (RT HIP) Procedures: HE/2, Gross/Micro L4, Decalcification -------- Patient: Teresa Bacon [id number] (Continued) -------- Signed (signature on file) Georgina Thao MD 08/06/23 190 Normal [facility] BMPon 06-12-2023 Anion gap [Moles/Vol] 15 mmol/L Normal 6-16 Fis her [facility] Comment on above: Performed By: #### 2 860198, 7412319, 10006853, [id number] ####[place] [address] [address] Calcium [Mass/Vol] 10.1 mg/dL Normal 8.9-11.1 [facility] Comment on above: Performed By: #### 2 768195, 0368369, 23479063, 89793043 ####[facility] [address] [place] [address] Chloride [Moles/Vol] 108 mmol/L Normal 101-111 [facility] Comment on above: Performed By: #### 2 047395, 3396314, 16940772, 26531861 ####[facility] [address] [place] [address] CO2 [Moles/Vol] 22 mmol/L Normal 21-31 [facility] Comment on above: Performed By: #### 2 421822, 1897666, 80221929, 01555849 ####[facility] [address] [place] [address] Creatinine [Mass/Vol] 0.8 mg/dL Normal 0.5-1.3 [facility] Comment on above: Performed By: #### 2 894800, 7868692, 17263825, 33780121 ####[facility] [address] [place] [address] Glucose [Mass/Vol] 101 mg/dL Normal 55-199 [facility] Comment on above: Performed By: #### 2 811078, 4788627, 33329357, 96657661 ####[facility] [address] [place] [address] Potassium [Moles/Vol] 3.6 mmol/L Normal 3.5-5.3 [facility] Comment on above: Performed By: #### 2 623702, 2215503, 10238816, 78048982 ####[facility] [address] [place] [address] Sodium [Moles/Vol] 141 mmol/L Normal 135-145 [facility] Comment on above: Performed By: #### 2 232734, 2107106, 81095181, 70653405 ####[facility] [address] [place] [address] Urea nitrogen [Mass/Vol] 23 mg/dL High 5-21 [facility] Comment on above: Performed By: #### 2 468506, 5313561, 53012429, 92966947 ####[facility] [address] [place] [address] Urea nitrogen/Creatinine [Mass ratio] 29 No Units High 10-20 [facility] Comment on above: Performed By: #### 2 555684, 4361753, 26522240, 00088814 ####[facility] [address] [place] [address] CBC w/ Auto Diffon 4 Basophils/100 WBC (Bld) 1.2 % Normal 0.0-2.0 [facility] Comment on above: Performed By: #### 2 848827, 2971564, 12141735, 83480973 ####[address] [address] Basophils/Leukocytes Auto (Bld) [Pure # fraction] 0.1 E9/L Normal 0.0-0.2 [facility] Comment on above: Performed By: #### 2 506110, 4221254, 85710977, 35682062 ####[address] [address] Eosinophils (Bld) [#/Vol] 0.1 E9/L Normal 0.0-0.5 [facility] Comment on above: Performed By: #### 2 672099, 4568234, 24649126, 64310032 ####[address] [address] Eosinophils/100 WBC (Bld) 1.2 % Normal 0.0-8.0 [facility] Comment on above: Performed By: #### 2 477773, 5021896, 37346034, 29723764 ####[address] [address] Erythrocyte distribution width (RBC) [Ratio] 13.3 % Normal 10.9-14.2 [facility] Comment on above: Performed By: #### 2 758109, 5480004, 41094185, 60505560 ####[address] [address] Hematocrit (Bld) [Volume fraction] 43.1 % Normal 34.0-46.0 [facility] Comment on above: Performed By: #### 2 813518, 0079235, 93161526, 14554140 ####[facility] [address] [place] [address] Hemoglobin (Bld) [Mass/Vol] 15.2 g/dL Normal 12.0-16.0 [facility] Comment on above: Performed By: #### 2 340084, 3444203, 41255288, 02817647 ####[address] [address] Lymphocytes (Bld) [#/Vol] 2.2 E9/L Normal 1.0-4.0 [facility] Comment on above: Performed By: #### 2 489048, 6905264, 67902960, 51058641 ####[address] [address] Lymphocytes/100 WBC (Bld) 28.5 % Normal 14.0-50.0 [facility] Comment on above: Performed By: #### 2 747015, 9103433, 32092789, 94341407 ####[address] [address] MCH (RBC) [Entitic mass] 30.0 pg Normal 27.0-34.0 [facility] Comment on above: Performed By: #### 2 884524, 1586802, 20765753, 20579804 ####[address] [address] MCHC (RBC) [Mass/Vol] 35.2 g/dL Normal 31.4-36.0 [facility] Comment on above: Performed By: #### 2 870600, 3692066, 78641137, 06499864 ####[address] [address] MCV (RBC) [Entitic vol] 85.1 fL Normal 80.0-100.0 [facility] Comment on above: Performed By: #### 2 129628, 6540565, 17802077, 44414494 ####[address] [address] Monocytes (Bld) [#/Vol] 0.7 E9/L Normal 0.2-1.0 [facility] Comment on above: Performed By: #### 2 372491, 5964966, 61383005, 41814316 ####[address] [address] Neutrophils (Bld) [#/Vol] 4.6 E9/L Normal 2.0-7.5 [facility] Comment on above: Performed By: #### 2 454170, 1614666, 35888311, 95858824 ####[address] [address] Neutrophils/100 WBC (Bld) 60.1 % Normal 36.0-75.0 [facility] Comment on above: Performed By: #### 2 670794, 4399206, 73543622, 47790262 ####[address] [address] Platelet 245.0 E9/L Normal 150.0-500.0 [facility] Comment on above: Performed By: #### 2 240958, 6690126, 68251807, 37815129 ####[address] [place] [address] Platelet mean volume (Bld) [Entitic vol] 6.9 fL Normal 6.4-10.8 [facility] Comment on above: Performed By: #### 2 777991, 6440234, 22245885, 33271416 ####[address] [place] [address] RBC (Bld) [#/Vol] 5.1 E12/L Normal 4.3-5.9 [facility] Comment on above: Performed By: #### 2 005789, 3957522, 97422272, 70054493 ####[facility] [address] [place] [address] WBC corrected for nucl RBC Auto (Bld) [#/Vol] 7.6 E9/L Normal 4.0-11.0 [facility] Comment on above: Performed By: #### 2 591083, 9763572, 32629192, 67997664 ####[facility] [address] [place] [address] CHEMISTRYOrdered By: SYSTEM SYSTEM on 06-12-2023 Anion [...] Instructions For Use, Tej Demarcus, October 2017) Urea nitrogen [Mass/Vol] 23 mg/dL [...] Technologist: REINALDO Technical Comments Contrast: None Normal [facility] Consent for Treatmenton 05-31 Consent for Treatment [id number]#1. 00TIFF Normal [facility] Discharge Instructionson Discharge Instructions [id number] #1.00TIFF Normal [facility] ED Clinical Summaryon 2023 ED Clinical Summary [place] [id number] ED Clinical Summary Person Information Name: TERESA BACON/[place] Age: 87 Years : 1935 Sex: Female Language: Dominican PCP: Maurice Rogers III, DO Marital Status: [...] 06/12/2023 04:50:27 06/12/2023 04:50:27 06/12/2023 04:50:27 ADDRESS: [address] [place] [phone] PHYS DOC NOTES: MEDICAL INFORMATION: Prescriptions Given: [...] up: With: Address: When: Maurice Rogers [address] [place] [address], [facility], [place] [address] [facility] (1) In 3 days DIAGNOSIS: Encounter for medical screening examination Normal [facility] ED Note-Physicianon 06-12-19 ED Note-Physician Basic Information [...] and Complexity of Problems Differential Diagnosis: [] [facility] Data External documents reviewed: N/A My [...] process. On reassessment the patient's son and zqpqsben-ux-mba are with her. She states that she [...] eGFR Influenza A&B Ag Rapid COVID Antigen ([facility]) Saline Lock Insert Troponin 0 Hr. UA With Cult Reflex XR Chest Single View Disposition Plan Discharge Prescription List Prescriptions No active prescription medications Follow-up With When Contact Information Maurice Rogers In 3 days [address] [place] [address] [facility] (1) Additional Instructions: Patient Education Medical Screening [...] 02:43:00) Lymph Auto: 28.5 % (06/12/23 02:43:00) [place] Auto: 9 % (06/12/23 02:43:00) Eos Auto: 1.2 % (06/12/23 02:43:00) Basophil Auto: 1.2 % (06/12/23 02:43:00) Neutro Absolute: 4.6 E9/L (06/12/23 02:43:00) Lymph Absolute: 2.2 E9/L (06/12/23 02:43:00) [place] Absolute: 0.7 E9/L (06/12/23 02:43:00) Eos Absolute: [...] Catch (0 (more content not included)... Normal [facility] Comment on above: Result Comment: Elec tronically [...] including vitamins, herbs, eye drops, creams, and dzrz-xly-ubpbfme medicines. ? Any problems you or family [...] if you need an emergent specialist or leasing consultant that is not available at the medical center you are at. ? You need to have more tests. A center medical director may be consulted if needed. Get help [...] provider. Document Revised: 11/30/2021 Document Reviewed: 07/28/2021 [employer] Patient Education ? 2022 [employer]. Normal [facility] ED Patient Summaryon 024 ED Patient Summary [address] [address] Patient Discharge Instructions Person Information Name: TERESA BACON Age: 87 Years Arrival Date: 06/12/2023 02:34:46 Discharge Diagnosis: Encounter for medical screening examination Primary Care Physician: Maurice Rogers III, DO Provider Information Primary Provider: Sudhakar Andrade DO Advanced Keyseater Operator:None The exam and treatment you received in the Emergency Department were for an urgent problem and are not intended as complete care. It is important that you follow up with a doctor, nurse practitioner, or physician?s mailroom assistant for ongoing care. If your symptoms [...] Follow-up Instructions: With: Address: When: Maurice Rogers [address] [place] [address], [facility], [place] [address] Business (1) In 3 days In the event that this physician does not participate in your insurance network, please consult with your insurance company to find a nearby participating provider. Patient Education Materials: Medical Screening Exam A MESSAGE TO ALL PATIENTS REGARDING OPIOIDS PRESCRIPTION OPIOIDS: WHAT YOU NEED TO KNOW Prescription opioids can be used to help relieve flrdtzjl-ze-ludsgk pain and are often prescribed following a [...] be struggling with addiction, tell your health student career development specialist and ask for guidance or call [facility]?S National Helpline at 2-614-647-OPZM. n So (more content not included)... Normal [facility] HEMATOLOGYOrdered By: SYSTEM SYSTEM on 06-12-2023 Basophils/100 [...] Agon Influenzae A Ag Negative Normal Negative [facility] Comment on above: Performed By: #### 2 [id number], [id number] ####[place] [place] [address] Influenzae B Ag Negative Normal Negative [facility] Comment on above: Result Comment: Test sensitivity and specificity vary for age group, specimen type, antigen types, and prevalence of disease. Test results must be evaluated in conjunction with other clinical data available to the physician. Individuals who received nasally administered Influenza A vaccine may have positive test results up to 3 days after vaccination. Performed By: #### 2 [id number], [id number] ####[facility] [address] [place] [address] MICRO OTHER TESTSOrdered By: Zehra Bateman on 06-12-2023 Influenzae A Ag Negative (06/12/23 2:50 AM) Normal Negative [facility] Man Sero Influenzae B Ag Negative 1 (06/12/23 2:50 AM) Normal Negative [facility] Sero Comment on above: Interpretive [...] NEG Ctl Pass (06/12/23 2:50 AM) Normal [facility] Sero Rapid COV Int POS Ctl Pass (06/12/23 2:50 AM) Normal [facility] Sero SARS-CoV+SARS-CoV-2 (COVID-19) Ag IA.rapid Ql (Resp) Not Detected 3 (06/12/23 2:50 AM) Normal Not Detected [facility]ero Comment on above: Interpretive Data: T he [employer] Universe Veritor System for Rapid Detection of SARS-CoV-2 [...] For in vitro diagnostic use. In the [facility], only for use under an Emergency Use Authorization. In the [facility], this test has not been FDA cleared [...] revoked sooner. Monitor Recordon 06-12-2023 Monitor Record [id number]# 1.00TIFF Normal [facility] Pre-Arrival Noteon 4 Pre-Arrival Note Pre-Arrival Summary Name: , [facility] Current Date: 06/12/2023 02:36:18 EDT Gender: Female Date of : Age: 87 Pre-Arrival Type: EMS ETA: 06/12/2023 02:51:00 EDT Primary Care Physician: Presenting Problem: ILL,HTN Pre-Arrival User: Karen Chirinos RN Referring Source: Location: MD Completion Date/Time: 06/12/2023 02:21:00 [facility] Emergency Department Pre-Hospital Report Form Vital Signs: 207/129, HR100, RR16, 100% RA Pre-Hospital Report: feeling ill, alert and oriented Treatment in Route:FSBS 129, 20RFA, CSS Response to Treatment: Misc. Issues: Normal [facility] RAD - Preliminary Cat Scan R eporton 06-12-2023 RAD - Preliminary Cat Scan Report [id number] #1.00TIFF Normal [facility] Rapid COVID Antigen ([facility])on 06-12-2023 Rapid COV Int NEG Ctl Pass Normal [facility] Comment on above: Performed By: #### 2 [id number], [id number] ####[facility] [address] [place] [address] Rapid COV Int POS Ctl Pass Normal [facility] Comment on above: Performed By: #### 2 746108761, 29151388 ####[facility] [address] [place] [address] SARS-CoV+SARS-CoV-2 (COVID-19) Ag IA.rapid Ql (Resp) Not detected Normal Not Detected [facility] Comment on above: Result Comment: The Schrodinger? System for Rapid Detection of SARS-CoV-2 is [...] or revoked sooner. Performed By: #### 2 [id number], [id number] ####[facility] [address] [place] [address] Troponin 0 Hr.on 06-12-2023 Troponin 10.20 pg/mL Normal 10.10-27.10 [facility] Comment on above: Result Comment: The 95% CI (Confidence Interval) PPV (Positive Predictive Value) for myocardial infarction in females is 38 pg/mL, in males 51 pg/mL. The results should be used in conjunction with clinical conditions of myocardial infarction. (Access High Sensitivity Troponin I Instructions For Use, Tej Florence, October 2017) Performed By: #### 2 492830, 6271162, 90552123, 71344660 ####[facility] [address] [place] [address] UA With Cult Reflexon 2023 Bilirubin Ql (U) Negative Normal Negative [facility] Comment on above: Performed By: #### 1 7838655 ####[address] [address] Clarity (U) CLEAR Normal Clear [facility] Comment on above: Performed By: #### 1 3698269 ####[facility] [address] [place] [address] Color (U) YELLOW Normal Yellow [facility] Comment on above: Performed By: #### 1 7602372 ####[address] [address] Epithelial cells.squamous LM.HPF (Urine sed) [#/Area] 0-2 Normal 0-2 [facility] Comment on above: Performed By: #### 1 1726517 ####[facility] [address] [place] [address] Glucose Test strip (U) [Mass/Vol] Negative Normal Negative [facility] Comment on above: Performed By: #### 1 9820673 ####[address] [place] [address] Hemoglobin Ql (U) TRACE Abnormal Negative [facility] Comment on above: Performed By: #### 1 6643458 ####[facility] [address] [place] [address] Ketones (U) [Mass/Vol] Negative Normal Negative [facility] Comment on above: Performed By: #### 1 2256596 ####[address] [place] [address] [place].plasma/[place] .RBC (Bld) [Mass ratio] 0-3 Normal 0-3 [facility] Comment on above: Performed By: #### 1 6749272 ####[address] [address] Nitrite Ql (U) Negative Normal Negative [facility] Comment on above: Performed By: #### 1 8261056 ####[address] [address] pH (U) 7.5 [pH] Invalid Interpretation Code 5.0-9.0 [facility] Comment on above: Performed By: #### 1 4059426 ####[address] [address] Protein (U) [Mass/Vol] 2+ Abnormal Negative [facility] Comment on above: Performed By: #### 1 1615637 ####[address] [address] Specific gravity (U) [Rel density] 1.020 Invalid Interpretation Code 1.005-1.030 [facility] Comment on above: Performed By: #### 1 8012612 ####[address] [address] Type of Urine collection method Clean Catch Normal [facility] Comment on above: Performed By: #### 1 3119173 ####[address] [address] Urobilinogen Qn (U) 0.2 {Byron'U}/dL Normal 0.0-1.0 [facility] Comment on above: Performed By: #### 1 4417323 ####[address] [address] WBC Auto Ql (U) Negative Normal Negative [facility] Comment on above: Performed By: #### 1 8482767 ####[facility] [address] [place] [address] WBC LM.HPF (Urine sed) [#/Area] 0-5 Normal 0-5 [facility] Comment on above: Performed By: #### 1 4859526 ####[facility] [address] [place] [address] URINALYSISOrdered By: Radha Bateman on 06-12-2023 Bilirubin [...] AM) Normal Negative [facility] UA Auto SS [place].plasma/[place] .RBC (Bld) [Mass ratio] 0-3 /HPF Normal [...] [facility] UA Auto SS Urobilinogen Qn (U) 0.1869173 {Byron'U}/dL Normal 0.0 - 1.0 EU/dL [facility] UA Auto SS WBC Auto Ql (U) Negative (06/12/23 3:17 AM) Normal Negative [facility] UA Auto SS WBC LM.HPF (Urine sed) [#/Area] 0-5 /HPF Normal 0-5/HPF [facility] UA Auto SS XR Chest Single Viewon [...] mGy = na DAP = na Normal [facility] eGFRon 06-12-2023 eGFR 71 mL/min/1.73 m2 Normal >=59 [facility] Comment on above: Order Comment: Order added by Discern Expert. Performed By: #### 2 950967, 2582717, 99129580, 34574478 ####[facility] [address] [place] [address] Inpatient Clinical Summaryon 06-04-2023 Inpatient Clinical Summary [address] [address] Clinical Summary Person Information: Name: TERESA BACON Age: 87 Years : 1935 Sex: Female PCP: III DO, Maurice R Marital Status: Race: White Ethnicity: Non- or Language: Dominican Visit Id: Visit Reason: Altered mental status; Weakness or fatigue; Potential stroke; AMS Speciality: Acuity: Enc Type: Observation Med Service: Medical Arrival: 05/26/2023 09:32:27 Discharge: 05/27/2023 15:20:00 Dispo Type: Home (Routine DC) Address: [address] [place] [id number] Provider Notes: Diagnosis: 1:Acute respiratory failure; 2:Altered [...] Follow up: With: Address: When: Maurice Rogers [address] [place] [address] Business (1) With: Address: When: [facility] [address] [place] [address] Within 2 to 4 weeks Patient Education Information: Confusion Normal [facility] Inpatient Patient Summaryon 06-04-2023 Inpatient Patient Summary [address] [address] Patient Discharge Instructions PERSON INFORMATION [...] Follow up: With: Address: When: Maurice Rogers [address] [place], [place] [id number] Business (1) With: Address: When: Renny BAKER, [place] [address] Within 2 to 4 weeks In the [...] Capsules By Mouth every day. Pharmacy Information: [facility] Pam Comment: PATIENT EDUCATION INFORMATION Instructions: [...] new s (more content not included)... Normal [facility] Consent for Procedure/Surger yon 05-28-2023 Consent for Procedure/Surgery [id number] #1.00TIFF [facility] Consultation Noteon 05-28-19 24 Consultation Note Chief [...] sensation in all 4 extremities Cerebellar exam: Xrqqtk-al-qxtn reveals no ataxia. Gait is normal The neurological exam was performed by a healthcare professional which was witnessed and supervised by me via video telemedicine visit consented to by the patient or appropriate patient health and safety representative. 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 Normal [facility] Comment on above: Result Comment: Elec tronically Signed By: Kelsey Velazquez RN\.br\Date and Time Signed: 05/27/23 07:24 EST\.br\Electronically Co-Signed By: Mayank Lawson MD\.br\Date and Time Co-Signed: 05/28/23 12:27 EST\.br\Electronically Co-Signed By: Ryan Mesa DO\.br\Date and Time Co-Signed: 06/04/23 09:13 EST Discharge Instructionson Discharge Instructions [id number] #1.00TIFF Normal [facility] Insurance Correspondence Off iceon 05-28-2023 Insurance Correspondence Office [id number]#1 .00TIFF Normal [facility] CHEMISTRYOrdered By: SYSTEM SYSTEM on 05-27-2023 Anion [...] Pending Diagnostic Test Results None Pharmacy Information [facility] New Follow Up Appointments after Discharge Follow Up with Renny BAKER, JEMIMA Talley When: Within 2 to 4 weeks Where: [place] [address] [place] [address]- Medications What How Much When Instructions Next [...] treat sy (more content not included)... Normal [facility] Interdisciplinary Note - Joseph e Manageron 05-27-2023 Interdisciplinary Note - Supervisor Landscape CRM to room to discuss DC planning. Patient is awake, alert and oriented. Patient is from home, she lives alone. One of her Children will transport at [place]. Her daughter is present in room. Patient verified PCP as DR Simon, verified PCP and home DME. Patient is here as observation with AMS, Tia Vs Cva. Patient is assigned to [facility], see notes. Patient was seen by Neurology. Patient is pending MRI. Patient denied needs for DME or HH. She is okay with a paramed f/u at [place]. Patient was provided CRM contact, white board updated. Anticipated DC later today or 05/28 if testing negative. CRM following Normal [facility] Comment on above: Result Comment: Elec tronically Signed By: Kaycee Rodriguez\.br\Date and Time Signed: 05/27/23 11:45 EST Interdisciplinary Note - PTo n 05-27-2023 Interdisciplinary Note - PT Pt to be seen daily in acute setting setting for bed mobility, transfers, gait. SBA-CGA for activity. May benefit from home health upon d/c. AM-PAC Normal [facility] Lyteson 05-27-2023 Anion gap [Moles/Vol] 10 mmol/L Normal 6-16 [facility] Comment on above: Performed By: #### 2 [id number] ####[facility] [address] [place] [address] Chloride [Moles/Vol] 107 mmol/L Normal 101-111 [facility] Comment on above: Performed By: #### 2 162378 ####[facility] [address] [place] [address] CO2 [Moles/Vol] 27 mmol/L Normal 21-31 [facility] Comment on above: Performed By: #### 2 138746 ####[facility] [address] [place] [address] Potassium [Moles/Vol] 4.1 mmol/L Normal 3.5-5.3 [facility] Comment on above: Performed By: #### 2 013624 ####[facility] [address] [place] [address] Sodium [Moles/Vol] 140 mmol/L Normal 135-145 [facility] Comment on above: Performed By: #### 2 487528 ####[facility] [address] [place] [address] MRI Brain w/o Contraston MRI Brain w/o [...] the leptomeninges. There is preservation of the boyel-white matter differentiation. There are a few scattered [...] ESTEFANY Technologist: ARMANDO Technical Comments None Normal [facility] Monitor Recordon 05-27-2023 Monitor Record [id number]# 1.00TIFF Normal [facility] Monitor Record [id number]# 1.00TIFF Normal [facility] Progress Note-Physicianon Progress Note-Physician Assessment/Plan PLAN: 1. [...] Bili Tot (more content not included)... Normal [facility] Comment on above: Result Comment: Elec tronically Signed By: Clarice ARMSTRONG\.br\Date and Time Signed: 05/27/23 09:12 EST\.br\Electronically Co-Signed By: Carly Stapleton MD\.br\Date and Time Co-Signed: 05/27/23 17:02 EST RAD - MRI Screening Formon 0 05-27-2023 RAD - MRI Screening Form [id number]# 1.00TIFF Normal [facility] ABO/Rhon 05-26-2023 ABO/Rh Positive Invalid Interpretation Code [facility] Comment on above: Performed By: #### 2 102981, [id number], [id number], 81123577 ####[facility] [address] [place] [address] ABO/Rh History Checkon 05-26 ABO/Rh History Check Type verified by second s Normal [facility] Comment on above: Performed By: #### 2 577994, 83570392, 40199690, 56593498 ####[facility] [address] [place] [address] ABO/Rh Retypeon 05-26-2023 ABO/Rh Retype Interp Positive Invalid Interpretation Code [facility] Comment on above: Performed By: #### 1 8888431, 1932382, 26425020, 53619627, 08052031, 0498384, 4219489, 8464745, 5164821, 5434502 ####[facility] [address] [place] [address] ABSCon 05-26-2023 ABSC Gel Interp Negative Normal [facility] Comment on above: Performed By: #### 2 956747, 35485741, 77550591, 82495613 ####[facility] [address] [place] [address] BLOOD BANKOrdered By: Jeannine Moreno on 05-26-2023 ABO/Rh Interp Positive Invalid Interpretation Code [facility] BB Subsection ABSC Gel Interp Negative (05/26/23 9:48 AM) Normal [facility] BB Subsection ABO/Rh Retype Interp Positive Invalid Interpretation Code [facility] BB Subsection BNPOrdered By: Anurag jimenes 05-26-2023 Natriuretic peptide B (Bld) [Mass/Vol] 139 pg/mL High 5-80 [facility] HemeManSS Comment on above: Performed By: #### 1 [id number] ####[place] [id number] Blood Bank ID#on 05-26-2023 BBID# [id number] Invalid Interpretation Code [facility] Comment on above: Performed By: #### 2 064455, 99369714, 89472463, 76256642 ####[address] [address] Blood Gas Art, with Lytes, G adurey, [place] 05-26-2023 a/A Ratio Art 56.70 % Normal >=0.80 [facility] Comment on above: Performed By: #### 4 [id number] ####[address] [place] [address] AaDO2 Art 44.1 mmHg High 5.0-15.0 [facility] Comment on above: Performed By: #### 4 [id number] ####[address] [address] Allens Test Positive Normal [facility] Comment on above: Performed By: #### 4 [id number] ####[facility] [address] [place] [address] Base Excess Arterial -0.8 mmol/L Low >=2.8 [facility] Comment on above: Performed By: #### 4 [id number] ####[facility] [address] [place] [address] cCa2+ Art 5.03 mg/dL Normal 4.40-5.30 [facility] Comment on above: Performed By: #### 4 74186964 ####[facility] [address] [place] [address] cCl- Art 106.0 mmol/L Normal 101.0-111.0 [facility] Comment on above: Performed By: #### 4 13751279 ####[facility] [address] [place] [address] cGlu Art 105 mg/dL High 55-99 [facility] Comment on above: Performed By: #### 4 30684017 ####[address] [place] [address] cK+ Art 3.3 mmol/L Low 3.5-5.3 [facility] Comment on above: Performed By: #### 4 68351772 ####[facility] [address] [place] [address] cLac Art .9 mmol/L Normal .5-2.2 [facility] Comment on above: Performed By: #### 4 39131826 ####[facility] [address] [place] [address] business systems analyst+ Art 141.0 mmol/L Normal 135.0-145.0 [facility] Comment on above: Performed By: #### 4 07016267 ####[address] [place] [address] Drawn by nawaf parada Invalid Interpretation Code [facility] Comment on above: Performed By: #### 4 [id number] ####[facility] [address] [place] [address] FCOHb Art 1.4 % Low 1.5-4.9 [facility] Comment on above: Result Comment: Refe rence range Nonsmoker <1.5% Smoker <5.0% Heavy Smoker <9.0% Performed By: #### 4 [id number] ####[facility] [address] [place] [address] FIO2 BG 21 Invalid Interpretation Code [facility] Comment on above: Performed By: #### 4 [id number] ####[facility] [address] [place] [address] FMetHb Art 0.1 % Normal 0.0-1.9 [facility] Comment on above: Performed By: #### 4 13520908 ####[facility] [address] [place] [address] FO2Hb Art 92.4 % Normal 92.0-100.0 [facility] Comment on above: Performed By: #### 4 07027804 ####[facility] [address] [place] [address] HCO3 (Bld) [Moles/Vol] 23.7 mmol/L Normal 22.0-26.0 [facility] Comment on above: Performed By: #### 4 38212103 ####[facility] [address] [place] [address] Hemoglobin (Bld) [Mass/Vol] 13.7 g/dL Normal 12.0-16.0 [facility] Comment on above: Performed By: #### 4 25749473 ####[facility] [address] [place] [address] Oxygen saturation in Blood 93.8 % Low 95.0-100.0 [facility] Comment on above: Performed By: #### 4 61597812 ####[facility] [address] [place] [address] P CO2 Arterial 38.5 mmHg Normal 35.0-45.0 [facility] Comment on above: Performed By: #### 4 15246121 ####[facility] [address] [place] [address] P O2 Arterial 57.7 mmHg Low 80.0-100.0 [facility] Comment on above: Performed By: #### 4 89741408 ####[facility] [address] [place] [address] pH Arterial 7.400 Normal 7.350-7.450 [facility] Comment on above: Performed By: #### 4 [id number] ####[address] [address] Sample Site R Radial Normal [facility] Comment on above: Performed By: #### 4 [id number] ####[address] [address] Sample Type Arterial Draw Normal [facility] Comment on above: Performed By: #### 4 [id number] ####[address] [address] CBC w/Indiceson 05-26-2023 RBC morphology finding Nom (Bld) NORMAL Invalid Interpretation Code [facility] Comment on above: Performed By: #### 1 6816482, 1435522, 09603310, 24298553, 82994829, 4553280, 7320319, 2401127, 5223032, 0483121 ####[address] [address] Erythrocyte distribution width (RBC) [Ratio] 12.9 % Normal 10.9-14.2 [facility] Comment on above: Performed By: #### 1 0153904, 9149188, 86545179, 60510171, 93361682, 0503339, 2095775, 8966144, 5672311, 8222897 ####[address] [place] [address] Hematocrit (Bld) [Volume fraction] 42.0 % Normal 34.0-46.0 [facility] Comment on above: Performed By: #### 1 4295581, 0449585, 35868249, 89508506, 02086013, 6192018, 9959250, 7113090, 3804915, 8333092 ####[facility] [address] [place] [address] Hemoglobin (Bld) [Mass/Vol] 15.2 g/dL Normal 12.0-16.0 [facility] Comment on above: Performed By: #### 1 3241192, 0826814, 37663663, 52304863, 03174100, 8370329, 3685157, 8023254, 8504074, 9585495 ####[facility] [address] [place] [address] MCH (RBC) [Entitic mass] 30.8 pg Normal 27.0-34.0 [facility] Comment on above: Performed By: #### 1 4600380, 4831056, 02228275, 89451596, 31153224, 5453309, 7169546, 9938557, 8285804, 0489516 ####[address] [place] [address] MCHC (RBC) [Mass/Vol] 36.0 g/dL Normal 31.4-36.0 [facility] Comment on above: Performed By: #### 1 7092977, 9654708, 40673362, 03370409, 41967098, 0923978, 2955286, 1262135, 9243881, 6741212 ####[address] [place] [address] MCV (RBC) [Entitic vol] 85.6 fL Normal 80.0-100.0 [facility] Comment on above: Performed By: #### 1 5839473, 4597779, 40158191, 25578460, 75408527, 7119768, 8398601, 6761591, 2953598, 9565323 ####[facility] [address] [place] [address] Platelet 298.0 E9/L Normal 150.0-500.0 [facility] Comment on above: Performed By: #### 1 8092292, 2090260, 43666510, 51364906, 75982669, 6887348, 8322811, 0146021, 2475579, 6262227 ####[facility] [address] [place] [address] Platelet mean volume (Bld) [Entitic vol] 7.1 fL Normal 6.4-10.8 [facility] Comment on above: Performed By: #### 1 7653685, 4176445, 86056535, 74377140, 12360892, 5181247, 6639395, 7050295, 9597798, 1972017 ####[facility] [address] [place] [address] RBC 4.9 E12/L Normal 4.3-5.9 [facility] Comment on above: Performed By: #### 1 7892643, 8962900, 00092370, 09180029, 06368166, 9566243, 4342855, 2188821, 3383334, 9885187 ####[facility] [address] [place] [address] WBC 9.3 E9/L Normal 4.0-11.0 [facility] Comment on above: Performed By: #### 1 2993965, 1442542, 04710753, 67061377, 23569965, 2670760, 3360862, 3856037, 7413201, 6038971 ####[facility] [address] [place] [address] CHEMISTRYOrdered By: SYSTEM SYSTEM on 05-26-2023 Troponin [...] Instructions For Use, Tej Demarcus, October 2017) Ethanol Lvl mg/dL Normal <=11mg/dL [...] 05-26-2023 Albumin [Mass/Vol] 4.9 g/dL Normal 3.3-5.0 [facility] Comment on above: Performed By: #### 1 6735899, 0351103, 42906559, 17606840, 38862564, 9218106, 5061633, 6089522, 1721762, 3687183 ####[address] [place] [address] Albumin/Globulin [Mass ratio] 1.8 {ratio} Normal 1.1-2.2 [facility] Comment on above: Performed By: #### 1 1087749, 3262717, 78920764, 94490987, 15716742, 6393464, 4055178, 6327595, 6859735, 8342072 ####[facility] [address] [place] [address] Alk Phos 59 Int._Unit/L Normal 21-98 [facility] Comment on above: Performed By: #### 1 6026748, 3438455, 06783585, 57809468, 73522155, 4213024, 7718364, 2853277, 4220782, 8235656 ####[facility] [address] [place] [address] ALT 14 Int._Unit/L Normal 6-46 [facility] Comment on above: Performed By: #### 1 5318900, 1209548, 56771163, 34464884, 66792397, 6427074, 0121545, 3721899, 3728415, 9576797 ####[facility] [address] [place] [address] Anion gap [Moles/Vol] 13 mmol/L Normal 6-16 [facility] Comment on above: Performed By: #### 1 6703336, 4147897, 60402460, 81104542, 07815130, 1492141, 3738326, 3481935, 8833866, 4931726 ####[facility] [address] [place] [address] AST 48 Int._Unit/L High 5-43 [facility] Comment on above: Performed By: #### 1 1335485, 4340160, 12765305, 39139618, 64381871, 4690130, 7288697, 8749148, 2799936, 8826110 ####[facility] [address] [place] [address] Bili Total 1.2 mg/dL High 0.0-1.1 [facility] Comment on above: Performed By: #### 1 6870958, 3868035, 84311368, 74459358, 05099311, 8672767, 4802164, 5567579, 9243615, 0709140 ####[facility] [address] [place] [address] BUN/Creat Ratio 24 No Units High 10-20 [facility] Comment on above: Performed By: #### 1 6933888, 1312258, 69332766, 83223683, 23866139, 5575420, 6831180, 2487806, 0113582, 7037108 ####[facility] [address] [place] [address] Calcium [Mass/Vol] 10.4 mg/dL Normal 8.9-11.1 [facility] Comment on above: Performed By: #### 1 3783856, 9518628, 31271927, 43005975, 08101816, 4687317, 5844138, 7844898, 6867253, 1262722 ####[facility] [address] [place] [address] Chloride [Moles/Vol] 106 mmol/L Normal 101-111 [facility] Comment on above: Performed By: #### 1 9832895, 0769590, 59908687, 36718996, 22453782, 6310598, 9213470, 7742082, 0430774, 1115400 ####[facility] [address] [place] [address] CO2 [Moles/Vol] 25 mmol/L Normal 21-31 [facility] Comment on above: Performed By: #### 1 3540553, 8160219, 16883203, 37947666, 36512904, 1770375, 1631608, 1864333, 6471026, 1884177 ####[facility] [address] [place] [address] Creatinine [Mass/Vol] 0.9 mg/dL Normal 0.5-1.3 [facility] Comment on above: Performed By: #### 1 0449465, 0628422, 69975194, 12070616, 38197382, 0121216, 4159439, 1504334, 9159726, 7409475 ####[facility] [address] [place] [address] Globulin (S) [Mass/Vol] 2.8 g/dL Normal 1.4-4.0 [facility] Comment on above: Performed By: #### 1 0176984, 8136558, 12409010, 81304827, 32901483, 3991142, 7090405, 4221982, 7184322, 1566514 ####[facility] [address] [place] [address] Glucose [Mass/Vol] 98 mg/dL Normal 55-199 [facility] Comment on above: Performed By: #### 1 0721917, 1309003, 33166447, 62332307, 98607928, 1234543, 9362002, 6772680, 3948467, 5656761 ####[facility] [address] [place] [address] Potassium [Moles/Vol] 3.4 mmol/L Low 3.5-5.3 [facility] Comment on above: Performed By: #### 1 1106442, 0861991, 64252184, 51390041, 14547878, 5561589, 0848014, 7611873, 8407812, 9769727 ####[facility] [address] [place] [address] Protein [Mass/Vol] 7.7 g/dL Normal 6.0-7.8 [facility] Comment on above: Performed By: #### 1 4101115, 7648406, 50057227, 32377607, 36456537, 8626861, 6488439, 5905620, 8412968, 5729573 ####[facility] [address] [place] [address] Sodium [Moles/Vol] 141 mmol/L Normal 135-145 [facility] Comment on above: Performed By: #### 1 1279284, 1393175, 96758639, 73253664, 43294482, 3477409, 7793212, 4933304, 6752412, 9119064 ####[facility] [address] [place] [address] Urea nitrogen [Mass/Vol] 22 mg/dL High 5-21 [facility] Comment on above: Performed By: #### 1 1270462, 3282621, 48175635, 99496606, 31897466, 6301323, 8553047, 8694499, 3915825, 4182448 ####[facility] [address] [place] [address] COAGULATIONOrdered By: Abby Ardon on 05-26-2023 aPTT Coag (PPP) [Time] 30.2 s Normal 25.1 - 36.5 second(s) [facility] Auto Coag Comment on above: Interpretive Data: [...] the same coagulation reagent and instrumentation as [facility]. Currently there are no coagulation studies available worldwide for children to 14 days, and no normal ranges. Heparin therapeutic range (represented by Anti-Factor Xa activity of 0.2 - 0.4 U/mL) corresponds to PTT of 56.6 - 109.0 sec. INR Coag (PPP) [Relative time] 1.08 {INR} Invalid Interpretation Code [facility] Auto Coag Comment on above: Interpretive Data: I NR results are specifically intended to assess patients stabilized on long-term Anticoagulation therapy suggested INR s Less Intensive Anticoagulation 2.0 3.0 Conventional Range 3.0 4.5 PT Coag (PPP) [Time] 12.0 s Normal 9.4 - 1 2.5 second(s) [facility] Auto Coag Comment on above: Interpretive Data: [...] the same coagulation reagent and instrumentation as [facility]. Currently there are no coagulation studies available [...] V. Transcribed by: ESTEFANY Technologist: LEMUEL Couch [facility] CTA Headon 05-26-2023 CTA Head Exam Date/Time: 05/26/2023 10:42 EST Reason for Exam: Neuro deficit, acute, stroke suspected;Other (please specify) Report [facility] [phone] IMPRESSION: PLEASE REFER TO NECK CTA REPORT [...] Contrast amount in ml's: 100 Normal [facility] CTA Neckon 05-26-2023 CTA Neck Exam Date/Time: [...] 370 Contrast amount in ml's: 100 Normal [facility] Consent for Treatmenton 05-04 Consent for Treatment [id number] .00TIFF Normal [facility] ED Clinical Summaryon 2023 ED Clinical Summary [place] [id number] ED Clinical Summary Person Information Name: TERESA BACON/[facility] Age: 87 Years : 1935 Sex: Female Language: Dominican PCP: Maurice Rogers III, DO Marital Status: Visit Id: Visit Reason: Altered mental status; Weakness or fatigue; Potential stroke; AMS Speciality: Acuity: 2 Enc Type: Observation Med Service: Emergency Arrival: 05/26/2023 09:32:27 Discharge: LOS: 000 03:23 Checkin: 05/26/2023 09:32:27 Checkout: 05/26/2023 12:55:08 Dispo Type: Admitted as IP to this [facility] EVENTS: Event Name Event Status Request Date/Time [...] 12:42:02 Patient Care Request 05/26/2023 12:42:02 ADDRESS: [address] [place] [id number] [facility] DOC NOTES: MEDICAL INFORMATION: Prescriptions Given: PATIENT EDUCATION INFORMATION: Instructions: Follow up: DIAGNOSIS: 1:Altered mental status; 2:Weakness Normal [facility] ED Note-Physicianon 05-26-19 ED Note-Physician Basic Information [...] and Complexity of Problems Differential Diagnosis: [] [facility] Data External documents reviewed: [] My [...] Plan o (more content not included)... Normal [facility] Comment on above: Result Comment: Elec tronically Signed By: Hayley Reese, Lucille Avila\.br\Date and Time Signed: 05/26/23 14:41 EST ED Patient Education Noteon 05-26-2023 ED Patient Education Note Normal [facility] ED Patient Summaryon 024 ED Patient Summary [place] [id number] Patient Discharge Instructions Person Information Name: TERESA BACON Age: 87 Years Arrival Date: 05/26/2023 09:32:27 Discharge Diagnosis: 1:Altered mental status; 2:Weakness Primary Care Physician: Maurice Rogers III, DO Provider Information Primary Provider: Lucille Hardy M.D. Advanced Keyseater Operator:None The exam and treatment you received in the Emergency Department were for an urgent problem and are not intended as complete care. It is important that you follow up with a doctor, nurse practitioner, or physician?s mailroom assistant for ongoing care. If your symptoms [...] opioids can be used to help relieve uzzqsnvw-rv-fzvnjy pain and are often prescribed following a [...] be struggling with addiction, tell your health student career development specialist and ask for guidance or call [facility]?S National Helpline at 8-233-795-UMMO. i Source: [place] Department of Health and Human Services/Center for Disease Control & Prevention [facility] Medications Given: Medication Dose Rou (more content not included)... Normal [facility] Ethanolon 05-26-2023 Ethanol Lvl <10 Normal <=11 [facility] Comment on above: Performed By: #### 2 483289, 9354736 ####[facility] [address] [place] [address] Blood GasesOrdered By: St shayy Silva on [...] - 2.2 mmol/L [facility] Resp Auto SS business systems analyst+ Art 141.0 mmol/L Normal 135.0 - 145.0 mmol/L [facility] Resp Auto SS Drawn by nawaf parada Invalid Interpretation Code [facility] Resp Auto SS FCOHb Art 1.4 % Low 1.5 - 4.9 % [facility] Resp Auto SS Comment on above: Interpretive Data: R eference range Nonsmoker <1.5% Smoker <5.0% Heavy Smoker <9.0% FIO2 BG 21 1 Invalid Interpretation Code [facility] Resp Auto SS FMetHb Art 0.1 % Normal 0.0 - 1.9 % [facility] Resp Auto SS FO2Hb Art 92.4 % Normal 92.0 - 100.0 % [facility] Resp Auto SS HCO3 (Bld) [Moles/Vol] 23.7 mmol/L Normal 22.0 - 26.0 mmol/L [facility] Resp Auto SS Hemoglobin (Bld) [Mass/Vol] 13.7 g/dL Normal 12.0 - 16.0 gm/dL [facility] Resp Auto SS P CO2 Arterial 38.5 mm[Hg] Normal 35.0 - 45.0 mmHg [facility] Resp Auto SS P O2 Arterial 57.7 mm[Hg] Low 80.0 - 100.0 mmHg [facility] Resp Auto SS pH (Bld) 7.400 [pH] Normal 7.350 - 7.450 [facility] Resp Auto SS Sample Site R Radial (05/26/23 10:40 AM) Normal [facility] Resp Auto SS Sample Type Arterial Draw (05/26/23 10:40 AM) Normal [facility] Resp Auto SS HEMATOLOGYOrdered By: SYSTEM SYSTEM [...] 05-26-2023 Bili Direct 0.2 mg/dL Normal 0.0-0.4 [facility] Comment on above: Performed By: #### 1 [id number], [id number], [id number], 61714011, 30185130, 6102695, 3303277, 8641191, 5407323, 8799397 ####[facility] [address] [place] [address] Bili Indirect 1.0 mg/dL High 0.1-0.9 [facility] Comment on above: Performed By: #### 1 [id number], 2653758, 49245379, 38385852, 56202240, 1297108, 0908612, 0868658, 5566796, 4909213 ####[facility] [address] [place] [address] Interdisciplinary Note - Spe ech Languageon 05-26-2023 Interdisciplinary Note - Speech Language ST 05/26/23: BSE completed. Pt admitted to [facility] d/t AMS, headache, possible CVA. Per dtr, [...] further ST indicated at this time. Normal [facility] Laboratory - Chemistry and C hemistry - [...] Lactic Acid Lvl 1.6 mmol/L Normal 0.5-2.2 [facility] Comment on above: Performed By: #### 2 [id number], [id number] ####[facility] [address] [place] [address] Magnesiumon 05-26-2023 Magnesium [Mass/Vol] 1.8 mg/dL Normal 1.3-2.4 [facility] Comment on above: Performed By: #### 1 [id number], 3136954, 73455641, 81586300, 46638775, 3209506, 0839566, 5968976, 4406667, 4053561 ####[facility] [address] [place] [address] Message from Medicareon 05-04 Message from Medicare [id number] [id number]# 1.00TIFF Normal [facility] Monitor Recordon 05-26-2023 Monitor Record [id number]# 1.00TIFF Normal [facility] No Panel InformationOrdered By: ANGPROCESSSERVER MICROBIOLOGY on 05-26-2023 Blood Culture Charcoal No growth at 1 da y. Final to follow at 7 days. [facility] Blood Culture Charcoal No growth at 1 da y. Final to follow at 7 days. [facility] No Panel InformationOrdered By: SYSTEM SYSTEM on 05-26-2023 Alk Phos 59 [iU]/d Normal 21 - 98 Int._Unit/L [facility] ALT 14 [iU]/d Normal 6 - 46 Int._Unit/L [facility] AST 48 [iU]/d High 5 - 43 Int._Unit/L [facility] Bili Total 1.2 mg/dL High 0.0 - 1.1 mg/dL [facility] PTon 05-26-2023 INR Coag (PPP) [Relative time] 1.08 {INR} Invalid Interpretation Code [facility] Comment on above: Result Comment: INR results are specifically intended to assess patients stabilized on long-term Anticoagulation therapy suggested INR?s ?Less Intensive Anticoagulation? 2.0 ? 3.0 Conventional Range 3.0 ? 4.5 Performed By: #### 1 [id number], 9014837, 02873775, 26580249, 64141952, 4351156, 0639096, 4879200, 8697816, 7760134 ####[facility] [address] [place] [address] PT Coag (PPP) [Time] 12.0 second(s) Normal 9.4-12.5 [facility] Comment on above: Result Comment: 15 d [...] the same coagulation reagent and instrumentation as [facility]. Currently there are no coagulation studies available worldwide for children to 14 days, and no normal ranges. Performed By: #### 1 [id number], 0335408, 97855554, 60942954, 13332031, 4007377, 4462463, 7127815, 1792710, 9789453 ####[facility] [address] [place] [address] PTTon 05-26-2023 aPTT Coag (PPP) [Time] 30.2 second(s) Normal 25.1-36.5 [facility] Comment on above: Result Comment: Para meter [...] the same coagulation reagent and instrumentation as [facility]. Currently there are no coagulation studies available worldwide for children to 14 days, and no normal ranges. Heparin therapeutic range (represented by Anti-Factor Xa activity of 0.2 - 0.4 U/mL) corresponds to PTT of 56.6 - 109.0 sec. Performed By: #### 1 [id number], 2330034, 35349966, 25094463, 37787967, 4462352, 9143635, 0254849, 8381374, 3793001 ####[facility] [address] [place] [address] TSH With T4fr Reflexon 05-26 TSH Qn 4.54 m[IU]/L Normal 0.34-5.60 [facility] Comment on above: Performed By: #### 1 1029774, 9147412, 61249884, 18845818, 39437814, 2395714, 4560471, 8659310, 5776203, 3591335 ####[facility] [address] [place] [address] Troponin 0 Hr.on 05-26-2023 Troponin 22.80 pg/mL Normal 10.10-27.10 [facility] Comment on above: Result Comment: The 95% CI (Confidence Interval) PPV (Positive Predictive Value) for myocardial infarction in females is 38 pg/mL, in males 51 pg/mL. The results should be used in conjunction with clinical conditions of myocardial infarction. (Access High Sensitivity Troponin I Instructions For Use, [employer], October 2017) Performed By: #### 1 9320117, 7931315, 15303648, 55358737, 72709695, 1238860, 1760523, 2219813, 8797796, 5544999 ####[facility] [address] [place] [address] Troponin 3 Hr.on 05-26-2023 Troponin 16.10 pg/mL Normal 10.10-27.10 [facility] Comment on above: Result Comment: The 95% CI (Confidence Interval) PPV (Positive Predictive Value) for myocardial infarction in females is 38 pg/mL, in males 51 pg/mL. The results should be used in conjunction with clinical conditions of myocardial infarction. (Serious Parody High Sensitivity Troponin I Instructions For Use, [employer], October 2017) Performed By: #### 1 [id number] ####[facility] [address] [place] [address] Troponin 6 Hr.Ordered By: [employer] SYSTEM on 05-26-2023 Troponin 18.00 pg/mL Normal 10.10-27.10 [facility] Comment on above: Interpretive Data: T he 95% CI (Confidence Interval) PPV (Positive Predictive Value) for myocardial infarction in females is 38 pg/mL, in males 51 pg/mL. The results should be used in conjunction with clinical conditions of myocardial infarction. (Serious Parody High Sensitivity Troponin I Instructions For Use, [employer], October 2017) Result Comment: The 95% CI (Confidence Interval) PPV (Positive Predictive Value) for myocardial infarction in females is 38 pg/mL, in males 51 pg/mL. The results should be used in conjunction with clinical conditions of myocardial infarction. (Serious Parody High Sensitivity Troponin I Instructions For Use, [employer], October 2017) Performed By: #### 1 [id number] ####[facility] [address] [place] [address] U Drug Screenon 05-26-2023 U Amph Scr Negative Normal NEGATIVE [facility] Comment on above: Order Comment: Added to UA Performed By: #### 2 [id number] ####[facility] [address] [place] [address] U Desirae Scr Negative Normal NEGATIVE [facility] Comment on above: Order Comment: Added to UA Performed By: #### 2 553683 ####[facility] [address] [place] [address] U Benzodia Scr Negative Normal NEGATIVE [facility] Comment on above: Order Comment: Added to UA Performed By: #### 2 [id number] ####[facility] [address] [place] [address] U Cannab Scr Negative Normal NEGATIVE [facility] Comment on above: Order Comment: Added to UA Performed By: #### 2 557503 ####[facility] [address] [place] [place] [address] U Cocaine Scr Negative Normal NEGATIVE [facility] Comment on above: Order Comment: Added to UA Performed By: #### 2 519606 ####[facility] [address] [place] [place] [address] U Opiate Scr Negative Normal NEGATIVE [facility] Comment on above: Order Comment: Added to UA Performed By: #### 2 455448 ####[facility] [address] [place] [address] U PCP Scr Negative Normal NEGATIVE [facility] Comment on above: Order Comment: Added to UA Performed By: #### 2 140582 ####[facility] [address] [place] [address] UA With Cult Reflexon 2023 Bacteria LM Ql (Urine sed) TRACE Normal Trace [facility] Comment on above: Performed By: #### 1 [id number] ####[facility] [address] [place] [address] Bilirubin Ql (U) Negative Normal Negative [facility] Comment on above: Performed By: #### 1 [id number] ####[facility] [address] [place] [address] Clarity (U) CLEAR Normal Clear [facility] Comment on above: Performed By: #### 1 [id number] ####[facility] [address] [place] [address] Color (U) STRAW Invalid Interpretation Code [facility] Comment on above: Performed By: #### 1 [id number] ####[facility] [address] [place] [address] Epithelial cells.squamous LM.HPF (Urine sed) [#/Area] 0-2 Normal 0-2 [facility] Comment on above: Performed By: #### 1 [id number] ####[facility] [address] [place] [address] Glucose Test strip (U) [Mass/Vol] Negative Normal Negative [facility] Comment on above: Performed By: #### 1 [id number] ####[facility] [address] [place] [address] Hemoglobin Ql (U) TRACE Abnormal Negative [facility] Comment on above: Performed By: #### 1 [id number] ####[address] [address] Ketones (U) [Mass/Vol] TRACE Invalid Interpretation Code Negative [facility] Comment on above: Performed By: #### 1 [id number] ####[facility] [address] [place] [address] [place].plasma/[place] .RBC (Bld) [Mass ratio] 0-3 Normal 0-3 [facility] Comment on above: Performed By: #### 1 0938754 ####[address] [address] Nitrite Ql (U) Negative Normal Negative [facility] Comment on above: Performed By: #### 1 [id number] ####[facility] [address] [place] [address] pH (U) 7.5 [pH] Invalid Interpretation Code 5.0-9.0 [facility] Comment on above: Performed By: #### 1 1646522 ####[facility] [address] [place] [address] Protein (U) [Mass/Vol] Negative Normal Negative [facility] Comment on above: Performed By: #### 1 [id number] ####[facility] [address] [place] [address] Specific gravity (U) [Rel density] 1.010 Invalid Interpretation Code 1.005-1.030 [facility] Comment on above: Performed By: #### 1 [id number] ####[place] [address] Type of Urine collection method Clean Catch Normal [facility] Comment on above: Performed By: #### 1 [id number] ####[place] [address] Urobilinogen Qn (U) 0.2 {Byron'U}/dL Normal 0.0-1.0 [facility] Comment on above: Performed By: #### 1 [id number] ####[place] [address] WBC Auto Ql (U) Negative Normal Negative [facility] Comment on above: Performed By: #### 1 [id number] ####[facility] [address] [place] [address] WBC LM.HPF (Urine sed) [#/Area] 0-5 Normal 0-5 [facility] Comment on above: Performed By: #### 1 [id number] ####[place] [address] URINALYSISOrdered By: Abby mathis on 05-26-2023 Bacteria LM Ql (Urine sed) Trace /HPF Normal Trace/HPF [facility] UA Auto SS Bilirubin Ql (U) Negative (05/26/23 10:10 AM) Normal Negative [facility] UA Auto SS Clarity (U) Clear (05/26/23 10:10 AM) Normal Clear [facility] UA Auto SS Color (U) STRAW Invalid [...] Interpretation Code Negative [facility] UA Auto SS [place].plasma/[place] .RBC (Bld) [Mass ratio] 0-3 /HPF Normal [...] Desc Clean Catch (05/26/23 10:10 AM) Normal [facility] UA Auto SS Urobilinogen Qn (U) 0.4301799 {Byron'U}/dL Normal 0.0 - 1.0 EU/dL [facility] UA Auto SS WBC Auto Ql (U) Negative (05/26/23 10:10 AM) Normal Negative [facility] UA Auto SS WBC LM.HPF (Urine sed) [#/Area] 0-5 /HPF Normal 0-5/HPF [facility] UA Auto SS XR Chest Single Viewon 05-26 XR Chest Single View Exam Date/Time: 05/26/2023 09:47 EST Reason for Exam: Chest pain Report [facility] [phone] IMPRESSION: There are no acute cardiopulmonary changes. [...] mGy = na DAP = na Normal [facility] eGFRon 05-26-2023 eGFR 61 mL/min/1.73 m2 Normal >=59 [facility] Comment on above: Order Comment: Order added by Discern Expert. Performed By: #### 1 [id number], 1070638, 11450517, 79259596, 89177539, 3713281, 6528208, 0034871, 9784133, 4165014 ####[facility] [address] [place] [id number] XR DEXA BONE DENSITYon 04-25 XR DEXA [...] by: SRINIVASA ECHAVARRIA Date: 2022-04-25 10:06 Normal [facility] CULTURE URINEon 12-14-2021 CULTURE URINE Isolate 1 [...] F Trimethoprim/Sulfamet hoxazole <=20 S F Normal [facility] Comment on above: Performed By: #### U RCX #### [facility] [address] [place] [address] Dr. Yoni Thao ER URINE PROFILEon 2 Bilirubin Ql (U) Negative Normal NEGATIVE [facility] Comment on above: Performed By: #### U MICRO, ERUR #### [facility] [address] [place] [address] Dr. Yoni Thao Clarity (U) CLEAR Normal CLEAR [facility] Comment on above: Performed By: #### U MICRO, ERUR #### [facility] [address] [address] [address] Yoni Thao Color (U) LT. YELLOW Normal YELLOW [facility] Comment on above: Performed By: #### U MICRO, ERUR #### [facility] [address] [place] [address] Dr. Yoni HUMPHREYSD A micrscopic examination will be performed if indicated. Normal [facility] Comment on above: Performed By: #### U MICRO, ERUR #### [facility] [address] [place] [address] Dr. Yoni Thao Glucose Ql (U) Negative Normal NEGATIVE [facility] Comment on above: Performed By: #### U MICRO, ERUR #### [facility] [address] [place] [address] Dr. Yoni Thao Hemoglobin Ql (U) LARGE Abnormal NEGATIVE [facility] Comment on above: Performed By: #### U MICRO, ERUR #### [facility] [address] [address] [address] Yoni Thao Ketones Ql (U) Negative Normal NEGATIVE [facility] Comment on above: Performed By: #### U MICRO, ERUR #### [facility] [address] [address] [address] Yoni Thao LEUKOCYTES MODERATE Abnormal NEGATIVE [facility] Comment on above: Performed By: #### U MICRO, ERUR #### [facility] [address] [place] [address] Dr. Yoni Thao Nitrite Ql (U) Positive Abnormal NEGATIVE [facility] Comment on above: Performed By: #### U MICRO, ERUR #### [facility] [address] [place] [address] Dr. Yoni Thao pH (U) 6.5 [pH] Normal 5-9 [facility] Comment on above: Performed By: #### U MICRO, ERUR #### [facility] [address] [place] [address] Dr. Yoni Thao SPEC GRAVITY 1.010 Normal 1.005-<=1.02 5 [facility] Comment on above: Performed By: #### U MICRO, ERUR #### [facility] [address] [place] [address] Dr. Yoni Thao UA PROTEIN TRACE Normal NEGATIVE/ TRACE [facility] Comment on above: Performed By: #### U MICRO, ERUR #### [facility] [address] [place] [address] Dr. Yoni Thao UR MICRO IND INDICATED Normal [facility] Comment on above: Performed By: #### U MICRO, ERUR #### [facility] [address] [place] [address] Dr. Yoni Thao Urobilinogen Qn (U) 0.2 {Byron'U}/dL Normal 0.2 - 1. 0 [facility] Comment on above: Performed By: #### U MICRO, ERUR #### [facility] [address] [place] [address] Dr. Yoni Thao URINE MICROSCOPIC ONLYon BACTERIA SMALL Abnormal NONE SEEN [facility] Comment on above: Performed By: #### U MICRO, ERUR #### [facility] [address] [place] [address] Dr. Yoni Thao Bacteria identified Cx Nom (U) INDICATED Normal [facility] Comment on above: Performed By: #### U MICRO, ERUR #### [facility] [address] [place] [address] Dr. Yoni Thao CAST NONE SEEN Normal NONE SEEN [facility] Comment on above: Performed By: #### U MICRO, ERUR #### [facility] [address] [place] [address] Dr. Yoni Thao Crystals LM Nom (Urine sed) NONE SEEN Normal NONE SEEN [facility] Comment on above: Performed By: #### U MICRO, ERUR #### [facility] [address] [address] [address] Yoni Thao Epithelial cells LM Ql (Urine sed) FEW Abnormal NONE SEEN /RARE [facility] Comment on above: Performed By: #### U MICRO, ERUR #### [facility] [address] [address] [address] Yoni Thao MUCOUS NONE SEEN Normal NONE SEEN [facility] Comment on above: Performed By: #### U MICRO, ERUR #### [facility] [address] [address] [address] Yoni Thao RBC 20-50 Abnormal 0-2 [facility] Comment on above: Performed By: #### U MICRO, ERUR #### [facility] [address] [address] [address] Yoni Thao WBC 20-50 Abnormal NONE SEEN [facility] Comment on above: Performed By: #### U MICRO, ERUR #### [facility] [address] [address] [address] Yoni Thao Q - CULTURE,URINE,ROUTINEon 05-17-2021 CULTURE, URINE, ROUTINE SEE NOTE Abnormal [facility] Comment on above: Order Comment: [facility] Testing performed at: [facility], [facility], [address] [place] [address], [address] [place] [address], [id number], Dermatology Procedural Physician: Husam Whittaker MD [facility] Collection Date/Time: [id number] [facility] Results Received Date/Time: [id number] [facility] Reported Date/Time: [id number] Result Comment: CULT URE, URINE, ROUTINE Micro Number: [id number] Test Status: Final Specimen Source: Not given [...] 6 304R #### [facility] [address] [place] [address] Vital Signs Date Time Vital Sign Value Performing Clinician Cinda cabrera 06-12-2023 04:35-0400 Diastolic blood pressure 83 mm[Hg] [facility] 06-12-2023 04:35-0400 Heart rate 74 /min [facility] 06-12-2023 04:35-0400 Mean blood pressure 105 mm[Hg] [facility] 06-12-2023 04:35-0400 Respiratory rate 16 /min [facility] 06-12-2023 04:35-0400 SaO2% (BldA) [Mass fraction] 94 % [facility] 06-12-2023 04:35-0400 Systolic blood pressure 148 mm[Hg] [facility] 06-12-2023 03:43-0400 Diastolic blood pressure 96 mm[Hg] [facility] 06-12-2023 03:43-0400 Heart rate 74 /min [facility] 06-12-2023 03:43-0400 Mean blood pressure 121 mm[Hg] [facility] 06-12-2023 03:43-0400 Respiratory rate 23 /min [facility] 06-12-2023 03:43-0400 SaO2% (BldA) [Mass fraction] 96 % [facility] 06-12-2023 03:43-0400 Systolic blood pressure 171 mm[Hg] [facility] 06-12-2023 03:10-0400 Diastolic blood pressure 89 mm[Hg] [facility] 06-12-2023 03:10-0400 Heart rate 92 /min [facility] 06-12-2023 03:10-0400 Mean blood pressure 114 mm[Hg] [facility] 06-12-2023 03:10-0400 Respiratory rate 46 /min [facility] 06-12-2023 03:10-0400 SaO2% (BldA) [Mass fraction] 94 % [facility] 06-12-2023 03:10-0400 Systolic blood pressure 164 mm[Hg] [facility] 06-12-2023 02:36-0400 Blood Pressure Location [facility] 06-12-2023 02:36-0400 Body temperature 98.24 [degF] [facility] 06-12-2023 02:36-0400 Heart rate 78 /min [facility] 06-12-2023 02:36-0400 Respiratory rate 16 /min [facility] 05-27-2023 14:00-0500 [facility] 05-27-2023 14:00-0500 Promise to Return [facility] 05-27-2023 13:10-0500 [facility] 05-27-2023 13:10-0500 [facility] 05-27-2023 12:00-0500 [facility] 05-27-2023 12:00-0500 [facility] 05-27-2023 08:20-0500 SaO2% (BldA) [Mass fraction] 95 % [facility] 05-27-2023 08:10-0500 Heart rate 77 /min [facility] 05-27-2023 08:10-0500 SaO2% (BldA) [Mass fraction] 95 % [facility] 05-27-2023 08:09-0500 Diastolic blood pressure 62 mm[Hg] [facility] 05-27-2023 08:09-0500 Mean blood pressure 75 mm[Hg] [facility] 05-27-2023 08:09-0500 Systolic blood pressure 101 mm[Hg] [facility] 05-27-2023 08:09-0500 Body temperature 98.24 [degF] loisluis enrique [facility] 05-27-2023 04:54-0500 Blood Pressure [facility] 05-27-2023 04:54-0500 Body temperature 97.88 [degF] [facility] 05-27-2023 04:54-0500 Diastolic blood pressure 63 mm[Hg] [facility] 05-27-2023 04:54-0500 Heart rate 77 /min [facility] 05-27-2023 04:54-0500 Mean blood pressure 74 mm[Hg] sunni [facility] 05-27-2023 04:54-0500 Respiratory rate 16 /min [facility] 05-27-2023 04:54-0500 SaO2% (BldA) [Mass fraction] 96 % [facility] 05-27-2023 04:54-0500 Systolic blood pressure 97 mm[Hg] loisluis enrique [facility] 05-27-2023 00:47-0500 Blood Pressure [facility] 05-27-2023 00:47-0500 Body temperature 98.6 [degF] [facility] 05-27-2023 00:47-0500 Diastolic blood pressure 64 mm[Hg] [facility] 05-27-2023 00:47-0500 Heart rate 81 /min [facility] 05-27-2023 00:47-0500 Mean blood pressure 78 mm[Hg] [facility] 05-27-2023 00:47-0500 Respiratory rate 15 /min [facility] 05-27-2023 00:47-0500 Systolic blood pressure 105 mm[Hg] [facility] 05-26-2023 20:00-0500 Body temperature 98.06 [degF] [facility] 05-26-2023 20:00-0500 Heart rate 87 /min [facility] [facility] 05-26-2023 20:00-0500 Mean blood pressure 95 mm[Hg] [facility] 05-26-2023 16:57-0500 Heart rate 85 /min sunni [facility] 05-26-2023 16:56-0500 Mean blood pressure 89 mm[Hg] [facility] 05-26-2023 16:55-0500 Body temperature 98.42 [degF] [facility] 05-26-2023 12:55-0500 Body temperature 97.52 [degF] [facility] 05-26-2023 12:55-0500 Heart rate 95 /min [facility] 05-26-2023 12:32-0500 Heart rate 84 /min [facility] 05-26-2023 12:32-0500 Respiratory rate 16 /min [facility] 05-26-2023 12:13-0500 Respiratory rate 18 /min [facility] 05-26-2023 11:57-0500 Respiratory rate 18 /min [facility] 05-26-2023 10:40-0500 SaO2% (BldA) [Mass fraction] 93.8 % sunni [facility] Resp Auto SS 05-26-2023 09:53-0500 gluc 91 mg/dL [facility] 05-26-2023 09:53-0500 gluc [facility] 05-26-2023 09:33-0500 Heart rate 85 /min [facility] Encounters Encounter Date Encounter Type Care Provider Facility Start: 09-17-2023 End: 09-17-2023 ambulatory ANA B SIMON Not Available Start: 08-02-2023 End: 08-02-2023 ambulatory Mayank Lo Facility:[facility] Start: 08-02-2023 End: 08-02-2023 ambulatory Mayank Lo Work Phone: [facility] Work Phone: Start: 08-02-2023 End: 08-02-2023 Departed Referred Mayank Lo Work Phone: [facility] Start: 07-12-2023 End: 07-12-2023 ambulatory AAN SIMON Not Available Start: 06-20-2023 End: 06-20-2023 ambulatory ANA SIMON Not Available Start: 06-12-2023 End: 06-12-2023 Emergency department patient visit Sudhakar Andrade Facility:[facility] Start: 06-12-2023 End: 06-12-2023 Emergency department patient visit Sudhakar Andrade [facility] Start: 05-26-2023 End: 05-27-2023 ambulatory Carly Stapleton Facility:[facility] Start: 05-26-2023 End: 05-27-2023 Observation Carly Stapleton [facility] Start: 04-25-2022 End: 04-26-[address] MERVAT ORELLANA Facility:[facility] Start: 12-12-2021 End: 12-12-[address] DOCTOR EGAN Facility:[facility] Start: 07-30-2017 End: 07-31-2017 Ambulatory DEFAULT PHYSICIAN Facility:[facility] Procedures Date Procedure Procedure Detail Performing Clinician Abdominal hysterectomy Carly Stapleton Payers Date Payer Category Payer Self-pay 1959 Unknown [id number] 1935 Unknown [id number] 2.16.84 [id number] 1935 Unknown [id number] 2.16.84 [id number] 1935 Unknown [id number] 2.16.8 [id number] 1935 Unknown [id number] 2.16.8 [id number] 1935 Unknown [id number] 2.16.84 [id number] 1935 Unknown [id number] 2.16.84 [id number] 1935 Unknown [id number] 2.16.84 [id number] Unknown Social History Date Type Detail Facility Tobacco smoking status [facility] Sex Assigned At Female [facility] Start: 1935 Sex Assigned At Female F [facility] Functional Status Date Assessment Result Facility 06-12-2023 Functional Status N/A [facility] 05-26-2023 Functional Status No [facility] 05-26-2023 Functional Status [facility] Clinical Notes 05-27-2023 to 06-12-2023 Note Date & Type Note Facility 06-12-2023 Evaluation + Plan note Extrac prateek from: Title:ED Note Author:Sudhakar Andrade DO Date :06/12/23 Encounter for medical screen ing examination (Z13.9: Encounter for screening, unspecified) Orders: Basic Metabolic Panel CBC w/ Auto Diff CT Head or Brain w/o Contrast ECG 12 Lead Adult eGFR Influenza A&B Ag Rapid COVID Antigen ([facility]) Saline Lock Insert Troponin 0 Hr. UA With Cult Reflex XR Chest Single View [facility]03-12-2024 Hospital Discharge instructions Patient Education 06/12/2023 04:50:28 [...] including vitamins, herbs, eye drops, creams, and ymqt-npj-zbnfxlu medicines. Any problems you or family members [...] if you need an emergent specialist or leasing consultant that is not available at the medical center you are at. You need to have more tests. A center medical director may be consulted if needed. Get help [...] provider. Document Revised: 11/30/2021 Document Reviewed: 07/28/2021 [employer] Patient Education 2022 [employer]. Follow Up Care 06/12/2023 02:35:11 With:Maurice Rogers Address: [address] [place] [id number] Business (1) When:Within 3 Day(s) [facility]03-02-2024 NoteMicrobiology PROCEDURE: Blood Culture Charcoal [R1] SOURCE: Blood BODY SITE: Hand L COLLECTED DATE/TIME: 05/26/2023 09:55 EST RECEIVED DATE/TIME: 05/26/2023 10:59 EST START DATE/TIME: 05/26/2023 10:59 EST FREE TEXT SOURCE: Hyaley Reese, Lucille Hardy M.D., Lucille Avila FINAL REPORTS Final Report [] Verified Date/Time: 06/02/2023 15:32 EST No growth at 7 days. Performing Locations R1: This test was performed at: [facility], [address] [place] [address], [id number]- , , FkrrtxBlanchard [facility] Health SystemComment on above:Performed By: #### [id number] ####[facility] [address] [place] [address] [id number] NoteMicrobiology PROCEDURE: Blood Culture Charcoal [R1] SOURCE: Blood BODY SITE: Hand R COLLECTED DATE/TIME: 05/26/2023 09:48 EST RECEIVED DATE/TIME: 05/26/2023 11:00 EST START DATE/TIME: 05/26/2023 11:00 EST FREE TEXT SOURCE: Hayley Reese, Lucille Hardy M.D., Astrsalinas H FINAL REPORTS Final Report [] Verified Date/Time: 06/02/2023 15:32 EST No growth at 7 days. Performing Locations R1: This test was performed at: [facility], [address] [place] [address], [id number]- , [place], BngzitBlanchard Valley Health SystemComment on above:Performed By: #### [id number] ####[facility] [address] [place], [place] [id number] NoteChief Complaint pt to ER with c/o [...] U Benzodia Scr: NEGATIVE (more content not included)...[facility] SystemComment on above:Result Comment: Electronically Signed By: Clarice ARMSTRONG\.br\Date and Time Signed: 05/26/23 14:49 EST\.br\Electronically Co-Signed By: Pieter ABKER, Carly\.br\Date and Time Co-Signed: 05/27/23 17:02 [id number] NoteAdmission and Discharge Information Admitting Physician - [...] JEMIMA Talley Within 2 to 4 weeks [place] [address] [address] [id number]- Additional Instructions: Patient Education [facility] CenterComment on above:Result Comment: Electronically Signed By: Clarice ARMSTRONG\.br\Date and Time Signed: 05/27/23 14:57 EST\.br\Electronically Co-Signed By: Carly Stapleton MD\.br\Date and Time Co-Signed: 05/27/23 17:02 [id number] Hospital Discharge instructions Patient Education 05/27/2023 12:19:34 [...] friend for help if needed. Medicines Take qkhm-wix-wwgceld and prescription medicines only as told by [...] consider day care, extended-care programs, or a [place] [facility] facility. The person's health care provider may [...] provider. Document Revised: 07/13/2020 Document Reviewed: 07/13/2020 [employer] Patient Education 2022 [employer] Follow Up Care 05/26/2023 09:32:48 With:Mayank Lawson MD, [facility] Address: [place] [address]- When:2 to 4 weeks [facility]02-25-2024 Evaluation + Plan noteExtracted from: Title:Discharge Note [...] MD, NEU Within 2 to 4 [place] [address]- Additional Instructions: Confusion Extracted from: Title:APSO Note [...] Reflex Vital Signs XR Chest Single View [facility]02-25-2024 NoteOT [facility] score = HH services vs no further services at [place], pending progress. Pt requires CGA w/ transfers and standing adls. Inpatient OT services to follow daily as pt lives alone.[facility] SystemEvaluation noteNo assessment information availableBerger Hospital Work Phone: Hospital course Narrative No data available for this section [facility] note No data available for this section [facility] Summary Purpose Family History No Family History [...] and content) DATE CREATED AUTHOR 09/20/2017 [facility] DATE CREATED AUTHOR AUTHOR'S ORGANIZ ATION 05/26/2021 [facility] dical Specialist DATE CREATED AUTHOR AUTHOR'S ORGANIZ ATION 04/26/2022 [facility]ital DATE CREATED AUTHOR AUTHOR'S ORGANIZ ATION 06/21/2023 [facility] DATE CREATED AUTHOR AUTHOR'S ORGANIZ ATION 08/16/2023 [facility] DATE CREATED AUTHOR AUTHOR'S ORGANIZ ATION 09/19/2023 [facility] dical Specialists EPIC Patient Care team informatio [...] BE BASED ON THE PRIMARY CLINICAL RECORDS. [facility] [employer] [facility]. provides no warranty or guarantee of the accuracy or completeness of information in this document.
== END 2023-11-05 12:06 | disposition home or self-care (01) ==
LOC: EC 12:05
PROVIDERS: PCP Internal Medicine; Visit Provider Orthopaedic Surgery
DX: S42.025D Nondisplaced fracture of shaft of left clavicle, subsequent encounter for fracture with routine healing (principal)
CPT/HCPCS: 73000

== ENCOUNTER 2023-12-10 11:03 | Outpatient (OUT) | payer MEDICARE, SELFPAY ==
--- NOTE | 2023-12-10 | XR_ITS ---
The [address] [address] Patient Name: SANIYA ZHANG MRN: [id number] date: 1935 Sex: F Assigned Patient Location: Current Patient Location: Accession/Order Number: [id number] Exam Date: 12/10/2023 11:05 Report Date: 12/11/2023 18:34 At the request of: KEILA SMITH Procedure: XR clavicle LT EXAM: XR clavicle LT HISTORY: LEFT CLAVICLE PAIN COMPARISON: 11/05/2023 FINDINGS/IMPRESSION: 1. Nonunited distal clavicular fracture. There is superior displacement measuring approximately 0.5 cm, similar as compared to prior exams. 2. Normal alignment of the acromioclavicular joint. 3. Normal alignment of the shoulder joint. 4. Left lung apex is clear. Electronically authenticated by: GINNA WALTERS Date: 12/11/2023 18:34
--- OUTSIDE RECORDS SUMMARY | 2023-12-10 11:24 | XMS_ITS | CCD ---
Author Organization [facility] Care Team Providers Care Animation Camera Operator Name Role Phone PHYSICIAN, DEFAULT Unavailable Unavailable PHYSICIAN, DEFAULT Unavailable Unavailable MISC, DR YANES Primary Care Unavailable ANGEL, DR BHAKTI Brandt Attending Unavailabl e ANGEL, DR BHAKTI Brandt Consulting Unavailabl e ANGEL, DR BHAKTI Brandt Admitting Unavailabl e KIKOCHERYL Consulting Unavailable HEMMER, DR MERVAT Baker Admitting Unavailable MISC, DR YANES Primary Care Unavailable FITZPATRICK, DR SRINIVASA Burks Consulting Unavailable HEMMER, DR MERVAT Baker Attending Unavailable HEMMER, DR MERVAT Baker Consulting Unavailable Maurice Rogers III Primary Care Physician Carly Stapleton Attending Unavailable Carly Stapleton Admitting Unavailable Hope, Mayank Consulting Unavailable Hope, Mayank Consulting Unavailable Hope, Mayank Consulting Unavailable Hope, Mayank Consulting Unavailable Hope, Mayank Consulting Unavailable Hope, Mayank Consulting Unavailable Hope, Mayank Consulting Unavailable Hope, Mayank Consulting Unavailable Hope, Mayank Consulting Unavailable Sudhakar Andrade Attending Unavailable [...] te Episodic/Chronic Other aftercare (1 source) Other marine oil terminal superintendent (current) drug therapy; Translations: [OTH ASSISTED CURRENT DRUG THERAPY] Onset: 12-14-2021 Episodic Unclassified (1 source) LOW BACK PAIN, UNSPECIFIED; Translations: [LOW BACK PAIN, UNSPECIFIED] Onset: 12-12-2021 Urinary tract infections (1 source) Urinary tract infection, site not specified; Translations: [UTI SITE NOT SPECIFIED] Onset: 12-14-2021 Episodic Results Test Name Value Interpretation Reference Range Facility [facility] 08-02-2023 L Specimen: [id number] Received: 08/03/23 Status: JOCELYN Dunbar Num: [id number] Spec Type: Surgical Subm Dr: Mayank Lo Tissues: A Femoral Head - Fracture (RT HIP) Procedures: HE/2, Gross/Micro L4, Decalcification Age/ Patient Sex Location Account Attending Physician Teresa Bacon 88/F LABELL [id number] Mayank Lo SPEC NUM: [id number] RECD: 08/03/23 STATUS: JOCELYN DUNBAR NUM: [id number] TIM: 08/02/[address]: Mayank Lo ENTERED: [...] bone matrix with no focal lesions present. Vineyard Tender sections are submitted following decalcification A1-femoral head, following decalcification A2-fracture site, following decalcification Clinical history: Fall/head injury, right hip fracture -------- Specimen: [id number] Received: 08/03/23 Status: JOCELYN Dunbar Num: [id number] Spec Type: Surgical Subm Dr: Mayank Lo Tissues: A Femoral Head - Fracture (RT HIP) Procedures: HE/2, Gross/Micro L4, Decalcification -------- Patient: JordiTeresa Matthew [id number] (Continued) -------- Specimen: [id number] Received: 08/03/23 (Continued) Gross Description (Continued) Signed (signature on file) Georgina Thao MD 08/06/231900 -------- Specimen: [id number] Received: 08/03/23 Status: JOCELYN Dunbar Num: [id number] Spec Type: Surgical Subm Dr: Mayank Lo Tissues: A Femoral Head - Fracture (RT HIP) Procedures: HE/2, Gross/Micro L4, Decalcification -------- Patient: Teresa Bacon Matthew [id number] (Continued) -------- Specimen: [id number] Received: 08/03/23 (Continued) Gross Description (Continued) CPT Codes 87488, 58270 FEMORAL HEAD FEMORAL HEAD -------- -------- Specimen: [id number] Received: 08/03/23 Status: JOCELYN Dunbar Num: [id number] Spec Type: Surgical Subm Dr: Mayank Lo Tissues: A Femoral Head - Fracture (RT HIP) Procedures: HE/2, Gross/Micro L4, Decalcification -------- Patient: Teresa Bacon [id number] (Continued) -------- Signed (signature on file) Georgina Thao MD 08/06/23 190 Normal [facility] BMPon 06-12-2023 Anion gap [Moles/Vol] 15 mmol/L Normal 6-16 Fis her [facility] Comment on above: Performed By: #### 2 591797, 7378925, 96012480, 54563492 ####[place] [address] [address] Calcium [Mass/Vol] 10.1 mg/dL Normal 8.9-11.1 [facility] Comment on above: Performed By: #### 2 767087, 8354148, 75122424, 73043294 ####[facility] [address] [place] [address] Chloride [Moles/Vol] 108 mmol/L Normal 101-111 [facility] Comment on above: Performed By: #### 2 917864, 7130524, 31911436, 83599880 ####[facility] [address] [place] [address] CO2 [Moles/Vol] 22 mmol/L Normal 21-31 [facility] Comment on above: Performed By: #### 2 148472, 2262442, 88919123, 51352754 ####[facility] [address] [place] [address] Creatinine [Mass/Vol] 0.8 mg/dL Normal 0.5-1.3 [facility] Comment on above: Performed By: #### 2 518873, 3431166, 68438176, 57370197 ####[facility] [address] [place] [address] Glucose [Mass/Vol] 101 mg/dL Normal 55-199 [facility] Comment on above: Performed By: #### 2 169949, 1787764, 15202358, 60159225 ####[facility] [address] [place] [address] Potassium [Moles/Vol] 3.6 mmol/L Normal 3.5-5.3 [facility] Comment on above: Performed By: #### 2 972392, 3773730, 50832782, 30629668 ####[facility] [address] [place] [address] Sodium [Moles/Vol] 141 mmol/L Normal 135-145 [facility] Comment on above: Performed By: #### 2 906829, 9048917, 82874305, 87438665 ####[facility] [address] [place] [address] Urea nitrogen [Mass/Vol] 23 mg/dL High 5-21 [facility] Comment on above: Performed By: #### 2 887450, 2689886, 56449252, 58878250 ####[facility] [address] [place] [address] Urea nitrogen/Creatinine [Mass ratio] 29 No Units High 10-20 [facility] Comment on above: Performed By: #### 2 445231, 9227946, 14603858, 27647189 ####[facility] [address] [place] [address] CBC w/ Auto Diffon 4 Basophils/100 WBC (Bld) 1.2 % Normal 0.0-2.0 [facility] Comment on above: Performed By: #### 2 573890, 3762792, 80991886, 34618087 ####[address] [address] Basophils/Leukocytes Auto (Bld) [Pure # fraction] 0.1 E9/L Normal 0.0-0.2 [facility] Comment on above: Performed By: #### 2 911277, 0060738, 08325916, 76110161 ####[address] [address] Eosinophils (Bld) [#/Vol] 0.1 E9/L Normal 0.0-0.5 [facility] Comment on above: Performed By: #### 2 640336, 6876138, 60723280, 01130994 ####[address] [address] Eosinophils/100 WBC (Bld) 1.2 % Normal 0.0-8.0 [facility] Comment on above: Performed By: #### 2 709623, 7620642, 98912460, 07085494 ####[address] [address] Erythrocyte distribution width (RBC) [Ratio] 13.3 % Normal 10.9-14.2 [facility] Comment on above: Performed By: #### 2 479379, 4847005, 40561586, 35526872 ####[address] [address] Hematocrit (Bld) [Volume fraction] 43.1 % Normal 34.0-46.0 [facility] Comment on above: Performed By: #### 2 845337, 8812686, 67251601, 52183973 ####[facility] [address] [place] [address] Hemoglobin (Bld) [Mass/Vol] 15.2 g/dL Normal 12.0-16.0 [facility] Comment on above: Performed By: #### 2 549537, 6005035, 40798388, 06891701 ####[address] [address] Lymphocytes (Bld) [#/Vol] 2.2 E9/L Normal 1.0-4.0 [facility] Comment on above: Performed By: #### 2 822832, 6628193, 57837548, 17024948 ####[address] [address] Lymphocytes/100 WBC (Bld) 28.5 % Normal 14.0-50.0 [facility] Comment on above: Performed By: #### 2 194207, 4533697, 88779860, 81078837 ####[address] [address] MCH (RBC) [Entitic mass] 30.0 pg Normal 27.0-34.0 [facility] Comment on above: Performed By: #### 2 024481, 2222169, 16742645, 06301045 ####[address] [address] MCHC (RBC) [Mass/Vol] 35.2 g/dL Normal 31.4-36.0 [facility] Comment on above: Performed By: #### 2 781347, 1669391, 84279158, 36019502 ####[address] [address] MCV (RBC) [Entitic vol] 85.1 fL Normal 80.0-100.0 [facility] Comment on above: Performed By: #### 2 730173, 2984002, 20027957, 16390541 ####[address] [address] Monocytes (Bld) [#/Vol] 0.7 E9/L Normal 0.2-1.0 [facility] Comment on above: Performed By: #### 2 854157, 2927495, 45680147, 20831473 ####[address] [address] Neutrophils (Bld) [#/Vol] 4.6 E9/L Normal 2.0-7.5 [facility] Comment on above: Performed By: #### 2 221292, 3049409, 61153245, 16526377 ####[address] [address] Neutrophils/100 WBC (Bld) 60.1 % Normal 36.0-75.0 [facility] Comment on above: Performed By: #### 2 976245, 8498063, 24847122, 18863437 ####[address] [address] Platelet 245.0 E9/L Normal 150.0-500.0 [facility] Comment on above: Performed By: #### 2 340024, 8279151, 50287703, 06081083 ####[address] [place] [address] Platelet mean volume (Bld) [Entitic vol] 6.9 fL Normal 6.4-10.8 [facility] Comment on above: Performed By: #### 2 323298, 5696347, 15194422, 47027553 ####[address] [place] [address] RBC (Bld) [#/Vol] 5.1 E12/L Normal 4.3-5.9 [facility] Comment on above: Performed By: #### 2 251035, 8655030, 63472509, 82763181 ####[facility] [address] [place] [address] WBC corrected for nucl RBC Auto (Bld) [#/Vol] 7.6 E9/L Normal 4.0-11.0 [facility] Comment on above: Performed By: #### 2 690783, 6570310, 52161530, 97918820 ####[facility] [address] [place] [address] CHEMISTRYOrdered By: SYSTEM SYSTEM on 06-12-2023 Anion [...] Sensitivity Troponin I Instructions For Use, Tej [place], October 2017) Urea nitrogen [Mass/Vol] 23 mg/dL [...] Technologist: REINALDO Technical Comments Contrast: None Normal [facility] Consent for Treatmenton 05-31 Consent for Treatment [id number]#1. 00TIFF Normal [facility] Discharge Instructionson Discharge Instructions [id number] #1.00TIFF Normal [facility] ED Clinical Summaryon 2023 ED Clinical Summary [place] [id number] ED Clinical Summary Person Information Name: TERESA BACON/[place] Age: 87 Years : 1935 Sex: Female Language: Scottish PCP: Maurice Rogers III, DO Marital Status: [...] 06/12/2023 04:50:27 06/12/2023 04:50:27 06/12/2023 04:50:27 ADDRESS: [address] [place] [id number] PHYS DOC NOTES: MEDICAL INFORMATION: Prescriptions Given: [...] Follow up: With: Address: When: Maurice Rogers [address] [place] [address], [facility], [place] [address] [facility] (1) In 3 days DIAGNOSIS: Encounter for medical screening examination Normal [facility] ED Note-Physicianon 06-12-19 ED Note-Physician Basic Information [...] and Complexity of Problems Differential Diagnosis: [] [facility] Data External documents reviewed: N/A My [...] process. On reassessment the patient's son and immijbwj-dr-tva are with her. She states that she [...] Influenza A&B Ag Rapid COVID Antigen ([facility]) Saline Lock Insert Troponin 0 Hr. UA With Cult Reflex XR Chest Single View Disposition Plan Discharge Prescription List Prescriptions No active prescription medications Follow-up With When Contact Information Maurice Rogers In 3 days [address] [place] [address] [facility] (1) Additional Instructions: Patient Education [...] 02:43:00) Lymph Auto: 28.5 % (06/12/23 02:43:00) [place] Auto: 9 % (06/12/23 02:43:00) Eos Auto: 1.2 % (06/12/23 02:43:00) Basophil Auto: 1.2 % (06/12/23 02:43:00) Neutro Absolute: 4.6 E9/L (06/12/23 02:43:00) Lymph Absolute: 2.2 E9/L (06/12/23 02:43:00) [place] Absolute: 0.7 E9/L (06/12/23 02:43:00) Eos Absolute: [...] Catch (0 (more content not included)... Normal [facility] Comment on above: Result Comment: [...] including vitamins, herbs, eye drops, creams, and bhmb-hmh-amyjcry medicines. ? Any problems you or family [...] if you need an emergent specialist or cassandra consultant that is not available at the medical center you are at. ? You need to have more tests. A medical transcription may be consulted if needed. Get help [...] provider. Document Revised: 11/30/2021 Document Reviewed: 07/28/2021 [email or web address] Patient Education ? 2022 [employer]. Normal [facility] ED Patient Summaryon 024 ED Patient Summary [address] [address] Patient Discharge Instructions Person Information Name: TERESA BACON Age: 87 Years Arrival Date: 06/12/2023 02:34:46 Discharge Diagnosis: Encounter for medical screening examination Primary Care Physician: Maurice Rogers III, DO Provider Information Primary Provider: Sudhakar Andrade DO Advanced Weld Inspector:None The exam and treatment you received in the Emergency Department were for an urgent problem and are not intended as complete care. It is important that you follow up with a doctor, nurse practitioner, or physician?s vet assistant for ongoing care. If your symptoms [...] Follow-up Instructions: With: Address: When: Maurice Rogers [address] [place] [address], [facility], [place] [address] Business (1) In 3 days In the event that this physician does not participate in your insurance network, please consult with your insurance company to find a nearby participating provider. Patient Education Materials: Medical Screening Exam A MESSAGE TO ALL PATIENTS REGARDING OPIOIDS PRESCRIPTION OPIOIDS: WHAT YOU NEED TO KNOW Prescription opioids can be used to help relieve sunbwwha-uo-kmkiqb pain and are often prescribed following a [...] be struggling with addiction, tell your health memory care program resident and ask for guidance or call [facility]?S National Helpline at 1-152-287-JFCS. p So (more content not included)... Normal [facility] HEMATOLOGYOrdered By: SYSTEM SYSTEM on 06-12-2023 Basophils/100 [...] Agon Influenzae A Ag Negative Normal Negative [facility] Comment on above: Performed By: #### 2 [id number], 64041158 ####[place] [address] [place] [address] Influenzae B Ag Negative Normal Negative [facility] Comment on above: Result Comment: Test sensitivity and specificity vary for age group, specimen type, antigen types, and prevalence of disease. Test results must be evaluated in conjunction with other clinical data available to the physician. Individuals who received nasally administered Influenza A vaccine may have positive test results up to 3 days after vaccination. Performed By: #### 2 [id number], 97124123 ####[facility] [address] [place] [address] MICRO OTHER TESTSOrdered By: Zehra Bateman on 06-12-2023 Influenzae A Ag Negative (06/12/23 2:50 AM) Normal Negative [facility] Man Sero Influenzae B Ag Negative 1 (06/12/23 2:50 AM) Normal Negative [facility] Sero Comment on above: Interpretive Data: T [...] NEG Ctl Pass (06/12/23 2:50 AM) Normal [facility] Sero Rapid COV Int POS Ctl Pass (06/12/23 2:50 AM) Normal [facility] Sero SARS-CoV+SARS-CoV-2 (COVID-19) Ag IA.rapid Ql (Resp) Not Detected 3 (06/12/23 2:50 AM) Normal Not Detected [facility] Sero Comment on above: Interpretive Data: T he Clan of the Cloud Veritor System for Rapid Detection of SARS-CoV-2 [...] For in vitro diagnostic use. In the [facility], only for use under an Emergency Use Authorization. In the [facility], this test has not been FDA [...] revoked sooner. Monitor Recordon 06-12-2023 Monitor Record [id number]# 1.00TIFF Normal [facility] Pre-Arrival Noteon 4 Pre-Arrival Note Pre-Arrival Summary Name: , [facility] Current Date: 06/12/2023 02:36:18 EDT Gender: Female Date of : Age: 87 Pre-Arrival Type: EMS ETA: 06/12/2023 02:51:00 EDT Primary Care Physician: Presenting Problem: ILL,HTN Pre-Arrival User: Karen Chirinos RN Referring Source: Location: [place] Completion Date/Time: 06/12/2023 02:21:00 [facility] Emergency Department Pre-Hospital Report Form Vital Signs: 207/129, HR100, RR16, 100% RA Pre-Hospital Report: feeling ill, alert and oriented Treatment in Route:FSBS 129, 20RFA, CSS Response to Treatment: Misc. Issues: Normal [facility] RAD - Preliminary Cat Scan R eporton 06-12-2023 RAD - Preliminary Cat Scan Report [id number] #1.00TIFF Normal [facility] Rapid COVID Antigen ([facility])on 06-12-2023 Rapid COV Int NEG Ctl Pass Normal [facility] Comment on above: Performed By: #### 2 [id number], 59940511 ####[facility] [address] [place] [address] Rapid COV Int POS Ctl Pass Normal [facility] Comment on above: Performed By: #### 2 520978074, 14938630 ####[facility] [address] [place] [address] SARS-CoV+SARS-CoV-2 (COVID-19) Ag IA.rapid Ql (Resp) Not detected Normal Not Detected [facility] Comment on above: Result Comment: The surespot? System for Rapid Detection of SARS-CoV-2 is [...] or revoked sooner. Performed By: #### 2 [id number], 64330199 ####[facility] [address] [place] [address] Troponin 0 Hr.on 06-12-2023 Troponin 10.20 pg/mL Normal 10.10-27.10 [facility] Comment on above: Result Comment: The 95% CI (Confidence Interval) PPV (Positive Predictive Value) for myocardial infarction in females is 38 pg/mL, in males 51 pg/mL. The results should be used in conjunction with clinical conditions of myocardial infarction. (Access High Sensitivity Troponin I Instructions For Use, Tej [place], October 2017) Performed By: #### 2 308009, 9578530, 62388431, 47154718 ####[facility] [address] [place] [address] UA With Cult Reflexon 2023 Bilirubin Ql (U) Negative Normal Negative [facility] Comment on above: Performed By: #### 1 8227984 ####[address] [address] Clarity (U) CLEAR Normal Clear [facility] Comment on above: Performed By: #### 1 0944248 ####[facility] [address] [place] [address] Color (U) YELLOW Normal Yellow [facility] Comment on above: Performed By: #### 1 4677591 ####[address] [address] Epithelial cells.squamous LM.HPF (Urine sed) [#/Area] 0-2 Normal 0-2 [facility] Comment on above: Performed By: #### 1 0789940 ####[facility] [address] [place] [address] Glucose Test strip (U) [Mass/Vol] Negative Normal Negative [facility] Comment on above: Performed By: #### 1 4098353 ####[address] [place] [address] Hemoglobin Ql (U) TRACE Abnormal Negative [facility] Comment on above: Performed By: #### 1 8681728 ####[facility] [address] [place] [address] Ketones (U) [Mass/Vol] Negative Normal Negative [facility] Comment on above: Performed By: #### 1 1844329 ####[address] [place] [address] [place].plasma/[place] .RBC (Bld) [Mass ratio] 0-3 Normal 0-3 [facility] Comment on above: Performed By: #### 1 7615499 ####[address] [address] Nitrite Ql (U) Negative Normal Negative [facility] Comment on above: Performed By: #### 1 2923464 ####[address] [address] pH (U) 7.5 [pH] Invalid Interpretation Code 5.0-9.0 [facility] Comment on above: Performed By: #### 1 3641582 ####[address] [address] Protein (U) [Mass/Vol] 2+ Abnormal Negative [facility] Comment on above: Performed By: #### 1 4606622 ####[address] [address] Specific gravity (U) [Rel density] 1.020 Invalid Interpretation Code 1.005-1.030 [facility] Comment on above: Performed By: #### 1 5562197 ####[address] [address] Type of Urine collection method Clean Catch Normal [facility] Comment on above: Performed By: #### 1 2700426 ####[address] [address] Urobilinogen Qn (U) 0.2 {Byron'U}/dL Normal 0.0-1.0 [facility] Comment on above: Performed By: #### 1 7708146 ####[address] [address] WBC Auto Ql (U) Negative Normal Negative [facility] Comment on above: Performed By: #### 1 3137706 ####[facility] [address] [place] [address] WBC LM.HPF (Urine sed) [#/Area] 0-5 Normal 0-5 [facility] Comment on above: Performed By: #### 1 9263318 ####[facility] [address] [place] [address] URINALYSISOrdered By: Radha Bateman on 06-12-2023 Bilirubin [...] AM) Normal Negative [facility] UA Auto SS [place].plasma/[place] .RBC (Bld) [Mass ratio] 0-3 /HPF Normal [...] [facility] UA Auto SS Urobilinogen Qn (U) 0.9864232 {[place]ron'U}/dL Normal 0.0 - 1.0 EU/dL [facility] UA Auto SS WBC Auto Ql (U) Negative (06/12/23 3:17 AM) Normal Negative [facility] UA Auto SS WBC LM.HPF (Urine sed) [#/Area] 0-5 /HPF Normal 0-5/HPF [facility] UA Auto SS XR Chest Single Viewon [...] mGy = na DAP = na Normal [facility] eGFRon 06-12-2023 eGFR 71 mL/min/1.73 m2 Normal >=59 [facility] Comment on above: Order Comment: Order added by Discern Expert. Performed By: #### 2 763449, 3231696, 22952147, 61795467 ####[facility] [address] [place] [address] Inpatient Clinical Summaryon 06-04-2023 Inpatient Clinical Summary [address] [address] Clinical Summary Person Information: Name: TERESA BACON Age: 87 Years : 1935 Sex: Female PCP: III DO, Maurice R Marital Status: Race: White Ethnicity: Non- or Language: Scottish Visit Id: Visit Reason: Altered mental status; Weakness or fatigue; Potential stroke; AMS Speciality: Acuity: Enc Type: Observation Med Service: Medical Arrival: 05/26/2023 09:32:27 Discharge: 05/27/2023 15:20:00 Dispo Type: Home (Routine DC) Address: [address] [place] [id number] Provider Notes: Diagnosis: 1:Acute respiratory failure; 2:Altered [...] Follow up: With: Address: When: Maurice Rogers [address] [place] [address] Business (1) With: Address: When: [facility] Lawson MD[facility] [address] [place] [address] Within 2 to 4 weeks Patient Education Information: Confusion Normal [facility] Inpatient Patient Summaryon 06-04-2023 Inpatient Patient Summary [address] [address] Patient Discharge Instructions PERSON INFORMATION [...] Follow up: With: Address: When: Maurice Rogers [address] [place], [place] [id number] Business (1) With: Address: When: Renny BAKER, [place] [address] Within 2 to 4 weeks In the [...] By Mouth every day. Pharmacy Information: [facility] Comment: PATIENT EDUCATION INFORMATION Instructions: Confusion [...] new s (more content not included)... Normal [facility] Consent for Procedure/Surger yon 05-28-2023 Consent for Procedure/Surgery [id number] #1.00TIFF [facility] Consultation Noteon 05-28-19 24 Consultation [...] sensation in all 4 extremities Cerebellar exam: Sskplq-hd-cwav reveals no ataxia. Gait is normal The neurological exam was performed by a healthcare professional which was witnessed and supervised by me via video telemedicine visit consented to by the patient or appropriate patient sales representative education courses. Date/Time:05/27/2023 Co/nsciousness: Alert = 0 Current mo/nth and age: Answers both correctly = 0 Open and close eyes/imaging clerk release hand: Obeys both correctly = 0 [...] and make (more content not included)... Normal [facility] [facility] Comment on above: Result Comment: Elec tronically Signed By: Kelsey Velazquez RN\.br\Date and Time Signed: 05/27/23 07:24 EST\.br\Electronically Co-Signed By: Mayank Lawson MD\.br\Date and Time Co-Signed: 05/28/23 12:27 EST\.br\Electronically Co-Signed By: Ryan Mesa DO\.br\Date and Time Co-Signed: 06/04/23 09:13 EST Discharge Instructionson Discharge Instructions [id number] #1.00TIFF Normal [facility] Insurance Correspondence Off iceon 05-28-2023 Insurance Correspondence Office [id number]#1 .00TIFF Normal [facility] CHEMISTRYOrdered By: SYSTEM SYSTEM on 05-27-2023 Anion [...] Pending Diagnostic Test Results None Pharmacy Information [facility] New Follow Up Appointments after Discharge Follow Up with Renny BAKER, JEMIMA Talley When: Within 2 to 4 weeks Where: [place] [address] [place] [address]- Medications What How Much When Instructions Next [...] treat sy (more content not included)... Normal [facility] Interdisciplinary Note - Joseph e Manageron 05-27-2023 Interdisciplinary Note - Copying Machine Mechanic CRM to room to discuss DC planning. Patient is awake, alert and oriented. Patient is from home, she lives alone. One of her Children will transport at [place]. Her daughter is present in room. Patient verified PCP as DR Simon, verified PCP and home DME. Patient is here as observation with AMS, Tia Vs Cva. Patient is assigned to [facility], see notes. Patient was seen by Neurology. Patient is pending MRI. Patient denied needs for DME or HH. She is okay with a paramed f/u at [place]. Patient was provided CRM contact, white board updated. Anticipated DC later today or 05/28 if testing negative. CRM following Normal [facility] Comment on above: Result Comment: Elec tronically Signed By: Kaycee Rodriguez\.br\Date and Time Signed: 05/27/23 11:45 EST Interdisciplinary Note - PTo n 05-27-2023 Interdisciplinary Note - PT Pt to be seen daily in acute setting setting for bed mobility, transfers, gait. SBA-CGA for activity. May benefit from home health upon d/c. AM-PAC Normal [facility] Lyteson 05-27-2023 Anion gap [Moles/Vol] 10 mmol/L Normal 6-16 [facility] Comment on above: Performed By: #### 2 [id number] ####[facility] [address] [place] [address] Chloride [Moles/Vol] 107 mmol/L Normal 101-111 [facility] Comment on above: Performed By: #### 2 444534 ####[facility] [address] [place] [address] CO2 [Moles/Vol] 27 mmol/L Normal 21-31 [facility] Comment on above: Performed By: #### 2 228267 ####[facility] [address] [place] [address] Potassium [Moles/Vol] 4.1 mmol/L Normal 3.5-5.3 [facility] Comment on above: Performed By: #### 2 355676 ####[facility] [address] [place] [address] Sodium [Moles/Vol] 140 mmol/L Normal 135-145 [facility] Comment on above: Performed By: #### 2 271099 ####[facility] [address] [place] [address] MRI Brain w/o Contraston MRI Brain w/o [...] soft tissues are unremarkable. Report Ordering Provider: Clarcie RAMOS FINAL REPORT Dictated: 05/27/2023 1:05 pm Ryan Ca MD, V. Signed (Electronic Signature): 05/27/2023 1:05 pm Signed by: Ryan Ca MD, V. Transcribed by: ESTEFANY Technologist: ARMANDO Technical Comments None Normal [facility] Monitor Recordon 05-27-2023 Monitor Record [id number]# 1.00TIFF Normal [facility] Monitor Record [id number]# 1.00TIFF Normal [facility] Progress Note-Physicianon Progress Note-Physician Assessment/Plan PLAN: [...] Bili Tot (more content not included)... Normal [facility] Comment on above: Result Comment: Elec tronically Signed By: Clarice ARMSTRONG\.br\Date and Time Signed: 05/27/23 09:12 EST\.br\Electronically Co-Signed By: Carly Stapleton MD\.br\Date and Time Co-Signed: 05/27/23 17:02 EST RAD - MRI Screening Formon 0 05-27-2023 RAD - MRI Screening Form [id number]# 1.00TIFF Normal [facility] ABO/Rhon 05-26-2023 ABO/Rh Positive Invalid Interpretation Code [facility] Comment on above: Performed By: #### 2 496303, 45158529, 09898981, 74696100 ####[facility] [address] [place] [address] ABO/Rh History Checkon 05-26 ABO/Rh History Check Type verified by second s Normal [facility] Comment on above: Performed By: #### 2 665024, 20390850, 78924997, 80873351 ####[facility] [address] [place] [address] ABO/Rh Retypeon 05-26-2023 ABO/Rh Retype Interp Positive Invalid Interpretation Code [facility] Comment on above: Performed By: #### 1 3695664, 8957315, 21473168, 63522363, 59154366, 2525862, 6209851, 3446956, 5582621, 9708269 ####[facility] [address] [place] [address] ABSCon 05-26-2023 ABSC Gel Interp Negative Normal [facility] Comment on above: Performed By: #### 2 484740, 12825585, 99030687, 95817802 ####[facility] [address] [place] [address] BLOOD BANKOrdered By: Jeannine Moreno on 05-26-2023 ABO/Rh Interp Positive Invalid Interpretation Code [facility] BB Subsection ABSC Gel Interp Negative (05/26/23 9:48 AM) Normal [facility] BB Subsection ABO/Rh Retype Interp Positive Invalid Interpretation Code [facility] BB Subsection BNPOrdered By: Anurag jimenes 05-26-2023 Natriuretic peptide B (Bld) [Mass/Vol] 139 pg/mL High 5-80 [facility] HemeManSS Comment on above: Performed By: #### 1 [id number] ####[place] [address] Blood Bank ID#on 05-26-2023 BBID# [id number] Invalid Interpretation Code [facility] Comment on above: Performed By: #### 2 521493, 48610448, 15297633, 65478846 ####[address] [address] Blood Gas Art, with Lytes, G audrey, [place] 05-26-2023 a/A Ratio Art 56.70 % Normal >=0.80 [facility] Comment on above: Performed By: #### 4 88124934 ####[address] [place] [address] AaDO2 Art 44.1 mmHg High 5.0-15.0 [facility] Comment on above: Performed By: #### 4 66901660 ####[address] [address] Allens Test Positive Normal [facility] Comment on above: Performed By: #### 4 47386774 ####[facility] [address] [facility] [place] [address] Base Excess Arterial -0.8 mmol/L Low >=2.8 [facility] Comment on above: Performed By: #### 4 66905608 ####[facility] [address] [facility] [place] [address] cCa2+ Art 5.03 mg/dL Normal 4.40-5.30 [facility] Comment on above: Performed By: #### 4 56827563 ####[facility] [address] [place] [address] cCl- Art 106.0 mmol/L Normal 101.0-111.0 [facility] Comment on above: Performed By: #### 4 64019294 ####[facility] [address] [place] [address] cGlu Art 105 mg/dL High 55-99 [facility] Comment on above: Performed By: #### 4 28807967 ####[address] [facility] [place] [address] cK+ Art 3.3 mmol/L Low 3.5-5.3 [facility] Comment on above: Performed By: #### 4 19207158 ####[facility] [address] [facility] [place] [address] cLac Art .9 mmol/L Normal .5-2.2 [facility] Comment on above: Performed By: #### 4 97709297 ####[facility] [address] [facility] [place] [address] real estate legal secretary+ Art 141.0 mmol/L Normal 135.0-145.0 [facility] Comment on above: Performed By: #### 4 38310748 ####[address] [facility] [place] [address] Drawn by nawaf parada Invalid Interpretation Code [facility] Comment on above: Performed By: #### 4 25990185 ####[facility] [address] [facility] [place] [address] FCOHb Art 1.4 % Low 1.5-4.9 [facility] Comment on above: Result Comment: Refe rence range Nonsmoker <1.5% Smoker <5.0% Heavy Smoker <9.0% Performed By: #### 4 35680954 ####[facility] [address] [facility] [place] [address] FIO2 BG 21 Invalid Interpretation Code [facility] Comment on above: Performed By: #### 4 81728401 ####[facility] [address] [place] [address] FMetHb Art 0.1 % Normal 0.0-1.9 [facility] Comment on above: Performed By: #### 4 08166400 ####[facility] [address] [facility] [place] [address] FO2Hb Art 92.4 % Normal 92.0-100.0 [facility] Comment on above: Performed By: #### 4 36747532 ####[facility] [address] [place] [address] HCO3 (Bld) [Moles/Vol] 23.7 mmol/L Normal 22.0-26.0 [facility] Comment on above: Performed By: #### 4 95976766 ####[facility] [address] [place] [address] Hemoglobin (Bld) [Mass/Vol] 13.7 g/dL Normal 12.0-16.0 [facility] Comment on above: Performed By: #### 4 97087599 ####[facility] [address] [facility] [place] [address] Oxygen saturation in Blood 93.8 % Low 95.0-100.0 [facility] Comment on above: Performed By: #### 4 39248370 ####[facility] [address] [place] [address] P CO2 Arterial 38.5 mmHg Normal 35.0-45.0 [facility] Comment on above: Performed By: #### 4 07390568 ####[facility] [address] [place] [address] P O2 Arterial 57.7 mmHg Low 80.0-100.0 [facility] Comment on above: Performed By: #### 4 39236352 ####[facility] [address] [place] [address] pH Arterial 7.400 Normal 7.350-7.450 [facility] Comment on above: Performed By: #### 4 36297421 ####[address] [address] Sample Site R Radial Normal [facility] Comment on above: Performed By: #### 4 89568679 ####[address] [address] Sample Type Arterial Draw Normal [facility] Comment on above: Performed By: #### 4 91304537 ####[address] [address] CBC w/Indiceson 05-26-2023 RBC morphology finding Nom (Bld) NORMAL Invalid Interpretation Code [facility] Comment on above: Performed By: #### 1 2159889, 4383796, 63834358, 64107008, 15657320, 2198168, 8693326, 3488870, 4513650, 2644795 ####[address] [address] Erythrocyte distribution width (RBC) [Ratio] 12.9 % Normal 10.9-14.2 [facility] Comment on above: Performed By: #### 1 4430151, 2609256, 79705044, 08869796, 22183803, 5733966, 8197728, 2213510, 6972485, 6542210 ####[address] [place] [address] Hematocrit (Bld) [Volume fraction] 42.0 % Normal 34.0-46.0 [facility] Comment on above: Performed By: #### 1 5329257, 3444063, 03513155, 29634851, 12245934, 3734686, 7894126, 6505025, 6112344, 8194760 ####[facility] [address] [place] [address] Hemoglobin (Bld) [Mass/Vol] 15.2 g/dL Normal 12.0-16.0 [facility] Comment on above: Performed By: #### 1 9928361, 4069951, 74899920, 04322331, 74729420, 1285453, 7788240, 2135691, 3753699, 9056371 ####[facility] [address] [place] [address] MCH (RBC) [Entitic mass] 30.8 pg Normal 27.0-34.0 [facility] Comment on above: Performed By: #### 1 6448247, 2588859, 43052933, 55395561, 73038509, 2182838, 5453812, 3893749, 4671759, 7839528 ####[address] [place] [address] MCHC (RBC) [Mass/Vol] 36.0 g/dL Normal 31.4-36.0 [facility] Comment on above: Performed By: #### 1 0908605, 7725582, 84329228, 34480781, 87650061, 7954862, 1703064, 7885088, 0869224, 0600445 ####[address] [place] [address] MCV (RBC) [Entitic vol] 85.6 fL Normal 80.0-100.0 [facility] Comment on above: Performed By: #### 1 6523301, 9329917, 82210121, 35860901, 04347151, 7254790, 0291343, 3209469, 7089065, 4344567 ####[facility] [address] [place] [address] Platelet 298.0 E9/L Normal 150.0-500.0 [facility] Comment on above: Performed By: #### 1 7368948, 2250503, 87739469, 73222022, 94289582, 2427474, 6273089, 3361327, 7019397, 8517942 ####[facility] [address] [place] [address] Platelet mean volume (Bld) [Entitic vol] 7.1 fL Normal 6.4-10.8 [facility] Comment on above: Performed By: #### 1 4471535, 3239320, 01404447, 01352960, 05545654, 3417998, 9122829, 7687503, 5318245, 6766773 ####[facility] [address] [place] [address] RBC 4.9 E12/L Normal 4.3-5.9 [facility] Comment on above: Performed By: #### 1 5383105, 2451053, 28191466, 14245077, 39390315, 0963021, 5294689, 5886300, 7178723, 6876808 ####[facility] [address] [place] [address] WBC 9.3 E9/L Normal 4.0-11.0 [facility] Comment on above: Performed By: #### 1 8946218, 1524811, 07506641, 69763434, 02267547, 1857729, 8475316, 3152686, 9116497, 2649783 ####[facility] [address] [place] [address] CHEMISTRYOrdered By: SYSTEM SYSTEM on 05-26-2023 Troponin [...] 05-26-2023 Albumin [Mass/Vol] 4.9 g/dL Normal 3.3-5.0 [facility] Comment on above: Performed By: #### 1 8476919, 1257054, 07308481, 62901223, 88270748, 8220854, 0831436, 7541819, 0240517, 7719787 ####[address] [place] [address] Albumin/Globulin [Mass ratio] 1.8 {ratio} Normal 1.1-2.2 [facility] Comment on above: Performed By: #### 1 4355004, 5663790, 89593319, 83995436, 52479628, 8171646, 7783028, 1775406, 1830014, 9287306 ####[facility] [address] [place] [address] Alk Phos 59 Int._Unit/L Normal 21-98 [facility] Comment on above: Performed By: #### 1 5198856, 2816632, 32017240, 52411644, 93514014, 3526056, 8212047, 0171881, 6519293, 1176516 ####[facility] [address] [place] [address] ALT 14 Int._Unit/L Normal 6-46 [facility] Comment on above: Performed By: #### 1 4487475, 2675736, 13387404, 87668432, 83260065, 1660816, 4529717, 0873660, 0208383, 8323179 ####[facility] [address] [place] [address] Anion gap [Moles/Vol] 13 mmol/L Normal 6-16 [facility] Comment on above: Performed By: #### 1 4645457, 1270064, 47970899, 59913227, 51871966, 4657919, 2511512, 4385281, 8775526, 6983333 ####[facility] [address] [place] [address] AST 48 Int._Unit/L High 5-43 [facility] Comment on above: Performed By: #### 1 7177002, 3238130, 14227450, 28447301, 18669965, 8183579, 1267712, 5547635, 8595091, 7579892 ####[facility] [address] [place] [address] Bili Total 1.2 mg/dL High 0.0-1.1 [facility] Comment on above: Performed By: #### 1 6263906, 3831567, 91826245, 82463342, 60372300, 9981678, 0393797, 6153894, 7094190, 2171435 ####[facility] [address] [place] [address] BUN/Creat Ratio 24 No Units High 10-20 [facility] Comment on above: Performed By: #### 1 7191610, 5109501, 89057418, 34115415, 86258087, 4363962, 9874363, 3050453, 5934988, 0669569 ####[facility] [address] [place] [address] Calcium [Mass/Vol] 10.4 mg/dL Normal 8.9-11.1 [facility] Comment on above: Performed By: #### 1 3635489, 5570364, 93072034, 26210245, 26335263, 1513873, 9941353, 8852195, 0710066, 0316182 ####[facility] [address] [place] [address] Chloride [Moles/Vol] 106 mmol/L Normal 101-111 [facility] Comment on above: Performed By: #### 1 0583611, 9875506, 13877555, 27200412, 17143563, 0682349, 0517581, 5193018, 5847551, 4101842 ####[facility] [address] [place] [address] CO2 [Moles/Vol] 25 mmol/L Normal 21-31 [facility] Comment on above: Performed By: #### 1 3695763, 9340460, 37659878, 55856655, 12746643, 4664383, 6253995, 4605032, 9869326, 9357914 ####[facility] [address] [place] [address] Creatinine [Mass/Vol] 0.9 mg/dL Normal 0.5-1.3 [facility] Comment on above: Performed By: #### 1 9800639, 2778637, 10468859, 46455169, 00555010, 3329790, 5530363, 8268173, 0782745, 5375860 ####[facility] [address] [place] [address] Globulin (S) [Mass/Vol] 2.8 g/dL Normal 1.4-4.0 [facility] Comment on above: Performed By: #### 1 7606310, 3925526, 92431329, 52225185, 00943916, 6979054, 5853660, 4810180, 3823504, 9645993 ####[facility] [address] [place] [address] Glucose [Mass/Vol] 98 mg/dL Normal 55-199 [facility] Comment on above: Performed By: #### 1 7964381, 4737281, 87461855, 69436256, 09028349, 6062132, 2837410, 9065584, 5336304, 8291326 ####[facility] [address] [place] [address] Potassium [Moles/Vol] 3.4 mmol/L Low 3.5-5.3 [facility] Comment on above: Performed By: #### 1 8602519, 6143143, 24625342, 11479670, 69928857, 7644177, 9596608, 1033877, 7001068, 5428084 ####[facility] [address] [place] [address] Protein [Mass/Vol] 7.7 g/dL Normal 6.0-7.8 [facility] Comment on above: Performed By: #### 1 2755642, 4013409, 90397587, 10086356, 58337327, 4781234, 8443907, 1369321, 7441108, 0439345 ####[facility] [address] [place] [address] Sodium [Moles/Vol] 141 mmol/L Normal 135-145 [facility] Comment on above: Performed By: #### 1 8247134, 7904450, 74604654, 23244485, 30014630, 6475468, 8679330, 5588060, 0207106, 3309591 ####[facility] [address] [place] [address] Urea nitrogen [Mass/Vol] 22 mg/dL High 5-21 [facility] Comment on above: Performed By: #### 1 2340163, 3592220, 91321504, 22263048, 90300336, 0627381, 6843015, 2848819, 1460327, 2974314 ####[facility] [address] [place] [address] COAGULATIONOrdered By: Abby Ardon on 05-26-2023 aPTT Coag (PPP) [Time] 30.2 s Normal 25.1 - 36.5 second(s) [facility] Auto Coag Comment on above: Interpretive Data: [...] same coagulation reagent and instrumentation as [facility]. Currently there are no coagulation studies available worldwide for children to 14 days, and no normal ranges. Heparin therapeutic range (represented by Anti-Factor Xa activity of 0.2 - 0.4 U/mL) corresponds to PTT of 56.6 - 109.0 sec. INR Coag (PPP) [Relative time] 1.08 {INR} Invalid Interpretation Code [facility] Auto Coag Comment on above: Interpretive Data: I NR results are specifically intended to assess patients stabilized on long-term Anticoagulation therapy suggested INR s Less Intensive Anticoagulation 2.0 3.0 Conventional Range 3.0 4.5 PT Coag (PPP) [Time] 12.0 s Normal 9.4 - 1 2.5 second(s) [facility] Auto Coag Comment on above: Interpretive Data: [...] same coagulation reagent and instrumentation as [facility]. Currently there are no coagulation studies available [...] V. Transcribed by: ESTEFANY Technologist: LEMUEL Couch [facility] CTA Headon 05-26-2023 CTA Head Exam Date/Time: 05/26/2023 10:42 EST Reason for Exam: Neuro deficit, acute, stroke suspected;Other (please specify) Report [facility] [phone] IMPRESSION: PLEASE REFER TO NECK CTA REPORT [...] Contrast amount in ml's: 100 Normal [facility] CTA Neckon 05-26-2023 CTA Neck Exam [...] 370 Contrast amount in ml's: 100 Normal [facility] Consent for Treatmenton 05-04 Consent for Treatment [id number] .00TIFF Normal [facility] ED Clinical Summaryon 2023 ED Clinical Summary [place] [id number] ED Clinical Summary Person Information Name: TERESA BACON/[facility] Age: 87 Years : 1935 Sex: Female Language: Scottish PCP: Maurice Rogers III, DO Marital Status: Visit Id: Visit Reason: Altered mental status; Weakness or fatigue; Potential stroke; AMS Speciality: Acuity: 2 Enc Type: Observation Med Service: Emergency Arrival: 05/26/2023 09:32:27 Discharge: LOS: 000 03:23 Checkin: 05/26/2023 09:32:27 Checkout: 05/26/2023 12:55:08 Dispo Type: Admitted as IP to this [facility] EVENTS: Event Name Event Status Request Date/Time [...] 12:42:02 Patient Care Request 05/26/2023 12:42:02 ADDRESS: [address] [place] [phone] [facility] DOC NOTES: MEDICAL INFORMATION: Prescriptions Given: PATIENT EDUCATION INFORMATION: Instructions: Follow up: DIAGNOSIS: 1:Altered mental status; 2:Weakness Normal [facility] ED Note-Physicianon 05-26-19 ED Note-Physician Basic Information [...] and Complexity of Problems Differential Diagnosis: [] [facility] Data External documents reviewed: [] My [...] Plan o (more content not included)... Normal [facility] Comment on above: Result Comment: Elec tronically Signed By: Hayley Reese, Lucille Avila\.br\Date and Time Signed: 05/26/23 14:41 EST ED Patient Education Noteon 05-26-2023 ED Patient Education Note Normal [facility] ED Patient Summaryon 024 ED Patient Summary [place] [id number] Patient Discharge Instructions Person Information Name: TERESA BACON Age: 87 Years Arrival Date: 05/26/2023 09:32:27 Discharge Diagnosis: 1:Altered mental status; 2:Weakness Primary Care Physician: Maurice Rogers III, DO Provider Information Primary Provider: Lucille Hardy M.D. Advanced Weld Inspector:None The exam and treatment you received in the Emergency Department were for an urgent problem and are not intended as complete care. It is important that you follow up with a doctor, nurse practitioner, or physician?s vet assistant for ongoing care. If your symptoms [...] opioids can be used to help relieve uljeqrnt-ek-jkkrgw pain and are often prescribed following a [...] be struggling with addiction, tell your health memory care program resident and ask for guidance or call [facility]?S National Helpline at 3-995-356-DHBU. w Source: [place] Department of Health and Human Services/Center for Disease Control & Prevention [facility] Medications Given: Medication Dose Rou (more content not included)... Normal [facility] Ethanolon 05-26-2023 Ethanol Lvl <10 Normal <=11 [facility] Comment on above: Performed By: #### 2 095654, 6302344 ####[facility] [address] [place] [address] Blood GasesOrdered By: St shayy Silva on [...] - 2.2 mmol/L [facility] Resp Auto SS real estate legal secretary+ Art 141.0 mmol/L Normal 135.0 - 145.0 mmol/L [facility] Resp Auto SS Drawn by nawaf parada Invalid Interpretation Code [facility] Resp Auto SS FCOHb Art 1.4 % Low 1.5 - 4.9 % [facility] Resp Auto SS Comment on above: Interpretive Data: R eference range Nonsmoker <1.5% Smoker <5.0% Heavy Smoker <9.0% FIO2 BG 21 1 Invalid Interpretation Code [facility] Resp Auto SS FMetHb Art 0.1 % Normal 0.0 - 1.9 % [facility] Resp Auto SS FO2Hb Art 92.4 % Normal 92.0 - 100.0 % [facility] Resp Auto SS HCO3 (Bld) [Moles/Vol] 23.7 mmol/L Normal 22.0 - 26.0 mmol/L [facility] Resp Auto SS Hemoglobin (Bld) [Mass/Vol] 13.7 g/dL Normal 12.0 - 16.0 gm/dL [facility] Resp Auto SS P CO2 Arterial 38.5 mm[Hg] Normal 35.0 - 45.0 mmHg [facility] Resp Auto SS P O2 Arterial 57.7 mm[Hg] Low 80.0 - 100.0 mmHg [facility] Resp Auto SS pH (Bld) 7.400 [pH] Normal 7.350 - 7.450 [facility] Resp Auto SS Sample Site R Radial (05/26/23 10:40 AM) Normal [facility] Resp Auto SS Sample Type Arterial Draw (05/26/23 10:40 AM) Normal [facility] Resp Auto SS HEMATOLOGYOrdered By: SYSTEM SYSTEM [...] 05-26-2023 Bili Direct 0.2 mg/dL Normal 0.0-0.4 [facility] Comment on above: Performed By: #### 1 [id number], [id number], 99937902, 89097882, 83769785, 5440584, 0034927, 0516111, 5918649, 9788857 ####[facility] [address] [place] [address] Bili Indirect 1.0 mg/dL High 0.1-0.9 [facility] Comment on above: Performed By: #### 1 [id number], 9895887, 67650578, 09356153, 08047449, 1907231, 3492758, 5396668, 5973512, 5038146 ####[facility] [address] [place] [address] Interdisciplinary Note - Spe ech Languageon 05-26-2023 Interdisciplinary Note - Speech Language ST 05/26/23: BSE completed. Pt admitted to [facility] d/t AMS, headache, possible CVA. Per dtr, [...] further ST indicated at this time. Normal [facility] Laboratory - Chemistry and C hemistry - [...] Lactic Acid Lvl 1.6 mmol/L Normal 0.5-2.2 [facility] Comment on above: Performed By: #### 2 [id number], [id number] ####[facility] [address] [place] [address] Magnesiumon 05-26-2023 Magnesium [Mass/Vol] 1.8 mg/dL Normal 1.3-2.4 [facility] Comment on above: Performed By: #### 1 [id number], 3415088, 10164860, 45916424, 85817152, 5394917, 2611424, 3152808, 8184367, 4642004 ####[facility] [address] [place] [address] Message from Medicareon 05-04 Message from Medicare [id number] [id number]# 1.00TIFF Normal [facility] Monitor Recordon 05-26-2023 Monitor Record [id number]# 1.00TIFF Normal [facility] No Panel InformationOrdered By: ANGPROCESSSERVER MICROBIOLOGY on 05-26-2023 Blood Culture Charcoal No growth at 1 da y. Final to follow at 7 days. [facility] Blood Culture Charcoal No growth at 1 da y. Final to follow at 7 days. [facility] No Panel InformationOrdered By: SYSTEM SYSTEM on 05-26-2023 Alk Phos 59 [iU]/d Normal 21 - 98 Int._Unit/L [facility] Chem ALT 14 [iU]/d Normal 6 - 46 Int._Unit/L [facility] Chem AST 48 [iU]/d High 5 - 43 Int._Unit/L [facility] Bili Total 1.2 mg/dL High 0.0 - 1.1 mg/dL [facility] PTon 05-26-2023 INR Coag (PPP) [Relative time] 1.08 {INR} Invalid Interpretation Code [facility] Comment on above: Result Comment: INR results are specifically intended to assess patients stabilized on long-term Anticoagulation therapy suggested INR?s ?Less Intensive Anticoagulation? 2.0 ? 3.0 Conventional Range 3.0 ? 4.5 Performed By: #### 1 [id number], 3136395, 84649188, 48159583, 41542327, 0079592, 9026150, 9410083, 0534370, 4245461 ####[facility] [address] [place] [address] PT Coag (PPP) [Time] 12.0 second(s) Normal 9.4-12.5 [facility] Comment on above: Result Comment: 15 d [...] same coagulation reagent and instrumentation as [facility]. Currently there are no coagulation studies available worldwide for children to 14 days, and no normal ranges. Performed By: #### 1 [id number], 0496556, 68289910, 82293091, 96415354, 6499483, 5196011, 4460714, 7286751, 4356889 ####[facility] [address] [place] [address] PTTon 05-26-2023 aPTT Coag (PPP) [Time] 30.2 second(s) Normal 25.1-36.5 [facility] Comment on above: Result Comment: Para meter [...] same coagulation reagent and instrumentation as [facility]. Currently there are no coagulation studies available worldwide for children to 14 days, and no normal ranges. Heparin therapeutic range (represented by Anti-Factor Xa activity of 0.2 - 0.4 U/mL) corresponds to PTT of 56.6 - 109.0 sec. Performed By: #### 1 [id number], 3181034, 65573439, 73954641, 38874696, 1348564, 8942879, 9872890, 4538206, 9022807 ####[facility] [address] [place] [address] TSH With T4fr Reflexon 05-26 TSH Qn 4.54 m[IU]/L Normal 0.34-5.60 [facility] Comment on above: Performed By: #### 1 0776002, 4709002, 43160063, 47621157, 82386562, 4330841, 6231533, 7536989, 5721287, 2424432 ####[facility] [address] [place] [address] Troponin 0 Hr.on 05-26-2023 Troponin 22.80 pg/mL Normal 10.10-27.10 [facility] Comment on above: Result Comment: The 95% CI (Confidence Interval) PPV (Positive Predictive Value) for myocardial infarction in females is 38 pg/mL, in males 51 pg/mL. The results should be used in conjunction with clinical conditions of myocardial infarction. (Access High Sensitivity Troponin I Instructions For Use, [email or web address].cn, October 2017) Performed By: #### 1 9050284, 8716239, 37275309, 99697688, 23495508, 8116101, 6219792, 1388246, 9122962, 7420330 ####[facility] [address] [place] [address] Troponin 3 Hr.on 05-26-2023 Troponin 16.10 pg/mL Normal 10.10-27.10 [facility] Comment on above: Result Comment: The 95% CI (Confidence Interval) PPV (Positive Predictive Value) for myocardial infarction in females is 38 pg/mL, in males 51 pg/mL. The results should be used in conjunction with clinical conditions of myocardial infarction. (Triplify High Sensitivity Troponin I Instructions For Use, [email or web address].cn, October 2017) Performed By: #### 1 [id number] ####[facility] [address] [place] [address] Troponin 6 Hr.Ordered By: Authenticlick SYSTEM on 05-26-2023 Troponin 18.00 pg/mL Normal 10.10-27.10 [facility] Comment on above: Interpretive Data: T he 95% CI (Confidence Interval) PPV (Positive Predictive Value) for myocardial infarction in females is 38 pg/mL, in males 51 pg/mL. The results should be used in conjunction with clinical conditions of myocardial infarction. (Triplify High Sensitivity Troponin I Instructions For Use, [email or web address], October 2017) Result Comment: The 95% CI (Confidence Interval) PPV (Positive Predictive Value) for myocardial infarction in females is 38 pg/mL, in males 51 pg/mL. The results should be used in conjunction with clinical conditions of myocardial infarction. (Triplify High Sensitivity Troponin I Instructions For Use, [email or web address], October 2017) Performed By: #### 1 [id number] ####[facility] [address] [place] [address] U Drug Screenon 05-26-2023 U Amph Scr Negative Normal NEGATIVE [facility] Comment on above: Order Comment: Added to UA Performed By: #### 2 705688 ####[facility] [address] [place] [address] U Desirae Scr Negative Normal NEGATIVE [facility] Comment on above: Order Comment: Added to UA Performed By: #### 2 854534 ####[facility] [address] [place] [address] U Benzodia Scr Negative Normal NEGATIVE [facility] Comment on above: Order Comment: Added to UA Performed By: #### 2 346432 ####[facility] [address] [place] [address] U Cannab Scr Negative Normal NEGATIVE [facility] Comment on above: Order Comment: Added to UA Performed By: #### 2 763597 ####[facility] [address] [place] [address] U Cocaine Scr Negative Normal NEGATIVE [facility] Comment on above: Order Comment: Added to UA Performed By: #### 2 651662 ####[facility] [address] [place] [address] U Opiate Scr Negative Normal NEGATIVE [facility] Comment on above: Order Comment: Added to UA Performed By: #### 2 414739 ####[facility] [address] [place] [address] U PCP Scr Negative Normal NEGATIVE [facility] Comment on above: Order Comment: Added to UA Performed By: #### 2 189553 ####[facility] [address] [place] [address] UA With Cult Reflexon 2023 Bacteria LM Ql (Urine sed) TRACE Normal Trace [facility] Comment on above: Performed By: #### 1 9415285 ####[facility] [address] [place] [address] Bilirubin Ql (U) Negative Normal Negative [facility] Comment on above: Performed By: #### 1 7760859 ####[facility] [address] [place] [address] Clarity (U) CLEAR Normal Clear [facility] Comment on above: Performed By: #### 1 1752523 ####[facility] [address] [place] [address] Color (U) STRAW Invalid Interpretation Code [facility] Comment on above: Performed By: #### 1 8983857 ####[facility] [address] [place] [address] Epithelial cells.squamous LM.HPF (Urine sed) [#/Area] 0-2 Normal 0-2 [facility] Comment on above: Performed By: #### 1 5947312 ####[facility] [address] [place] [address] Glucose Test strip (U) [Mass/Vol] Negative Normal Negative [facility] Comment on above: Performed By: #### 1 2631456 ####[facility] [address] [place] [address] Hemoglobin Ql (U) TRACE Abnormal Negative [facility] Comment on above: Performed By: #### 1 4811179 ####[address] [address] Ketones (U) [Mass/Vol] TRACE Invalid Interpretation Code Negative [facility] Comment on above: Performed By: #### 1 [id number] ####[facility] [address] [place] [address] [place].plasma/[place] .RBC (Bld) [Mass ratio] 0-3 Normal 0-3 [facility] Comment on above: Performed By: #### 1 1825619 ####[address] [address] Nitrite Ql (U) Negative Normal Negative [facility] Comment on above: Performed By: #### 1 0750694 ####[facility] [address] [place] [address] pH (U) 7.5 [pH] Invalid Interpretation Code 5.0-9.0 [facility] Comment on above: Performed By: #### 1 5138183 ####[facility] [address] [place] [address] Protein (U) [Mass/Vol] Negative Normal Negative [facility] Comment on above: Performed By: #### 1 1072603 ####[facility] [address] [place] [address] Specific gravity (U) [Rel density] 1.010 Invalid Interpretation Code 1.005-1.030 [facility] Comment on above: Performed By: #### 1 8025558 ####[place] [address] Type of Urine collection method Clean Catch Normal [facility] Comment on above: Performed By: #### 1 2277971 ####[place] [address] Urobilinogen Qn (U) 0.2 {Byron'U}/dL Normal 0.0-1.0 [facility] Comment on above: Performed By: #### 1 0789351 ####[place] [address] WBC Auto Ql (U) Negative Normal Negative [facility] Comment on above: Performed By: #### 1 4267748 ####[facility] [address] [place] [address] WBC LM.HPF (Urine sed) [#/Area] 0-5 Normal 0-5 [facility] Comment on above: Performed By: #### 1 6205732 ####[place] [address] URINALYSISOrdered By: Abby mathis on 05-26-2023 Bacteria LM Ql (Urine sed) Trace /HPF Normal Trace/HPF [facility] UA Auto SS Bilirubin Ql (U) Negative (05/26/23 10:10 AM) Normal Negative [facility] UA Auto SS Clarity (U) Clear (05/26/23 10:10 AM) Normal Clear [facility] UA Auto SS Color (U) STRAW Invalid [...] Interpretation Code Negative [facility] UA Auto SS [place].plasma/[place] .RBC (Bld) [Mass ratio] 0-3 /HPF Normal [...] Clean Catch (05/26/23 10:10 AM) Normal [facility] UA Auto SS Urobilinogen Qn (U) 0.2405913 {Byron'U}/dL Normal 0.0 - 1.0 EU/dL FT UA Auto SS WBC Auto Ql (U) Negative (05/26/23 10:10 AM) Normal Negative [facility] UA Auto SS WBC LM.HPF (Urine sed) [#/Area] 0-5 /HPF Normal 0-5/HPF [facility] UA Auto SS XR Chest Single Viewon 05-26 XR Chest Single View Exam Date/Time: 05/26/2023 09:47 EST Reason for Exam: Chest pain Report [facility] [phone] IMPRESSION: There are no acute cardiopulmonary changes. [...] mGy = na DAP = na Normal [facility] eGFRon 05-26-2023 eGFR 61 mL/min/1.73 m2 Normal >=59 [facility] Comment on above: Order Comment: Order added by Discern Expert. Performed By: #### 1 [id number], 9050293, 32714272, 17378199, 69578365, 7542739, 3811524, 3866375, 4323645, 8905927 ####[facility] [address] [place] [id number] XR DEXA BONE DENSITYon 04-25 XR DEXA [...] by: SRINIVASA ECHAVARRIA Date: 2022-04-25 10:06 Normal [facility] CULTURE URINEon 12-14-2021 CULTURE URINE Isolate [...] F Trimethoprim/Sulfamet hoxazole <=20 S F Normal [facility] Comment on above: Performed By: #### U RCX #### [facility] [address] [place] [address] Dr. Yoni Thao ER URINE PROFILEon 2 Bilirubin Ql (U) Negative Normal NEGATIVE [facility] Comment on above: Performed By: #### U MICRO, ERUR #### [facility] [address] [place] [address] Dr. Yoni Thao Clarity (U) CLEAR Normal CLEAR [facility] Comment on above: Performed By: #### U MICRO, ERUR #### [facility] [address] [address] [address] Yoni Thao Color (U) LT. YELLOW Normal YELLOW [facility] Comment on above: Performed By: #### U MICRO, ERUR #### [facility] [address] [place] [address] Dr. Yoni HUMPHREYSD A micrscopic examination will be performed if indicated. Normal [facility] Comment on above: Performed By: #### U MICRO, ERUR #### [facility] [address] [place] [address] Dr. Yoni Thao Glucose Ql (U) Negative Normal NEGATIVE [facility] Comment on above: Performed By: #### U MICRO, ERUR #### [facility] [address] [place] [address] Dr. Yoni Thao Hemoglobin Ql (U) LARGE Abnormal NEGATIVE [facility] Comment on above: Performed By: #### U MICRO, ERUR #### [facility] [address] [address] [address] Yoni Thao Ketones Ql (U) Negative Normal NEGATIVE [facility] Comment on above: Performed By: #### U MICRO, ERUR #### [facility] [address] [address] [address] Yoni Thao LEUKOCYTES MODERATE Abnormal NEGATIVE [facility] Comment on above: Performed By: #### U MICRO, ERUR #### [facility] [address] [place] [address] Dr. Yoni Thao Nitrite Ql (U) Positive Abnormal NEGATIVE [facility] Comment on above: Performed By: #### U MICRO, ERUR #### [facility] [address] [place] [address] Dr. Yoni Thao pH (U) 6.5 [pH] Normal 5-[address] [facility] Comment on above: Performed By: #### U MICRO, ERUR #### [facility] [address] [place] [address] Dr. Yoni Thao SPEC GRAVITY 1.010 Normal 1.005-<=1.[address] [facility] Comment on above: Performed By: #### U MICRO, ERUR #### [facility] [address] [place] [address] Dr. Yoni Thao UA PROTEIN TRACE Normal NEGATIVE/ TRACE [facility] Comment on above: Performed By: #### U MICRO, ERUR #### [facility] [address] [place] [address] Dr. Yoni Thao UR MICRO IND INDICATED Normal [facility] Comment on above: Performed By: #### U MICRO, ERUR #### [facility] [address] [place] [address] Dr. Yoni Thao Urobilinogen Qn (U) 0.2 {Byron'U}/dL Normal 0.2 - 1. [address] [facility] Comment on above: Performed By: #### U MICRO, ERUR #### [facility] [address] [place] [address] Dr. Yoni hTao URINE MICROSCOPIC ONLYon BACTERIA SMALL Abnormal NONE SEEN [facility] Comment on above: Performed By: #### U MICRO, ERUR #### [facility] [address] [place] [address] Dr. Yoni Thao Bacteria identified Cx Nom (U) INDICATED Normal [facility] Comment on above: Performed By: #### U MICRO, ERUR #### [facility] [address] [place] [address] Dr. Yoni Thao CAST NONE SEEN Normal NONE SEEN [facility] Comment on above: Performed By: #### U MICRO, ERUR #### [facility] [address] [place] [address] Dr. Yoni Thao Crystals LM Nom (Urine sed) NONE SEEN Normal NONE SEEN [facility] Comment on above: Performed By: #### U MICRO, ERUR #### [facility] [address] [address] [address] Yoni Thao Epithelial cells LM Ql (Urine sed) FEW Abnormal NONE SEEN /RARE [facility] Comment on above: Performed By: #### U MICRO, ERUR #### [facility] [address] [address] [address] Yoni Thao MUCOUS NONE SEEN Normal NONE SEEN [facility] Comment on above: Performed By: #### U MICRO, ERUR #### [facility] [address] [address] [address] Yoni Thao RBC 20-50 Abnormal 0-[address] [facility] Comment on above: Performed By: #### U MICRO, ERUR #### [facility] [address] [address] [address] Yoni Thao WBC 20-50 Abnormal NONE SEEN [facility] Comment on above: Performed By: #### U MICRO, ERUR #### [facility] [address] [address] [address] Yoni Thao Q - CULTURE,URINE,ROUTINEon 05-17-2021 CULTURE, URINE, ROUTINE SEE NOTE Abnormal [facility] [employer] Comment on above: Order Comment: [employer] [facility] performed at: [email or web address], [employer] [facility], [address] [place] [address], [address] [place] [address], [id number], Electrical Worker: Husam Whittaker MD [facility] Collection Date/Time: [id number] [facility] Results Received Date/Time: [id number] [facility] Reported Date/Time: [id number] Result Comment: CULT URE, URINE, ROUTINE Micro Number: [id number] Test Status: Final Specimen Source: Not given [...] 6 304R #### [facility] [address] [place] [address] Vital Signs Date Time Vital Sign Value Performing Clinician Cinda cabrera 06-12-2023 04:35-0400 Diastolic blood pressure 83 mm[Hg] [facility] [employer] [facility] 06-12-2023 04:35-0400 Heart rate 74 /min [facility] [employer] [facility] 06-12-2023 04:35-0400 Mean blood pressure 105 mm[Hg] [facility] [employer] [facility] 06-12-2023 04:35-0400 Respiratory rate 16 /min [facility] [employer] [facility] 06-12-2023 04:35-0400 SaO2% (BldA) [Mass fraction] 94 % Sudhakar [employer] [facility] 06-12-2023 04:35-0400 Systolic blood pressure 148 mm[Hg] Sudhakar [employer] [facility] 06-12-2023 03:43-0400 Diastolic blood pressure 96 mm[Hg] Sudhakar Lu[facility] 06-12-2023 03:43-0400 Heart rate 74 /min Sudhakar Lupe [facility] 06-12-2023 03:43-0400 Mean blood pressure 121 mm[Hg] Sudhakar Lupe [facility] 06-12-2023 03:43-0400 Respiratory rate 23 /min Sudhakar Lupe [facility] 06-12-2023 03:43-0400 SaO2% (BldA) [Mass fraction] 96 % Sudhakar Ulpe [facility] 06-12-2023 03:43-0400 Systolic blood pressure 171 mm[Hg] Sudhakar Lupe [facility] 06-12-2023 03:10-0400 Diastolic blood pressure 89 mm[Hg] Sudhakar Lupe [facility] 06-12-2023 03:10-0400 Heart rate 92 /min Sudhakar Lu[facility] 06-12-2023 03:10-0400 Mean blood pressure 114 mm[Hg] Sudhakar Lupe [facility] 06-12-2023 03:10-0400 Respiratory rate 46 /min Sudhakar Lupe [facility] 06-12-2023 03:10-0400 SaO2% (BldA) [Mass fraction] 94 % Sudhakar Lupe [facility] 06-12-2023 03:10-0400 Systolic blood pressure 164 mm[Hg] Sudhakar Lupe [facility] 06-12-2023 02:36-0400 Blood Pressure Location Sudhakar Lupe [facility] 06-12-2023 02:36-0400 Body temperature 98.24 [degF] Sudhakar Lupe [facility] 06-12-2023 02:36-0400 Heart rate 78 /min [facility] 06-12-2023 02:36-0400 Respiratory rate 16 /min [facility] 05-27-2023 14:00-0500 [facility] 05-27-2023 14:00-0500 Promise to Return [facility] 05-27-2023 13:10-0500 [facility] 05-27-2023 13:10-0500 [facility] 05-27-2023 12:00-0500 [facility] 05-27-2023 12:00-0500 [facility] 05-27-2023 08:20-0500 SaO2% (BldA) [Mass fraction] 95 % [facility] 05-27-2023 08:10-0500 Heart rate 77 /min [facility] 05-27-2023 08:10-0500 SaO2% (BldA) [Mass fraction] 95 % [facility] 05-27-2023 08:09-0500 Diastolic blood pressure 62 mm[Hg] [facility] 05-27-2023 08:09-0500 Mean blood pressure 75 mm[Hg] [facility] 05-27-2023 08:09-0500 Systolic blood pressure 101 mm[Hg] [facility] 05-27-2023 08:09-0500 Body temperature 98.24 [degF] loisluis enrique [facility] 05-27-2023 04:54-0500 Blood Pressure Location [facility] 05-27-2023 04:54-0500 Body temperature 97.88 [degF] [facility] 05-27-2023 04:54-0500 Diastolic blood pressure 63 mm[Hg] [facility] 04:54-0500 Heart rate 77 /min [facility] 05-27-2023 04:54-0500 Mean blood pressure 74 mm[Hg] sunni [facility] 05-27-2023 04:54-0500 Respiratory rate 16 /min [facility] 05-27-2023 04:54-0500 SaO2% (BldA) [Mass fraction] 96 % [facility] 05-27-2023 04:54-0500 Systolic blood pressure 97 mm[Hg] loisluis enrique [facility] 05-27-2023 00:47-0500 Blood Pressure Location [facility] 05-27-2023 00:47-0500 Body temperature 98.6 [degF] [facility] 05-27-2023 00:47-0500 Diastolic blood pressure 64 mm[Hg] [facility] 05-27-[facility] 00:47-0500 Heart rate 81 /min [facility] 05-27-2023 00:47-0500 Mean blood pressure 78 mm[Hg] [facility] 05-27-2023 00:47-0500 Respiratory rate 15 /min [facility] 05-27-2023 00:47-0500 Systolic blood pressure 105 mm[Hg] [facility] 05-26-2023 20:00-0500 Body temperature 98.06 [degF] [facility] 05-26-2023 20:00-0500 Heart rate 87 /min [facility] 05-26-2023 20:00-0500 Mean blood pressure 95 mm[Hg] [facility] 05-26-2023 16:57-0500 Heart rate 85 /min sunni [facility] 05-26-2023 16:56-0500 Mean blood pressure 89 mm[Hg] [facility] 05-26-2023 16:55-0500 Body temperature 98.42 [degF] [facility] 05-26-2023 12:55-0500 Body temperature 97.52 [degF] [facility] 05-26-2023 12:55-0500 Heart rate 95 /min [facility] 05-26-2023 12:32-0500 Heart rate 84 /min [facility] 05-26-2023 12:32-0500 Respiratory rate 16 /min [facility] 05-26-2023 12:13-0500 Respiratory rate 18 /min [facility] 05-26-2023 11:57-0500 Respiratory rate 18 /min [facility] 05-26-2023 10:40-0500 SaO2% (BldA) [Mass fraction] 93.8 % sunni [facility] Resp Auto SS 05-26-2023 09:53-0500 gluc 91 mg/dL [facility] 05-26-2023 09:53-0500 gluc [facility] 05-26-2023 09:33-0500 Heart rate 85 /min [facility] Encounters Encounter Date Encounter Type Care Provider Facility Start: 09-17-2023 End: 09-17-2023 ambulatory ANA B SIMON Not Available Start: 08-02-2023 End: 08-02-2023 ambulatory Mayank Lo Facility:[facility] Start: 08-02-2023 End: 08-02-2023 ambulatory Mayank Lo Work Phone: [facility] Work Phone: Start: 08-02-2023 End: 08-02-2023 Departed Referred Mayank Lo Work Phone: [facility] Start: 07-12-2023 End: 07-12-2023 ambulatory ANA SIMON Not Available Start: 06-20-2023 End: 06-20-2023 ambulatory ANA SIMON Not Available Start: 06-12-2023 End: 06-12-2023 Emergency department patient visit Sudhakar Andrade Facility:[facility] Start: 06-12-2023 End: 06-12-2023 Emergency department patient visit Sudhakar Andrade [facility] Start: 05-26-2023 End: 05-27-2023 ambulatory Carly Stapleton Facility:[facility] Start: 05-26-2023 End: 05-27-2023 Observation Carly Stapleton [facility] Start: 04-25-2022 End: 04-26-[address] MERVAT ORELLANA Facility:[facility] Start: 12-12-2021 End: 12-12-[address] DOCTOR EGAN Facility:[facility] Start: 07-30-2017 End: 07-31-2017 Ambulatory DEFAULT PHYSICIAN Facility:[facility] Procedures Date Procedure Procedure Detail Performing Clinician Abdominal hysterectomy Carly Stapleton Payers Date Payer Category Payer Self-pay 1959 Unknown [id number] 1935 Unknown [id number] 2.16.84 [id number] 1935 Unknown [id number] 2.16.84 [id number] 1935 Unknown [id number] 2.16.8 [id number] 1935 Unknown [id number] 2.16.8 [id number] 1935 Unknown [id number] 2.16.84 [id number] 1935 Unknown [id number] 2.16.84 [id number] 1935 Unknown [id number] 2.16.84 [id number] Unknown Social History Date Type Detail Facility Tobacco smoking status [facility] Sex Assigned At Female [facility] Start: 1935 Sex Assigned At Female F [facility] Functional Status Date Assessment Result Facility 06-12-2023 Functional Status N/A [facility] 05-26-2023 Functional Status No [facility] 05-26-2023 Functional Status [facility] Clinical Notes 05-27-2023 to 06-12-2023 Note Date & Type Note Facility 06-12-2023 Evaluation + Plan note Extrac prateek from: Title:ED Note Author:Sudhakar Andrade DO Date :06/12/23 Encounter for medical screen ing examination (Z13.9: Encounter for screening, unspecified) Orders: Basic Metabolic Panel CBC w/ Auto Diff CT Head or Brain w/o Contrast ECG 12 Lead Adult eGFR Influenza A&B Ag Rapid COVID Antigen ([facility]) Saline Lock Insert Troponin 0 Hr. UA With Cult Reflex XR Chest Single View [facility]03-12-2024 Hospital Discharge instructions Patient Education 06/12/2023 [...] including vitamins, herbs, eye drops, creams, and uihx-nvs-nntazvy medicines. Any problems you or family members [...] if you need an emergent specialist or cassandra consultant that is not available at the medical center you are at. You need to have more tests. A medical transcription may be consulted if needed. Get help [...] provider. Document Revised: 11/30/2021 Document Reviewed: 07/28/2021 [employer] Patient Education 2022 [employer]. Follow Up Care 06/12/2023 02:35:11 With:Maurice Rogers Address: [address] [place] [id number] Business (1) When:Within 3 Day(s) [facility]03-02-2024 NoteMicrobiology PROCEDURE: Blood Culture Charcoal [R1] SOURCE: Blood BODY SITE: Hand L COLLECTED DATE/TIME: 05/26/2023 09:55 EST RECEIVED DATE/TIME: 05/26/2023 10:59 EST START DATE/TIME: 05/26/2023 10:59 EST FREE TEXT SOURCE: Hayley Reese, Lucille Hardy M.D., Lucille Avila FINAL REPORTS Final Report [] Verified Date/Time: 06/02/2023 15:32 EST No growth at 7 days. Performing Locations R1: This test was performed at: [facility], [address] [place] [address], [id number]- , , VqjjnbAdena Fayette Medical CenterComment on above:Performed By: #### [id number] ####[facility] [address] [place] [address] [phone] NoteMicrobiology PROCEDURE: Blood Culture Charcoal [R1] SOURCE: Blood BODY SITE: Hand R COLLECTED DATE/TIME: 05/26/2023 09:48 EST RECEIVED DATE/TIME: 05/26/2023 11:00 EST START DATE/TIME: 05/26/2023 11:00 EST FREE TEXT SOURCE: Hayley Reese, Lucille Hardy M.D., Astrsalinas H FINAL REPORTS Final Report [] Verified Date/Time: 06/02/2023 15:32 EST No growth at 7 days. Performing Locations R1: This test was performed at: [facility], [address] [place] [address], [phone]- , [place], BdovssAdena Fayette Medical CenterComment on above:Performed By: #### [id number] ####[facility] [address] [place], [place] [phone] NoteChief Complaint pt to ER with c/o [...] U Benzodia Scr: NEGATIVE (more content not included)...[facility] CenterComment on above:Result Comment: Electronically Signed By: Clarice ARMSTRONG\.br\Date and Time Signed: 05/26/23 14:49 EST\.br\Electronically Co-Signed By: Pieter BAKER, Carly\.br\Date and Time Co-Signed: 05/27/23 17:02 [id number] NoteAdmission and Discharge Information Admitting Physician - [...] JEMIMA Talley Within 2 to 4 weeks [place] [address] [address] [phone]- Additional Instructions: [facility] Education [facility]:Result Comment: Electronically Signed By: Clarice ARMSTRONG\.br\Date and Time Signed: 05/27/23 14:57 EST\.br\Electronically Co-Signed By: Carly Stapleton MD\.br\Date and Time Co-Signed: 05/27/23 17:02 [id number] Hospital Discharge instructions Patient Education 05/27/2023 12:19:34 [...] friend for help if needed. Medicines Take fiqh-kjj-bjxucnm and prescription medicines only as told by [...] consider day care, extended-care programs, or a alf facility. The person's health care provider may [...] provider. Document Revised: 07/13/2020 Document Reviewed: 07/13/2020 [employer] Patient Education 2022 [employer] Follow Up Care 05/26/2023 09:32:48 With:Mayank Lawson MD, NEU Address: [place] [address]- When:2 to 4 weeks [facility]02-25-2024 Evaluation + Plan noteExtracted from: Title:Discharge [...] MD, NEU Within 2 to [address] [place] [address]- Additional Instructions: Confusion Extracted from: Title:APSO Note [...] Reflex Vital Signs XR Chest Single View [facility]02-25-2024 NoteOT [facility] six [facility] score = HH services vs no further services at [place], pending progress. Pt requires CGA w/ transfers and standing adls. Inpatient OT services to follow daily as pt lives alone.[facility] CenterEvaluation noteNo assessment information availablePaulding County Hospital Work Phone: Hospital course Narrative No data available for this section [facility] No data available for this section [facility] Summary Purpose Family History No Family [...] and content) DATE CREATED AUTHOR 09/20/2017 [facility] DATE CREATED AUTHOR AUTHOR'S ORGANIZ ATION 05/26/2021 [facility] dical Specialist DATE CREATED AUTHOR AUTHOR'S ORGANIZ ATION 04/26/2022 [facility] pital DATE CREATED AUTHOR AUTHOR'S ORGANIZ ATION 06/21/2023 [facility] DATE CREATED AUTHOR AUTHOR'S ORGANIZ ATION 08/16/2023 [facility] DATE CREATED AUTHOR AUTHOR'S ORGANIZ ATION 09/19/2023 [facility] dical Specialists EPIC Patient Care team [...] BE BASED ON THE PRIMARY CLINICAL RECORDS. [facility] [employer] [facility]. provides no warranty or guarantee of the accuracy or completeness of information in this document.
== END 2023-12-10 11:04 | disposition home or self-care (01) ==
LOC: EC 11:04
PROVIDERS: PCP Internal Medicine; Visit Provider Orthopaedic Surgery
DX: S42.025D Nondisplaced fracture of shaft of left clavicle, subsequent encounter for fracture with routine healing (principal)
CPT/HCPCS: 73000

== ENCOUNTER 2024-01-07 11:34 | Outpatient (OUT) | payer MEDICARE, SELFPAY ==
--- NOTE | 2024-01-07 | XR_ITS ---
The [address] [address] Patient Name: SANIYA ZHANG MRN: [id number] date: 1935 Sex: F Assigned Patient Location: Current Patient Location: Accession/Order Number: [id number] Exam Date: 01/07/2024 11:35 Report Date: 01/09/2024 05:05 At the request of: KEILA SMITH Procedure: XR clavicle LT PROCEDURE: XR clavicle LT HISTORY: LEFT CLAVICLE PAIN COMPARISON: XR clavicle left 12/10/2023 FINDINGS: BONES:Distal left clavicle fracture with mild callus formation. Approximately 5 mm cephalad displacement of the distal head of the clavicle. Intact appearance of the acromioclavicular joint. SOFT TISSUES:No visible soft tissue swelling. EFFUSION:None visible. OTHER: Negative. XR/XR clavicle LT IMPRESSION: 1. Stable alignment and appearance of distal left clavicle fracture. Electronically authenticated by: KEILA NEGRETE Date: 01/09/2024 05:05
--- OUTSIDE RECORDS SUMMARY | 2024-01-07 11:41 | XMS_ITS | CCD ---
Author Organization [facility] Care Team Providers Care Auto Refinisher Name Role Phone PHYSICIAN, DEFAULT Unavailable Unavailable PHYSICIAN, DEFAULT Unavailable Unavailable MISC, DR YANES Primary Care Unavailable ANGEL, DR BHAKTI Brandt Attending Unavailabl e ANGEL, DR BHAKTI Brandt Consulting Unavailabl e ANGEL, DR BHAKTI Brandt Admitting Unavailabl e KIKOCHERYL Consulting Unavailable HEMMER, DR MERVAT Baker Admitting Unavailable MISC, DR YANES Primary Care Unavailable PLAINS, DR SRINIVASA Burks Consulting Unavailable HEMMER, DR MERVAT Baker Attending Unavailable HEMMER, DR MERVAT Baker Consulting Unavailable Maurice Rogers III Primary Care Physician Carly Stapleton Attending Unavailable Carly Stapleton Admitting Unavailable Snyder, Mayank Consulting Unavailable Snyder, Mayank Consulting Unavailable Snyder, Mayank Consulting Unavailable Snyder, Mayank Consulting Unavailable Snyder, Mayank Consulting Unavailable Snyder, Mayank Consulting Unavailable Snyder, Mayank Consulting Unavailable Snyder, Mayank Consulting Unavailable Snyder, Mayank Consulting Unavailable Sudhakar Andrade Attending Unavailable Mayank Lo Attending Provider [phone] Mayank Lo Attending Unavailable Mayank Lo Admitting [...] Other mcc (current) drug therapy; Translations: [OTH CATH LAB RADIOLOGICAL TECHNOLOGIST CURRENT DRUG THERAPY] Onset: 12-14-2021 Episodic Unclassified (1 source) LOW BACK PAIN, UNSPECIFIED; Translations: [LOW BACK PAIN, UNSPECIFIED] Onset: 12-12-2021 Urinary tract infections (1 source) Urinary tract infection, site not specified; Translations: [UTI SITE NOT SPECIFIED] Onset: 12-14-2021 Episodic Results Test Name Value Interpretation Reference Range Facility [facility] 08-02-2023 L Specimen: [id number] Received: 08/03/23 Status: JOCELYN Dunbar Num: [id number] Spec Type: Surgical Subm Dr: Mayank Lo Tissues: A Femoral Head - Fracture (RT HIP) Procedures: HE/2, Gross/Micro L4, Decalcification Age/ Patient Sex Location Account Attending Physician Teresa Bacon 88/F LABELL [id number] Mayank Lo SPEC NUM: [id number] RECD: 08/03/23 STATUS: JOCELYN DUNBAR NUM: [id number] TIM: 08/02/[address]: Mayank Lo ENTERED: 08/03/[address] [facility] [address]: Pam,Lab SPEC TYPE: Surgical DEPT: RIAN [...] bone matrix with no focal lesions present. Engrosser sections are submitted following decalcification A1-femoral head, following decalcification A2-fracture site, following decalcification Clinical history: Fall/head injury, right hip fracture -------- Specimen: [id number] Received: 08/03/23 Status: JOCELYN Dunbar Num: [id number] Spec Type: Surgical Subm Dr: Mayank Lo Tissues: A Femoral Head - Fracture (RT HIP) Procedures: HE/2, Gross/Micro L4, Decalcification -------- Patient: JordiTeresa Matthew [id number] (Continued) -------- Specimen: [id number] Received: 08/03/23 (Continued) Gross Description (Continued) Signed (signature on file) Georgina Thao MD 08/06/231900 -------- Specimen: [id number] Received: 08/03/23 Status: JOCELYN Dunbar Num: [id number] Spec Type: Surgical Subm Dr: Mayank Lo Tissues: A Femoral Head - Fracture (RT HIP) Procedures: HE/2, Gross/Micro L4, Decalcification -------- Patient: ChelsearaviTeresa Matthew [id number] (Continued) -------- Specimen: [id number] Received: 08/03/23 (Continued) Gross Description (Continued) CPT Codes 08468, 37580 FEMORAL HEAD FEMORAL HEAD -------- -------- Specimen: [id number] Received: 08/03/23 Status: JOCELYN Bettina Num: [id number] Spec Type: Surgical Subm Dr: Mayank Lo Tissues: A Femoral Head - Fracture (RT HIP) Procedures: HE/2, Gross/Micro L4, Decalcification -------- Patient: Teresa Bacon [id number] (Continued) -------- Signed (signature on file) Georgina Thao MD 08/06/23 190 Normal [facility] Anion gap [Moles/Vol] 15 mmol/L Normal 6-16 [facility] Comment on above: Performed By: #### 2 198757, 8631626, [id number], [id number] ####[facility] [address] [place] [address] Calcium [Mass/Vol] 10.1 mg/dL Normal 8.9-11.1 [facility] Comment on above: Performed By: #### 2 415644, 8077006, 68514365, 72008707 ####[facility] [address] [place] [address] Chloride [Moles/Vol] 108 mmol/L Normal 101-111 [facility] Comment on above: Performed By: #### 2 097752, 3356531, 52187171, 61847435 ####[facility] [address] [place] [address] CO2 [Moles/Vol] 22 mmol/L Normal 21-31 [facility] Comment on above: Performed By: #### 2 200620, 5884355, 37377645, 95758573 ####[facility] [address] [place] [address] Creatinine [Mass/Vol] 0.8 mg/dL Normal 0.5-1.3 [facility] Comment on above: Performed By: #### 2 051769, 9210934, 31064311, 79618138 ####[facility] [address] [place] [address] Glucose [Mass/Vol] 101 mg/dL Normal 55-199 [facility] Comment on above: Performed By: #### 2 282608, 0841818, 00165102, 71360872 ####[facility] [address] [place] [address] Potassium [Moles/Vol] 3.6 mmol/L Normal 3.5-5.3 [facility] Comment on above: Performed By: #### 2 779965, 3442097, 66109794, 84798463 ####[facility] [address] [place] [address] Sodium [Moles/Vol] 141 mmol/L Normal 135-145 [facility] Comment on above: Performed By: #### 2 775050, 1415820, 17416122, 33946872 ####[facility] [address] [place] [address] Urea nitrogen [Mass/Vol] 23 mg/dL High 5-21 [facility] Comment on above: Performed By: #### 2 979414, 0824750, 86276322, 55392082 ####[address] [address] Urea nitrogen/Creatinine [Mass ratio] 29 No Units High 10-20 [facility] Comment on above: Performed By: #### 2 430490, 5072743, 34216693, 30966763 ####[address] [address] CBC w/ Auto Diffon 4 Basophils/100 WBC (Bld) 1.2 % Normal 0.0-2.0 [facility] Comment on above: Performed By: #### 2 333305, 0849920, 05468854, 08137298 ####[address] [address] Basophils/Leukocytes Auto (Bld) [Pure # fraction] 0.1 E9/L Normal 0.0-0.2 [facility] Comment on above: Performed By: #### 2 799490, 7691476, 64320163, 43525230 ####[address] [address] Eosinophils (Bld) [#/Vol] 0.1 E9/L Normal 0.0-0.5 [facility] Comment on above: Performed By: #### 2 047835, 1600767, 54966372, 46656935 ####[address] [address] Eosinophils/100 WBC (Bld) 1.2 % Normal 0.0-8.0 [facility] Comment on above: Performed By: #### 2 797779, 1516363, 14724791, 84480229 ####[address] [address] Erythrocyte distribution width (RBC) [Ratio] 13.3 % Normal 10.9-14.2 [facility] Comment on above: Performed By: #### 2 180987, 0081364, 38220131, 86117176 ####[facility] [address] [place] [address] Hematocrit (Bld) [Volume fraction] 43.1 % Normal 34.0-46.0 [facility] Comment on above: Performed By: #### 2 591949, 8758035, 30931892, 32490791 ####[facility] [address] [place] [address] Hemoglobin (Bld) [Mass/Vol] 15.2 g/dL Normal 12.0-16.0 [facility] Comment on above: Performed By: #### 2 792134, 5466714, 78200692, 70795735 ####[address] [address] Lymphocytes (Bld) [#/Vol] 2.2 E9/L Normal 1.0-4.0 [facility] Comment on above: Performed By: #### 2 501531, 7221847, 92080173, 69836359 ####[address] [address] Lymphocytes/100 WBC (Bld) 28.5 % Normal 14.0-50.0 [facility] Comment on above: Performed By: #### 2 446574, 3912988, 52467931, 21206620 ####[address] [address] MCH (RBC) [Entitic mass] 30.0 pg Normal 27.0-34.0 [facility] Comment on above: Performed By: #### 2 888606, 0790867, 69911229, 40652355 ####[address] [address] MCHC (RBC) [Mass/Vol] 35.2 g/dL Normal 31.4-36.0 [facility] Comment on above: Performed By: #### 2 810333, 1395445, 61662912, 59983478 ####[address] [address] MCV (RBC) [Entitic vol] 85.1 fL Normal 80.0-100.0 [facility] Comment on above: Performed By: #### 2 861238, 2493027, 77884033, 98672304 ####[address] [address] Monocytes (Bld) [#/Vol] 0.7 E9/L Normal 0.2-1.0 [facility] Comment on above: Performed By: #### 2 289361, 6438823, 83381240, 61901050 ####[address] [address] Neutrophils (Bld) [#/Vol] 4.6 E9/L Normal 2.0-7.5 [facility] Comment on above: Performed By: #### 2 337275, 3548057, 83893558, 40487508 ####[address] [address] Neutrophils/100 WBC (Bld) 60.1 % Normal 36.0-75.0 [facility] Comment on above: Performed By: #### 2 334576, 9933466, 54530889, 82055992 ####[address] [address] Platelet 245.0 E9/L Normal 150.0-500.0 [facility] Comment on above: Performed By: #### 2 453443, 9829364, 60038824, 30882429 ####[address] [address] Platelet mean volume (Bld) [Entitic vol] 6.9 fL Normal 6.4-10.8 [facility] Comment on above: Performed By: #### 2 174074, 1803238, 91663589, 87334287 ####[facility] [place] [address] RBC (Bld) [#/Vol] 5.1 E12/L Normal 4.3-5.9 [facility] Comment on above: Performed By: #### 2 382978, 8648866, 94596554, 37970152 ####[facility] [address] [place] [address] WBC corrected for nucl RBC Auto (Bld) [#/Vol] 7.6 E9/L Normal 4.0-11.0 [facility] Comment on above: Performed By: #### 2 398287, 5235823, 89137685, 80546567 ####[facility] [address] [place] [address] CHEMISTRYOrdered By: SYSTEM SYSTEM on 06-12-2023 Anion [...] Sensitivity Troponin I Instructions For Use, [employer], October 2017) Urea nitrogen [Mass/Vol] 23 mg/dL [...] Technologist: REINALDO Technical Comments Contrast: None Normal [facility] Consent for Treatmenton 05-31 Consent for Treatment [id number]#1. 00TIFF Normal [facility] Discharge Instructionson Discharge Instructions [id number] #1.00TIFF Normal [facility] ED Clinical Summaryon 2023 ED Clinical Summary [address] [id number] ED Clinical Summary Person Information Name: TERESA BACON/New_Hira Age: 87 Years : 1935 Sex: Female Language: Nigerien PCP: Maurice Rogers III, DO Marital Status: [...] 06/12/2023 04:50:27 06/12/2023 04:50:27 06/12/2023 04:50:27 ADDRESS: [address] [place] [phone] PHYS DOC NOTES: MEDICAL INFORMATION: Prescriptions Given: [...] Follow up: With: Address: When: Maurice Rogers [address] [place] [address], [facility], [place] [address] Venuemob (1) In 3 days DIAGNOSIS: Encounter for medical screening examination Normal [facility] ED Note-Physicianon 06-12-19 ED Note-Physician Basic Information [...] and Complexity of Problems Differential Diagnosis: [] [facility] Data External documents reviewed: N/A My [...] process. On reassessment the patient's son and ylmdxjor-oq-pzl are with her. She states that she [...] eGFR Influenza A&B Ag Rapid COVID Antigen ([facility]) Saline Lock Insert Troponin 0 Hr. UA With Cult Reflex XR Chest Single View Disposition Plan Discharge Prescription List Prescriptions No active prescription medications Follow-up With When Contact Information Maurice Rogers In 3 days [address] [facility] [place] [address] [facility] (1) Additional Instructions: Patient Education Medical Screening [...] Lymph Auto: 28.5 % (06/12/23 02:43:00) [place] Auto: 9 % (06/12/23 02:43:00) Eos Auto: 1.2 % (06/12/23 02:43:00) Basophil Auto: 1.2 % (06/12/23 02:43:00) Neutro Absolute: 4.6 E9/L (06/12/23 02:43:00) Lymph Absolute: 2.2 E9/L (06/12/23 02:43:00) [place] Absolute: 0.7 E9/L (06/12/23 02:43:00) Eos Absolute: [...] Catch (0 (more content not included)... Normal [facility] Comment on above: Result Comment: Elec [...] including vitamins, herbs, eye drops, creams, and tbib-buf-vhnljan medicines. ? Any problems you or family [...] if you need an emergent specialist or senior management consultant that is not available at the medical center you are at. ? You need to have more tests. A clinical specialist medical device may be consulted if needed. Get help [...] provider. Document Revised: 11/30/2021 Document Reviewed: 07/28/2021 [employer] Patient Education ? 2022 [employer] Normal [facility] ED Patient Summaryon 024 ED Patient Summary [address] [address] Patient Discharge Instructions Person Information Name: TERESA BACON Age: 87 Years Arrival Date: 06/12/2023 02:34:46 Discharge Diagnosis: Encounter for medical screening examination Primary Care Physician: Maurice Rogers III, DO Provider Information Primary Provider: Sudhakar Andrade DO Advanced Tow Mate:None The exam and treatment you received in the Emergency Department were for an urgent problem and are not intended as complete care. It is important that you follow up with a doctor, nurse practitioner, or physician?s buyer assistant for ongoing care. If your symptoms [...] Follow-up Instructions: With: Address: When: Maurice Rogers [address] [place] [address], [place] [address] Business (1) In 3 days In the event that this physician does not participate in your insurance network, please consult with your insurance company to find a nearby participating provider. Patient Education Materials: Medical Screening Exam A MESSAGE TO ALL PATIENTS REGARDING OPIOIDS PRESCRIPTION OPIOIDS: WHAT YOU NEED TO KNOW Prescription opioids can be used to help relieve vuipoumc-fk-dgkppl pain and are often prescribed following a [...] with addiction, tell your health customer care consultant and ask for guidance or call [facility]?S National Helpline at 2-303-937-HXLG. v So (more content not included)... Normal [facility] HEMATOLOGYOrdered By: SYSTEM SYSTEM on 06-12-2023 Basophils/100 [...] Agon Influenzae A Ag Negative Normal Negative [facility] Comment on above: Performed By: #### 2 [id number], [id number] ####[facility] [address] [place] [address] Influenzae B Ag Negative Normal Negative [facility] Comment on above: Result Comment: Test sensitivity and specificity vary for age group, specimen type, antigen types, and prevalence of disease. Test results must be evaluated in conjunction with other clinical data available to the physician. Individuals who received nasally administered Influenza A vaccine may have positive test results up to 3 days after vaccination. Performed By: #### 2 [id number], [id number] ####[facility] [address] [place] [address] MICRO OTHER TESTSOrdered By: Zehra Bateman on 06-12-2023 Influenzae A Ag Negative (06/12/23 2:50 AM) Normal Negative [facility] Man Sero Influenzae B Ag Negative 1 (06/12/23 2:50 AM) Normal Negative [facility] Sero Comment on above: Interpretive Data: T [...] NEG Ctl Pass (06/12/23 2:50 AM) Normal [facility] Rapid COV Int POS Ctl Pass (06/12/23 2:50 AM) Normal [facility] SARS-CoV+SARS-CoV-2 (COVID-19) Ag IA.rapid Ql (Resp) Not Detected 3 (06/12/23 2:50 AM) Normal Not Detected [facility] Comment on above: Interpretive Data: T he [employer] Veritor System for Rapid Detection of SARS-CoV-2 [...] For in vitro diagnostic use. In the [facility], only for use under [...] revoked sooner. Monitor Recordon 06-12-2023 Monitor Record [id number]# 1.00TIFF Normal [facility] Pre-Arrival Noteon 4 Pre-Arrival Note Pre-Arrival Summary Name: , [facility] Current Date: 06/12/2023 02:36:18 EDT Gender: Female Date of : Age: 87 Pre-Arrival Type: EMS ETA: 06/12/2023 02:51:00 EDT Primary Care Physician: Presenting Problem: ILL,HTN Pre-Arrival User: Karen Chirinos RN Referring Source: Location: CT Completion Date/Time: 06/12/2023 02:21:00 [facility] Emergency Department Pre-Hospital Report Form Vital Signs: 207/129, HR100, RR16, 100% RA Pre-Hospital Report: feeling ill, alert and oriented Treatment in Route:FSBS 129, 20RFA, CSS Response to Treatment: Misc. Issues: Normal [facility] RAD - Preliminary Cat Scan R eporton 06-12-2023 RAD - Preliminary Cat Scan Report [id number] #1.00TIFF Normal [facility] Rapid COVID Antigen ([facility])on 06-12-2023 Rapid COV Int NEG Ctl Pass Normal [facility] Comment on above: Performed By: #### 2 [id number], [id number] ####[facility] [address] [place] [address] Rapid COV Int POS Ctl Pass Normal Fis her [facility] Comment on above: Performed By: #### 2 [id number], 01688162 ####[facility] [address] [place] [address] SARS-CoV+SARS-CoV-2 (COVID-19) Ag IA.rapid Ql (Resp) Not detected Normal Not Detected [facility] Comment on above: Result Comment: The [employer] System for Rapid Detection of SARS-CoV-2 is [...] or revoked sooner. Performed By: #### 2 [id number], 83899774 ####[facility] [address] [place] [address] Troponin 0 Hr.on 06-12-2023 Troponin 10.20 pg/mL Normal 10.10-27.10 [facility] Comment on above: Result Comment: The 95% CI (Confidence Interval) PPV (Positive Predictive Value) for myocardial infarction in females is 38 pg/mL, in males 51 pg/mL. The results should be used in conjunction with clinical conditions of myocardial infarction. (Access High Sensitivity Troponin I Instructions For Use, [employer], October 2017) Performed By: #### 2 665845, 7917039, 91332955, 89297217 ####[facility] [address] [place] [address] UA With Cult Reflexon 2023 Bilirubin Ql (U) Negative Normal Negative [facility] Comment on above: Performed By: #### 1 1474569 ####[address] [address] Clarity (U) CLEAR Normal Clear [facility] Comment on above: Performed By: #### 1 0449939 ####[address] [address] Color (U) YELLOW Normal Yellow [facility] Comment on above: Performed By: #### 1 8029592 ####[address] [address] Epithelial cells.squamous LM.HPF (Urine sed) [#/Area] 0-2 Normal 0-2 [facility] Comment on above: Performed By: #### 1 0939883 ####[facility] [address] [place] [address] Glucose Test strip (U) [Mass/Vol] Negative Normal Negative [facility] Comment on above: Performed By: #### 1 9306159 ####[address] [address] Hemoglobin Ql (U) TRACE Abnormal Negative [facility] Comment on above: Performed By: #### 1 4159861 ####[address] [address] Ketones (U) [Mass/Vol] Negative Normal Negative [facility] Comment on above: Performed By: #### 1 6437661 ####[address] [address] [place].plasma/[place] .RBC (Bld) [Mass ratio] 0-3 Normal 0-3 [facility] Comment on above: Performed By: #### 1 2237275 ####[address] [address] Nitrite Ql (U) Negative Normal Negative [facility] Comment on above: Performed By: #### 1 3405181 ####[address] [address] pH (U) 7.5 [pH] Invalid Interpretation Code 5.0-9.0 [facility] Comment on above: Performed By: #### 1 3485813 ####[address] [address] Protein (U) [Mass/Vol] 2+ Abnormal Negative [facility] Comment on above: Performed By: #### 1 3089325 ####[address] [address] Specific gravity (U) [Rel density] 1.020 Invalid Interpretation Code 1.005-1.030 [facility] Comment on above: Performed By: #### 1 6153686 ####[address] [address] Type of Urine collection method Clean Catch Normal [facility] Comment on above: Performed By: #### 1 4213676 ####[address] [address] Urobilinogen Qn (U) 0.2 {Byron'U}/dL Normal 0.0-1.0 [facility] Comment on above: Performed By: #### 1 1998639 ####[address] [address] WBC Auto Ql (U) Negative Normal Negative [facility] Comment on above: Performed By: #### 1 2407742 ####[facility] [address] [place] [address] WBC LM.HPF (Urine sed) [#/Area] 0-5 Normal 0-5 [facility] Comment on above: Performed By: #### 1 6107302 ####[facility] [address] [place] [address] URINALYSISOrdered By: Radha Bateman on 06-12-2023 Bilirubin [...] AM) Normal Negative [facility] UA Auto SS [place].plasma/[place] .RBC (Bld) [Mass ratio] 0-3 /HPF Normal [...] [facility] UA Auto SS Urobilinogen Qn (U) 0.9023587 {[place]'U}/dL Normal 0.0 - 1.0 EU/dL [facility] UA Auto SS WBC Auto Ql (U) Negative (06/12/23 3:17 AM) Normal Negative [facility] UA Auto SS WBC LM.HPF (Urine sed) [#/Area] 0-5 /HPF Normal 0-5/HPF [facility] UA Auto SS XR Chest Single [...] mGy = na DAP = na Normal [facility] eGFRon 06-12-2023 eGFR 71 mL/min/1.73 m2 Normal >=59 [facility] Comment on above: Order Comment: Order added by Discern Expert. Performed By: #### 2 796448, 9666010, 67379673, 95505527 ####[facility] [address] [place] [address] Inpatient Clinical Summaryon 06-04-2023 Inpatient Clinical Summary [address] [address] Clinical Summary Person Information: Name: TERESA BACON Age: 87 Years : 1935 Sex: Female PCP: Maurice Rogers III, DO Marital Status: Race: White Ethnicity: Non- or Language: Nigerien Visit Id: Visit Reason: Altered mental status; Weakness or fatigue; Potential stroke; AMS Speciality: Acuity: Enc Type: Observation Med Service: Medical Arrival: 05/26/2023 09:32:27 Discharge: 05/27/2023 15:20:00 Dispo Type: Home (Routine DC) Address: [address] [place] [phone] Provider Notes: Diagnosis: 1:Acute respiratory failure; 2:Altered [...] Follow up: With: Address: When: Maurice Rogers [address] [place] [address] Business (1) With: Address: When: Mayank Lawson MD, [facility] [address] [place] [address] Within 2 to 4 weeks Patient Education Information: Confusion Normal [facility] Inpatient Patient Summaryon 06-04-2023 Inpatient Patient Summary [address] [address] Patient Discharge Instructions PERSON INFORMATION [...] Follow up: With: Address: When: Maurice Rogers [address] [place], [place] [id number] Business (1) With: Address: When: Renny BAKER, [place] [address] Within 2 to 4 weeks In the [...] Capsules By Mouth every day. Pharmacy Information: [facility] Pam Comment: PATIENT EDUCATION INFORMATION Instructions: [...] new s (more content not included)... Normal [facility] Consent for Procedure/Surger yon 05-28-2023 Consent for Procedure/Surgery [id number] #1.00TIFF [facility] Consultation Noteon 05-28-19 24 Consultation Note [...] sensation in all 4 extremities Cerebellar exam: Xmcepp-nd-kfea reveals no ataxia. Gait is normal The neurological exam was performed by a healthcare professional which was witnessed and supervised by me via video telemedicine visit consented to by the patient or appropriate patient electroplating sales representative. Date/Time:05/27/2023 Co/nsciousness: Alert = 0 Current mo/nth and age: Answers both correctly = 0 Open and close eyes/car mechanic release hand: Obeys both correctly = 0 [...] and make (more content not included)... Normal [facility] Comment on above: Result Comment: Elec tronically Signed By: Kelsey Velazquez RN\.br\Date and Time Signed: 05/27/23 07:24 EST\.br\Electronically Co-Signed By: Mayank Lawson MD\.br\Date and Time Co-Signed: 05/28/23 12:27 EST\.br\Electronically Co-Signed By: Ryan Mesa DO\.br\Date and Time Co-Signed: 06/04/23 09:13 EST Discharge Instructionson Discharge Instructions [id number] #1.00TIFF Normal [facility] Insurance Correspondence Off iceon 05-28-2023 Insurance Correspondence Office [id number]#1 .00TIFF Normal [facility] CHEMISTRYOrdered By: SYSTEM SYSTEM on 05-27-2023 Anion [...] Care Team Admitting Physician - Pieter BAKER, Carly Consulting Physician - Mayank Lawson MD Reason [...] Pending Diagnostic Test Results None Pharmacy Information [facility] New Follow Up Appointments after Discharge Follow Up with Renny BAKER, JEMIMA Talley When: Within 2 to 4 weeks Where: [address] [place] [address]- Medications What How Much When Instructions Next Dose New aspirin (aspirin 81 mg Oral EC Tab) 1 Tablets By Mouth Every day Printed Prescription 05/28 @ 9 AM Unchanged calcium carbonate (calcium (as carbonate) 500 mg oral tablet) See instructions 05/28 @ 9 AM Unchanged losartan 25 Milligram By Mouth Every day 05/28 @ AM Unchanged omeprazole (omeprazole 20 mg Cap-DR) [...] 24 High (05/26/23 09:25:00) MCV: 85.6 fL (05/26/23 09:25:00) Sodium Lvl: 140 mmol/L (05/27/23 05:37:00) MCH: 30.8 pg (05/26/23 09:25:00) Potassium Lvl: 4.1 mmol/L (05/27/23 05:37:00) MCHC: 36 gm/dL (05/26/23 09:25:00) Chloride: 107 mmol/L (05/27/23 05:37:00) RDW: 12.9 % (05/26/23 09:25:00) CO2: 27 mmol/L (05/27/23 05:37:00) Platelet: 298 [...] treat sy (more content not included)... Normal [facility] Interdisciplinary Note - Joseph e Manageron 05-27-2023 Interdisciplinary Note - Medicaid Billing Specialist CRM to room to discuss DC planning. Patient is awake, alert and oriented. Patient is from home, she lives alone. One of her Children will transport at DC. Her daughter is present in room. Patient verified PCP as DR Simon, verified PCP and home DME. Patient is here as observation with AMS, Tia Vs Cva. Patient is assigned to [facility], see notes. Patient was seen by Neurology. Patient is pending MRI. Patient denied needs for DME or HH. She is okay with a paramed f/u at DC. Patient was provided CRM contact, white board updated. Anticipated DC later today or 05/28 if testing negative. CRM following Normal [facility] Comment on above: Result Comment: Elec tronically Signed By: Kaycee Rodriguez\.br\Date and Time Signed: 05/27/23 11:45 EST Interdisciplinary Note - PTo n 05-27-2023 Interdisciplinary Note - PT Pt to be seen daily in acute setting setting for bed mobility, transfers, gait. SBA-CGA for activity. May benefit from home health upon d/c. AM-PAC Normal [facility] Lyteson 05-27-2023 Anion gap [Moles/Vol] 10 mmol/L Normal 6-16 [facility] Comment on above: Performed By: #### 2 [id number] ####[facility] [address] [place] [address] Chloride [Moles/Vol] 107 mmol/L Normal 101-111 [facility] Comment on above: Performed By: #### 2 179810 ####[facility] [address] [place] [address] CO2 [Moles/Vol] 27 mmol/L Normal 21-31 [facility] Comment on above: Performed By: #### 2 [id number] ####[facility] [address] [place] [address] Potassium [Moles/Vol] 4.1 mmol/L Normal 3.5-5.3 [facility] Comment on above: Performed By: #### 2 614374 ####[facility] [address] [place] [address] Sodium [Moles/Vol] 140 mmol/L Normal 135-145 [facility] Comment on above: Performed By: #### 2 491794 ####[facility] [address] [place] [address] MRI Brain w/o Contraston MRI Brain w/o [...] ESTEFANY Technologist: ARMANDO Technical Comments None Normal [facility] Monitor Recordon 05-27-2023 Monitor Record [id number]# 1.00TIFF Normal [facility] Monitor Record [id number]# 1.00TIFF Normal [facility] [...] 9.3 E9/L (05/26/23 09:25:00) RBC: 4.9 E12/L (05/26/23::00) HGB: 15.2 gm/dL (05/26/23:25:00) Hct: 42 % (05/26/23::00) MCV: 85.6 fL (05/26/23:25:00) MCH: 30.8 pg (05/26/23::00) MCHC: 36 gm/dL (05/26/23 09:25:00) RDW: 12.9 % (05/26/23:25:00) Platelet: 298 E9/L (05/26/23:25:00) MPV: 7.1 fL (05/26/23:25:00) RBC Morph: NORMAL (05/26/23::) PT: 12 second(s) (05/26/23:25:00) INR: 1.08 (05/26/23::) PTT: 30.2 second(s) (05/26/23:25:00) Glucose Lvl: 98 mg/dL (05/26/23:25:00) BUN: 22 mg/dL High (05/26/23::) Creatinine: 0.9 mg/dL (05/26/23::) eGFR: 61 mL/min/1.73 m2 (05/26/23::) BUN/Creat Ratio: 24 High (05/26/23::) Sodium Lvl: 140 mmol/L (05/27/23 05:37:00) Potassium Lvl: 4.1 mmol/L (05/27/23 05:37:00) Chloride: 107 mmol/L (05/27/23 05:37:00) CO2: 27 mmol/L (05/27/23 05:37:00) AGAP: 10 mEq/L (05/27/23 05:37:00) Calcium Lvl: 10.4 mg/dL (05/26/23:25:00) Alk Phos: 59 Int._Unit/L (05/26/23:25:00) Alk Phos: 59 Int._Unit/L (05/26/23:25:00) ALT: 14 Int._Unit/L (05/26/23:25:00) ALT: 14 Int._Unit/L (05/26/23:25:00) AST: 48 Int._Unit/L High (05/26/23:25:00) AST: 48 Int._Unit/L High (05/26/23:25:00) Total Protein: 7.7 gm/dL (05/26/23 09:25:00) Total Protein: 7.7 gm/dL (05/26/23:25:00) Albumin Lvl: 4.9 gm/dL (05/26/23 09:25:00) Albumin Lvl: 4.9 gm/dL (05/26/23 09:25:00) Globulin: 2.8 gm/dL (05/26/23 09:25:00) Globulin: 2.8 gm/dL (05/26/23 09:25:00) A/G Ratio: 1.8 (05/26/23 09:25:00) A/G Ratio: 1.8 (05/26/23 09:25:00) Bili Total: 1.2 mg/dL High (05/26/23 09:25:00) Bili Tot (more content not included)... Normal [facility] Comment on above: Result Comment: Elec tronically Signed By: Clarice ARMSTRONG\.br\Date and Time Signed: 05/27/23 09:12 EST\.br\Electronically Co-Signed By: Carly Stapleton MD\.br\Date and Time Co-Signed: 05/27/23 17:02 EST RAD - MRI Screening Formon 0 05-27-2023 RAD - MRI Screening Form [id number]# 1.00TIFF Normal [facility] ABO/Rhon 05-26-2023 ABO/Rh Positive Invalid Interpretation Code [facility] Comment on above: Performed By: #### 2 195173, 09666411, 60061152, 78707067 ####[facility] [address] [place] [address] ABO/Rh History Checkon 05-26 ABO/Rh History Check Type verified by second s Normal [facility] Comment on above: Performed By: #### 2 505992, 35220310, 80288574, 92765207 ####[facility] [address] [place] [address] ABO/Rh Retypeon 05-26-2023 ABO/Rh Retype Interp Positive Invalid Interpretation Code [facility] Comment on above: Performed By: #### 1 3642843, 6423376, 80583988, 05910592, 02538517, 8009168, 1337692, 2650366, 4611957, 0445291 ####[facility] [address] [place] [address] ABSCon 05-26-2023 ABSC Gel Interp Negative Normal [facility] Comment on above: Performed By: #### 2 409118, 80111257, 99151291, 84138846 ####[facility] [address] [place], [place] [address] BLOOD BANKOrdered By: Jeannine Moreno on 05-26-2023 ABO/Rh Interp Positive Invalid Interpretation Code [facility] BB Subsection ABSC Gel Interp Negative (05/26/23 9:48 AM) Normal [facility] BB Subsection ABO/Rh Retype Interp Positive Invalid Interpretation Code [facility] BB Subsection BNPOrdered By: Anurag jimenes 05-26-2023 Natriuretic peptide B (Bld) [Mass/Vol] 139 pg/mL High 5-80 [facility] Comment on above: Performed By: #### 1 [id number] ####[address] Blood Bank ID#on 05-26-2023 BBID# [id number] Invalid Interpretation Code [facility] Comment on above: Performed By: #### 2 580391, 48972069, 39046147, 05571338 ####[address] [address] Blood Gas Art, with Lytes, G audrey, [place] 05-26-2023 a/A Ratio Art 56.70 % Normal >=0.80 [facility] Comment on above: Performed By: #### 4 [id number] ####[address] AaDO2 Art 44.1 mmHg High 5.0-15.0 [facility] Comment on above: Performed By: #### 4 [id number] ####[address] [address] Allens Test Positive Normal [facility] Comment on above: Performed By: #### 4 [id number] ####[facility] [address] [facility] [place] [address] Base Excess Arterial -0.8 mmol/L Low >=2.8 [facility] Comment on above: Performed By: #### 4 12661095 ####[facility] [address] [place] [address] cCa2+ Art 5.03 mg/dL Normal 4.40-5.30 [facility] Comment on above: Performed By: #### 4 30339120 ####[facility] [address] [place] [address] cCl- Art 106.0 mmol/L Normal 101.0-111.0 [facility] Comment on above: Performed By: #### 4 [id number] ####[address] [address] cGlu Art 105 mg/dL High 55-99 [facility] Comment on above: Performed By: #### 4 81507718 ####[address] [place] [address] cK+ Art 3.3 mmol/L Low 3.5-5.3 [facility] Comment on above: Performed By: #### 4 67754531 ####[address] [place] [address] cLac Art .9 mmol/L Normal .5-2.2 [facility] Comment on above: Performed By: #### 4 09641301 ####[facility] [address] [place] [address] sales training manager+ Art 141.0 mmol/L Normal 135.0-145.0 [facility] Comment on above: Performed By: #### 4 03187781 ####[facility] [address] [place] [address] Drawn by nawaf parada Invalid Interpretation Code [facility] Comment on above: Performed By: #### 4 [id number] ####[facility] [address] [place] [address] FCOHb Art 1.4 % Low 1.5-4.9 [facility] Comment on above: Result Comment: Refe rence range Nonsmoker <1.5% Smoker <5.0% Heavy Smoker <9.0% Performed By: #### 4 [id number] ####[facility] [address] [place] [address] FIO2 BG 21 Invalid Interpretation Code [facility] Comment on above: Performed By: #### 4 [id number] ####[facility] [address] [place] [address] FMetHb Art 0.1 % Normal 0.0-1.9 [facility] Comment on above: Performed By: #### 4 49137409 ####[address] [facility] [place] [address] FO2Hb Art 92.4 % Normal 92.0-100.0 [facility] Comment on above: Performed By: #### 4 30882677 ####[facility] [address] [place] [address] HCO3 (Bld) [Moles/Vol] 23.7 mmol/L Normal 22.0-26.0 [facility] Comment on above: Performed By: #### 4 26013615 ####[facility] [address] [place] [address] Hemoglobin (Bld) [Mass/Vol] 13.7 g/dL Normal 12.0-16.0 [facility] Comment on above: Performed By: #### 4 [id number] ####[facility] [address] [place] [address] Oxygen saturation in Blood 93.8 % Low 95.0-100.0 [facility] Comment on above: Performed By: #### 4 85226877 ####[facility] [address] [place] [address] P CO2 Arterial 38.5 mmHg Normal 35.0-45.0 [facility] Comment on above: Performed By: #### 4 74854572 ####[facility] [address] [place] [address] P O2 Arterial 57.7 mmHg Low 80.0-100.0 [facility] Comment on above: Performed By: #### 4 06889413 ####[facility] [address] [place] [address] pH Arterial 7.400 Normal 7.350-7.450 [facility] Comment on above: Performed By: #### 4 58544032 ####[address] [address] Sample Site R Radial Normal [facility] Comment on above: Performed By: #### 4 19658374 ####[place] Sample Type Arterial Draw Normal [facility] Comment on above: Performed By: #### 4 [id number] ####[address] [address] CBC w/Indiceson 05-26-2023 RBC morphology finding Nom (Bld) NORMAL Invalid Interpretation Code [facility] Comment on above: Performed By: #### 1 6052319, 6074849, 90184465, 64102235, 06015801, 3915202, 0290074, 7719227, 1196828, 0763183 ####[address] [place] [address] Erythrocyte distribution width (RBC) [Ratio] 12.9 % Normal 10.9-14.2 [facility] Comment on above: Performed By: #### 1 9897320, 9284900, 83200027, 65631190, 31690383, 8432911, 2955237, 4664839, 8941364, 8871678 ####[facility] [address] [place] [address] Hematocrit (Bld) [Volume fraction] 42.0 % Normal 34.0-46.0 [facility] Comment on above: Performed By: #### 1 6352704, 5189317, 86822128, 57504625, 72301316, 7656152, 8848008, 2535790, 7831281, 7493001 ####[facility] [address] [place] [address] Hemoglobin (Bld) [Mass/Vol] 15.2 g/dL Normal 12.0-16.0 [facility] Comment on above: Performed By: #### 1 5947111, 7304426, 36385361, 16188818, 98565615, 4550989, 8838141, 7513153, 3978684, 5776960 ####[facility] [address] [place] [address] MCH (RBC) [Entitic mass] 30.8 pg Normal 27.0-34.0 [facility] Comment on above: Performed By: #### 1 6176559, 2113891, 50718424, 33013849, 82051557, 1749096, 0741410, 4290031, 7360027, 3418622 ####[address] [address] MCHC (RBC) [Mass/Vol] 36.0 g/dL Normal 31.4-36.0 [facility] Comment on above: Performed By: #### 1 3661546, 7041931, 38289704, 62370740, 07639763, 6171738, 5168372, 5091751, 8848496, 9683277 ####[address] [place] [address] MCV (RBC) [Entitic vol] 85.6 fL Normal 80.0-100.0 [facility] Comment on above: Performed By: #### 1 5987191, 7797237, 70184225, 35616233, 69699652, 3872809, 2430011, 5301019, 8219782, 7450941 ####[facility] [address] [place] [address] Platelet 298.0 E9/L Normal 150.0-500.0 [facility] Comment on above: Performed By: #### 1 7551849, 4756929, 81806909, 31003075, 21965595, 8268224, 9427124, 4881340, 4720881, 8929012 ####[facility] [address] [place] [address] Platelet mean volume (Bld) [Entitic vol] 7.1 fL Normal 6.4-10.8 [facility] Comment on above: Performed By: #### 1 8669132, 9414030, 44907903, 58080882, 51676271, 0453900, 4909576, 6570669, 9535659, 3722812 ####[facility] [address] [place] [address] RBC 4.9 E12/L Normal 4.3-5.9 [facility] Comment on above: Performed By: #### 1 9627377, 4356610, 81567611, 89298120, 17081287, 5852793, 9363527, 2586983, 3898807, 4207706 ####[facility] [address] [place] [address] WBC 9.3 E9/L Normal 4.0-11.0 [facility] Comment on above: Performed By: #### 1 0137712, 7525493, 31757215, 52237953, 35587511, 7398311, 9159265, 0199267, 2217065, 9529957 ####[facility] [address] [place] [address] CHEMISTRYOrdered By: SYSTEM SYSTEM on 05-26-2023 Troponin [...] Sensitivity Troponin I Instructions For Use, [place], October 2017) Ethanol Lvl mg/dL Normal <=11mg/dL [...] 05-26-2023 Albumin [Mass/Vol] 4.9 g/dL Normal 3.3-5.0 [facility] Comment on above: Performed By: #### 1 9776457, 2410528, 60727389, 00473264, 75022280, 2046522, 9988779, 3000835, 1753438, 6363179 ####[facility] [address] [place] [address] Albumin/Globulin [Mass ratio] 1.8 {ratio} Normal 1.1-2.2 [facility] Comment on above: Performed By: #### 1 5647281, 6209453, 07883797, 68383862, 72131960, 6557793, 8603025, 4668168, 5985811, 2072789 ####[facility] [address] [place] [address] Alk Phos 59 Int._Unit/L Normal 21-98 [facility] Comment on above: Performed By: #### 1 1640080, 0385255, 52820449, 06192865, 52753439, 7737832, 9566752, 2513569, 9698615, 2834021 ####[facility] [address] [place] [address] ALT 14 Int._Unit/L Normal 6-46 [facility] Comment on above: Performed By: #### 1 7013222, 3525759, 44686244, 87869219, 50568589, 0804408, 6666915, 9276308, 6233520, 3004870 ####[facility] [address] [place] [address] Anion gap [Moles/Vol] 13 mmol/L Normal 6-16 [facility] Comment on above: Performed By: #### 1 9160105, 1913850, 17471536, 94514321, 50645547, 3914895, 3722810, 0338098, 1298292, 3482224 ####[facility] [address] [place] [address] AST 48 Int._Unit/L High 5-43 [facility] Comment on above: Performed By: #### 1 8668217, 9496478, 36625991, 07406091, 93432705, 5199687, 5558899, 6919469, 2083676, 1866398 ####[facility] [address] [place] [address] Bili Total 1.2 mg/dL High 0.0-1.1 [facility] Comment on above: Performed By: #### 1 9506463, 5813588, 85448586, 83864722, 81074926, 0409185, 2559324, 9547669, 5565455, 8549910 ####[facility] [address] [place] [address] BUN/Creat Ratio 24 No Units High 10-20 [facility] Comment on above: Performed By: #### 1 4816226, 1029554, 47019141, 04302972, 67541618, 7492087, 6341599, 3281958, 9795383, 6753050 ####[facility] [address] [place] [address] Calcium [Mass/Vol] 10.4 mg/dL Normal 8.9-11.1 [facility] Comment on above: Performed By: #### 1 7125330, 9527239, 53386922, 34633332, 50740204, 9692888, 4065427, 4624348, 3338998, 1809976 ####[facility] [address] [place] [address] Chloride [Moles/Vol] 106 mmol/L Normal 101-111 [facility] Comment on above: Performed By: #### 1 5724334, 4856882, 77848549, 03321936, 47187600, 4089685, 0423989, 4867144, 8155276, 5378151 ####[facility] [address] [place] [address] CO2 [Moles/Vol] 25 mmol/L Normal 21-31 [facility] Comment on above: Performed By: #### 1 7430391, 9367202, 26519501, 50355818, 19455596, 6621768, 4046024, 5222465, 6981783, 1592380 ####[facility] [address] [place] [address] Creatinine [Mass/Vol] 0.9 mg/dL Normal 0.5-1.3 [facility] Comment on above: Performed By: #### 1 6685869, 3694838, 74469865, 19421642, 39162206, 3889714, 4411717, 8384476, 1741365, 8570915 ####[facility] [address] [place] [address] Globulin (S) [Mass/Vol] 2.8 g/dL Normal 1.4-4.0 [facility] Comment on above: Performed By: #### 1 3627599, 0795894, 68543576, 86198037, 45361993, 1470127, 2115123, 6612072, 0374588, 3766745 ####[facility] [address] [place] [address] Glucose [Mass/Vol] 98 mg/dL Normal 55-199 [facility] Comment on above: Performed By: #### 1 8259624, 8448652, 52680345, 96680231, 32820357, 2283601, 1066710, 8593227, 9858805, 7681639 ####[facility] [address] [place] [address] Potassium [Moles/Vol] 3.4 mmol/L Low 3.5-5.3 [facility] Comment on above: Performed By: #### 1 5434483, 7692258, 89267119, 60321336, 35308465, 5429640, 6999870, 2078766, 7710911, 8256068 ####[facility] [address] [place] [address] Protein [Mass/Vol] 7.7 g/dL Normal 6.0-7.8 [facility] Comment on above: Performed By: #### 1 4988630, 1959168, 13274704, 13491302, 84455558, 4451255, 2152156, 2019879, 2299470, 2726193 ####[facility] [address] [place] [address] Sodium [Moles/Vol] 141 mmol/L Normal 135-145 [facility] Comment on above: Performed By: #### 1 3782189, 3502794, 38745796, 30106258, 83305192, 5446592, 5722846, 1829271, 6535347, 9838775 ####[facility] [address] [place] [address] Urea nitrogen [Mass/Vol] 22 mg/dL High 5-21 [facility] Comment on above: Performed By: #### 1 7558105, 8510833, 93572598, 04509560, 34453356, 0912728, 0627803, 9180665, 2296498, 7977995 ####[facility] [address] [place] [address] COAGULATIONOrdered By: Abby Ardon on 05-26-2023 aPTT Coag (PPP) [Time] 30.2 s Normal 25.1 - 36.5 second(s) [facility] Comment on above: Interpretive Data: P arameter 15 days - 4 weeks 1 - [...] the same coagulation reagent and instrumentation as [facility]. Currently there are no coagulation studies available worldwide for children to 14 days, and no normal ranges. Heparin therapeutic range (represented by Anti-Factor Xa activity of 0.2 - 0.4 U/mL) corresponds to PTT of 56.6 - 109.0 sec. INR Coag (PPP) [Relative time] 1.08 {INR} Invalid Interpretation Code [facility] Comment on above: Interpretive Data: I NR results are specifically intended to assess patients stabilized on long-term Anticoagulation therapy suggested INR s Less Intensive Anticoagulation 2.0 3.0 Conventional Range 3.0 4.5 PT Coag (PPP) [Time] 12.0 s Normal 9.4 - 1 2.5 second(s) [facility] Comment on above: Interpretive [...] the same coagulation reagent and instrumentation as [facility]. Currently there are no coagulation studies [...] no evidence of acute ischemia, loss of byole-white matter differentiation There is moderate prominence of [...] V. Transcribed by: ESTEFANY Technologist: LEMUEL Couch [facility] CTA Headon 05-26-2023 CTA Head Exam Date/Time: 05/26/2023 10:42 EST Reason for Exam: Neuro deficit, acute, stroke suspected;Other (please specify) Report [facility] [phone] IMPRESSION: PLEASE REFER TO NECK CTA REPORT [...] 370 Contrast amount in ml's: 100 Normal [facility] Consent for Treatmenton 05-04 Consent for Treatment [id number] .00TIFF Normal [facility] ED Clinical Summaryon 2023 ED Clinical Summary [place] [id number] ED Clinical Summary Person Information [facility]: [facility] Age: 87 Years : 1935 Sex: Female Language: Nigerien PCP: Maurice Rogers III, DO Marital Status: Visit Id: Visit Reason: Altered mental status; Weakness or fatigue; Potential stroke; AMS Speciality: Acuity: 2 Enc Type: Observation Med Service: Emergency Arrival: 05/26/2023 09:32:27 Discharge: LOS: 000 03:23 Checkin: 05/26/2023 09:32:27 Checkout: 05/26/2023 12:55:08 Dispo Type: Admitted as IP to this [facility] EVENTS: Event Name Event Status Request [...] 12:42:02 Patient Care Request 05/26/2023 12:42:02 ADDRESS: [address] [place] [phone] PHYS DOC NOTES: MEDICAL INFORMATION: Prescriptions Given: PATIENT EDUCATION INFORMATION: Instructions: Follow up: DIAGNOSIS: 1:Altered mental status; 2:Weakness Normal [facility] ED Note-Physicianon 05-26-19 ED Note-Physician Basic Information [...] and Complexity of Problems Differential Diagnosis: [] [facility] Data External documents reviewed: [] My [...] Plan o (more content not included)... Normal [facility] Comment on above: Result Comment: Elec tronically Signed By: Hayley Reese, Lucille Avila\.br\Date and Time Signed: 05/26/23 14:41 EST ED Patient Education Noteon 05-26-2023 ED Patient Education Note Normal [facility] ED Patient Summaryon 024 ED Patient Summary [place] [id number] Patient Discharge Instructions Person Information Name: TERESA BACON Age: 87 Years Arrival Date: 05/26/2023 09:32:27 Discharge Diagnosis: 1:Altered mental status; 2:Weakness Primary Care Physician: Maurice Rogers III, DO Provider Information Primary Provider: Lucille Hardy M.D. Advanced Tow Mate:None The exam and treatment you received in the Emergency Department were for an urgent problem and are not intended as complete care. It is important that you follow up with a doctor, nurse practitioner, or physician?s buyer assistant for ongoing care. If your symptoms [...] opioids can be used to help relieve pvyrwrez-vv-erndyz pain and are often prescribed following a [...] with addiction, tell your health customer care consultant and ask for guidance or call [facility]?S National Helpline at 7-677-911-PDIE. m Source: [place] Department of Health and Human Services/Center for Disease Control & Prevention [facility] Medications Given: Medication Dose Rou (more content not included)... Normal [facility] Ethanolon 05-26-2023 Ethanol Lvl <10 Normal <=11 [facility] Comment on above: Performed By: #### 2 [id number], [id number] ####[facility] [address] Blood GasesOrdered By: St shayy Silva on 05-26-2023 a/A Ratio Art 56.70 % Normal >=0.80% [facility] Resp Auto SS AaDO2 Art 44.1 mm[Hg] High 5.0 - 15.0 mmHg FT Resp Auto SS Allens Test Positive (05/26/23 10:40 AM) Normal [facility] Resp Auto SS Base Excess Arterial -0.8 mmol/L Low >=2.8mmol/L FT Resp Auto SS cCa2+ Art 5.03 mg/dL Normal 4.40 - 5.30 mg/dL FT Resp Auto SS cCl- Art 106.0 mmol/L Normal 101.0 - 111.0 mmol/L [facility] Resp Auto SS cGlu Art 105 mg/dL High 55 - 99 mg/dL FT Resp Auto SS cK+ Art 3.3 mmol/L Low 3.5 - 5.3 mmol/L [facility] Resp Auto SS cLac Art 0.9 mmol/L Normal 0.5 - 2.2 mmol/L [facility] Resp Auto SS sales training manager+ Art 141.0 mmol/L Normal 135.0 - 145.0 mmol/L FT Resp Auto SS Drawn by nawaf parada Invalid Interpretation Code [facility] Resp Auto SS FCOHb Art 1.4 % Low 1.5 - 4.9 % [facility] Resp Auto SS Comment on above: Interpretive Data: R eference range Nonsmoker <1.5% Smoker <5.0% Heavy Smoker <9.0% FIO2 BG 21 1 Invalid Interpretation Code [facility] Resp Auto SS FMetHb Art 0.1 % Normal 0.0 - 1.9 % [facility] Resp Auto SS FO2Hb Art 92.4 % Normal 92.0 - 100.0 % [facility] Resp Auto SS HCO3 (Bld) [Moles/Vol] 23.7 mmol/L Normal 22.0 - 26.0 mmol/L [facility] Resp Auto SS Hemoglobin (Bld) [Mass/Vol] 13.7 g/dL Normal 12.0 - 16.0 gm/dL [facility] Resp Auto SS P CO2 Arterial 38.5 mm[Hg] Normal 35.0 - 45.0 mmHg [facility] Resp Auto SS P O2 Arterial 57.7 mm[Hg] Low 80.0 - 100.0 mmHg [facility] Resp Auto SS pH (Bld) 7.400 [pH] Normal 7.350 - 7.450 [facility] Resp Auto SS Sample Site R Radial (05/26/23 10:40 AM) Normal [facility] Resp Auto SS Sample Type Arterial Draw (05/26/23 10:40 AM) Normal [facility] Resp Auto SS HEMATOLOGYOrdered By: SYSTEM [...] 05-26-2023 Bili Direct 0.2 mg/dL Normal 0.0-0.4 [facility] Comment on above: Performed By: #### 1 [id number], [id number], 76013689, 24604770, 89717550, 8495337, 8990627, 3905586, 3732580, 7961423 ####[facility] [address] [place] [address] Bili Indirect 1.0 mg/dL High 0.1-0.9 [facility] Comment on above: Performed By: #### 1 [id number], 0777788, 89197017, 79498239, 03404464, 3876744, 9158589, 8411873, 4721464, 2607003 ####[facility] [address] [place] [address] Interdisciplinary Note - Spe ech Languageon 05-26-2023 Interdisciplinary Note - Speech Language ST 05/26/23: BSE completed. Pt admitted to [facility] d/t AMS, headache, possible CVA. Per [...] further ST indicated at this time. Normal [facility] Laboratory - Chemistry and C hemistry - [...] Lactic Acid Lvl 1.6 mmol/L Normal 0.5-2.2 [facility] Comment on above: Performed By: #### 2 [id number], [id number] ####[facility] [address] [place] [address] Magnesiumon 05-26-2023 Magnesium [Mass/Vol] 1.8 mg/dL Normal 1.3-2.4 [facility] Comment on above: Performed By: #### 1 [id number], 9486636, 13518229, 33173272, 03652330, 2786577, 1033134, 1205222, 9398389, 1909472 ####[facility] [address] [place] [address] Message from Medicareon 05-04 Message from Medicare [id number] 020 [id number]# 1.00TIFF Normal [facility] Monitor Recordon 05-26-2023 Monitor Record [id number]# 1.00TIFF Normal [facility] No Panel InformationOrdered By: ANGPROCESSSERVER MICROBIOLOGY on 05-26-2023 Blood Culture Charcoal No growth at 1 da y. Final to follow at 7 days. [facility] Blood Culture Charcoal No growth at 1 da y. Final to follow at 7 days. [facility] No Panel InformationOrdered By: SYSTEM SYSTEM on 05-26-2023 Alk Phos 59 [iU]/d Normal 21 - 98 Int._Unit/L [facility] Chem ALT 14 [iU]/d Normal 6 - 46 Int._Unit/L [facility] Chem AST 48 [iU]/d High 5 - 43 Int._Unit/L [facility] Bili Total 1.2 mg/dL High 0.0 - 1.1 mg/dL [facility] PTon 05-26-2023 INR Coag (PPP) [Relative time] 1.08 {INR} Invalid Interpretation Code [facility] Comment on above: Result Comment: INR results are specifically intended to assess patients stabilized on long-term Anticoagulation therapy suggested INR?s ?Less Intensive Anticoagulation? 2.0 ? 3.0 Conventional Range 3.0 ? 4.5 Performed By: #### 1 [id number], 2745881, 34255653, 68085036, 25370973, 7633173, 6051336, 5436011, 1858840, 9933057 ####[facility] [address] [place] [address] PT Coag (PPP) [Time] 12.0 second(s) Normal 9.4-12.5 [facility] Comment on above: Result Comment: 15 d [...] the same coagulation reagent and instrumentation as [facility]. Currently there are no coagulation studies available worldwide for children to 14 days, and no normal ranges. Performed By: #### 1 6016577, 4849009, 69385561, 59367286, 80215891, 4257161, 3761777, 6832009, 4138623, 0585165 ####[facility] [address] [place] [address] PTTon 05-26-2023 aPTT Coag (PPP) [Time] 30.2 second(s) Normal 25.1-36.5 [facility] Comment on above: Result Comment: Para meter [...] the same coagulation reagent and instrumentation as [facility]. Currently there are no coagulation studies available worldwide for children to 14 days, and no normal ranges. Heparin therapeutic range (represented by Anti-Factor Xa activity of 0.2 - 0.4 U/mL) corresponds to PTT of 56.6 - 109.0 sec. Performed By: #### 1 6414850, 4303805, 67645786, 61531084, 97171612, 6661961, 1516910, 7726817, 7727535, 8760451 ####[facility] [address] [place] [address] TSH With T4fr Reflexon 05-26 TSH Qn 4.54 m[IU]/L Normal 0.34-5.60 [facility] Comment on above: Performed By: #### 1 5591783, 0500498, 17698739, 77633723, 48940085, 5679454, 2618857, 7744217, 8676210, 7483330 ####[facility] [address] [place] [address] Troponin 0 Hr.on 05-26-2023 Troponin 22.80 pg/mL Normal 10.10-27.10 [facility] Comment on above: Result Comment: The 95% CI (Confidence Interval) PPV (Positive Predictive Value) for myocardial infarction in females is 38 pg/mL, in males 51 pg/mL. The results should be used in conjunction with clinical conditions of myocardial infarction. (Access High Sensitivity Troponin I Instructions For Use, [employer], October 2017) Performed By: #### 1 3736701, 1061156, 38429508, 66671821, 76255174, 3055528, 6458287, 5763345, 4601479, 4725369 ####[facility] [address] [place] [address] Troponin 3 Hr.on 05-26-2023 Troponin 16.10 pg/mL Normal 10.10-27.10 [facility] Comment on above: Result Comment: The 95% CI (Confidence Interval) PPV (Positive Predictive Value) for myocardial infarction in females is 38 pg/mL, in males 51 pg/mL. The results should be used in conjunction with clinical conditions of myocardial infarction. (Access High Sensitivity Troponin I Instructions For Use, [employer], October 2017) Performed By: #### 1 8707071 ####[facility] [address] [place] [address] Troponin 6 Hr.Ordered By: [employer] on 05-26-2023 Troponin 18.00 pg/mL Normal 10.10-27.10 [facility] Comment on above: Interpretive Data: T he 95% CI (Confidence Interval) PPV (Positive Predictive Value) for myocardial infarction in females is 38 pg/mL, in males 51 pg/mL. The results should be used in conjunction with clinical conditions of myocardial infarction. (Access High Sensitivity Troponin I Instructions For Use, [employer], October 2017) Result Comment: The 95% CI (Confidence Interval) PPV (Positive Predictive Value) for myocardial infarction in females is 38 pg/mL, in males 51 pg/mL. The results should be used in conjunction with clinical conditions of myocardial infarction. (Access High Sensitivity Troponin I Instructions For Use, [employer], October 2017) Performed By: #### 1 [id number] ####[facility] [address] [place] [address] U Drug Screenon 05-26-2023 U Amph Scr Negative Normal NEGATIVE [facility] Comment on above: Order Comment: Added to UA Performed By: #### 2 671987 ####[facility] [address] [place] [address] U Desirae Scr Negative Normal NEGATIVE [facility] Comment on above: Order Comment: Added to UA Performed By: #### 2 690208 ####[facility] [address] [place] [address] U Benzodia Scr Negative Normal NEGATIVE [facility] Comment on above: Order Comment: Added to UA Performed By: #### 2 478543 ####[facility] [address] [place] [address] U Cannab Scr Negative Normal NEGATIVE [facility] Comment on above: Order Comment: Added to UA Performed By: #### 2 002952 ####[facility] [address] [place] [address] U Cocaine Scr Negative Normal NEGATIVE [facility] Comment on above: Order Comment: Added to UA Performed By: #### 2 191142 ####[facility] [address] [place] [address] U Opiate Scr Negative Normal NEGATIVE [facility] Comment on above: Order Comment: Added to UA Performed By: #### 2 054355 ####[facility] [address] [place] [address] U PCP Scr Negative Normal NEGATIVE [facility] Comment on above: Order Comment: Added to UA Performed By: #### 2 588144 ####[facility] [address] [place] [address] UA With Cult Reflexon 2023 Bacteria LM Ql (Urine sed) TRACE Normal Trace [facility] Comment on above: Performed By: #### 1 [id number] ####[facility] [address] [place] [address] Bilirubin Ql (U) Negative Normal Negative [facility] Comment on above: Performed By: #### 1 6694765 ####[facility] [address] [place] [address] Clarity (U) CLEAR Normal Clear [facility] Comment on above: Performed By: #### 1 0154421 ####[facility] [address] [place] [address] Color (U) STRAW Invalid Interpretation Code [facility] Comment on above: Performed By: #### 1 8645788 ####[facility] [address] [place] [address] Epithelial cells.squamous LM.HPF (Urine sed) [#/Area] 0-2 Normal 0-2 [facility] Comment on above: Performed By: #### 1 0927231 ####[facility] [address] [place] [address] Glucose Test strip (U) [Mass/Vol] Negative Normal Negative [facility] Comment on above: Performed By: #### 1 7332859 ####[place] [address] [place] [address] Hemoglobin Ql (U) TRACE Abnormal Negative [facility] Comment on above: Performed By: #### 1 [id number] ####[address] [address] Ketones (U) [Mass/Vol] TRACE Invalid Interpretation Code Negative [facility] Comment on above: Performed By: #### 1 7139043 ####[facility] [address] [place] [address] [place].plasma/[place] .RBC (Bld) [Mass ratio] 0-3 Normal 0-3 [facility] Comment on above: Performed By: #### 1 [id number] ####[address] [address] Nitrite Ql (U) Negative Normal Negative [facility] Comment on above: Performed By: #### 1 8044747 ####[facility] [address] [place] [address] pH (U) 7.5 [pH] Invalid Interpretation Code 5.0-9.0 [facility] Comment on above: Performed By: #### 1 6629863 ####[facility] [address] [place] [address] Protein (U) [Mass/Vol] Negative Normal Negative [facility] Comment on above: Performed By: #### 1 0274409 ####[facility] [address] [place] [address] Specific gravity (U) [Rel density] 1.010 Invalid Interpretation Code 1.005-1.030 [facility] Comment on above: Performed By: #### 1 5267981 ####[place] [address] Type of Urine collection method Clean Catch Normal [facility] Comment on above: Performed By: #### 1 6167499 ####[place] 9[address]1357 Urobilinogen Qn (U) 0.2 {Byron'U}/dL Normal 0.0-1.0 [facility] Comment on above: Performed By: #### 1 5380122 ####[place] [address] WBC Auto Ql (U) Negative Normal Negative [facility] Comment on above: Performed By: #### 1 1347376 ####[place] 9[address]1357 WBC LM.HPF (Urine sed) [#/Area] 0-5 Normal 0-5 [facility] Comment on above: Performed By: #### 1 [id number] ####[place] [address]1357 URINALYSISOrdered By: Abby mathis on 05-26-2023 Bacteria LM Ql (Urine sed) Trace /HPF Normal Trace/HPF [facility] UA Auto SS Bilirubin Ql (U) Negative (05/26/23 10:10 AM) Normal Negative [facility] UA Auto SS Clarity (U) Clear (05/26/23 10:10 AM) Normal Clear [facility] UA Auto SS Color (U) STRAW Invalid Interpretation Code [facility] UA Auto SS Epithelial cells.squamous LM.HPF (Urine sed) [#/Area] 0-2 /HPF Normal 0-2/HPF [facility] UA Aut o SS Glucose Test strip (U) [Mass/Vol] Negative (05/26/23 10:10 AM) Normal Negative [facility] UA Auto SS Hemoglobin Ql (U) Trace *ABN* (05/26/23 10:10 AM) Invalid Interpretation Code Negative [facility] UA Auto SS Ketones (U) [Mass/Vol] Trace *NA* (05/26/23 10:10 AM) Invalid Interpretation Code Negative [facility] UA Auto SS [place].plasma/[place] .RBC (Bld) [Mass ratio] 0-3 /HPF Normal 0-3/HPF [facility] UA Auto SS Nitrite Ql (U) Negative (05/26/23 10:10 AM) Normal Negative [facility] UA Auto SS pH (U) 7.5 *NA* (05/26/23 10:10 AM) Invalid Interpretation Code 5.0 - 9.0 [facility]A Auto SS Protein (U) [Mass/Vol] Negative (05/26/23 10:10 AM) Normal Negative [facility] UA Auto SS Specific gravity (U) [Rel density] 1.010 *NA* (05/26/23 10:10 AM) Invalid Interpretation Code 1.005 - 1.030 [facility] UA Auto SS UA Spec Desc Clean Catch (05/26/23 10:10 AM) Normal [facility] UA Auto SS Urobilinogen Qn (U) 0.7035022 {Byron'U}/dL Normal 0.0 - 1.0 EU/dL [facility] UA Auto SS WBC Auto Ql (U) Negative (05/26/23 10:10 AM) Normal Negative [facility] UA Auto SS WBC LM.HPF (Urine sed) [#/Area] 0-5 /HPF Normal 0-5/HPF [facility]A Auto SS XR Chest Single Viewon 05-26 XR Chest Single View Exam Date/Time: 05/26/2023 09:47 EST Reason for Exam: Chest pain Report [facility] [phone] IMPRESSION: There are no acute cardiopulmonary changes. [...] Ca MD, V. Transcribed by: ESTEFANY Technologist: [employer] Technical Comments Radiation Dose: Ka,r in mGy = na DAP = na Normal [facility] eGFRon 05-26-2023 eGFR 61 mL/min/1.73 m2 Normal >=59 [facility] Comment on above: Order Comment: Order added by Discern Expert. Performed By: #### 1 [id number], 5581191, 35765836, 79029907, 94322583, 3099534, 4708214, 4184759, 9558944, 8878486 ####[facility] [address] [place] [address] XR DEXA BONE DENSITYon 04-25 XR DEXA [...] by: SRINIVASA ECHAVARRIA Date: 2022-04-25 10:06 Normal [facility] CULTURE URINEon 12-14-2021 CULTURE URINE Isolate [...] F Trimethoprim/Sulfamet hoxazole <=20 S F Normal [facility] Comment on above: Performed By: #### U RCX #### [facility] [address] [place] [address] [address] Yoni Thao ER URINE PROFILEon 2 Bilirubin Ql (U) Negative Normal NEGATIVE [facility] Comment on above: Performed By: #### U MICRO, ERUR #### [facility] [address] [place] [address] [address] Yoni Thao Clarity (U) CLEAR Normal CLEAR [facility] Comment on above: Performed By: #### U MICRO, ERUR #### [facility] [address] [place] [address] [address] Yoni Thao Color (U) LT. YELLOW Normal YELLOW [facility] Comment on above: Performed By: #### U MICRO, ERUR #### [facility] [address] [place] [address] [address] Yoni NICHOLS A micrscopic examination will be performed if indicated. Normal [facility] Comment on above: Performed By: #### U MICRO, ERUR #### [facility] [address] [place] [address] [address] Yoni Thao Glucose Ql (U) Negative Normal NEGATIVE [facility] Comment on above: Performed By: #### U MICRO, ERUR #### [facility] [address] [place] [address] [address] Yoni Thao Hemoglobin Ql (U) LARGE Abnormal NEGATIVE [facility] Comment on above: Performed By: #### U MICRO, ERUR #### [facility] [address] [place] [address] [address] Yoni Thao Ketones Ql (U) Negative Normal NEGATIVE [facility] Comment on above: Performed By: #### U MICRO, ERUR #### [facility] [address] [place] [address] [address] Yoni Thao LEUKOCYTES MODERATE Abnormal NEGATIVE [facility] Comment on above: Performed By: #### U MICRO, ERUR #### [facility] [address] [place] [address] [address] Yoni Thao Nitrite Ql (U) Positive Abnormal NEGATIVE [facility] Comment on above: Performed By: #### U MICRO, ERUR #### [facility] [address] [place] [address] Dr. Yoni Thao pH (U) 6.5 [pH] Normal 5-9 [facility] Comment on above: Performed By: #### U MICRO, ERUR #### [facility] [address] [place] [address] Dr. Yoni Thao SPEC GRAVITY 1.010 Normal 1.005-<=1.02 5 [facility] Comment on above: Performed By: #### U MICRO, ERUR #### [facility] [address] [place] [address] Dr. Yoni Thao UA PROTEIN TRACE Normal NEGATIVE/ TRACE [facility] Comment on above: Performed By: #### U MICRO, ERUR #### [facility] [address] [place] [address] Dr. Yoni Thao UR MICRO IND INDICATED Normal [facility] Comment on above: Performed By: #### U MICRO, ERUR #### [facility] [address] [place] [address] Dr. Yoni Thao Urobilinogen Qn (U) 0.2 {Byron'U}/dL Normal 0.2 - 1. 0 [facility] Comment on above: Performed By: #### U MICRO, ERUR #### [facility] [address] [place] [address] Dr. Yoni Thao URINE MICROSCOPIC ONLYon BACTERIA SMALL Abnormal NONE SEEN [facility] Comment on above: Performed By: #### U MICRO, ERUR #### [facility] [address] [place] [address] Dr. Yoni Thao Bacteria identified Cx Nom (U) INDICATED Normal [facility] Comment on above: Performed By: #### U MICRO, ERUR #### [facility] [address] [place] [address] Dr. Yoni Thao CAST NONE SEEN Normal NONE SEEN [facility] Comment on above: Performed By: #### U MICRO, ERUR #### [facility] [address] [place] [address] Dr. Yoni Thao Crystals LM Nom (Urine sed) NONE SEEN Normal NONE SEEN [facility] Comment on above: Performed By: #### U MICRO, ERUR #### [facility] [address] [address] [address] Yoni Thao Epithelial cells LM Ql (Urine sed) FEW Abnormal NONE SEEN /RARE [facility] Comment on above: Performed By: #### U MICRO, ERUR #### [facility] [address] [address] [address] Yoni Thao MUCOUS NONE SEEN Normal NONE SEEN [facility] Comment on above: Performed By: #### U MICRO, ERUR #### [facility] [address] [address] [address] Yoni Thao RBC 20-50 Abnormal 0-2 [facility] Comment on above: Performed By: #### U MICRO, ERUR #### [facility] [address] [address] [address] Yoni Thao WBC 20-50 Abnormal NONE SEEN [facility] Comment on above: Performed By: #### U MICRO, ERUR #### [facility] [address] [address] [address] Yoni Thao Q - CULTURE,URINE,ROUTINEon 05-17-2021 CULTURE, URINE, ROUTINE SEE NOTE Abnormal [facility] [employer] Inspector Comment on above: Order Comment: [facility] performed at: QPT, [facility], [address] [place] [address], [address] [place] [address], [address], Continuity Writer: Husam Whittaker MD [facility] Collection Date/Time: [id number] [facility] Results Received Date/Time: [id number] [facility] Reported Date/Time: [id number] Result Comment: CULT URE, URINE, ROUTINE Micro Number: [id number] Test Status: Final Specimen Source: Not given [...] #### 6 [id number] #### [facility] [address] [place] [address] Vital Signs Date Time Vital Sign Value Performing Clinician Cinda cabrera 06-12-2023 04:35-0400 Diastolic blood pressure 83 mm[Hg] [facility] 06-12-2023 04:35-0400 Heart rate 74 /min [facility] 06-12-2023 04:35-0400 Mean blood pressure 105 mm[Hg] [facility] [employer] [facility] 06-12-2023 04:35-0400 Respiratory rate 16 /min [facility] 06-12-2023 04:35-0400 SaO2% (BldA) [Mass fraction] 94 % Sudhakar [employer] [facility] 06-12-2023 04:35-0400 Systolic blood pressure 148 mm[Hg] [facility]hakar [employer] [facility] 06-12-2023 03:43-0400 Diastolic blood pressure 96 mm[Hg] [facility]hakar [facility] 06-12-2023 03:43-0400 Heart rate 74 /min [facility] [facility] 06-[facility]-2023 03:43-0400 Mean blood pressure 121 mm[Hg] Sudhkaar Lupe [facility] 06-12-2023 03:43-0400 Respiratory rate 23 /min Usdhakar Lupe [facility] 06-12-2023 03:43-0400 SaO2% (BldA) [Mass fraction] 96 % Sudhakar Lupe [facility] 06-12-2023 03:43-0400 Systolic blood pressure 171 mm[Hg] Sudhakar Lupe [facility] 06-12-2023 03:10-0400 Diastolic blood pressure 89 mm[Hg] Sudhakar Lupe [facility] 06-12-2023 03:10-0400 Heart rate 92 /min Sudhakar Ulpe [facility] 06-12-2023 03:10-0400 Mean blood pressure 114 mm[Hg] Sudhakar Lupe [facility] 06-12-2023 03:10-0400 Respiratory rate 46 /min Sudhakar Lupe [facility] 06-12-2023 03:10-0400 SaO2% (BldA) [Mass fraction] 94 % Sudhakar Lupe [facility] 06-12-2023 03:10-0400 Systolic blood pressure 164 mm[Hg] Sudhakar Lupe [facility] 06-12-2023 02:36-0400 Blood Pressure Location Sudhakar Lupe [facility] 06-12-2023 02:36-0400 Body temperature 98.24 [degF] Sudhakar Lupe [facility] 06-12-2023 02:36-0400 Heart rate 78 /min [facility] Lu[facility] 06-12-2023 02:36-0400 Respiratory rate 16 /min [facility] Lupe [facility] 05-27-2023 14:00-0500 Hourly Rounding [facility] 05-27-2023 14:00-0500 Promise to Return [facility] 05-27-2023 13:10-0500 Hourly Rounding [facility] 05-27-2023 13:10-0500 [facility] 05-27-2023 12:00-0500 [facility] 05-27-2023 12:00-0500 [facility] 05-27-2023 08:20-0500 SaO2% (BldA) [Mass fraction] 95 % [facility] 05-27-2023 08:10-0500 Heart rate 77 /min [facility] 05-27-2023 08:10-0500 SaO2% (BldA) [Mass fraction] 95 % [facility] 05-27-2023 08:09-0500 Diastolic blood pressure 62 mm[Hg] [facility] 05-27-2023 08:09-0500 Mean blood pressure 75 mm[Hg] [facility] 05-27-2023 08:09-0500 Systolic blood pressure 101 mm[Hg] [facility] 05-27-2023 08:09-0500 Body temperature 98.24 [degF] [facility] 05-27-2023 04:54-0500 Blood [facility] 05-27-2023 04:54-0500 Body temperature 97.88 [degF] [facility] 05-27-2023 04:54-0500 Diastolic blood pressure 63 mm[Hg] [facility] 04:54-0500 Heart rate 77 /min sunni [facility] 05-27-2023 04:54-0500 Mean blood pressure 74 mm[Hg] [facility] 05-27-2023 04:54-0500 Respiratory rate 16 /min [facility] 05-27-2023 04:54-0500 SaO2% (BldA) [Mass fraction] 96 % [facility] 05-27-2023 04:54-0500 Systolic blood pressure 97 mm[Hg] [facility] 05-27-2023 00:47-0500 Blood Pressure [facility] 05-27-2023 00:47-0500 Body temperature 98.6 [degF] sunni [facility] 05-27-2023 00:47-0500 Diastolic blood pressure 64 mm[Hg] [facility] 05-27-2023 00:47-0500 Heart rate 81 /min [facility] 05-27-2023 00:47-0500 Mean blood pressure 78 mm[Hg] [facility] 05-27-2023 00:47-0500 Respiratory rate 15 /min [facility] 05-27-2023 00:47-0500 Systolic blood pressure 105 mm[Hg] [facility] 05-26-2023 20:00-0500 Body temperature 98.06 [degF] [facility] 05-26-2023 20:00-0500 Heart rate 87 /min [facility] 05-26-2023 20:00-0500 Mean blood pressure 95 mm[Hg[facility] 16:57-0500 Heart rate 85 /min [facility] 05-26-2023 16:56-0500 Mean blood pressure 89 mm[Hg] [facility] 05-26-2023 16:55-0500 Body temperature 98.42 [degF] [facility] 05-26-2023 12:55-0500 Body temperature 97.52 [degF] [facility] 05-26-2023 12:55-0500 Heart rate 95 /min [facility] 05-26-2023 12:32-0500 Heart rate 84 /min sunni [facility] 05-26-2023 12:32-0500 Respiratory rate 16 /min [facility] 05-26-2023 12:13-0500 Respiratory rate 18 /min sunni [facility] 05-26-2023 11:57-0500 Respiratory rate 18 /min sunni [facility] 05-26-2023 10:40-0500 SaO2% (BldA) [Mass fraction] 93.8 % [facility] 05-26-2023 09:53-0500 gluc 91 mg/dL [facility] 05-26-2023 09:53-0500 gluc [facility] 05-26-2023 09:33-0500 Heart rate 85 /min [facility] Encounters Encounter Date Encounter Type Care Provider Facility Start: 12-17-2023 End: 12-17-2023 ambulatory ANA SIMON Not Available Start: 09-17-2023 End: 09-17-2023 ambulatory ANA SIMON Not Available Start: 08-02-2023 End: 08-02-2023 ambulatory Mayank Lo Facility:[facility] Start: 08-02-2023 End: 08-02-2023 ambulatory Mayank Lo Work Phone: [facility] Work Phone: Start: 08-02-2023 End: 08-02-2023 Departed Referred Mayank Lo Work Phone: [facility] Start: 07-12-2023 End: 07-12-2023 ambulatory ANA SIMON Not Available Start: 06-20-2023 End: 06-20-2023 ambulatory ANA SIMON Not Available Start: 06-12-2023 End: 06-12-2023 Emergency department patient visit Sudhakar Andrade Facility:[facility] Start: 06-12-2023 End: 06-12-2023 Emergency department patient visit Sudhakar Andrade [facility] Start: 05-26-2023 End: 05-27-2023 ambulatory Carly Stapleton Facility:[facility] Start: 05-26-2023 End: 05-27-2023 [facility] Start: 04-25-2022 End: 04-26-[address] MERVAT ORELLANA Facility:[facility] Start: 12-12-2021 End: 12-12-[address] DOCTOR EGAN Facility:[facility] Start: 07-30-2017 End: 07-31-2017 Ambulatory DEFAULT PHYSICIAN Facility:[facility] Procedures Date Procedure Procedure Detail Performing Clinician Abdominal hysterectomy Carly Stapleton Payers Date Payer Category Payer Self-pay 1959 Unknown [id number] 1935 Unknown [id number] [id number] [id number] 1935 Unknown [id number] 2.16.84 [id number] 1935 Unknown [id number] 2.16.8 [id number] 1935 Unknown [id number] 2.16.8 [id number] 1935 Unknown [id number] 2.16.84 [id number] 1935 Unknown [id number] 2.16.84 [id number] 1935 Unknown [id number] 2.16.84 [id number] 1935 Unknown [id number] 2.16.84 [id number] Unknown Social History Date Type Detail Facility Tobacco smoking status [facility] Sex Assigned At Female [facility] Start: 1935 Sex Assigned At Female F [facility] Functional Status Date Assessment Result Facility 06-12-2023 Functional Status N/A [facility] 05-26-2023 Functional Status No [facility] 05-26-2023 Functional Status [facility] Clinical Notes 05-27-2023 to 06-12-2023 Note Date & Type Note Facility 06-12-2023 Evaluation + Plan note Extrac prateek from: Title:ED Note Author:Sudhakar Andrade DO Date :06/12/23 Encounter for medical screen ing examination (Z13.9: Encounter for screening, unspecified) Orders: Basic Metabolic Panel CBC w/ Auto Diff CT Head or Brain w/o Contrast ECG 12 Lead Adult eGFR Influenza A&B Ag Rapid COVID Antigen ([facility]) Saline Lock Insert Troponin 0 Hr. UA With Cult Reflex XR Chest Single View [facility]03-12-2024 Hospital Discharge instructions Patient Education 06/12/2023 [...] including vitamins, herbs, eye drops, creams, and tzsh-npf-gvzjpmc medicines. Any problems you or family members [...] if you need an emergent specialist or senior management consultant that is not available at the medical center you are at. You need to have more tests. A clinical specialist medical device may be consulted if needed. Get help [...] provider. Document Revised: 11/30/2021 Document Reviewed: 07/28/2021 [employer] Patient Education 2022 [employer]. Follow Up Care 06/12/2023 02:35:11 With:Mauricezenaida Rogers Address: [address] [place] [address], [place] [address] Business (1) When:Within 3 Day(s) [facility]03-02-2024 NoteMicrobiology PROCEDURE: Blood Culture Charcoal [R1] SOURCE: Blood BODY SITE: Hand L COLLECTED DATE/TIME: 05/26/2023 09:55 EST RECEIVED DATE/TIME: 05/26/2023 10:59 EST START DATE/TIME: 05/26/2023 10:59 EST FREE TEXT SOURCE: Hayley Reese, Lucille Hardy M.D., Lucille Avila FINAL REPORTS Final Report [] Verified Date/Time: 06/02/2023 15:32 EST No growth at 7 days. Performing Locations R1: This test was performed at: [facility], [address] [place] [address], [id number], BmzbehC[facility] HospitalComment on above:Performed By: #### [id number] ####[facility] [id number] [place], [place] [id number] NoteMicrobiology PROCEDURE: Blood Culture Charcoal [R1] SOURCE: Blood BODY SITE: Hand R COLLECTED DATE/TIME: 05/26/2023 09:48 EST RECEIVED DATE/TIME: 05/26/2023 11:00 EST START DATE/TIME: 05/26/2023 11:00 EST FREE TEXT SOURCE: Hayley Reese, Lucille Hardy M.D., Lucille Avila FINAL REPORTS Final Report [] Verified Date/Time: 06/02/2023 15:32 EST No growth at 7 days. Performing Locations R1: This test was performed at: [facility], [address] [place] [address], [id number]- , [place], JtkonmCleveland Clinic Euclid HospitalComment on above:Performed By: #### [id number] ####[facility] [address] [place], [place] [id number] NoteChief Complaint pt to ER with c/o [...] 9.3 E9/L (05/26/23 09:25:00) RBC: 4.9 E12/L (05/26/23 09:25:00) HGB: 15.2 gm/dL (05/26/23 09:25:00) Hct: 42 % (05/26/23:25:00) MCV: 85.6 fL (05/26/23:25:00) MCH: 30.8 pg (05/26/23:25:00) MCHC: 36 gm/dL (05/26/23:25:00) RDW: 12.9 % (05/26/23 09:25:00) Platelet: 298 E9/L (05/26/23 09:25:00) MPV: 7.1 fL (05/26/23:25:00) RBC Morph: NORMAL (05/26/23::) PT: 12 second(s) (05/26/23::) INR: 1.08 (05/26/23:) PTT: 30.2 second(s) (05/26/23::) Glucose Lvl: 98 mg/dL (05/26/23:) BUN: 22 mg/dL High (05/26/23) Creatinine: 0.9 mg/dL (05/26/23) eGFR: 61 mL/min/1.73 m2 (05/26/23) BUN/Creat Ratio: 24 High (05/26/23) Sodium Lvl: 141 mmol/L (05/26/23) Potassium Lvl: 3.4 mmol/L Low (05/26/23) Chloride: 106 mmol/L (05/26/23::) CO2: 25 mmol/L (05/26/23:) AGAP: 13 mEq/L (05/26/23:) Calcium Lvl: 10.4 mg/dL (05/26/23:) Alk Phos: 59 Int._Unit/L (05/26/23:) Alk Phos: 59 Int._Unit/L (05/26/23::) ALT: 14 Int._Unit/L (05/26/23::) ALT: 14 Int._Unit/L (05/26/23::) AST: 48 Int._Unit/L High (05/26/23::) AST: 48 Int._Unit/L High (05/26/23:) Total Protein: 7.7 gm/dL (05/26/23::) Total Protein: 7.7 gm/dL (05/26/23::) Albumin Lvl: 4.9 gm/dL (05/26/23::) Albumin Lvl: 4.9 gm/dL (05/26/23 09:25:00) Globulin: 2.8 gm/dL (05/26/23 09:25:00) Globulin: 2.8 gm/dL (05/26/23:25:00) A/G Ratio: 1.8 (05/26/23 09:25:00) A/G Ratio: 1.8 (05/26/23 09:25:00) Bili Total: 1.2 mg/dL High (05/26/23 09:25:00) Bili Total: 1.2 mg/dL High (05/26/23 09:25:00) Bili Direct: 0.2 mg/dL (05/26/23:25:00) Bili Indirect: 1 mg/dL High (05/26/23 09:25:00) Lactic Acid Lvl: 1.6 mmol/L (05/26/23 09:55:00) Magnesium: 1.8 mg/dL (05/26/23 09:25:00) TSH: 4.54 mcIU/mL (05/26/23 09:25:00) Troponin: 16.1 pg/mL (05/26/23 12:13:00) U Amph Scr: NEGATIVE (05/26/23 10:10:00) U Desirae Scr: NEGATIVE (05/26/23 10:10:00) U Benzodia Scr: NEGATIVE (more content not included)...[facility] HospitalComment on above:Result Comment: Electronically Signed By: Clarice ARMSTRONG\.br\Date and Time Signed: 05/26/23 14:49 EST\.br\Electronically Co-Signed By: Carly Stapleton MD\.br\Date and Time Co-Signed: 05/27/23 17:02 [id number] NoteAdmission and Discharge Information Admitting Physician - [...] JEMIMA Talley Within 2 to 4 weeks [address] [id number] [place] [address]- Additional Instructions: Patient Education [facility]Comment on above:Result Comment: Electronically Signed By: Clarice ARMSTRONG\.br\Date and Time Signed: 05/27/23 14:57 EST\.br\Electronically Co-Signed By: Pieter BAKER, Carly\.br\Date and Time Co-Signed: 05/27/23 17:02 [id number] Hospital Discharge instructions Patient Education 05/27/2023 12:19:34 [...] friend for help if needed. Medicines Take ypzw-qhz-cuklnhp and prescription medicines only as told by [...] consider day care, extended-care programs, or a shelter facility. The person's health care provider may [...] provider. Document Revised: 07/13/2020 Document Reviewed: 07/13/2020 [employer] Patient Education 2022 [employer]. Follow Up Care 05/26/2023 09:32:48 With:Mayank Lawson MD, NEU Address: [address] [address]- When:2 to 4 weeks [facility]02-25-2024 Evaluation + Plan noteExtracted from: Title:Discharge [...] MD, NEU Within 2 to [address] [address]- Additional Instructions: Confusion Extracted from: Title:APSO Note [...] Reflex Vital Signs XR Chest Single View [facility]02-25-2024 NoteOT [facility] score = HH services vs no further services at co, pending progress. Pt requires CGA w/ transfers and standing adls. Inpatient OT services to follow daily as pt lives alone.[facility] HospitalEvaluation noteNo assessment information availableElyria [facility]tr Work Phone: Hospital course Narrative No data available for this section [facility] No data available for this section [facility] Summary Purpose Family History No Family [...] and content) DATE CREATED AUTHOR 09/20/2017 [facility] DATE CREATED AUTHOR AUTHOR'S ORGANIZ ATION 05/26/2021 [facility] Special[facility] DATE CREATED AUTHOR AUTHOR'S ORGANIZ ATION 04/26/2022 [facility] DATE CREATED AUTHOR AUTHOR'S ORGANIZ ATION 06/21/2023 [facility] DATE CREATED AUTHOR AUTHOR'S ORGANIZ ATION 08/16/2023 [facility] DATE CREATED AUTHOR AUTHOR'S ORGANIZ ATION 12/18/2023 [facility] d[facility] Specialists [facility] Patient Care team informatio n (unrecognized section [...] BE BASED ON THE PRIMARY CLINICAL RECORDS. [facility] [employer] provides no warranty or guarantee of the accuracy or completeness of information in this document.
== END 2024-01-07 11:35 | disposition home or self-care (01) ==
LOC: EC 11:34
PROVIDERS: PCP Internal Medicine; Visit Provider Orthopaedic Surgery
DX: S42.025D Nondisplaced fracture of shaft of left clavicle, subsequent encounter for fracture with routine healing (principal)
CPT/HCPCS: 73000

== ENCOUNTER 2024-02-03 16:12 | Emergency (ER) | payer MEDICARE, SELFPAY ==
[2024-02-03] VITALS (22 sets, daily range): BP systolic 70–142; BP diastolic 30–80; PULSE 72–141; TEMP 36.9–37.8; O2SAT 95–98; BMI 21.3
--- OUTSIDE RECORDS SUMMARY | 2024-02-03 16:20 | XMS_ITS | CCD ---
Author Organization [facility] Care Team Providers Care Seat Coverer Name Role Phone PHYSICIAN, DEFAULT Unavailable Unavailable PHYSICIAN, DEFAULT Unavailable Unavailable MISC, DR YANES Primary Care Unavailable ANGEL, DR BHAKTI Brandt Attending Unavailabl e ANGEL, DR BHAKTI Brandt Consulting Unavailabl e ANGEL, DR BHAKTI Brandt Admitting Unavailabl e KIKOCHERYL Consulting Unavailable HEMMER, DR MERVAT Baker Admitting Unavailable MISC, DR YANES Primary Care Unavailable LULING, DR SRINIVASA Burks Consulting Unavailable HEMMER, DR MERVAT Baker Attending Unavailable HEMMER, DR MERVAT Baker Consulting Unavailable Maurice Rogers III Primary Care Physician [phone] Carly Stapleton Attending Unavailable Carly Stapleton Admitting Unavailable Davenport, Mayank Consulting Unavailable Davenport, Mayank Consulting Unavailable Davenport, Mayank Consulting Unavailable Davenport, Mayank Consulting Unavailable Davenport, Mayank Consulting Unavailable Davenport, Mayank Consulting Unavailable Davenport, Mayank Consulting Unavailable Davenport, Mayank Consulting Unavailable Davenport, Mayank Consulting Unavailable Sudhakar Andrade Attending Unavailable [...] te Episodic/Chronic Other aftercare (1 source) Other termite treater (current) drug therapy; Translations: [OTH SUPERVISOR STAVE CUTTING CURRENT DRUG THERAPY] Onset: 12-14-2021 Episodic Unclassified (1 source) LOW BACK PAIN, UNSPECIFIED; Translations: [LOW BACK PAIN, UNSPECIFIED] Onset: 12-12-2021 Urinary tract infections (1 source) Urinary tract infection, site not specified; Translations: [UTI SITE NOT SPECIFIED] Onset: 12-14-2021 Episodic Results Test Name Value Interpretation Reference Range Facility [facility] 08-02-2023 L Specimen: [id number] Received: 08/03/23 Status: JOCELYN Dunbar Num: [id number] Spec Type: Surgical Subm Dr: Mayank Lo Tissues: A Femoral Head - Fracture (RT HIP) Procedures: HE/2, Gross/Micro L4, Decalcification Age/ Patient Sex Location Account Attending Physician Teresa Bacon 88/F LABELL [id number] Mayank Lo SPEC NUM: [id number] RECD: 08/03/23 STATUS: JOCELYN DUNBAR NUM: [id number] TIM: 08/02/[address]: Mayank Lo ENTERED: 08/03/23 [facility] DR: Pam,Lab SPEC TYPE: Surgical DEPT: RIAN [...] bone matrix with no focal lesions present. Director Chemistry sections are submitted following decalcification A1-femoral head, following decalcification A2-fracture site, following decalcification Clinical history: Fall/head injury, right hip fracture -------- Specimen: [id number] Received: 08/03/23 Status: JOCELYN Dunbar Num: [id number] Spec Type: Surgical Subm Dr: Mayank Lo Tissues: A Femoral Head - Fracture (RT HIP) Procedures: HE/2, Gross/Micro L4, Decalcification -------- Patient: JordiTeresa Matthew [id number] (Continued) -------- Specimen: [id number] Received: 08/03/23 (Continued) Gross Description (Continued) Signed (signature on file) Georgina Thao MD 08/06/231900 -------- Specimen: [id number] Received: 08/03/23 Status: JOCELYN Dunbar Num: [id number] Spec Type: Surgical Subm Dr: Mayank Lo Tissues: A Femoral Head - Fracture (RT HIP) Procedures: HE/2, Gross/Micro L4, Decalcification -------- Patient: ChelsearaviTeresa Matthew [id number] (Continued) -------- Specimen: [id number] Received: 08/03/23 (Continued) Gross Description (Continued) CPT Codes 08333, 13321 FEMORAL HEAD FEMORAL HEAD -------- -------- Specimen: [id number] Received: 08/03/23 Status: JOCELYN Bettina Num: [id number] Spec Type: Surgical Subm Dr: Mayank Lo Tissues: A Femoral Head - Fracture (RT HIP) Procedures: HE/2, Gross/Micro L4, Decalcification -------- Patient: Teresa Bacon [id number] (Continued) -------- Signed (signature on file) Georgina Thao MD 08/06/23 190 Normal [facility] Anion gap [Moles/Vol] 15 mmol/L Normal 6-16 [facility] Comment on above: Performed By: #### 2 534708, 6473132, 82178933, [id number] ####[facility] [address] [place] [address] Calcium [Mass/Vol] 10.1 mg/dL Normal 8.9-11.1 [facility] Comment on above: Performed By: #### 2 541589, 6271474, 70211167, 88857817 ####[facility] [address] [place] [address] Chloride [Moles/Vol] 108 mmol/L Normal 101-111 [facility] Comment on above: Performed By: #### 2 790727, 5616969, 17048283, 92337559 ####[facility] [address] [place] [address] CO2 [Moles/Vol] 22 mmol/L Normal 21-31 [facility] Comment on above: Performed By: #### 2 039543, 2977477, 25340327, 88915095 ####[facility] [address] [place] [address] Creatinine [Mass/Vol] 0.8 mg/dL Normal 0.5-1.3 [facility] Comment on above: Performed By: #### 2 577088, 8057172, 63244107, 59135725 ####[facility] [address] [place] [address] Glucose [Mass/Vol] 101 mg/dL Normal 55-199 [facility] Comment on above: Performed By: #### 2 273820, 6645431, 73209438, 29597014 ####[facility] [address] [place] [address] Potassium [Moles/Vol] 3.6 mmol/L Normal 3.5-5.3 [facility] Comment on above: Performed By: #### 2 842477, 2682615, 98473702, 42230283 ####[facility] [address] [place] [address] Sodium [Moles/Vol] 141 mmol/L Normal 135-145 [facility] Comment on above: Performed By: #### 2 686190, 3788399, 17526815, 10819920 ####[facility] [address] [place] [address] Urea nitrogen [Mass/Vol] 23 mg/dL High 5-21 [facility] Comment on above: Performed By: #### 2 240934, 1770556, 25350313, 45510469 ####[address] [address] Urea nitrogen/Creatinine [Mass ratio] 29 No Units High 10-20 [facility] Comment on above: Performed By: #### 2 797305, 0312461, 34713042, 00253227 ####[address] [address] CBC w/ Auto Diffon 4 Basophils/100 WBC (Bld) 1.2 % Normal 0.0-2.0 [facility] Comment on above: Performed By: #### 2 299120, 2391532, 31972152, 83639745 ####[address] [address] Basophils/Leukocytes Auto (Bld) [Pure # fraction] 0.1 E9/L Normal 0.0-0.2 [facility] Comment on above: Performed By: #### 2 940757, 7038258, 95206252, 48017243 ####[address] [address] Eosinophils (Bld) [#/Vol] 0.1 E9/L Normal 0.0-0.5 [facility] Comment on above: Performed By: #### 2 734747, 4045009, 86887991, 25146109 ####[address] [address] Eosinophils/100 WBC (Bld) 1.2 % Normal 0.0-8.0 [facility] Comment on above: Performed By: #### 2 004605, 7574507, 89053768, 16195858 ####[address] [address] Erythrocyte distribution width (RBC) [Ratio] 13.3 % Normal 10.9-14.2 [facility] Comment on above: Performed By: #### 2 868607, 0509225, 96553621, 83181582 ####[facility] [address] [place] [address] Hematocrit (Bld) [Volume fraction] 43.1 % Normal 34.0-46.0 [facility] Comment on above: Performed By: #### 2 283670, 9726218, 84618593, 34647426 ####[facility] [address] [place] [address] Hemoglobin (Bld) [Mass/Vol] 15.2 g/dL Normal 12.0-16.0 [facility] Comment on above: Performed By: #### 2 014812, 8541223, 08483058, 38749491 ####[address] [address] Lymphocytes (Bld) [#/Vol] 2.2 E9/L Normal 1.0-4.0 [facility] Comment on above: Performed By: #### 2 645542, 9563981, 15332660, 15156242 ####[address] [address] Lymphocytes/100 WBC (Bld) 28.5 % Normal 14.0-50.0 [facility] Comment on above: Performed By: #### 2 953289, 9340130, 97872604, 12704965 ####[address] [address] MCH (RBC) [Entitic mass] 30.0 pg Normal 27.0-34.0 [facility] Comment on above: Performed By: #### 2 812572, 8822305, 99520089, 83927600 ####[address] [address] MCHC (RBC) [Mass/Vol] 35.2 g/dL Normal 31.4-36.0 [facility] Comment on above: Performed By: #### 2 231953, 3839013, 71407869, 53707661 ####[address] [address] MCV (RBC) [Entitic vol] 85.1 fL Normal 80.0-100.0 [facility] Comment on above: Performed By: #### 2 708129, 2391726, 67103145, 14907985 ####[address] [address] Monocytes (Bld) [#/Vol] 0.7 E9/L Normal 0.2-1.0 [facility] Comment on above: Performed By: #### 2 604310, 0461917, 25757156, 83801782 ####[address] [address] Neutrophils (Bld) [#/Vol] 4.6 E9/L Normal 2.0-7.5 [facility] Comment on above: Performed By: #### 2 035801, 9934946, 61916733, 56068592 ####[address] [address] Neutrophils/100 WBC (Bld) 60.1 % Normal 36.0-75.0 [facility] Comment on above: Performed By: #### 2 237188, 0901395, 32979849, 10995989 ####[address] [address] Platelet 245.0 E9/L Normal 150.0-500.0 [facility] Comment on above: Performed By: #### 2 342342, 8083284, 19091865, 22831439 ####[address] [address] Platelet mean volume (Bld) [Entitic vol] 6.9 fL Normal 6.4-10.8 [facility] Comment on above: Performed By: #### 2 960681, 2814795, 47634003, 99079706 ####[facility] [place] [address] RBC (Bld) [#/Vol] 5.1 E12/L Normal 4.3-5.9 [facility] Comment on above: Performed By: #### 2 199706, 2005246, 22114132, 23095631 ####[facility] [address] [place] [address] WBC corrected for nucl RBC Auto (Bld) [#/Vol] 7.6 E9/L Normal 4.0-11.0 [facility] Comment on above: Performed By: #### 2 775366, 4952547, 28848358, 27645574 ####[facility] [address] [place] [address] CHEMISTRYOrdered By: SYSTEM SYSTEM on 06-12-2023 Anion [...] Sensitivity Troponin I Instructions For Use, Tej M-Changa, October 2017) Urea nitrogen [Mass/Vol] 23 mg/dL [...] Technologist: REINALDO Technical Comments Contrast: None Normal [facility] Consent for Treatmenton 05-31 Consent for Treatment [id number]#1. 00TIFF Normal [facility] Discharge Instructionson Discharge Instructions [id number] #1.00TIFF Normal [facility] ED Clinical Summaryon 2023 ED Clinical Summary [address] [id number] ED Clinical Summary Person Information Name: TERESA BACON/New_Hira Age: 87 Years : 1935 Sex: Female Language: Tajik PCP: Maurice Rogers III, DO Marital Status: [...] 06/12/2023 04:50:27 06/12/2023 04:50:27 06/12/2023 04:50:27 ADDRESS: [address] [place] [id number] PHYS DOC NOTES: MEDICAL INFORMATION: Prescriptions Given: [...] Follow up: With: Address: When: Maurice Rogers [address] [place] [address], [facility], [place] [address] [email or web address] (1) In 3 days DIAGNOSIS: Encounter for medical screening examination Normal [facility] ED Note-Physicianon 06-12-19 ED Note-Physician Basic [...] and Complexity of Problems Differential Diagnosis: [] [facility] Data External documents reviewed: N/A [...] process. On reassessment the patient's son and xokqzhwb-zp-bei are with her. She states that she [...] Influenza A&B Ag Rapid COVID Antigen ([facility]) Saline Lock Insert Troponin 0 Hr. UA With Cult Reflex XR Chest Single View Disposition Plan Discharge Prescription List Prescriptions No active prescription medications Follow-up With When Contact Information Maurice Rogers In 3 days [address] [facility] [place] [address] [facility] (1) Additional Instructions: Patient Education Medical [...] 02:43:00) Lymph Auto: 28.5 % (06/12/23 02:43:00) [place]au Auto: 9 % (06/12/23 02:43:00) Eos Auto: 1.2 % (06/12/23 02:43:00) Basophil Auto: 1.2 % (06/12/23 02:43:00) Neutro Absolute: 4.6 E9/L (06/12/23 02:43:00) Lymph Absolute: 2.2 E9/L (06/12/23 02:43:00) [place]au Absolute: 0.7 E9/L (06/12/23 02:43:00) Eos Absolute: [...] Catch (0 (more content not included)... Normal [facility] Comment on above: Result Comment: [...] including vitamins, herbs, eye drops, creams, and whox-rbw-lhllzyh medicines. ? Any problems you or family [...] if you need an emergent specialist or practice consultant that is not available at the medical center you are at. ? You need to have more tests. A biomedical engineering technician may be consulted if needed. Get help [...] provider. Document Revised: 11/30/2021 Document Reviewed: 07/28/[address] [employer] Patient Education ? 2022 [employer] Normal [facility] ED Patient Summaryon 024 ED Patient Summary [address] [address] Patient Discharge Instructions Person Information Name: TERESA BACON Age: 87 Years Arrival Date: 06/12/2023 02:34:46 Discharge Diagnosis: Encounter for medical screening examination Primary Care Physician: Maurice Rogers III, DO Provider Information Primary Provider: Sudhakar Andrade DO Advanced Supreme Court Judge:None The exam and treatment you received in the Emergency Department were for an urgent problem and are not intended as complete care. It is important that you follow up with a doctor, nurse practitioner, or physician?s assistant manager pt for ongoing care. If your symptoms become worse or you do not improve as expected and you are unable to reach your usual health care provider, you should return to the Emergency Department. We are available 24 hours a day. TERESA BACON has been given the following list of patient education materials, prescriptions and follow-up instructions: Follow-up Instructions: With: Address: When: Maurice oRgers [address] [place] [address], [place] [address] Business (1) In 3 days In the event that this physician does not participate in your insurance network, please consult with your insurance company to find a nearby participating provider. Patient Education Materials: Medical Screening Exam A MESSAGE TO ALL PATIENTS REGARDING OPIOIDS PRESCRIPTION OPIOIDS: WHAT YOU NEED TO KNOW Prescription opioids can be used to help relieve glcpyvis-gi-hoqjtu pain and are often prescribed following a [...] be struggling with addiction, tell your health career placement specialist and ask for guidance or call [facility]S National Helpline at 6-229-544-ANKK. v So (more content not included)... Normal [facility] HEMATOLOGYOrdered By: SYSTEM SYSTEM on 06-12-2023 [...] Agon Influenzae A Ag Negative Normal Negative [facility] Comment on above: Performed By: #### 2 [id number], [id number] ####[facility] [address] [place] [address] Influenzae B Ag Negative Normal Negative [facility] Comment on above: Result Comment: Test sensitivity and specificity vary for age group, specimen type, antigen types, and prevalence of disease. Test results must be evaluated in conjunction with other clinical data available to the physician. Individuals who received nasally administered Influenza A vaccine may have positive test results up to 3 days after vaccination. Performed By: #### 2 [id number], [id number] ####[facility] [address] [place] [address] MICRO OTHER TESTSOrdered By: Zehra Bateman on 06-12-2023 Influenzae A Ag Negative (06/12/23 2:50 AM) Normal Negative [facility] Man Sero Influenzae B Ag Negative 1 (06/12/23 2:50 AM) Normal Negative [facility] Sero Comment on above: Interpretive Data: [...] NEG Ctl Pass (06/12/23 2:50 AM) Normal [facility] Sero Rapid COV Int POS Ctl Pass (06/12/23 2:50 AM) Normal [facility] Sero SARS-CoV+SARS-CoV-2 (COVID-19) Ag IA.rapid Ql (Resp) Not Detected 3 (06/12/23 2:50 AM) Normal Not Detected [facility] Sero Comment on above: Interpretive Data: T he [employer] Veritor System for Rapid Detection of SARS-CoV-2 [...] For in vitro diagnostic use. In the [facility], only for use under an [...] revoked sooner. Monitor Recordon 06-12-2023 Monitor Record [id number]# 1.00TIFF Normal [facility] Pre-Arrival Noteon 4 Pre-Arrival Note Pre-Arrival Summary Name: , [facility] Current Date: 06/12/2023 02:36:18 EDT Gender: Female Date of : Age: 87 Pre-Arrival Type: EMS ETA: 06/12/2023 02:51:00 EDT Primary Care Physician: Presenting Problem: ILL,HTN Pre-Arrival User: Karen Chirinos RN Referring Source: Location: [place] Completion Date/Time: 06/12/2023 02:21:00 [facility] Emergency Department Pre-Hospital Report Form Vital Signs: 207/129, HR100, RR16, 100% RA Pre-Hospital Report: feeling ill, alert and oriented Treatment in Route:FSBS 129, 20RFA, CSS Response to Treatment: Misc. Issues: Normal [facility] RAD - Preliminary Cat Scan R eporton 06-12-2023 RAD - Preliminary Cat Scan Report [id number] #1.00TIFF Normal [facility] Rapid COVID Antigen ([facility])on 06-12-2023 Rapid COV Int NEG Ctl Pass Normal [facility] Comment on above: Performed By: #### 2 [id number], [id number] ####[facility] [address] [place] [address] Rapid COV Int POS Ctl Pass Normal Fis her [facility] Comment on above: Performed By: #### 2 [id number], 31675684 ####[facility] [address] [place] [address] SARS-CoV+SARS-CoV-2 (COVID-19) Ag IA.rapid Ql (Resp) Not detected Normal Not Detected [facility] Comment on above: Result Comment: The Qwiqq System for Rapid Detection of SARS-CoV-2 is [...] or revoked sooner. Performed By: #### 2 [id number], 25674925 ####[facility] [address] [place] [address] Troponin 0 Hr.on 06-12-2023 Troponin 10.20 pg/mL Normal 10.10-27.10 [facility] Comment on above: Result Comment: The 95% CI (Confidence Interval) PPV (Positive Predictive Value) for myocardial infarction in females is 38 pg/mL, in males 51 pg/mL. The results should be used in conjunction with clinical conditions of myocardial infarction. (Access High Sensitivity Troponin I Instructions For Use, Tej M-Changa, October 2017) Performed By: #### 2 503576, 9996799, 01452122, 81710722 ####[facility] [address] [place] [address] UA With Cult Reflexon 2023 Bilirubin Ql (U) Negative Normal Negative [facility] Comment on above: Performed By: #### 1 0771963 ####[address] [address] Clarity (U) CLEAR Normal Clear [facility] Comment on above: Performed By: #### 1 9175281 ####[address] [address] Color (U) YELLOW Normal Yellow [facility] Comment on above: Performed By: #### 1 0204353 ####[address] [address] Epithelial cells.squamous LM.HPF (Urine sed) [#/Area] 0-2 Normal 0-2 [facility] Comment on above: Performed By: #### 1 1347600 ####[facility] [address] [place] [address] Glucose Test strip (U) [Mass/Vol] Negative Normal Negative [facility] Comment on above: Performed By: #### 1 1730552 ####[address] [address] Hemoglobin Ql (U) TRACE Abnormal Negative [facility] Comment on above: Performed By: #### 1 8574382 ####[address] [address] Ketones (U) [Mass/Vol] Negative Normal Negative [facility] Comment on above: Performed By: #### 1 9080553 ####[address] [address] [facility]pl[facility] .RBC (Bld) [Mass ratio] 0-3 Normal 0-3 [facility] Comment on above: Performed By: #### 1 2001791 ####[address] [address] Nitrite Ql (U) Negative Normal Negative [facility] Comment on above: Performed By: #### 1 3905660 ####[address] [address] pH (U) 7.5 [pH] Invalid Interpretation Code 5.0-9.0 [facility] Comment on above: Performed By: #### 1 4109293 ####[address] [address] Protein (U) [Mass/Vol] 2+ Abnormal Negative [facility] Comment on above: Performed By: #### 1 0387237 ####[address] [address] Specific gravity (U) [Rel density] 1.020 Invalid Interpretation Code 1.005-1.030 [facility] Comment on above: Performed By: #### 1 0531647 ####[address] [address] Type of Urine collection method Clean Catch Normal [facility] Comment on above: Performed By: #### 1 4172856 ####[address] [address] Urobilinogen Qn (U) 0.2 {Byron'U}/dL Normal 0.0-1.0 [facility] Comment on above: Performed By: #### 1 7517875 ####[address] [address] WBC Auto Ql (U) Negative Normal Negative [facility] Comment on above: Performed By: #### 1 1013020 ####[facility] [address] [place] [address] WBC LM.HPF (Urine sed) [#/Area] 0-5 Normal 0-5 [facility] Comment on above: Performed By: #### 1 7276321 ####[facility] [address] [place] [address] URINALYSISOrdered By: Radha Bateman on 06-12-2023 Bilirubin [...] Normal Negative [facility] UA Auto SS [facility] .RBC (Bld) [Mass ratio] 0-3 /HPF Normal [...] [facility] UA Auto SS Urobilinogen Qn (U) 0.6689889 {Byron'U}/dL Normal 0.0 - 1.0 EU/dL [facility] UA Auto SS WBC Auto Ql (U) Negative (06/12/23 3:17 AM) Normal Negative [facility] UA Auto SS WBC LM.HPF (Urine sed) [#/Area] 0-5 /HPF Normal 0-5/HPF [facility] UA Auto SS XR [...] mGy = na DAP = na Normal [facility] eGFRon 06-12-2023 eGFR 71 mL/min/1.73 m2 Normal >=59 [facility] Comment on above: Order Comment: Order added by Discern Expert. Performed By: #### 2 005598, 6037127, 07526117, 69634470 ####[facility] [address] [place] [address] Inpatient Clinical Summaryon 06-04-2023 Inpatient Clinical Summary [address] [address] Clinical Summary Person Information: Name: TERESA BACON Age: 87 Years : 1935 Sex: Female PCP: Maurice Rogers III, DO Marital Status: Race: White Ethnicity: Non- or Language: Tajik Visit Id: Visit Reason: Altered mental status; Weakness or fatigue; Potential stroke; AMS Speciality: Acuity: Enc Type: Observation Med Service: Medical Arrival: 05/26/2023 09:32:27 Discharge: 05/27/2023 15:20:00 Dispo Type: Home (Routine DC) Address: [address] [place] [id number] Provider Notes: Diagnosis: 1:Acute respiratory failure; 2:Altered [...] up: With: Address: When: Maurice Rogers [address] [place] [address] Business (1) With: Address: When: Mayank Lawson MD, [facility] [address] [place] [address] Within 2 to 4 weeks Patient Education Information: Confusion Normal [facility] Inpatient Patient Summaryon 06-04-2023 Inpatient Patient Summary [address] [address] Patient Discharge Instructions PERSON INFORMATION [...] Follow up: With: Address: When: Maurice Rogers [address] [place], [place] [id number] Business (1) With: Address: When: Renny BAKER, [place] [address] Within 2 to 4 weeks In the [...] Capsules By Mouth every day. Pharmacy Information: [facility] Pam Comment: PATIENT EDUCATION INFORMATION Instructions: [...] new s (more content not included)... Normal [facility] Consent for Procedure/Surger yon 05-28-2023 Consent for Procedure/Surgery [id number] #1.00TIFF [facility] Consultation Noteon 05-28-19 24 Consultation Note [...] sensation in all 4 extremities Cerebellar exam: Yljrjf-om-bsfi reveals no ataxia. Gait is normal The neurological exam was performed by a healthcare professional which was witnessed and supervised by me via video telemedicine visit consented to by the patient or appropriate patient termite control service representative. Date/Time:05/27/2023 Co/nsciousness: Alert = 0 Current mo/nth and age: Answers both correctly = 0 Open and close eyes/elastic cutter release hand: Obeys both correctly = 0 [...] and make (more content not included)... Normal [facility] Comment on above: Result Comment: Elec tronically Signed By: Kelsey Velazquez RN\.br\Date and Time Signed: 05/27/23 07:24 EST\.br\Electronically Co-Signed By: Mayank Lawson MD\.br\Date and Time Co-Signed: 05/28/23 12:27 EST\.br\Electronically Co-Signed By: Ryan Mesa DO\.br\Date and Time Co-Signed: 06/04/23 09:13 EST Discharge Instructionson Discharge Instructions [id number] #1.00TIFF Normal [facility] Insurance Correspondence Off iceon 05-28-2023 Insurance Correspondence Office [id number]#1 .00TIFF Normal [facility] CHEMISTRYOrdered By: SYSTEM SYSTEM on 05-27-2023 [...] Pending Diagnostic Test Results None Pharmacy Information [facility] New Follow Up Appointments after Discharge Follow Up with Renny BAKER, JEMIMA Talley When: Within 2 to 4 weeks Where: [place] [address] [place] [address]- Medications What How Much When Instructions Next [...] treat sy (more content not included)... Normal [facility] Interdisciplinary Note - Joseph e Manageron 05-27-2023 Interdisciplinary Note - [employer] CRM to room to discuss DC planning. Patient is awake, alert and oriented. Patient is from home, she lives alone. One of her Children will transport at DC. Her daughter is present in room. Patient verified PCP as DR Simon, verified PCP and home DME. Patient is here as observation with AMS, Tia Vs Cva. Patient is assigned to [facility], see notes. Patient was seen by Neurology. Patient is pending MRI. Patient denied needs for DME or HH. She is okay with a paramed f/u at DC. Patient was provided CRM contact, white board updated. Anticipated DC later today or 05/28 if testing negative. CRM following Normal [facility] Comment on above: Result Comment: Elec tronically Signed By: Kaycee Rodriguez\.br\Date and Time Signed: 05/27/23 11:45 EST Interdisciplinary Note - PTo n 05-27-2023 Interdisciplinary Note - PT Pt to be seen daily in acute setting setting for bed mobility, transfers, gait. SBA-CGA for activity. May benefit from home health upon d/c. AM-PAC Normal [facility] Lyteson 05-27-2023 Anion gap [Moles/Vol] 10 mmol/L Normal 6-16 [facility] Comment on above: Performed By: #### 2 454003 ####[facility] [address] [place] [address] Chloride [Moles/Vol] 107 mmol/L Normal 101-111 [facility] Comment on above: Performed By: #### 2 711127 ####[facility] [address] [place] [address] CO2 [Moles/Vol] 27 mmol/L Normal 21-31 [facility] Comment on above: Performed By: #### 2 236290 ####[facility] [address] [place] [address] Potassium [Moles/Vol] 4.1 mmol/L Normal 3.5-5.3 [facility] Comment on above: Performed By: #### 2 521463 ####[facility] [address] [place] [address] Sodium [Moles/Vol] 140 mmol/L Normal 135-145 [facility] Comment on above: Performed By: #### 2 003071 ####[facility] [address] [place] [address] MRI Brain w/o Contraston MRI Brain w/o [...] ESTEFANY Technologist: ARMANDO Technical Comments None Normal [facility] Monitor Recordon 05-27-2023 Monitor Record [id number]# 1.00TIFF Normal [facility] Monitor Record [id number]# 1.00TIFF Normal [facility] Progress Note-Physicianon Progress Note-Physician Assessment/Plan PLAN: [...] Bili Tot (more content not included)... Normal [facility] Comment on above: Result Comment: Elec tronically Signed By: Clarice ARMSTRONG\.br\Date and Time Signed: 05/27/23 09:12 EST\.br\Electronically Co-Signed By: Carly Stapleton MD\.br\Date and Time Co-Signed: 05/27/23 17:02 EST RAD - MRI Screening Formon 0 05-27-2023 RAD - MRI Screening Form [id number]# 1.00TIFF Normal [facility] ABO/Rhon 05-26-2023 ABO/Rh Positive Invalid Interpretation Code [facility] Comment on above: Performed By: #### 2 356115, 58634236, 16651910, 16447816 ####[facility] [address] [place] [address] ABO/Rh History Checkon 05-26 ABO/Rh History Check Type verified by second s Normal [facility] Comment on above: Performed By: #### 2 351420, 63610946, 71317685, 60293189 ####[facility] [address] [place] [address] ABO/Rh Retypeon 05-26-2023 ABO/Rh Retype Interp Positive Invalid Interpretation Code [facility] Comment on above: Performed By: #### 1 1437432, 2017328, 60160895, 25358519, 27316739, 9644767, 7889189, 2855447, 1696289, 9475127 ####[facility] [address] [place] [address] ABSCon 05-26-2023 ABSC Gel Interp Negative Normal [facility] Comment on above: Performed By: #### 2 039253, 05032712, 48561376, 55443985 ####[facility] [address] [place], [place] [address] BLOOD BANKOrdered By: Jeannine Moreno on 05-26-2023 ABO/Rh Interp Positive Invalid Interpretation Code [facility] BB Subsection ABSC Gel Interp Negative (05/26/23 9:48 AM) Normal [facility] BB Subsection ABO/Rh Retype Interp Positive Invalid Interpretation Code [facility] BB Subsection BNPOrdered By: Anurag jimenes 05-26-2023 Natriuretic peptide B (Bld) [Mass/Vol] 139 pg/mL High 5-80 [facility] HemeManSS Comment on above: Performed By: #### 1 [id number] ####[place] [address] Blood Bank ID#on 05-26-2023 BBID# [id number] Invalid Interpretation Code [facility] Comment on above: Performed By: #### 2 609318, 54990145, 22783560, 38607950 ####[address] [address] Blood Gas Art, with Lytes, G audrey, [place] 05-26-2023 a/A Ratio Art 56.70 % Normal >=0.80 [facility] Comment on above: Performed By: #### 4 [id number] ####[place] [address] AaDO2 Art 44.1 mmHg High 5.0-15.0 [facility] Comment on above: Performed By: #### 4 [id number] ####[address] [address] Allens Test Positive Normal [facility] Comment on above: Performed By: #### 4 [id number] ####[facility] [address] [facility] [place] [address] Base Excess Arterial -0.8 mmol/L Low >=2.8 [facility] Comment on above: Performed By: #### 4 98660707 ####[facility] [address] [place] [address] cCa2+ Art 5.03 mg/dL Normal 4.40-5.30 [facility] Comment on above: Performed By: #### 4 55555814 ####[facility] [address] [place] [address] cCl- Art 106.0 mmol/L Normal 101.0-111.0 [facility] Comment on above: Performed By: #### 4 63099501 ####[address] [address] cGlu Art 105 mg/dL High 55-99 [facility] Comment on above: Performed By: #### 4 20852421 ####[place] [place] [address] cK+ Art 3.3 mmol/L Low 3.5-5.3 [facility] Comment on above: Performed By: #### 4 26195070 ####[address] [place] [address] cLac Art .9 mmol/L Normal .5-2.2 [facility] Comment on above: Performed By: #### 4 40821828 ####[facility] [address] [place] [address] product trainer+ Art 141.0 mmol/L Normal 135.0-145.0 [facility] Comment on above: Performed By: #### 4 87638335 ####[facility] [address] [place] [address] Drawn by nawaf parada Invalid Interpretation Code [facility] Comment on above: Performed By: #### 4 [id number] ####[facility] [address] [place] [address] FCOHb Art 1.4 % Low 1.5-4.9 [facility] Comment on above: Result Comment: Refe rence range Nonsmoker <1.5% Smoker <5.0% Heavy Smoker <9.0% Performed By: #### 4 11782254 ####[facility] [address] [place] [address] FIO2 BG 21 Invalid Interpretation Code [facility] Comment on above: Performed By: #### 4 93759676 ####[facility] [address] [place] [address] FMetHb Art 0.1 % Normal 0.0-1.9 [facility] Comment on above: Performed By: #### 4 44109907 ####[place] [address] [facility] [place] [address] FO2Hb Art 92.4 % Normal 92.0-100.0 [facility] Comment on above: Performed By: #### 4 32834092 ####[facility] [address] [place] [address] HCO3 (Bld) [Moles/Vol] 23.7 mmol/L Normal 22.0-26.0 [facility] Comment on above: Performed By: #### 4 02109262 ####[facility] [address] [place] [address] Hemoglobin (Bld) [Mass/Vol] 13.7 g/dL Normal 12.0-16.0 [facility] Comment on above: Performed By: #### 4 28272084 ####[facility] [address] [place] [address] Oxygen saturation in Blood 93.8 % Low 95.0-100.0 [facility] Comment on above: Performed By: #### 4 09536458 ####[facility] [address] [place] [address] P CO2 Arterial 38.5 mmHg Normal 35.0-45.0 [facility] Comment on above: Performed By: #### 4 31475656 ####[facility] [address] [place] [address] P O2 Arterial 57.7 mmHg Low 80.0-100.0 [facility] Comment on above: Performed By: #### 4 36495233 ####[facility] [address] [place] [address] pH Arterial 7.400 Normal 7.350-7.450 [facility] Comment on above: Performed By: #### 4 27315285 ####[address] [address] Sample Site R Radial Normal [facility] Comment on above: Performed By: #### 4 76942489 ####[place] [address] Sample Type Arterial Draw Normal [facility] Comment on above: Performed By: #### 4 73122367 ####[address] [address] CBC w/Indiceson 05-26-2023 RBC morphology finding Nom (Bld) NORMAL Invalid Interpretation Code [facility] Comment on above: Performed By: #### 1 4388723, 0339179, 04324302, 43300318, 82831374, 2261198, 2500476, 0015134, 3032063, 7990572 ####[address] [place] [address] Erythrocyte distribution width (RBC) [Ratio] 12.9 % Normal 10.9-14.2 [facility] Comment on above: Performed By: #### 1 1857632, 3577605, 76304769, 43402154, 60828984, 6930077, 0759999, 6133344, 4526212, 1320107 ####[facility] [address] [place] [address] Hematocrit (Bld) [Volume fraction] 42.0 % Normal 34.0-46.0 [facility] Comment on above: Performed By: #### 1 7190667, 4891622, 72199727, 02896506, 11258818, 9633492, 5310114, 1378408, 7776923, 9780958 ####[facility] [address] [place] [address] Hemoglobin (Bld) [Mass/Vol] 15.2 g/dL Normal 12.0-16.0 [facility] Comment on above: Performed By: #### 1 0764605, 8349487, 19642604, 13268200, 45561413, 0880897, 5711378, 8070828, 3682853, 2849828 ####[facility] [address] [place] [address] MCH (RBC) [Entitic mass] 30.8 pg Normal 27.0-34.0 [facility] Comment on above: Performed By: #### 1 3250108, 1846377, 50457851, 93594563, 57722784, 1632078, 3989516, 1621740, 2046208, 1625325 ####[address] [address] MCHC (RBC) [Mass/Vol] 36.0 g/dL Normal 31.4-36.0 [facility] Comment on above: Performed By: #### 1 8211205, 7398087, 98060473, 10338438, 29596292, 2892325, 8189349, 4982593, 2395794, 8677913 ####[address] [place] [address] MCV (RBC) [Entitic vol] 85.6 fL Normal 80.0-100.0 [facility] Comment on above: Performed By: #### 1 5233176, 8813737, 10227463, 69824328, 05809056, 4739796, 3928277, 3179118, 4447732, 7934918 ####[facility] [address] [place] [address] Platelet 298.0 E9/L Normal 150.0-500.0 [facility] Comment on above: Performed By: #### 1 1270344, 2486000, 87438887, 61808320, 15879949, 8799930, 2665156, 5495347, 7238896, 6271727 ####[facility] [address] [place] [address] Platelet mean volume (Bld) [Entitic vol] 7.1 fL Normal 6.4-10.8 [facility] Comment on above: Performed By: #### 1 1563357, 9728797, 37812749, 53502773, 78227056, 2283487, 8112077, 8467850, 6639572, 0342405 ####[facility] [address] [place] [address] RBC 4.9 E12/L Normal 4.3-5.9 [facility] Comment on above: Performed By: #### 1 5385981, 4762721, 06695216, 71384416, 77645246, 6051549, 5963563, 7237450, 8230944, 4204597 ####[facility] [address] [place] [address] WBC 9.3 E9/L Normal 4.0-11.0 [facility] Comment on above: Performed By: #### 1 6768198, 8557112, 33793937, 99673115, 16424616, 2871861, 2520871, 0881127, 6059167, 9162293 ####[facility] [address] [place] [address] CHEMISTRYOrdered By: SYSTEM SYSTEM on 05-26-2023 Troponin [...] 05-26-2023 Albumin [Mass/Vol] 4.9 g/dL Normal 3.3-5.0 [facility] Comment on above: Performed By: #### 1 9528841, 3792269, 78876662, 09669171, 66978482, 8218010, 3727686, 0804451, 9447668, 2160931 ####[facility] [address] [place] [address] Albumin/Globulin [Mass ratio] 1.8 {ratio} Normal 1.1-2.2 [facility] Comment on above: Performed By: #### 1 7098747, 1295635, 29107104, 41801843, 90032974, 5302726, 1912552, 8478864, 5370213, 5118681 ####[facility] [address] [place] [address] Alk Phos 59 Int._Unit/L Normal 21-98 [facility] Comment on above: Performed By: #### 1 2070394, 0781609, 76732592, 53740862, 37647833, 5725848, 6670186, 5179480, 0379932, 6699363 ####[facility] [address] [place] [address] ALT 14 Int._Unit/L Normal 6-46 [facility] Comment on above: Performed By: #### 1 3089576, 6044770, 84901664, 84491715, 17177204, 9822050, 2487408, 9021127, 9267783, 7991914 ####[facility] [address] [place] [address] Anion gap [Moles/Vol] 13 mmol/L Normal 6-16 [facility] Comment on above: Performed By: #### 1 9324742, 3407035, 80323830, 99629554, 39710694, 1548861, 1991037, 6060670, 3645155, 3615545 ####[facility] [address] [place] [address] AST 48 Int._Unit/L High 5-43 [facility] Comment on above: Performed By: #### 1 7295976, 1012659, 44744729, 73434888, 92074098, 5658756, 2705226, 4154791, 6635100, 4483137 ####[facility] [address] [place] [address] Bili Total 1.2 mg/dL High 0.0-1.1 [facility] Comment on above: Performed By: #### 1 8060277, 0611477, 46166004, 83043810, 91721578, 7554586, 4063193, 2866343, 7754366, 3383201 ####[facility] [address] [place] [address] BUN/Creat Ratio 24 No Units High 10-20 [facility] Comment on above: Performed By: #### 1 5777097, 8544120, 12585052, 75048744, 12424698, 5104597, 0193282, 5377942, 1191655, 9428435 ####[facility] [address] [place] [address] Calcium [Mass/Vol] 10.4 mg/dL Normal 8.9-11.1 [facility] Comment on above: Performed By: #### 1 6456881, 3743817, 04940242, 52506509, 77383599, 5268316, 2198012, 0106500, 4619506, 5726059 ####[facility] [address] [place] [address] Chloride [Moles/Vol] 106 mmol/L Normal 101-111 [facility] Comment on above: Performed By: #### 1 6212627, 7914548, 60650995, 00840097, 55703956, 9923337, 4208017, 0806649, 5039832, 7122291 ####[facility] [address] [place] [address] CO2 [Moles/Vol] 25 mmol/L Normal 21-31 [facility] Comment on above: Performed By: #### 1 1814933, 9679345, 87241824, 23753978, 08351614, 7234935, 8860839, 4532002, 8656133, 2092935 ####[facility] [address] [place] [address] Creatinine [Mass/Vol] 0.9 mg/dL Normal 0.5-1.3 [facility] Comment on above: Performed By: #### 1 3550570, 9083684, 12043003, 38040647, 17932690, 7253178, 4888289, 1019653, 1203146, 4086669 ####[facility] [address] [place] [address] Globulin (S) [Mass/Vol] 2.8 g/dL Normal 1.4-4.0 [facility] Comment on above: Performed By: #### 1 6582835, 4177999, 92335990, 63517175, 50557658, 0257947, 2256649, 0020145, 6767835, 1707393 ####[facility] [address] [place] [address] Glucose [Mass/Vol] 98 mg/dL Normal 55-199 [facility] Comment on above: Performed By: #### 1 2586298, 0828236, 34759260, 05052248, 48416846, 5660989, 2253582, 1237981, 9965579, 8094395 ####[facility] [address] [place] [address] Potassium [Moles/Vol] 3.4 mmol/L Low 3.5-5.3 [facility] Comment on above: Performed By: #### 1 2661386, 3162300, 24552525, 93011561, 36252665, 2626613, 2681708, 5084892, 6819572, 4859864 ####[facility] [address] [place] [address] Protein [Mass/Vol] 7.7 g/dL Normal 6.0-7.8 [facility] Comment on above: Performed By: #### 1 8097401, 8603239, 64268195, 39030837, 37309908, 5606692, 8787507, 2170005, 7457437, 1020071 ####[facility] [address] [place] [address] Sodium [Moles/Vol] 141 mmol/L Normal 135-145 [facility] Comment on above: Performed By: #### 1 1433209, 1421278, 11989880, 21465640, 75948472, 0858595, 6111760, 6388851, 9032768, 1952852 ####[facility] [address] [place] [address] Urea nitrogen [Mass/Vol] 22 mg/dL High 5-21 [facility] Comment on above: Performed By: #### 1 6337531, 3517483, 53525232, 90878692, 24725794, 3199385, 6262381, 1887628, 3986444, 9021899 ####[facility] [address] [place] [address] COAGULATIONOrdered By: Abby Ardon on 05-26-2023 aPTT Coag (PPP) [Time] 30.2 s Normal 25.1 - 36.5 second(s) [facility] Auto Coag Comment on [...] same coagulation reagent and instrumentation as [facility]. Currently there are no coagulation studies available worldwide for children to 14 days, and no normal ranges. Heparin therapeutic range (represented by Anti-Factor Xa activity of 0.2 - 0.4 U/mL) corresponds to PTT of 56.6 - 109.0 sec. INR Coag (PPP) [Relative time] 1.08 {INR} Invalid Interpretation Code [facility] Auto Coag Comment on above: Interpretive Data: I NR results are specifically intended to assess patients stabilized on long-term Anticoagulation therapy suggested INR s Less Intensive Anticoagulation 2.0 3.0 Conventional Range 3.0 4.5 PT Coag (PPP) [Time] 12.0 s Normal 9.4 - 1 2.5 second(s) [facility] Auto Coag Comment on [...] same coagulation reagent and instrumentation as [facility]. Currently there are no [...] V. Transcribed by: ESTEFANY Technologist: LEMUEL Couch [facility] CTA Headon 05-26-2023 CTA Head Exam Date/Time: 05/26/2023 10:42 EST Reason for Exam: Neuro deficit, acute, stroke suspected;Other (please specify) Report [facility] [phone] IMPRESSION: PLEASE REFER TO NECK CTA REPORT [...] Contrast amount in ml's: 100 Normal [facility] CTA Neckon 05-26-2023 CTA Neck Exam [...] 370 Contrast amount in ml's: 100 Normal [facility] Consent for Treatmenton 05-04 Consent for Treatment [id number] .00TIFF Normal [facility] ED Clinical Summaryon 2023 ED Clinical Summary [place] [id number] ED Clinical Summary Person Information [facility]: [facility] Age: 87 Years : 1935 Sex: Female Language: Tajik PCP: Maurice Rogers III, DO Marital Status: Visit Id: Visit Reason: Altered mental status; Weakness or fatigue; Potential stroke; AMS Speciality: Acuity: 2 Enc Type: Observation Med Service: Emergency Arrival: 05/26/2023 09:32:27 Discharge: LOS: 000 03:23 Checkin: 05/26/2023 09:32:27 Checkout: 05/26/2023 12:55:08 Dispo Type: Admitted as IP to this [facility] EVENTS: Event Name Event Status Request [...] 12:42:02 Patient Care Request 05/26/2023 12:42:02 ADDRESS: [address] [place] [phone] PHYS DOC NOTES: MEDICAL INFORMATION: Prescriptions Given: PATIENT EDUCATION INFORMATION: Instructions: Follow up: DIAGNOSIS: 1:Altered mental status; 2:Weakness Normal [facility] ED Note-Physicianon 05-26-19 ED Note-Physician Basic [...] and Complexity of Problems Differential Diagnosis: [] [facility] Data External documents reviewed: [] [...] Plan o (more content not included)... Normal [facility] Comment on above: Result Comment: Elec tronically Signed By: Hayley Reese, Lucille Avila\.br\Date and Time Signed: 05/26/23 14:41 EST ED Patient Education Noteon 05-26-2023 ED Patient Education Note Normal [facility] ED Patient Summaryon 024 ED Patient Summary [place] [id number] Patient Discharge Instructions Person Information Name: TERESA BACON Age: 87 Years Arrival Date: 05/26/2023 09:32:27 Discharge Diagnosis: 1:Altered mental status; 2:Weakness Primary Care Physician: Maurice Rogers III, DO Provider Information Primary Provider: Lucille Hardy M.D. Advanced Supreme Court Judge:None The exam and treatment you received in the Emergency Department were for an urgent problem and are not intended as complete care. It is important that you follow up with a doctor, nurse practitioner, or physician?s assistant manager pt for ongoing care. If your symptoms become [...] opioids can be used to help relieve ltakbwwf-pv-xbunqq pain and are often prescribed following a [...] be struggling with addiction, tell your health career placement specialist and ask for guidance or call [facility]S National Helpline at 7-327-497-WJRH. Source: [place] Department of Health and Human Services/Center for Disease Control & Prevention [facility] Medications Given: Medication Dose Rou (more content not included)... Normal [facility] Ethanolon 05-26-2023 Ethanol Lvl <10 Normal <=11 [facility] Comment on above: Performed By: #### 2 989238, 7483063 ####[facility] [address] Blood GasesOrdered By: St shayy Silva [...] - 2.2 mmol/L [facility] Resp Auto SS product trainer+ Art 141.0 mmol/L Normal 135.0 - 145.0 mmol/L FT Resp Auto SS Drawn by nawaf parada Invalid Interpretation Code [facility] Resp Auto SS FCOHb Art 1.4 % Low 1.5 - 4.9 % [facility] Resp Auto SS Comment on above: Interpretive Data: R eference range Nonsmoker <1.5% Smoker <5.0% Heavy Smoker <9.0% FIO2 BG 21 1 Invalid Interpretation Code [facility] Resp Auto SS FMetHb Art 0.1 % Normal 0.0 - 1.9 % [facility] Resp Auto SS FO2Hb Art 92.4 % Normal 92.0 - 100.0 % [facility] Resp Auto SS HCO3 (Bld) [Moles/Vol] 23.7 mmol/L Normal 22.0 - 26.0 mmol/L [facility] Resp Auto SS Hemoglobin (Bld) [Mass/Vol] 13.7 g/dL Normal 12.0 - 16.0 gm/dL [facility] Resp Auto SS P CO2 Arterial 38.5 mm[Hg] Normal 35.0 - 45.0 mmHg [facility] Resp Auto SS P O2 Arterial 57.7 mm[Hg] Low 80.0 - 100.0 mmHg [facility] Resp Auto SS pH (Bld) 7.400 [pH] Normal 7.350 - 7.450 [facility] Resp Auto SS Sample Site R Radial (05/26/23 10:40 AM) Normal [facility] Resp Auto SS Sample Type Arterial Draw (05/26/23 10:40 AM) Normal [facility] Resp Auto SS HEMATOLOGYOrdered [...] 05-26-2023 Bili Direct 0.2 mg/dL Normal 0.0-0.4 [facility] Comment on above: Performed By: #### 1 5870094, 3575011, 94613368, 55893099, 17115010, 5301341, [id number], 6333571, 9134185, 6382765 ####[facility] [address] [place] [address] Bili Indirect 1.0 mg/dL High 0.1-0.9 [facility] Comment on above: Performed By: #### 1 [id number], 8896060, 88914699, 10486894, 07720830, 8767772, 5835666, 2588190, 5871475, 4535811 ####[facility] [address] [place] [address] Interdisciplinary Note - Spe ech Languageon 05-26-2023 Interdisciplinary Note - Speech Language ST 05/26/23: BSE completed. Pt admitted to [facility] d/t AMS, headache, possible [...] further ST indicated at this time. Normal [facility] - Chemistry and C hemistry [...] Lactic Acid Lvl 1.6 mmol/L Normal 0.5-2.2 [facility] Comment on above: Performed By: #### 2 [id number], [id number] ####[facility] [address] [place] [address] Magnesiumon 05-26-2023 Magnesium [Mass/Vol] 1.8 mg/dL Normal 1.3-2.4 [facility] Comment on above: Performed By: #### 1 [id number], 6084252, 12925914, 32873131, 49425675, 2674173, 6344325, 8282317, 5663065, 3811658 ####[facility] [address] [place] [address] Message from Medicareon 05-04 Message from Medicare [id number] [id number]# 1.00TIFF Normal [facility] Monitor Recordon 05-26-2023 Monitor Record [id number]# 1.00TIFF Normal [facility] No Panel InformationOrdered By: ANGPROCESSSERVER MICROBIOLOGY on 05-26-2023 Blood Culture Charcoal No growth at 1 da y. Final to follow at 7 days. [facility] Blood Culture Charcoal No growth at 1 da y. Final to follow at 7 days. [facility] No Panel InformationOrdered By: SYSTEM SYSTEM on 05-26-2023 Alk Phos 59 [iU]/d Normal 21 - 98 Int._Unit/L Remisol Chem ALT 14 [iU]/d Normal 6 - 46 Int._Unit/L Remisol Chem AST 48 [iU]/d High 5 - 43 Int._Unit/L [facility] Bili Total 1.2 mg/dL High 0.0 - 1.1 mg/dL [facility] PTon 05-26-2023 INR Coag (PPP) [Relative time] 1.08 {INR} Invalid Interpretation Code [facility] Comment on above: Result Comment: INR results are specifically intended to assess patients stabilized on long-term Anticoagulation therapy suggested INR?s ?Less Intensive Anticoagulation? 2.0 ? 3.0 Conventional Range 3.0 ? 4.5 Performed By: #### 1 [id number], 6352489, 40998055, 90698079, 03522249, 8157405, 5069102, 8434786, 3139038, 8595907 ####[facility] [address] [place] [address] PT Coag (PPP) [Time] 12.0 second(s) Normal 9.4-12.5 [facility] Comment on above: Result Comment: 15 [...] same coagulation reagent and instrumentation as [facility]. Currently there are no coagulation studies available worldwide for children to 14 days, and no normal ranges. Performed By: #### 1 7137362, 3688629, 22174060, 41804844, 67032006, 1090514, 4319888, 1216322, 0594462, 8875810 ####[facility] [address] [place] [address] PTTon 05-26-2023 aPTT Coag (PPP) [Time] 30.2 second(s) Normal 25.1-36.5 [facility] Comment on above: Result Comment: Para [...] same coagulation reagent and instrumentation as [facility]. Currently there are no coagulation studies available worldwide for children to 14 days, and no normal ranges. Heparin therapeutic range (represented by Anti-Factor Xa activity of 0.2 - 0.4 U/mL) corresponds to PTT of 56.6 - 109.0 sec. Performed By: #### 1 [id number], 0027377, 22692831, 03068217, 05471837, 4731388, 6118585, 1470676, 2980643, 5579095 ####[facility] [address] [place] [address] TSH With T4fr Reflexon 05-26 TSH Qn 4.54 m[IU]/L Normal 0.34-5.60 [facility] Comment on above: Performed By: #### 1 3066180, 0692479, 61455560, 88511516, 53601650, 7426192, 5570806, 8724193, 1142147, 0608302 ####[facility] [address] [place] [address] Troponin 0 Hr.on 05-26-2023 Troponin 22.80 pg/mL Normal 10.10-27.10 [facility] Comment on above: Result Comment: The 95% CI (Confidence Interval) PPV (Positive Predictive Value) for myocardial infarction in females is 38 pg/mL, in males 51 pg/mL. The results should be used in conjunction with clinical conditions of myocardial infarction. (Access High Sensitivity Troponin I Instructions For Use, [employer], October 2017) Performed By: #### 1 6753609, 1033573, 21954478, 06485768, 42792320, 4897250, 3446976, 6905165, 1696955, 9058343 ####[facility] [address] [place] [address] Troponin 3 Hr.on 05-26-2023 Troponin 16.10 pg/mL Normal 10.10-27.10 [facility] Comment on above: Result Comment: The 95% CI (Confidence Interval) PPV (Positive Predictive Value) for myocardial infarction in females is 38 pg/mL, in males 51 pg/mL. The results should be used in conjunction with clinical conditions of myocardial infarction. (Access High Sensitivity Troponin I Instructions For Use, [employer], October 2017) Performed By: #### 1 [id number] ####[facility] [address] [place] [address] Troponin 6 Hr.Ordered By: Eyebrid Blaze on 05-26-2023 Troponin 18.00 pg/mL Normal 10.10-27.10 [facility] Comment on above: Interpretive Data: T he 95% CI (Confidence Interval) PPV (Positive Predictive Value) for myocardial infarction in females is 38 pg/mL, in males 51 pg/mL. The results should be used in conjunction with clinical conditions of myocardial infarction. (Access High Sensitivity Troponin I Instructions For Use, [employer], October 2017) Result Comment: The 95% CI (Confidence Interval) PPV (Positive Predictive Value) for myocardial infarction in females is 38 pg/mL, in males 51 pg/mL. The results should be used in conjunction with clinical conditions of myocardial infarction. (Access High Sensitivity Troponin I Instructions For Use, [employer], October 2017) Performed By: #### 1 [id number] ####[facility] [address] [place] [address] U Drug Screenon 05-26-2023 U Amph Scr Negative Normal NEGATIVE [facility] Comment on above: Order Comment: Added to UA Performed By: #### 2 957866 ####[facility] [address] [place] [address] U Desirae Scr Negative Normal NEGATIVE [facility] Comment on above: Order Comment: Added to UA Performed By: #### 2 397877 ####[facility] [address] [place] [address] U Benzodia Scr Negative Normal NEGATIVE [facility] Comment on above: Order Comment: Added to UA Performed By: #### 2 693362 ####[facility] [address]Norun[address] [place] [address] U Cannab Scr Negative Normal NEGATIVE [facility] Comment on above: Order Comment: Added to UA Performed By: #### 2 557187 ####[facility] [address] [place] [address] U Cocaine Scr Negative Normal NEGATIVE [facility] Comment on above: Order Comment: Added to UA Performed By: #### 2 933529 ####[facility] [address] [place] [address] U Opiate Scr Negative Normal NEGATIVE [facility] Comment on above: Order Comment: Added to UA Performed By: #### 2 620523 ####[facility] [address] [place] [address] U PCP Scr Negative Normal NEGATIVE [facility] Comment on above: Order Comment: Added to UA Performed By: #### 2 514618 ####[facility] [address] [place] [address] UA With Cult Reflexon 2023 Bacteria LM Ql (Urine sed) TRACE Normal Trace [facility] Comment on above: Performed By: #### 1 9054786 ####[facility] [address] [place] [address] Bilirubin Ql (U) Negative Normal Negative [facility] Comment on above: Performed By: #### 1 2039189 ####[facility] [address] [place] [address] Clarity (U) CLEAR Normal Clear [facility] Comment on above: Performed By: #### 1 [id number] ####[facility] [address] [place] [address] Color (U) STRAW Invalid Interpretation Code [facility] Comment on above: Performed By: #### 1 [id number] ####[facility] [address] [place] [address] Epithelial cells.squamous LM.HPF (Urine sed) [#/Area] 0-2 Normal 0-2 [facility] Comment on above: Performed By: #### 1 5623109 ####[facility] [address] [place] [address] Glucose Test strip (U) [Mass/Vol] Negative Normal Negative [facility] Comment on above: Performed By: #### 1 3219409 ####[address] [place] [address] Hemoglobin Ql (U) TRACE Abnormal Negative [facility] Comment on above: Performed By: #### 1 [id number] ####[address] [address] Ketones (U) [Mass/Vol] TRACE Invalid Interpretation Code Negative [facility] Comment on above: Performed By: #### 1 [id number] ####[facility] [address] [place] [address] [address] [facility] [facility] .RBC (Bld) [Mass ratio] 0-3 Normal 0-3 [facility] Comment on above: Performed By: #### 1 8039192 ####[address] [address] Nitrite Ql (U) Negative Normal Negative [facility] Comment on above: Performed By: #### 1 6045182 ####[facility] [address] [place] [address] pH (U) 7.5 [pH] Invalid Interpretation Code 5.0-9.0 [facility] Comment on above: Performed By: #### 1 6884816 ####[facility] [address] [place] [address] Protein (U) [Mass/Vol] Negative Normal Negative [facility] Comment on above: Performed By: #### 1 7425563 ####[facility] [address] [place] [address] Specific gravity (U) [Rel density] 1.010 Invalid Interpretation Code 1.005-1.030 [facility] Comment on above: Performed By: #### 1 [id number] ####[place] [address] Type of Urine collection method Clean Catch Normal [facility] Comment on above: Performed By: #### 1 0771222 ####[address] Urobilinogen Qn (U) 0.2 {Byron'U}/dL Normal 0.0-1.0 [facility] Comment on above: Performed By: #### 1 [id number] ####[place] [address] WBC Auto Ql (U) Negative Normal Negative [facility] Comment on above: Performed By: #### 1 8741860 ####[address] WBC LM.HPF (Urine sed) [#/Area] 0-5 Normal 0-5 [facility] Comment on above: Performed By: #### 1 [id number] ####[address] URINALYSISOrdered By: Abby mathis on 05-26-2023 Bacteria LM Ql (Urine sed) Trace /HPF Normal Trace/HPF [facility] UA Auto SS Bilirubin Ql (U) Negative (05/26/23 10:10 AM) Normal Negative [facility] UA Auto SS Clarity (U) Clear (05/26/23 10:10 AM) Normal Clear [facility] UA Auto SS Color (U) STRAW Invalid Interpretation Code [facility] UA Auto SS Epithelial cells.squamous LM.HPF (Urine sed) [#/Area] 0-2 /HPF Normal 0-2/HPF [facility] UA Aut o SS Glucose Test strip (U) [Mass/Vol] Negative (05/26/23 10:10 AM) Normal Negative [facility] UA Auto SS Hemoglobin Ql (U) Trace *ABN* (05/26/23 10:10 AM) Invalid Interpretation Code Negative [facility] UA Auto SS Ketones (U) [Mass/Vol] Trace *NA* (05/26/23 10:10 AM) Invalid Interpretation Code Negative [facility] UA Auto SS [facility] .RBC (Bld) [Mass ratio] 0-3 /HPF Normal [...] Clean Catch (05/26/23 10:10 AM) Normal [facility] UA Auto SS Urobilinogen Qn (U) 0.9287871 {Byron'U}/dL Normal 0.0 - 1.0 EU/dL [facility] UA Auto SS WBC Auto Ql (U) Negative (05/26/23 10:10 AM) Normal Negative [facility] UA Auto SS WBC LM.HPF (Urine sed) [#/Area] 0-5 /HPF Normal 0-5/HPF [facility] UA Auto SS XR Chest Single Viewon 05-26 XR Chest Single View Exam Date/Time: 05/26/2023 09:47 EST Reason for Exam: Chest pain Report [facility] [phone] IMPRESSION: There are no acute cardiopulmonary changes. [...] mGy = na DAP = na Normal [facility] eGFRon 05-26-2023 eGFR 61 mL/min/1.73 m2 Normal >=59 [facility] Comment on above: Order Comment: Order added by Discern Expert. Performed By: #### 1 [id number], 7556143, 33634704, 50159714, 44645950, 1170863, 9202159, 1209671, 9898044, 3090608 ####[facility] [address] [place] [address] XR DEXA BONE DENSITYon 04-25 XR DEXA [...] by: SRINIVASA ECHAVARRIA Date: 2022-04-25 10:06 Normal [facility] CULTURE URINEon 12-14-2021 CULTURE URINE Isolate [...] F Trimethoprim/Sulfamet hoxazole <=20 S F Normal [facility] Comment on above: Performed By: #### U RCX #### [facility] [address] [address] [address] Yoni Thao ER URINE PROFILEon 2 Bilirubin Ql (U) Negative Normal NEGATIVE [facility] Comment on above: Performed By: #### U MICRO, ERUR #### [facility] [address] [address] [address] Yoni Thao Clarity (U) CLEAR Normal CLEAR [facility] Comment on above: Performed By: #### U MICRO, ERUR #### [facility] [address] [address] [address] Yoni Thao Color (U) LT. YELLOW Normal YELLOW [facility] Comment on above: Performed By: #### U MICRO, ERUR #### [facility] [address] [address] [address] Yoni NICHOLS A micrscopic examination will be performed if indicated. Normal [facility] Comment on above: Performed By: #### U MICRO, ERUR #### [facility] [address] [address] [address] Yoni Thao Glucose Ql (U) Negative Normal NEGATIVE [facility] Comment on above: Performed By: #### U MICRO, ERUR #### [facility] [address] [address] [address] Yoni Thao Hemoglobin Ql (U) LARGE Abnormal NEGATIVE The [facility] Comment on above: Performed By: #### U MICRO, ERUR #### [facility] [address] [address] [address] Yoni Thao Ketones Ql (U) Negative Normal NEGATIVE [facility] Comment on above: Performed By: #### U MICRO, ERUR #### [facility] [address] [address] [address] Yoni Thao LEUKOCYTES MODERATE Abnormal NEGATIVE [facility] Comment on above: Performed By: #### U MICRO, ERUR #### [facility] [address] [address] [address] Yoni Thao Nitrite Ql (U) Positive Abnormal NEGATIVE [facility] Comment on above: Performed By: #### U MICRO, ERUR #### [facility] [address] [place] [address] Dr. Yoni Thao pH (U) 6.5 [pH] Normal 5-9 [facility] Comment on above: Performed By: #### U MICRO, ERUR #### [facility] [address] [place] [address] Dr. Yoni Thao SPEC GRAVITY 1.010 Normal 1.005-<=1.02 5 [facility] Comment on above: Performed By: #### U MICRO, ERUR #### [facility] [address] [place] [address] Dr. Yoni Thao UA PROTEIN TRACE Normal NEGATIVE/ TRACE [facility] Comment on above: Performed By: #### U MICRO, ERUR #### [facility] [address] [place] [address] Dr. Yoni Thao UR MICRO IND INDICATED Normal [facility] Comment on above: Performed By: #### U MICRO, ERUR #### [facility] [address] [place] [address] Dr. Yoni Thao Urobilinogen Qn (U) 0.2 {Byron'U}/dL Normal 0.2 - 1. 0 [facility] Comment on above: Performed By: #### U MICRO, ERUR #### [facility] [address] [place] [address] Dr. Yoni Thao URINE MICROSCOPIC ONLYon BACTERIA SMALL Abnormal NONE SEEN The [facility] Comment on above: Performed By: #### U MICRO, ERUR #### [facility] [address] [place] [address] Dr. Yoni Thao Bacteria identified Cx Nom (U) INDICATED Normal [facility] Comment on above: Performed By: #### U MICRO, ERUR #### [facility] [address] [place] [address] Dr. Yoni Thao CAST NONE SEEN Normal NONE SEEN [facility] Comment on above: Performed By: #### U MICRO, ERUR #### [facility] [address] [place] [address] Dr. Yoni Thao Crystals LM Nom (Urine sed) NONE SEEN Normal NONE SEEN [facility] Comment on above: Performed By: #### U MICRO, ERUR #### [facility] [address] [address] [address] Yoni Thao Epithelial cells LM Ql (Urine sed) FEW Abnormal NONE SEEN /RARE [facility] Comment on above: Performed By: #### U MICRO, ERUR #### [facility] [address] [address] [address] Yoni Thao MUCOUS NONE SEEN Normal NONE SEEN [facility] Comment on above: Performed By: #### U MICRO, ERUR #### [facility] [address] [address] [address] Yoni Thao RBC 20-50 Abnormal 0-2 [facility] Comment on above: Performed By: #### U MICRO, ERUR #### [facility] [address] [address] [address] Yoni Thao WBC 20-50 Abnormal NONE SEEN [facility] Comment on above: Performed By: #### U MICRO, ERUR #### [facility] [address] [address] [address] Yoni Thao Q - CULTURE,URINE,ROUTINEon 05-17-2021 CULTURE, URINE, ROUTINE SEE NOTE Abnormal [facility] Comment on above: Order Comment: [facility] performed at: QPT, [facility], [address] [place] [address], [address] [place] [address], [id number], [employer] Operator: Husam Whittaker MD [facility] Collection Date/Time: [id number] [facility] Results Received Date/Time: [id number] [facility] Reported Date/Time: [id number] Result Comment: CULT URE, URINE, ROUTINE Micro Number: [id number] Test Status: Final Specimen Source: Not given [...] #### 6 304R #### [facility] [address] [place] [address] Vital Signs Date Time Vital Sign Value Performing Clinician Cinda cabrera 06-12-2023 04:35-0400 Diastolic blood pressure 83 mm[Hg] [facility] [employer] [facility] 06-12-2023 04:35-0400 Heart rate 74 /min [facility] [employer] [facility] 06-12-2023 04:35-0400 Mean blood pressure 105 mm[Hg] Sudhakar [employer] [facility] 06-12-2023 04:35-0400 Respiratory rate 16 /min [facility] [employer] [facility] 06-12-2023 04:35-0400 SaO2% (BldA) [Mass fraction] 94 % Sudhakar [employer] [facility] 06-12-2023 04:35-0400 Systolic blood pressure 148 mm[Hg] Sudhakar [employer] [facility] 06-12-2023 03:43-0400 Diastolic blood pressure 96 mm[Hg] Sudhakar [employer] [facility] 06-12-2023 03:43-0400 Heart rate 74 /min Sudhakar [facility] 06-12-2023 03:43-0400 Mean blood pressure 121 mm[Hg] Sudhakar [facility] 06-12-2023 03:43-0400 Respiratory rate 23 /min Sudhakar [facility] 06-12-2023 03:43-0400 SaO2% (BldA) [Mass fraction] 96 % Sudhakar [facility] 06-12-2023 03:43-0400 Systolic blood pressure 171 mm[Hg] Sudhakar [facility] 06-12-2023 03:10-0400 Diastolic blood pressure 89 mm[Hg] Sudhakar [facility] 06-12-2023 03:10-0400 Heart rate 92 /min Sudhakar [facility] 06-12-2023 03:10-0400 Mean blood pressure 114 mm[Hg] Sudhakar [facility] 06-12-2023 03:10-0400 Respiratory rate 46 /min Sudhakar [facility] 06-12-2023 03:10-0400 SaO2% (BldA) [Mass fraction] 94 % Sudhakar [facility] 06-12-2023 03:10-0400 Systolic blood pressure 164 mm[Hg] Sudhakar [facility] 06-12-2023 02:36-0400 Blood Pressure Location Sudhakar [facility] 06-12-2023 02:36-0400 Body temperature 98.24 [degF] Sudhakar [facility] 06-12-2023 02:36-0400 Heart rate 78 /min [facility] [employer] [facility] 06-12-2023 02:36-0400 Respiratory rate 16 /min [facility] 05-27-2023 14:00-0500 [facility] 05-27-2023 14:00-0500 [facility] 05-27-2023 13:10-0500 [facility] 05-27-2023 13:10-0500 [facility] 05-27-2023 12:00-0500 [facility] 05-27-2023 12:00-0500 [facility] 05-27-2023 08:20-0500 SaO2% (BldA) [Mass fraction] 95 % [facility] 05-27-2023 08:10-0500 Heart rate 77 /min [facility] 05-27-2023 08:10-0500 SaO2% (BldA) [Mass fraction] 95 % [facility] 05-27-2023 08:09-0500 Diastolic blood pressure 62 mm[Hg] [facility] 05-27-2023 08:09-0500 Mean blood pressure 75 mm[Hg] [facility] 05-27-2023 08:09-0500 Systolic blood pressure 101 mm[Hg] [facility] 05-27-2023 08:09-0500 Body temperature 98.24 [degF] [facility] 05-27-2023 04:54-0500 Blood Pressure Location [facility] 05-27-2023 04:54-0500 Body temperature 97.88 [degF] [facility] 05-27-2023 04:54-0500 Diastolic blood pressure 63 mm[Hg] [facility] 04:54-0500 Heart rate 77 /min sunni [facility] 05-27-2023 04:54-0500 Mean blood pressure 74 mm[Hg] [facility] 05-27-2023 04:54-0500 Respiratory rate 16 /min [facility] 05-27-2023 04:54-0500 SaO2% (BldA) [Mass fraction] 96 % [facility] 05-27-2023 04:54-0500 Systolic blood pressure 97 mm[Hg] [facility] 05-27-2023 00:47-0500 Blood Pressure Location [facility] 05-27-2023 00:47-0500 Body temperature 98.6 [degF] sunni [facility] 05-27-2023 00:47-0500 Diastolic blood pressure 64 mm[Hg] [facility] 05-27-2023 00:47-0500 Heart rate 81 /min [facility] [facility] 05-27-2023 00:47-0500 Mean blood pressure 78 mm[Hg] [facility] 05-27-2023 00:47-0500 Respiratory rate 15 /min [facility] 05-27-2023 00:47-0500 Systolic blood pressure 105 mm[Hg] [facility] 05-26-2023 20:00-0500 Body temperature 98.06 [degF] [facility] 05-26-2023 20:00-0500 Heart rate 87 /min [facility] 05-26-2023 20:00-0500 Mean blood pressure 95 mm[Hg] [facility] 16:57-0500 Heart rate 85 /[facility] 16:56-0500 Mean blood pressure 89 mm[Hg] [facility] 05-26-2023 16:55-0500 Body temperature 98.42 [degF] [facility] 05-26-2023 12:55-0500 Body temperature 97.52 [degF] [facility] 05-26-2023 12:55-0500 Heart rate 95 /min [facility] 05-26-2023 12:32-0500 Heart rate 84 /min sunni [facility] 05-26-2023 12:32-0500 Respiratory rate 16 /min [facility] 05-26-2023 12:13-0500 Respiratory rate 18 /min sunni [facility] 05-26-2023 11:57-0500 Respiratory rate 18 /min sunni [facility] 05-26-2023 10:40-0500 SaO2% (BldA) [Mass fraction] 93.8 % [facility] 05-26-2023 09:53-0500 gluc 91 mg/dL [facility] 05-26-2023 09:53-0500 gluc [facility] 05-26-2023 09:33-0500 Heart rate 85 /min [facility] Encounters Encounter Date Encounter Type Care Provider Facility Start: 12-17-2023 End: 12-17-2023 ambulatory ANA SIMON Not Available Start: 09-17-2023 End: 09-17-2023 ambulatory ANA SIMON Not Available Start: 08-02-2023 End: 08-02-2023 ambulatory Mayank Lo Facility:[facility] Start: 08-02-2023 End: 08-02-2023 ambulatory Mayank Lo Work Phone: [facility] Work Phone: Start: 08-02-2023 End: 08-02-2023 Departed Referred Mayank Lo Work Phone: [facility] Start: 07-12-2023 End: 07-12-2023 ambulatory ANA SIMON Not Available Start: 06-20-2023 End: 06-20-2023 ambulatory ANA SIMON Not Available Start: 06-12-2023 End: 06-12-2023 Emergency department patient visit Sudhakar Andrade Facility:[facility] Start: 06-12-2023 End: 06-12-2023 Emergency department patient visit Sudhakar Andrade [facility] Start: 05-26-2023 End: 05-27-2023 ambulatory Carly Stapleton Facility:[facility] Start: 05-26-2023 End: 05-27-2023 Observation [facility] Start: 04-25-2022 End: 04-26-[address] MERVAT ORELLANA Facility:[facility] Start: 12-12-2021 End: 12-12-[address] DOCTOR EGAN Facility:[facility] Start: 07-30-2017 End: 07-31-2017 Ambulatory DEFAULT PHYSICIAN Facility:[facility] Procedures Date Procedure Procedure Detail Performing Clinician Abdominal hysterectomy Carly Stapleton Payers Date Payer Category Payer Self-pay 1959 Unknown [id number] 1935 Unknown [id number] 2.16.84 [id number] 1935 Unknown [id number] 2.16.84 [id number] 1935 Unknown [id number] 2.16.8 [id number] 1935 Unknown [id number] 2.16.8 [id number] 1935 Unknown [id number] 2.16.84 [id number] 1935 Unknown [id number] 2.16.84 [id number] 1935 Unknown [id number] 2.16.84 [id number] 1935 Unknown [id number] 2.16.84 [id number] Unknown Social History Date Type Detail Facility Tobacco smoking status [facility] Sex Assigned At Female [facility] Start: 1935 Sex Assigned At Female F [facility] Functional Status Date Assessment Result Facility 06-12-2023 Functional Status N/A [facility] 05-26-2023 Functional Status No [facility] 05-26-2023 Functional Status [facility] Clinical Notes 05-27-2023 to 06-12-2023 Note Date & Type Note Facility 06-12-2023 Evaluation + Plan note Extrac prateek from: Title:ED Note Author:Sudhakar Andrade DO Date :06/12/23 Encounter for medical screen ing examination (Z13.9: Encounter for screening, unspecified) Orders: Basic Metabolic Panel CBC w/ Auto Diff CT Head or Brain w/o Contrast ECG 12 Lead Adult eGFR Influenza A&B Ag Rapid COVID Antigen ([facility]) Saline Lock Insert Troponin 0 Hr. UA With Cult Reflex XR Chest Single View [facility]03-12-2024 Hospital Discharge instructions Patient Education 06/12/2023 [...] including vitamins, herbs, eye drops, creams, and sgzl-fko-yprirla medicines. Any problems you or family members [...] if you need an emergent specialist or practice consultant that is not available at the medical center you are at. You need to have more tests. A biomedical engineering technician may be consulted if needed. Get help [...] provider. Document Revised: 11/30/2021 Document Reviewed: 07/28/2021 Wis.dm Patient Education 2022 [place]. Follow Up Care 06/12/2023 02:35:11 With:Mauricezenaida Rogers Address: [address] [place] [address], [place] [address] Business (1) When:Within 3 Day(s) [facility]03-02-2024 NoteMicrobiology PROCEDURE: Blood Culture Charcoal [R1] SOURCE: Blood BODY SITE: Hand L COLLECTED DATE/TIME: 05/26/2023 09:55 EST RECEIVED DATE/TIME: 05/26/2023 10:59 EST START DATE/TIME: 05/26/2023 10:59 EST FREE TEXT SOURCE: Hayley Reese, Lucille Hardy M.D., Lucille Avila FINAL REPORTS Final Report [] Verified Date/Time: 06/02/2023 15:32 EST No growth at 7 days. Performing Locations R1: This test was performed at: [facility], [address] [place] [address], [id number], SwpofcMagruder Memorial HospitalComment on above:Performed By: #### [id number] ####[facility] [id number] [place], [place] [phone] NoteMicrobiology PROCEDURE: Blood Culture Charcoal [R1] SOURCE: Blood BODY SITE: Hand R COLLECTED DATE/TIME: 05/26/2023 09:48 EST RECEIVED DATE/TIME: 05/26/2023 11:00 EST START DATE/TIME: 05/26/2023 11:00 EST FREE TEXT SOURCE: Hayley Reese, Lucille Hardy M.D., Lucille Avila FINAL REPORTS Final Report [] Verified Date/Time: 06/02/2023 15:32 EST No growth at 7 days. Performing Locations R1: This test was performed at: [facility], [address] [place] [address], [id number]- , [place], UexfemMagruder Memorial HospitalComment on above:Performed By: #### [id number] ####[facility] [address] [place], [place] [phone] NoteChief Complaint pt to ER with c/o [...] U Benzodia Scr: NEGATIVE (more content not included)...[facility] HospitalComment on above:Result Comment: Electronically Signed By: Clarice ARMSTRONG\.br\Date and Time Signed: 05/26/23 14:49 EST\.br\Electronically Co-Signed By: Carly Stapleton MD\.br\Date and Time Co-Signed: 05/27/23 17:02 [id number] NoteAdmission and Discharge Information Admitting Physician - [...] JEMIMA Talley Within 2 to 4 weeks [address] [address] [place] [address]- Additional Instructions: Patient Education [facility] above:Result Comment: Electronically Signed By: Clarice ARMSTRONG\.br\Date and Time Signed: 05/27/23 14:57 EST\.br\Electronically Co-Signed By: Pieter BAKER, Carly\.br\Date and Time Co-Signed: 05/27/23 17:02 [id number] Hospital Discharge instructions Patient Education 05/27/2023 12:19:34 [...] friend for help if needed. Medicines Take fmcs-fdh-ruikmym and prescription medicines only as told by [...] consider day care, extended-care programs, or a custodial facility. The person's health care provider may [...] provider. Document Revised: 07/13/2020 Document Reviewed: 07/13/2020 Wis.dm Patient Education 2022 [place]. Follow Up Care 05/26/2023 09:32:48 With:Mayank Lawson MD, NEU Address: [address] [address]- When:2 to 4 weeks [facility]02-25-2024 Evaluation + Plan noteExtracted from: Title:Discharge [...] MD, NEU Within 2 to [address] [address]- Additional Instructions: Confusion Extracted from: [...] Reflex Vital Signs XR Chest Single View [facility]02-25-2024 [facility]OT [facility] HH services vs no further services at de, pending progress. Pt requires CGA w/ transfers and standing adls. Inpatient OT services to follow daily as pt lives alone.[facility] HospitalEvaluation noteNo assessment information availableUniversity [facility] Work Phone: Hospital course Narrative No data available for this section [facility] note No data available for this section [facility] Summary Purpose Family History No Family [...] and content) DATE CREATED AUTHOR 09/20/2017 [facility] DATE CREATED AUTHOR AUTHOR'S ORGANIZ ATION 05/26/2021 [facility] dical Specialist DATE CREATED AUTHOR AUTHOR'S ORGANIZ ATION 04/26/2022 [facility] DATE CREATED AUTHOR AUTHOR'S ORGANIZ ATION 06/21/[address] [facility] DATE CREATED AUTHOR AUTHOR'S ORGANIZ ATION 08/16/2023 [facility] DATE CREATED AUTHOR AUTHOR'S ORGANIZ ATION 12/18/2023 [facility] dical Specialists [facility] Patient Care team informatio n (unrecognized section [...] BE BASED ON THE PRIMARY CLINICAL RECORDS. [facility] [employer] provides no warranty or guarantee of the accuracy or completeness of information in this document.
--- NOTE | 2024-02-03 16:34 | ECG_ITS ---
The [facility] Test Date: 2024-02-03 Pat Name: SANIYA ZHANG Department: Room: - Gender: Female [place] Program Coordinator: : 1935 Requested By: ANA GUADALUPE Order Number: [id number] Reading MD: THIEN QUICK Measurements Intervals [place] Rate: 137 P: -98668 [place]: -[address] QRS: 19 QRSD: 90 T: 57 QT: 310 QTc: 390 Interpretive Statements 1420 Undetermined rhythm, can't exclude fib-flutter [address] depression, possible inferolateral ischemia 9150 abnormal ECG Electronically Signed On 02-03-2024 18:20:27 EST by THIEN QUICK
--- NOTE | 2024-02-03 16:34 | XR_ITS ---
The [address] [address] Patient Name: SANIYA ZHANG MRN: [id number] date: 1935 Sex: F Assigned Patient Location: ER Current Patient Location: ER Accession/Order Number: [id number] Exam Date: 02/03/2024 16:42 Report Date: 02/03/2024 17:56 At the request of: KAMI LAGUNA Procedure: XR chest 1V EXAM: XR chest 1V at 1636 hours HISTORY: sob COMPARISON: 08/01/2023 TECHNIQUE: AP upright portable chest x-ray FINDINGS: The heart is at the upper limits of normal in size with mild prominence of the central pulmonary vasculature. No acute infiltrate, effusion or pneumothorax is identified. A small calcified granuloma seen at the right lung base. The osseous structures are grossly intact. XR/XR chest 1V IMPRESSION: No acute infiltrate or evidence of cardiac decompensation. The overall appearance of the chest has not changed significantly. Electronically authenticated by: YONI BRAY Date: 02/03/2024 17:56
[2024-02-03 16:47] LABS: Basophils Percent Auto 0.3 % (0.2-2.0); Eosinophils Percent Auto 0.3 % (0.9-7.0); Hematocrit 40.7 % (36.0-48.0); Hemoglobin 14.2 g/dL (12.0-16.0); Immature Granulocytes Abs Auto 0.04 10^3/uL (0.00-0.03); Immature Granulocytes Pct Auto 0.4 % (0.0-0.5); Lymphocytes Percent Auto 18.9 % (20.5-60.0); Mean Corpuscular HGB Conc 34.9 g/dL (29.9-35.2); Mean Corpuscular Hemoglobin 29.6 pg (26.7-34.0); Mean Corpuscular Volume 84.8 fL (81.0-99.0); Mean Platelet Volume 9.1 fL (9.5-13.5); Monocytes Percent Auto 9.2 % (1.7-12.0); Neutrophils Absolute Auto 7.5 10^3/uL (1.4-6.5); Neutrophils Percent Auto 70.9 % (43.0-75.0); Platelet Count 251 10^3/uL (150-450); Red Cell Distribution Width 13.5 % (11.0-15.0); White Blood Count 10.6 10^3/uL (4.0-11.0)
[2024-02-03 16:58] LABS: Influenza Virus A Antigen Negative; Influenza Virus B Antigen Negative; Internal Control Within Normal Limits; SARS-CoV-2 Ag NEGATIVE (NEGATIVE)
[2024-02-03] MEDS: 0.9 % SODIUM CHLORIDE 1,000 ML 1000 ML IV (17:00)
[2024-02-03 17:01] LABS: INR 1.12; Prothrombin Time 11.7 sec (9.0-11.6)
[2024-02-03 17:06] LABS: Alanine Aminotransferase 21 U/L (14-59); Albumin Globulin Ratio 0.9; Albumin Level 3.5 g/dL (3.4-5.0); Alkaline Phosphatase 64 U/L (46-116); Anion Gap 18.8; Aspartate Amino Transferase 54 U/L (15-37); Bilirubin Total 1.3 mg/dL (0.2-1.0); Calcium 10.1 mg/dL (8.5-10.1); Chloride 104 mmol/L (98-107); Estimated GFR (African America 43 (>=60 mL/min/1.73m^2); Estimated GFR (Non-African Ame 35 (>=60 mL/min/1.73m^2); Globulin 3.8 g/dL; Glucose 121 mg/dL (74-106); Lactate/Lactic Acid 1.7 mmol/L (0.4-2.0); Potassium 3.8 mmol/L (3.5-5.1); Sodium 143 mmol/L (136-145); Total Protein 7.3 g/dL (6.4-8.2); Troponin I High Sensitivity 11.5 pg/mL (4.0-51.3)
--- NOTE | 2024-02-03 17:06 | CT_ITS ---
The [address] [address] Patient Name: SANIYA ZHANG MRN: [id number] date: 1935 Sex: F Assigned Patient Location: ER Current Patient Location: ER Accession/Order Number: [id number] Exam Date: 02/03/2024 17:15 Report Date: 02/03/2024 17:59 At the request of: KAMI LAGUNA Procedure: CT head/brain wo con NONCONTRAST CT SCAN OF THE HEAD HISTORY: Headache. TECHNIQUE: Multiple axial images are taken from the level the vertex down to the base of the skull without the use of IV contrast. Images were then reconstructed in the sagittal and coronal planes. This exam was performed according to our departmental dose-optimization program which includes use of Automated Exposure Control, adjustment of the mA and/or kV according to patient size and/or use of iterative reconstruction technique. COMPARISON: 10/21/2023 CT head FINDINGS: Brain Parenchyma: There is global, diffuse atrophy with periventricular decreased white matter attenuation. No intracranial mass. No intracranial hemorrhage. Posterior fossa: Normal. Midline shift: None Extra-axial fluid collection: None Ventricles: Normal. Mastoid air cells: Normal. Sinuses: Normal. Cranium: No depressed skull fracture. Soft tissues: Normal. Orbits: Orbits demonstrate postoperative changes from prior cataract resection with prosthetic lens implant. CT/CT head/brain wo con IMPRESSION: 1. Chronic small vessel ischemic change. 2. Otherwise, no CT evidence for acute pathology. 3. If patient continues to have symptoms or if there remains any further clinical concern, MRI may help better delineate. Electronically authenticated by: EJ LEAVITT Date: 02/03/2024 17:59
[2024-02-03] MEDS: ACETAMINOPHEN 325 MG TABLET 650 MG PO (18:06)
--- NOTE | 2024-02-03 18:12 | ED_ITS ---
HPI HPI - General Adult General Chief complaint: Weakness Stated complaint: WEAKNESS/SOB Time Seen by Provider: 02/03/24 16:34 Mode of arrival: walk-in History of Present Illness HPI narrative: The patient is coming with her son who noticed just a few hours ago that she has been not acting herself as she is complaining of multiple things at the same appointment when they were outside together, the patient was visiting a friend who had sepsis and infection, few hours later she did complain that she is hurting all over but her son thought that she is not acting herself and little bit confused and he brought her over to us The patient herself denies any complaint of arrival. Full review of system did not show any acute pathology Related Data Home Medications ?Medication ?Instructions ?Recorded ?Confirmed sertraline 25 mg tablet 25 mg PO DAILY 08/01/23 02/03/24 atorvastatin 40 mg tablet 40 mg PO DAILY 02/03/24 02/03/24 clopidogrel 75 mg tablet 75 mg PO DAILY 02/03/24 02/03/24 midodrine 5 mg tablet 5 mg PO Q6H 02/03/24 02/03/24 Previous Rx's ?Medication ?Instructions ?Recorded aspirin 325 mg tablet 325 mg PO DAILY #14 tabs 08/04/23 cephalexin 500 mg capsule 500 mg PO Q12H #10 caps 02/03/24 Allergies Allergy/AdvReac Type Severity Reaction Status Date / Time No Known Drug Allergies Allergy Verified 08/01/23 12:51 Opioid HPI Opioid Management Most Recent Opioid Data: Last Pain Scale 6 08/04/23 16:51 08/04/23 Last ORT Total Score 0 08/01/23 17:03 08/01/23 Last ORT Risk Category Low Risk 08/01/23 17:03 08/01/23 Review of Systems ROS Status of ROS 10 or more systems reviewed and unremark able except as noted in history and below [facility] Medical History (Updated 02/03/24 @ 19:10 by Ashley Haywood MD) Moderate aortic stenosis ?I35.0 - Nonrheumatic aortic (valve) stenosis (ICD-10) Postoperative anemia ?D64.9 - Anemia, unspecified (ICD-10) Cardiac murmur ?R01.1 - Cardiac murmur, unspecified (ICD-10) Closed fracture of right hip ?S72.001A - Fracture of unspecified part of neck of right femur, initial encounter for closed fracture (ICD-10) Fall ?W19.XXXA - Unspecified fall, initial encounter (ICD-10) Depression ?F32.A - Depression, unspecified (ICD-10) Social History (Updated 08/01/23 @ 17:11 by Monserrat Farias) Smoking status: Never smoker Non-prescribed substance use: denies use Previous occupational history: house Highest level of school completed/degree received: high school graduate Little interest or pleasure in doing things: not at all Feeling down, depressed, or hopeless: not at all Exam Narrative Exam Narrative: Nurses notes and vital signs reviewed and patient is not hypoxic. General: Well-appearing and in no apparent distress. Skin: Warm, dry, no pallor noted. No rash. Head: Normocephalic, atraumatic. Neck: Supple, non-tender. Eye: Pupils are equal, round and EOMI. No scleral icterus. Ears, Nose, Mouth, and Throat: TM are clear, no nasal mucosal hypertrophy. Oral mucosa is moist, no posterior oropharynx erythema, uvula is mid-line Cardiovascular: Regular Rate and Rhythm without murmur, gallop or rub. Respiratory: No accessory muscle use or respiratory distress. Lungs are clear to auscultation, no wheezing, rales or rhonchi Chest Wall: no tenderness Back: No midline thoracic or lumbar vertebral tenderness. No CVA tenderness Musculoskeletal: normal ROM, no calf or popliteal tenderness, no lower extremity edema/swelling GI: Abdomen is soft, non-distended. Normal bowel sounds. No masses appreciated. No tenderness to palpation. No rebound, guarding, or rigidity noted. Neurological: A&O x4. No cranial nerve dysfunction observed. No truncal ataxia. Moves all extremities. Sensation intact. Psychiatric: Cooperative and interactive. Normal mood and affect. Constitutional Vital Signs, click to edit/add: Last Vital Signs Temp 98.4 F 02/03/24 19:02 Pulse 94 H 02/03/24 18:40 Resp 25 H 02/03/24 18:40 BP 109/77 02/03/24 18:30 Pulse Ox 97 02/03/24 17:50 O2 Del Method Room Air 02/03/24 16:43 Course Vital Signs Vital signs: Vital Signs Temperature 100.1 F 11/03/24 16:27 Pulse Rate 136 H 02/03/24 16:27 Respiratory Rate 18 02/03/24 16:27 Blood Pressure 70/30 L 02/03/24 16:27 Pulse Oximetry 98 02/03/24 16:27 Oxygen Delivery Method Room Air 02/03/24 16:27 Temperature 98.4 F 02/03/24 19:02 Pulse Rate 94 H 02/03/24 18:40 Respiratory Rate 25 H 02/03/24 18:40 Blood Pressure 109/77 02/03/24 18:30 Pulse Oximetry 97 02/03/24 17:50 Oxygen Delivery Method Room Air 02/03/24 16:43 Medical Decision Making [facility] Narrative Medical decision making narrative: The patient will arrival her EKG shows sinus tachycardia with nonspecific changes she did not have any chest pain The patient was noted to have fever upon arrival CBC showed no leukocytosis lactic acid was within normal The patient blood pressure was initially on the lower normal but apparently the patient have a history of low blood pressure Patient chemistry shows mild acute kidney injury COVID test is negative as well as flu test Chest x-ray showed no acute pathology CT head showed no acute pathology The patient did not have any complaint to begin with and she was feeling much better regarding her heart rate improving and she had no fever after being treated supportively with fluids and Tylenol in the ER The patient EKG showing after she was provided IV fluid normal sinus rhythm with no ST elevation or depression with heart rate of 99 The patient urinalysis shows mild signs of infection I will cover her with Keflex just to be covering all possible infection source at the moment The patient son will go with her today home and he will spend the night with her she is to keep herself hydrated and in case of any new symptoms or any concern he is to bring her back to the ER The patient is to follow up with primary care physician in next 2-3 days or to return to the emergency department should any of the signs or symptoms worsen or new symptoms develop. The patient agrees with the following Diagnosis and Treatment plan and the patient will be discharged home. Lab Data Labs: Lab Results 02/03/24 02/03/24 02/03/24 Range/Units 16:36 16:41 18:00 WBC 10.6 (4.0-11.0) 10^3/uL RBC 4.80 (4.20-5.40) 10^6/uL Hgb 14.2 (12.0-16.0) g/dL Hct 40.7 (36.0-48.0) % MCV 84.8 (81.0-99.0) fL MCH 29.6 (26.7-34.0) pg MCHC 34.9 (29.9-35.2) g/dL RDW 13.5 (11.0-15.0) % Plt Count 251 (150-450) 10^3/uL MPV 9.1 L (9.5-13.5) fL Neut % (Auto) 70.9 (43.0-75.0) % Lymph % (Auto) 18.9 L (20.5-60.0) % Nolan % (Auto) 9.2 (1.7-12.0) % Eos % (Auto) 0.3 L (0.9-7.0) % Baso % (Auto) 0.3 (0.2-2.0) % Neut # (Auto) 7.5 H (1.4-6.5) 10^3/uL Lymph # (Auto) 2.0 (1.2-3.8) 10^3/uL Nolan # (Auto) 1.0 H (0.3-0.8) 10^3/uL Eos # (Auto) 0.0 (0.0-0.7) 10^3/uL Baso # (Auto) 0.0 (0.0-0.1) 10^3/uL Abs Immat Gran (auto) 0.04 H (0.00-0.03) 10^3/uL Imm/Tot Granulo (auto) 0.4 (0.0-0.5) % PT 11.7 H (9.0-11.6) sec INR 1.12 Sodium 143 (136-145) mmol/L Potassium 3.8 (3.5-5.1) mmol/L Chloride 104 (98-107) mmol/L Carbon Dioxide 24.0 (21.0-32.0) mmol/L Anion Gap 18.8 BUN 31.0 H (7.0-18.0) mg/dL Creatinine 1.41 H (0.55-1.02) mg/dL Est GFR ( Amer) 43 L (>=60 mL/min/1.73m^2) Est GFR (Non-Af Amer) 35 L (>=60 mL/min/1.73m^2) BUN/Creatinine Ratio 22.0 Glucose 121 H (74-106) mg/dL Lactate 1.7 (0.4-2.0) mmol/L Calcium 10.1 (8.5-10.1) mg/dL Total Bilirubin 1.3 H (0.2-1.0) mg/dL AST 54 H (15-37) U/L ALT 21 (14-59) U/L Alkaline Phosphatase 64 (46-116) U/L Troponin I High Sens 11.5 (4.0-51.3) pg/mL Total Protein 7.3 (6.4-8.2) g/dL Albumin 3.5 (3.4-5.0) g/dL Globulin 3.8 g/dL Albumin/Globulin Ratio 0.9 Urine Color Lt. yellow (YELLOW) Urine Clarity Clear (CLEAR) Urine pH 7.0 (5.0-9.0) Ur Specific Hugo 1.010 (1.005-1.025) Urine Protein Negative (NEG/TRACE) mg/dL Urine Glucose (UA) Negative (NEGATIVE) mg/dL Urine Ketones Negative (NEGATIVE) mg/dL Urine Occult Blood Negative (NEGATIVE) Urine Nitrite Negative (NEGATIVE) Urine Bilirubin Negative (NEGATIVE) Urine Urobilinogen 0.2 (0.2-1.0) EU/dL Ur Leukocyte Esterase Trace A (NEGATIVE) Urine RBC 0-2 (0-2) #/HPF Urine WBC 2-5 A (NONE SEEN) #/HPF Ur Squamous Epith Cells Rare (NONE/RARE) #/LPF Urine Crystals None seen (None Seen) #/HPF Urine Bacteria Trace A (NONE SEEN) #/HPF Urine Casts None seen (NONE SEEN) #/LPF Urine Mucus None seen (NONE SEEN) Influenza Type A Ag Negative Influenza Type B Ag Negative SARS-CoV-2 Ag (CV2AG) Negative (NEGATIVE) Discharge Plan Discharge Chief Complaint: Weakness Clinical Impression: Viral illness, Acute UTI Patient Disposition: Home, Self-Care Time of Disposition Decision: 19:10 Condition: Good Prescriptions / Home Meds: New cephalexin 500 mg capsule 500 mg PO Q12H Qty: 10 0RF No Action sertraline 25 mg tablet 25 mg PO DAILY aspirin 325 mg tablet 325 mg PO DAILY Qty: 14 0RF atorvastatin 40 mg tablet 40 mg PO DAILY clopidogrel 75 mg tablet 75 mg PO DAILY midodrine 5 mg tablet 5 mg PO Q6H Print Language: Cape Verdean Instructions: Urinary Tract Infection in Women (DC), Viral Syndrome (ED) Referrals: ANA GUADALUPE [Primary Care Provider] - 1 week
--- NOTE | 2024-02-03 18:14 | ECG_ITS ---
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
[2024-02-03 18:15] LABS: Bilirubin Urine NEGATIVE (NEGATIVE); Blood Urine NEGATIVE (NEGATIVE); Clarity Urine CLEAR (CLEAR); Color Urine LT. YELLOW (YELLOW); Glucose Urine UA NEGATIVE (NEGATIVE); Ketones Urine NEGATIVE (NEGATIVE); Leukocyte Esterase Urine TRACE (NEGATIVE); Nitrite Urine NEGATIVE (NEGATIVE); Protein Urine NEGATIVE (NEG/TRACE); Urobilinogen Urine 0.2 EU/dL (0.2-1.0)
[2024-02-03 18:17] LABS: Urine Microscopic Indicated YES
[2024-02-03 18:26] LABS: Bacteria Urine TRACE #/HPF (NONE SEEN); Cast Seen? NONE SEEN #/LPF (NONE SEEN); Crystals Seen? None Seen #/HPF (None Seen); Mucus Urine NONE SEEN (NONE SEEN); RBC Urine 0-2 #/HPF (0-2); Squamous Epithelial Cell Urine RARE #/LPF (NONE/RARE)
[2024-02-03] MEDS: CEPHALEXIN 500 MG CAPSULE PO (19:25)
== END 2024-02-03 19:39 | disposition home or self-care (01) ==
PROVIDERS: Emergency Provider Emergency Medicine; PCP Internal Medicine
DX: N39.0 Urinary tract infection, site not specified (principal); R50.9 Fever, unspecified; B34.9 Viral infection, unspecified; R53.1 Weakness; R06.02 Shortness of breath
CPT/HCPCS: 36415; 70450; 71045; 80053; 81001; 83605; 84484; 85025; 85610; 87804; 87811; 93005; 99285